=== PATIENT | female | born 1955 | race Caucasian/White ===

== ENCOUNTER 2016-09-16 15:09 | Emergency (ER) | payer OTHER, BC ==
[~2016-09-16] VITALS: Ht 165.1 cm; Wt 49.0 kg
[~2016-09-16 15:09] MED LIST: CMD5 PO; FLUT1INH INH; IPRASOL4 INH; OXGN; PHEN-1043 PO; WARF2.5T8 PO
[2016-09-16 15:11] VITALS: TEMP 36.9; Ht 165.1 cm; Wt 49.0 kg
[2016-09-16 15:59] VITALS: O2SAT 96
[2016-09-16] MEDS ORDERED: HYDROCODONE/ACETAMOPHEN 5/325MG TAB PO ONE (16:00)
[2016-09-16] MEDS ORDERED: DOXY100T PO (16:08)
[2016-09-16] MEDS ORDERED: WARF5TAB90 PO (16:08)
[2016-09-16] MEDS ORDERED: FLUT1INH INH (16:08)
[2016-09-16] MEDS ORDERED: CALC-51 PO (16:08)
[2016-09-16] MEDS ORDERED: PRLSR20 PO (16:08)
[2016-09-16] MEDS ORDERED: AZIT250T PO (16:08)
--- NOTE | 2016-09-16 16:11 | EMERGENCY ROOM VISIT NOTE ---
History Report prepared by Damir: Zeke Youssef Under the Supervision of: Dr. Kal Roberts M.D. First contact with patient: 15:15 Chief Complaint: BACK PAIN Stated Complaint: BACK PAIN History of Present Illness The patient is a 61 year old female who presents to the Emergency Room with complaints of worsening lower/lumbar back pain that began one week prior to arrival. The patient states that her pain is worsened by standing from a seated position, and standing in general. She denies any recent injury that could have caused her pain, but did note that the day before the pain began she was sitting on the floor cleaning her cabinets. She has been taking Tylenol for her pain, and took her last dose this morning at 0700. She has also been using hot baths and Bengay therapeutically, which improves the pain only for a short time. The patient denies any secondary numbness, weakness, dysuria, incontinence , or shortness of breath. She does have a history of kidney stone, and states that these symptoms feel similar to those she felt when she had a stone one year ago. She denies having any urinary symptoms, or blood in the urine. The patient has a history of DVT and is currently on Coumadin. 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 Please see Additional Medical History Sheet. Past Medical & Surgical Medical Problems: (1) Abdominal pain (2) Benign hypertension (3) Carotid artery stenosis (4) CHRONIC HEPATITIS C W/O HEPATIC COMA (5) Chronic respiratory failure (6) COPD (chronic obstructive pulmonary disease) (7) CYTOMEGALOVIRAL DISEASE (8) H/O pneumothorax (9) History of Clostridium difficile colitis (10) History of DVT (deep vein thrombosis) (11) Pneumonia (12) Sarcoidosis (13) Ulcerative colitis (14) UTI (urinary tract infection) Surgical Problems: (1) S/p bullectomy (2) S/P insertion of IVC (inferior vena caval) filter (3) S/p thoracoscopy Family History Diabetes mellitus FH: kidney failure MOTHER Gallbladder disease Heart disease Lung disease Social History Smoking Status: Former Smoker Alcohol Use: none Drug Use: none Marital Status: Housing Status: lives with family Occupation Status: retired Current/Historical Medications Scheduled Azithromycin (Zithromax), 250 MG PO - Calcium Carbonate-Vitamin D (Calcium), 1 TAB PO BID Cholecalciferol (Vitamin D 1000 Unit), 1,000 INTER.UNIT PO DAILY Doxycycline Hyclate (Doxycycline Hyclate), 1 TAB PO BID Fluticasone Furoate-Vilanterol (Breo Ellipta), 1 PUFF INH DAILY Mesalamine (Lialda), 2.4 GM PO DAILY Omeprazole (Prilosec), 20 MG PO BID Potassium Chloride Microencaps (Potassium Chloride Er), 1 TAB PO DAILY Prednisone (Prednisone), 10 MG PO DAILY Warfarin Sod (Jantoven), 2.5 MG PO 3XWK Warfarin Sodium (Coumadin), 5 MG PO 4XWK Scheduled PRN Hydrocodone/Acetaminophen 5MG/325MG (Zachary 5MG/325MG), 1 TABLETS PO Q4 PRN for Pain Ipratropium-Albuterol (Duoneb), 1 TREATMENT INH QID PRN for SOB/Wheezing Allergies Coded Allergies: Levofloxacin (Verified Allergy, Mild, rash, 03/10/16) Penicillins (Verified Allergy, Unknown, Amoxil - rash, 03/11/16) RASH mother told her as a child, has never had it as an adult. tolerates cefalosporins fine Theophylline (Verified Adverse Reaction, Mild, Headache, 03/10/16) HEADACHE Bacitracin (Verified Adverse Reaction, Unknown, infection, 03/10/16) Neomycin (Verified Adverse Reaction, Unknown, infection, 03/10/16) Polymyxin B (Verified Adverse Reaction, Unknown, infection, 03/10/16) Physical Exam Vital Signs Date Time Temp Pulse Resp B/P Pulse Ox O2 Delivery O2 Flow Rate FiO2 09/16/16 18:15 98 20 152/110 98 09/16/16 18:02 98 152/114 98 Nasal Cannula 2.0 09/16/16 16:48 95 18 161/86 97 Room Air 09/16/16 15:59 96 Nasal Cannula 3.0 09/16/16 15:11 36.9 122 20 164/86 93 Nasal Cannula 2.0 Physical Exam GENERAL: Patient awake, alert, oriented x 3. In mild to moderate distress. On oxygen. Patient follows commands. Patient does not appear toxic. Patient is adequately hydrated and well-nourished. SKIN: No erythema, pallor, cyanosis or rash HEENT: Normal head, pupils equal, reactive to light and accommodation. LUNGS: Clear to auscultation. No wheezes, no rales, no rhonchi. HEART: No murmurs. No gallops. No rubs ABDOMEN: No masses, no rebound, no hepatomegaly or splenomegaly. BACK: Tenderness above the right iliac crest. Lumbar pain, right greater than the left. No CVA tenderness. Negative Straight leg raise. Majority of pain under back extension. EXTREMITIES: No signs of trauma. No pedal or pretibial edema. No calf or thigh tenderness. NEUROLOGIC: Cranial nerves II-XII within normal limits. No gross motor sensory function deficits. Medical Decision & Procedures ER Provider Diagnostic Interpretation: CT results as stated below per my review and radiologist interpretation: CT SCAN OF THE ABDOMEN AND PELVIS WITHOUT IV CONTRAST CLINICAL HISTORY: Back pain. COMPARISON STUDY: Abdominal CT dated 03/10/2016. TECHNIQUE: CT scan of the abdomen and pelvis is performed from the lung bases to the proximal femora. Images are reviewed in the axial, sagittal, and coronal planes. IV contrast was not administered for this examination. Automated dose control exposure was utilized. CT DOSE: 393.18 mGycm FINDINGS: Lung bases: The heart is normal in size and without pericardial effusion. The coronary arteries are densely calcified. Advanced emphysema is noted at the lung bases. There is bibasilar scarring versus atelectasis. No airspace consolidation or pleural effusion is seen. Liver: The unenhanced liver is normal in size, contour, and attenuation. There is no intrahepatic biliary ductal dilatation. Gallbladder: Calcified gallstones are identified. There is no CT evidence of acute cholecystitis. Spleen: Normal in size and attenuation. Pancreas: Unremarkable. Adrenal glands: Unremarkable. Kidneys: The unenhanced kidneys are atrophic and without hydronephrosis. There is an 8 mm nonobstructing calculus in the right upper pole and an additional nonobstructing calculus in the interpolar left kidney. Foci of cortical scarring are seen in the left kidney. There is no evidence of contour deforming renal mass lesion. Abdominal vasculature: The abdominal aorta is normal in course and caliber noting advanced atherosclerotic calcification. An IVC filter is in place at the level of the renal veins. Bowel: The small bowel and colon are normal in course and caliber. The appendix is not identified and reported surgically absent. Peritoneum: There is no intraperitoneal free air or abdominal ascites. Lymphadenopathy: None. Pelvic viscera: The bladder, uterus, and adnexa are normal as visualized. Skeletal structures: The skeletal structures are osteopenic. There is a moderate compression deformity of T12. No retropulsion of fragments is seen. The degree of collapse has modestly increased from 03/10/2016. No lytic or blastic lesions are seen. IMPRESSION: 1. There are no acute infectious or inflammatory findings in the abdomen or pelvis. 2. Bilateral nonobstructing renal calculi. 3. Advanced emphysema. 4. Cholelithiasis. 5. There is a moderate chronic compression deformity of T12. The degree of collapse has increased from 03/10/2016. No retropulsion of fragments is identified. 6. Additional changes as above. Calcifications are noted along the splenic capsule, and may be related to remote trauma. Electronically signed by: Mook Rehman M.D. 09/16/2016 4:35 PM Dictated Date/Time: 09/16/2016 4:23 PM Laboratory Results 09/16/16 16:00 Red Blood Count 4.67, Mean Corpuscular Volume 93.6, Mean Corpuscular Hemoglobin 30.8, Mean Corpuscular Hemoglobin Concent 33.0, Mean Platelet Volume 9.0, Neutrophils (%) (Auto) 70.7, Lymphocytes (%) (Auto) 20.2, Monocytes (%) (Auto) 7.2, Eosinophils (%) (Auto) 1.5, Basophils (%) (Auto) 0.1, Neutrophils # (Auto) 5.28, Lymphocytes # (Auto) 1.51, Monocytes # (Auto) 0.54, Eosinophils # (Auto) 0.11, Basophils # (Auto) 0.01 09/16/16 16:00 Test 09/16/16 15:42 09/16/16 16:00 09/16/16 16:10 Urine Color YELLOW Urine Appearance CLEAR (CLEAR) Urine pH 5.5 (4.5-7.5) Urine Specific [place] 1.012 (1.000-1.030) Urine Protein NEG (NEG) Urine Glucose (UA) NEG (NEG) Urine Ketones TRACE (NEG) Urine Occult Blood NEG (NEG) Urine Nitrite NEG (NEG) Urine Bilirubin NEG (NEG) Urine Urobilinogen NEG (NEG) Urine Leukocyte Esterase SMALL (NEG) Urine WBC (Auto) 10-30 /hpf (0-5) Urine RBC (Auto) 0-4 /hpf (0-4) Urine Hyaline Casts (Auto) 1-5 /lpf (0-5) Urine Epithelial Cells (Auto) 10-20 /lpf (0-5) Urine Bacteria (Auto) NEG (NEG) White Blood Count 7.47 K/uL (4.8-10.8) Red Blood Count 4.67 M/uL (4.2-5.4) Hemoglobin 14.4 g/dL (12.0-16.0) Hematocrit 43.7 % (37-47) Mean Corpuscular Volume 93.6 fL (80-100) Mean Corpuscular Hemoglobin 30.8 pg (25-34) Mean Corpuscular Hemoglobin Concent 33.0 g/dl (32-36) Platelet Count 187 K/uL (130-400) Mean Platelet Volume 9.0 fL (7.4-10.4) Neutrophils (%) (Auto) 70.7 % Lymphocytes (%) (Auto) 20.2 % Monocytes (%) (Auto) 7.2 % Eosinophils (%) (Auto) 1.5 % Basophils (%) (Auto) 0.1 % Neutrophils # (Auto) 5.28 K/uL (1.4-6.5) Lymphocytes # (Auto) 1.51 K/uL (1.2-3.4) Monocytes # (Auto) 0.54 K/uL (0.11-0.59) Eosinophils # (Auto) 0.11 K/uL (0-0.5) Basophils # (Auto) 0.01 K/uL (0-0.2) RDW Standard Deviation 47.3 fL (36.4-46.3) RDW Coefficient of Variation 13.8 % (11.5-14.5) Immature Granulocyte % (Auto) 0.3 % Immature Granulocyte # (Auto) 0.02 K/uL (0.00-0.02) Anion Gap 7.0 mmol/L (3-11) Est Creatinine Clear Calc Drug Dose 61.0 ml/min Estimated GFR () 101.6 Estimated GFR (Non- 87.7 BUN/Creatinine Ratio 24.8 (10-20) Calcium Level 8.6 mg/dl (8.5-10.1) Prothrombin Time 37.0 SECONDS (9.0-12.0) Prothromb Time International Ratio 3.3 (0.9-1.1) Laboratory results as stated above per my review. Medications Administered Medications (Trade) Dose Ordered Sig/Devora Route Start Time Stop Time Status Last Admin Dose Admin Acetaminophen/ Hydrocodone Bitart (Zachary 5/325 Tab) 1 tab ONE ONCE PO 09/16/16 16:00 09/16/16 16:01 DC 09/16/16 16:06 1 TAB Acetaminophen/ Hydrocodone Bitart (Zachary 5/325mg Home Pack) 1 homepack UD ONCE PO 09/16/16 18:30 09/16/16 18:31 DC 09/16/16 18:25 1 HOMEPACK ED Course 1516: Patient was evaluated by the Medical Student at this time. 1546: Past medical records reviewed. The patient was evaluated in room A3. A complete history and physical examination was performed. 1600: Ordered Acetaminophen 1 tablet PO. 1733: Upon reevaluation, the patient appeared to have improvement of her back pain symptoms. I discussed today's findings with her. She verbalized agreement of the treatment plan. The patient was discharged home. Medical Decision Differential diagnosis includes: Fracture, muscle strain, kidney stone, bladder stone, herniated disk. The patient claims that her pain is similar to what she had with a kidney stone in the past. CT does not reveal a ureteral calculus. The patient does have an old but more compressed T12 compression fracture. Most likely this is the source of her pain. The patient did get some relief with Zachary which she will take at home. The patient is also hypokalemic. The patient has numerous white cells in the urine but this appears to be contaminated specimen. We await culture results of her urine prior to antibiotic treatment. [place] Drug Monitoring Program Search Results: patient reviewed within database, no issues identified Impression Primary Impression: T12 compression fracture Additional Impression: Hypokalemia Scribe Attestation The scribe's documentation has been prepared under my direction and personally reviewed by me in its entirety. I confirm that the note above accurately reflects all work, treatment, procedures, and medical decision making performed by me. Departure Information Dispostion Home / Self-Care Prescriptions Hydrocodone/Acetaminophen 5MG/325MG (Zachary 5MG/325MG) Tab 1 TABLETS PO Q4 Y for Pain, #20 TAB PRN PAIN Prov: Kal Roberts M.D. 09/16/16 Potassium Chloride Microencaps (POTASSIUM CHLORIDE ER) 10 Meq Tab 1 TAB PO DAILY for 30 Days, #30 TAB 5 Refills Prov: Kal Roberts M.D. 09/16/16 Referrals James Barahona M.D. (PCP) Patient Instructions ED Fx Comp Vertebral, Hypokalemia Dc, My [facility] Additional Instructions Take 1 potassium pill daily. 650 mg of Tylenol every 4-6 hours as needed for pain. 1 Zachary every 4 hours as needed for more severe pain. Do not take Zachary and Tylenol at the same time. Do not drive or operate machinery while taking Zachary. Follow-up with your family physician within the next 10 days. Apply heat intermittently to your back over the next 3 days. Problem Qualifiers
[2016-09-16 16:12] LABS: URINE APPEARANCE CLEAR (CLEAR); URINE BILIRUBIN NEG (NEG); URINE COLOR YELLOW; URINE NITRITE NEG (NEG); URINE PH 5.5 (4.5-7.5); URINE SPECIFIC GRAVITY 1.012 (1.000-1.030); UROBILINOGEN NEG (NEG); ZZUR CULT IF INDIC CLEAN CATCH YES
[2016-09-16 16:22] LABS: BASO % 0.1 %; BASO ABS # 0.01 K/uL (0-0.2); COMPLETE YES; EOS % 1.5 %; HEMATOCRIT 43.7 % (37-47); IG% 0.3 %; LYMPH % 20.2 %; LYMPH ABS # 1.51 K/uL (1.2-3.4); MEAN CELL VOLUME 93.6 fL (80-100); MEAN CORPUSCULAR HEMOGLOBIN 30.8 pg (25-34); MONO % 7.2 %; NEUT % 70.7 %; PLATELET COUNT 187 K/uL (130-400); RED BLOOD COUNT 4.67 M/uL (4.2-5.4); WHITE BLOOD COUNT 7.47 K/uL (4.8-10.8)
[2016-09-16 16:22] LABS: MANUAL MICROSCOPIC REQUIRED? NO; REVIEW REQ? YES
--- NOTE | 2016-09-16 16:36 | DIAGNOSTIC IMAGING REPORT ---
CT SCAN OF THE ABDOMEN AND PELVIS WITHOUT IV CONTRAST CLINICAL HISTORY: Back pain. COMPARISON STUDY: Abdominal CT dated 03/10/2016. TECHNIQUE: CT scan of the abdomen and pelvis is performed from the lung bases to the proximal femora. Images are reviewed in the axial, sagittal, and coronal planes. IV contrast was not administered for this examination. Automated dose control exposure was utilized. CT DOSE: 393.18 mGycm FINDINGS: Lung bases: The heart is normal in size and without pericardial effusion. The coronary arteries are densely calcified. Advanced emphysema is noted at the lung bases. There is bibasilar scarring versus atelectasis. No airspace consolidation or pleural effusion is seen. Liver: The unenhanced liver is normal in size, contour, and attenuation. There is no intrahepatic biliary ductal dilatation. Gallbladder: Calcified gallstones are identified. There is no CT evidence of acute cholecystitis. Spleen: Normal in size and attenuation. Pancreas: Unremarkable. Adrenal glands: Unremarkable. Kidneys: The unenhanced kidneys are atrophic and without hydronephrosis. There is an 8 mm nonobstructing calculus in the right upper pole and an additional nonobstructing calculus in the interpolar left kidney. Foci of cortical scarring are seen in the left kidney. There is no evidence of contour deforming renal mass lesion. Abdominal vasculature: The abdominal aorta is normal in course and caliber noting advanced atherosclerotic calcification. An IVC filter is in place at the level of the renal veins. Bowel: The small bowel and colon are normal in course and caliber. The appendix is not identified and reported surgically absent. Peritoneum: There is no intraperitoneal free air or abdominal ascites. Lymphadenopathy: None. Pelvic viscera: The bladder, uterus, and adnexa are normal as visualized. Skeletal structures: The skeletal structures are osteopenic. There is a moderate compression deformity of T12. No retropulsion of fragments is seen. The degree of collapse has modestly increased from 03/10/2016. No lytic or blastic lesions are seen. IMPRESSION: 1. There are no acute infectious or inflammatory findings in the abdomen or pelvis. 2. Bilateral nonobstructing renal calculi. 3. Advanced emphysema. 4. Cholelithiasis. 5. There is a moderate chronic compression deformity of T12. The degree of collapse has increased from 03/10/2016. No retropulsion of fragments is identified. 6. Additional changes as above. Calcifications are noted along the splenic capsule, and may be related to remote trauma. Electronically signed by: Mook Rehman M.D. 09/16/2016 4:35 PM Dictated Date/Time: 09/16/2016 4:23 PM
[2016-09-16 16:41] LABS: BUN/CREATININE RATIO 24.8 (10-20); CALCIUM 8.6 mg/dl (8.5-10.1); CREATININE 0.73 mg/dl (0.60-1.20); POTASSIUM 3.2 mmol/L (3.5-5.1)
[2016-09-16] MEDS ORDERED: CHOL100027 PO (16:41)
[2016-09-16] MEDS ORDERED: MESA1.2T PO (16:41)
[2016-09-16] MEDS ORDERED: POTA10TA32 PO (17:17)
[2016-09-16] MEDS ORDERED: HYDR-5688 PO (17:20)
[2016-09-16 17:28] LABS: INR 3.3 (0.9-1.1)
[2016-09-16 18:15] VITALS: BP 152/110; PULSE 98; O2SAT 98
[2016-09-16] MEDS ORDERED: NORCO 5/325MG HOME PACK PO ONE (18:30)
[2016-09-16] MEDS ORDERED: PRED-301 PO (22:29)
[2017-04-02] MEDS ORDERED: VNCS125 PO (15:31)
[2017-04-02] MEDS ORDERED: LCTX PO (15:31)
== END 2016-09-16 18:32 | disposition home or self-care (01) ==
LOC: C.EDB 15:10 → C.EDA 18:32
DX: S22.089A Unspecified fracture of T11-T12 vertebra, initial encounter for closed fracture (principal); E87.6 Hypokalemia; X58.XXXA Exposure to other specified factors, initial encounter; I10 Essential (primary) hypertension; J44.9 Chronic obstructive pulmonary disease, unspecified; Z86.718 Personal history of other venous thrombosis and embolism; Z86.711 Personal history of pulmonary embolism; Z79.01 Long term (current) use of anticoagulants; B18.2 Chronic viral hepatitis C; I25.10 Atherosclerotic heart disease of native coronary artery without angina pectoris; Z87.891 Personal history of nicotine dependence; Z79.899 Other long term (current) drug therapy

== ENCOUNTER 2017-03-31 11:21 | Inpatient (IN) | payer OTHER, BC ==
[~2017-03-31] VITALS: Ht 157.5 cm; Wt 48.7 kg
[~2017-03-31 11:21] MED LIST changes: +AZIT250T PO; +CALC-51 PO; +CHOL100027 PO; -CMD5 PO; +DOXY100T PO; +MESA1.2T PO; -OXGN; -PHEN-1043 PO; +POTA10TA32 PO; +PRED-301 PO; +PRLSR20 PO; +WARF5TAB90 PO
[2017-03-31] MEDS ORDERED: SODIUM CHLORIDE 0.9% 1000ML 500 ML IV STA (11:51)
[2017-03-31] MEDS ORDERED: PHYTONADIONE INJ 10 MG in SODIUM CHLORIDE 0.9% 50ML 50 ML IV ONE (12:00)
--- NOTE | 2017-03-31 12:15 | EMERGENCY ROOM VISIT NOTE ---
History Report prepared by Damir: Beverley Singh Under the Supervision of: Dr. Mook Miles M.D. First contact with patient: 11:44 Chief Complaint: RECTAL BLEEDING Stated Complaint: BLEEDING FROM THE RECTUM-COUMADIN PATIENT Nursing Triage Summary: Pt c/o bleeding from Rectum x a couple days. Constant. Coumadin daily. Denies N/V/D Constipation History of Present Illness The patient is a 61 year old female who presents to the Emergency Room with complaints of intermittent rectal bleeding for the past 2 days. The patient noticed some bright red blood in her stool two days ago. She states that it worsened yesterday. Today she was at [facility] for an appointment and felt that she needed to have a bowel movement. She went to the bathroom and states that it was just bright red blood, there was no stool at all. She was wearing two diapers and they were soaked through with blood. The patient is on Coumadin for a history of blood clots. Her INR was checked last week and was therapeutic. She denies fevers, abdominal pain, nausea, vomiting, diarrhea, and any history of GI bleeding. She does report feeling "woozy." She rates her discomfort as a 1.5/10 in severity. She is on 2L of O2 at all times. Source of History: patient, family (daughter) Onset: 2 days ago Position: other (rectum) Symptom Intensity: 1.5/10 Quality: other (bleeding) Timing: intermittent, worsening Associated Symptoms: + hematochezia, No fevers, No nausea, No vomiting, No abdominal pain, No diarrhea Review of Systems See HPI for pertinent positives & negatives. A total of 10 systems reviewed and were otherwise negative. Past Medical & Surgical Medical Problems: (1) Abdominal pain (2) Benign hypertension (3) Carotid artery stenosis (4) CHRONIC HEPATITIS C W/O HEPATIC COMA (5) Chronic respiratory failure (6) COPD (chronic obstructive pulmonary disease) (7) CYTOMEGALOVIRAL DISEASE (8) H/O pneumothorax (9) History of Clostridium difficile colitis (10) History of DVT (deep vein thrombosis) (11) Pneumonia (12) Sarcoidosis (13) Ulcerative colitis (14) UTI (urinary tract infection) Surgical Problems: (1) S/p bullectomy (2) S/P insertion of IVC (inferior vena caval) filter (3) S/p thoracoscopy Family History Diabetes mellitus FH: kidney failure MOTHER Gallbladder disease Heart disease Lung disease Social History Smoking Status: Former Smoker Alcohol Use: none Drug Use: none Marital Status: Housing Status: lives with family Occupation Status: retired Current/Historical Medications Scheduled Azithromycin (Zithromax), 250 MG PO - Cholecalciferol (Vitamin D 1000 Unit), 1,000 INTER.UNIT PO DAILY Denosumab (Prolia), 1 ML SQ Q6MO Fluticasone Furoate-Vilanterol (Breo Ellipta), 1 PUFF INH DAILY Mesalamine (Lialda), 2.4 GM PO DAILY Omeprazole (Prilosec), 20 MG PO BID Warfarin Sod (Jantoven), 2.5 MG PO 3XWK Warfarin Sodium (Coumadin), 5 MG PO 4XWK Scheduled PRN Levalbuterol (Levalbuterol HCl), 1.25 MG NEB Q4 PRN for Wheezing Allergies Coded Allergies: Levofloxacin (Verified Allergy, Mild, rash, 03/31/17) Penicillins (Verified Allergy, Unknown, Amoxil - rash, 03/31/17) RASH mother told her as a child, has never had it as an adult. tolerates cefalosporins fine Phytonadione (Unverified Allergy, Unknown, severe back pain, red face , ) Reaction from IV form, PO form ok Theophylline (Verified Adverse Reaction, Mild, Headache, 03/31/17) HEADACHE Bacitracin (Verified Adverse Reaction, Unknown, infection, 03/31/17) Neomycin (Verified Adverse Reaction, Unknown, infection, 03/31/17) Polymyxin B (Verified Adverse Reaction, Unknown, infection, 03/31/17) Physical Exam Vital Signs Date Time Temp Pulse Resp B/P (MAP) Pulse Ox O2 Delivery O2 Flow Rate FiO2 03/31/17 13:24 96 18 03/31/17 13:16 154/94 03/31/17 13:09 91 19 88 03/31/17 13:04 152/86 03/31/17 12:54 95 20 100 03/31/17 12:46 167/92 03/31/17 12:39 104 19 100 03/31/17 12:34 167/101 03/31/17 12:31 167/110 03/31/17 12:29 198/119 03/31/17 12:27 167/110 03/31/17 12:21 92 21 98 03/31/17 12:19 96 Nasal Cannula 2.0 03/31/17 12:09 99 03/31/17 11:58 150/94 03/31/17 11:32 36.6 123 20 147/94 96 Room Air 2.0 Physical Exam GENERAL: Patient is in no acute distress. HEENT: No acute trauma, normocephalic atraumatic, mucous membranes moist, no nasal congestion, no scleral icterus. NECK: No stridor, no adenopathy, no meningismus, trachea is midline. LUNGS: Diminished breath sounds bilaterally, breath sounds equal, no wheezing or rhonchi. HEART: Tachycardic rate and regular rhythm, no murmurs. ABDOMEN: Soft, nontender, bowel sounds positive, no hernias, no peritonitis. RECTAL: Small hemorrhoids, no active bleeding from the hemorrhoids, bright red blood seen coming from within the rectum EXTREMITIES: No cyanosis or edema, full range of motion of all the joints without pain or difficulty, no signs for acute trauma. NEUROLOGIC: Oriented x 3, no acute motor or sensory deficits, no focal weakness. SKIN: No rash, no jaundice, no diaphoresis. Medical Decision & Procedures ER Provider Diagnostic Interpretation: Radiology results as stated below per my review and radiologist interpretation: CHEST ONE VIEW PORTABLE CLINICAL HISTORY: GI bleed. COMPARISON STUDY: Chest radiograph and chest CT September 21, 2015. FINDINGS: No pneumothorax or pleural effusion is present. Blunting of the right costophrenic angle is chronic. There is no evidence of pulmonary edema. There are old right rib fractures. Right lung postsurgical findings are noted. Severe emphysema is noted. There is left apical scarring. There is no consolidation to suggest pneumonia. Cardiomediastinal silhouette is normal. IMPRESSION: 1. No acute cardiopulmonary findings. 2. Severe emphysema. Electronically signed by: Faustino August M.D. 03/31/2017 12:28 PM Dictated Date/Time: 03/31/2017 12:26 PM Laboratory Results 03/31/17 12:05 Red Blood Count 4.36, Mean Corpuscular Volume 91.3, Mean Corpuscular Hemoglobin 28.9, Mean Corpuscular Hemoglobin Concent 31.7, Mean Platelet Volume 9.5, Neutrophils (%) (Auto) 65.2, Lymphocytes (%) (Auto) 23.3, Monocytes (%) (Auto) 9.5, Eosinophils (%) (Auto) 1.1, Basophils (%) (Auto) 0.7, Neutrophils # (Auto) 3.97, Lymphocytes # (Auto) 1.42, Monocytes # (Auto) 0.58, Eosinophils # (Auto) 0.07, Basophils # (Auto) 0.04 03/31/17 12:05 Test 03/31/17 12:05 White Blood Count 6.09 K/uL (4.8-10.8) Red Blood Count 4.36 M/uL (4.2-5.4) Hemoglobin 12.6 g/dL (12.0-16.0) Hematocrit 39.8 % (37-47) Mean Corpuscular Volume 91.3 fL (80-100) Mean Corpuscular Hemoglobin 28.9 pg (25-34) Mean Corpuscular Hemoglobin Concent 31.7 g/dl (32-36) Platelet Count 216 K/uL (130-400) Mean Platelet Volume 9.5 fL (7.4-10.4) Neutrophils (%) (Auto) 65.2 % Lymphocytes (%) (Auto) 23.3 % Monocytes (%) (Auto) 9.5 % Eosinophils (%) (Auto) 1.1 % Basophils (%) (Auto) 0.7 % Neutrophils # (Auto) 3.97 K/uL (1.4-6.5) Lymphocytes # (Auto) 1.42 K/uL (1.2-3.4) Monocytes # (Auto) 0.58 K/uL (0.11-0.59) Eosinophils # (Auto) 0.07 K/uL (0-0.5) Basophils # (Auto) 0.04 K/uL (0-0.2) RDW Standard Deviation 43.4 fL (36.4-46.3) RDW Coefficient of Variation 13.0 % (11.5-14.5) Immature Granulocyte % (Auto) 0.2 % Immature Granulocyte # (Auto) 0.01 K/uL (0.00-0.02) Prothrombin Time 21.0 SECONDS (9.0-12.0) Prothromb Time International Ratio 1.9 (0.9-1.1) Activated Partial Thromboplast Time 35.1 SECONDS (21.0-31.0) Partial Thromboplastin Ratio 1.4 Anion Gap 4.0 mmol/L (3-11) Est Creatinine Clear Calc Drug Dose 64.0 ml/min Estimated GFR () 106.9 Estimated GFR (Non- 92.2 BUN/Creatinine Ratio 17.2 (10-20) Calcium Level 8.9 mg/dl (8.5-10.1) Troponin I < 0.015 ng/ml (0-0.045) Laboratory results reviewed by me. Medications Administered Medications (Trade) Dose Ordered Sig/Devora Route Start Time Stop Time Status Last Admin Dose Admin Sodium Chloride 500 ml @ 999 mls/hr Q31M STAT IV 03/31/17 11:51 03/31/17 12:21 DC 03/31/17 11:51 999 MLS/HR Sodium Chloride 1,000 ml @ 200 mls/hr Q5H STAT IV 03/31/17 11:51 03/31/17 15:15 DC 03/31/17 13:05 200 MLS/HR Phytonadione 10 mg/Sodium Chloride 51 ml @ 102 mls/hr ONE ONCE IV 03/31/17 12:00 03/31/17 12:29 DC 03/31/17 12:21 102 MLS/HR Diphenhydramine HCl (Benadryl Inj) 50 mg STK-MED ONCE .ROUTE 03/31/17 12:31 03/31/17 12:32 DC 03/31/17 12:25 25 MG Phytonadione (Mephyton Tab) 2.5 mg NOW STAT PO 03/31/17 12:45 03/31/17 12:47 DC 03/31/17 13:01 2.5 MG ECG Indication: tachycardia Rate (beats per minute): 99 Rhythm: normal sinus Findings: no acute ischemic change, no ectopy ED Course 1144: The patient was evaluated in room C8. A complete history and physical exam was performed. 1151: NSS 1000 ml @ 200 mls/hr IV, NSS 500 ml @ 999 mls/hr IV 1200: Phytonadione 10 mg/Sodium Chloride IV - discontinued 1231: Benadryl 25 mg IV 1234: I reevaluated the patient. She had a reaction to the vitamin K IV. The medication was discontinued. 1242: I spoke with Dr. Ojeda of the anticoagulation clinic. We discussed the patient's case and she recommended oral vitamin K. 1245: Mephyton tab 2.5 mg PO 1246: I reassessed the patient at this time. She is feeling better and resting comfortably. I discussed the results and treatment plan with the patient. I answered all pertaining questions that she had. She expressed understanding and verbalized agreement. 1250: I spoke with Gisela Devine PA-C. We discussed the patients case. The patient will be evaluated by the [facility] for further management. Medical Decision Differential diagnoses includes coagulopathy, anemia, lower GI bleeding, hemorrhoidal bleeding, electrolyte imbalance, dehydration. There is no leukocytosis or concerning anemia. INR is 1.9, consistent with her Coumadin use. There was no significant electrolyte abnormality or kidney failure. Chest film did not show free air or pneumonia. EKG showed a sinus rhythm, no acute ischemia. Cardiac enzyme testing times one is not consistent with acute cardiac injury. The patient received IV saline, she was ordered for IV vitamin K but had a reaction, she became flushed and felt a sense of impending doom. She received IV Benadryl and the infusion was halted. She had almost immediate resolution of the redness and impending doom feeling when the vitamin K infusion was halted. I discussed her case with the coagulation warehouse consultant fitness sales consultant. Oral vitamin K was given, 2.5 mg. The patient's heart rate has decreased with IV saline, she seems to be resting comfortably. She is stable. The patient has hemorrhoids but appears to be bleeding internally. Given her coagulopathy, I do think a hospital stay is warranted. I spoke with the patient and case management. The on-call hospitalist was consulted. Medication Reconcilliation Current Medication List: was personally reviewed by me Blood Pressure Screening Patient's blood pressure: Elevated blood pressure Blood pressure disposition: Elevated BP felt to be situational Consults Time Called: 1239 Consulting Physician: Dr. Ojeda Returned Call: [address] Ojeda of the anticoagulation clinic. We discussed the patient 's case and she recommended oral vitamin K. Additional Consults: Time Called: 1248 Consulted Physician: Gisela Devine PA-C Returned Call: 1250 Additional Comments: I spoke with Gisela Devine PA-C. We discussed the patients case. The patient will be evaluated by the [facility] for further management. Impression Primary Impression: Rectal bleeding Additional Impression: Coagulopathy Scribe Attestation The scribe's documentation has been prepared under my direction and personally reviewed by me in its entirety. I confirm that the note above accurately reflects all work, treatment, procedures, and medical decision making performed by me. Departure Information Dispostion Being Evaluated By Hospitalist Referrals No Doctor, Assigned (PCP) Patient Instructions My [facility] Problem Qualifiers
[2017-03-31] MEDS: SODIUM CHLORIDE 0.9% 1000ML 1,000 ML IV STA ×2 (12:21→13:05)
[2017-03-31 12:23] LABS: BASO % 0.7 %; BASO ABS # 0.04 K/uL (0-0.2); COMPLETE YES; EOS % 1.1 %; HEMATOCRIT 39.8 % (37-47); IG% 0.2 %; LYMPH % 23.3 %; LYMPH ABS # 1.42 K/uL (1.2-3.4); MEAN CELL VOLUME 91.3 fL (80-100); MEAN CORPUSCULAR HEMOGLOBIN 28.9 pg (25-34); MEAN CORPUSCULAR HGB CONC 31.7 g/dl (32-36); MEAN PLATELET VOLUME 9.5 fL (7.4-10.4); MONO % 9.5 %; NEUT % 65.2 %; PLATELET COUNT 216 K/uL (130-400); RED BLOOD COUNT 4.36 M/uL (4.2-5.4); WHITE BLOOD COUNT 6.09 K/uL (4.8-10.8)
--- NOTE | 2017-03-31 12:30 | DIAGNOSTIC IMAGING REPORT ---
CHEST ONE VIEW PORTABLE CLINICAL HISTORY: GI bleed. COMPARISON STUDY: Chest radiograph and chest CT September 21, 2015. FINDINGS: No pneumothorax or pleural effusion is present. Blunting of the right costophrenic angle is chronic. There is no evidence of pulmonary edema. There are old right rib fractures. Right lung postsurgical findings are noted. Severe emphysema is noted. There is left apical scarring. There is no consolidation to suggest pneumonia. Cardiomediastinal silhouette is normal. IMPRESSION: 1. No acute cardiopulmonary findings. 2. Severe emphysema. Electronically signed by: Faustino August M.D. 03/31/2017 12:28 PM Dictated Date/Time: 03/31/2017 12:26 PM
[2017-03-31] MEDS ORDERED: DiphenhydrAMINE HCL 50 MG/ML VIAL ONE (12:31)
[2017-03-31 12:37] LABS: INR 1.9 (0.9-1.1); PARTIAL THROMBOPLASTIN RATIO 1.4
[2017-03-31 12:45] LABS: BLOOD UREA NITROGEN 12 mg/dl (7-18); BUN/CREATININE RATIO 17.2 (10-20); CALCIUM 8.9 mg/dl (8.5-10.1); CARBON DIOXIDE 31 mmol/L (21-32); CHLORIDE 104 mmol/L (98-107); GLUCOSE 95 mg/dl (70-99); POTASSIUM 4.3 mmol/L (3.5-5.1); SODIUM 139 mmol/L (136-145)
[2017-03-31] MEDS ORDERED: PHYTONADIONE 5 MG TAB PO STA (12:45)
[2017-03-31] MEDS ORDERED: ONDANSETRON INJ 2 MG/ML 2 ML VIAL IV PRN (13:30)
[2017-03-31 13:56] VITALS: O2SAT 99; Ht 157.5 cm; Wt 48.7 kg
--- NOTE | 2017-03-31 14:03 | Gastrointestinal Consultation ---
Gastrointestinal Consultation Date of Consultation: Mar 31, 2017 Attending Physician: Gisela Arambula Consulting Physician: Gordon Reason for Consultation: rectal bleeding History of Present Illness Patient is a 61 year old female w/ history of ulcerative colitis on lialda, treatment naive HCV, COPD, history of clots on coumadin and others listed below who presented to the ED for evaluation of rectal bleeding. Pt was seen and evaluated, chart reviewed. Family is at bedside. Pt tells me she was in her typical state of health up until three days ago. At this time she noted mild painless rectal bleeding. There was blood on the toilet tissue when she wiped. Her symptoms persisted mild the next day with a normal BM and some blood on the toilet tissue. However, last night and this AM, pt had increased urgency and was incontinent of a large amount of bright red blood. She notes there was no stool. She tells me the blood was bright red, without clots. No abdominal pain or rectal pain. the blood saturated through two depends. She has never had rectal bleeding like this before. She tells me this is different than her flares of ulcerative colitis as the bleeding is painless and more prominent. She tells me her SOB has been worse over the past few weeks. VSS, H&H stable, INR 1.9 Colonoscopy 2011: large amount of formed stool, unable to complete colonoscopy Past Medical/Surgical History Medical Problems: (1) Coagulopathy Status: Acute (2) Hypokalemia Status: Acute (3) Rectal bleeding Status: Acute (4) Renal stone Status: Acute (5) Respiratory acidosis Status: Acute (6) Respiratory distress Status: Acute (7) T12 compression fracture Status: Acute (8) Tachycardia Status: Acute (9) Vomiting Status: Acute Past Medical History: ulcerative colitis, HCV treatment naive, HTN, carotid artery stenosis, COPD, history of c.diff, history of DVT, sarcoidosis, UTI Past Surgical History: colonoscopy, flex sigmoidoscopy, bullectomy, IVC filter, thoracoscopy Family History Diabetes mellitus FH: kidney failure MOTHER Gallbladder disease Heart disease Lung disease Social History Smoking Status: Former Smoker Alcohol Use: none Drug Use: none Marital Status: Housing Status: lives with family Occupation Status: retired Allergies Coded Allergies: Levofloxacin (Verified Allergy, Mild, rash, 03/31/17) Penicillins (Verified Allergy, Unknown, Amoxil - rash, 03/31/17) RASH mother told her as a child, has never had it as an adult. tolerates cefalosporins fine Phytonadione (Unverified Allergy, Unknown, severe back pain, red face , ) Reaction from IV form, PO form ok Theophylline (Verified Adverse Reaction, Mild, Headache, 03/31/17) HEADACHE Bacitracin (Verified Adverse Reaction, Unknown, infection, 03/31/17) Neomycin (Verified Adverse Reaction, Unknown, infection, 03/31/17) Polymyxin B (Verified Adverse Reaction, Unknown, infection, 03/31/17) Current Medications Home Meds and Scripts Medications Dose Route/Sig Max Daily Dose Days Date Category Dose Instructions Potassium Chloride Er (Potassium Chloride Microencaps) 10 Meq Tab 1 Tab PO DAILY 30 09/16/16 Rx Calcium (Calcium Carbonate-Vitamin D) 1 Tab Tab 1 Tab PO BID 09/16/16 Reported Zithromax (Azithromycin) 250 Mg Tab 250 Mg PO --09/16/16 Reported Breo Ellipta (Fluticasone Furoate-Vilanterol) 1 Inh Inh 1 Puff INH DAILY 09/16/16 Reported Coumadin (Warfarin Sodium) 5 Mg Tab 5 Mg PO 4XWK 09/16/16 Reported TAKE THURSDAY, THURSDAY, THURSDAY & THURSDAY Doxycycline Hyclate 100 Mg Tab 1 Tab PO BID 10 09/16/16 Reported Prilosec (Omeprazole) 20 Mg Capcr 20 Mg PO BID 09/16/16 Reported Jantoven (Warfarin Sodium) 2.5 Mg Tab 2.5 Mg PO 3XWK 03/10/16 Reported thursday and Duoneb (Ipratropium-Albuterol) 3 Ml Nebu 1 Treatment INH QID PRN 09/21/15 Reported Lialda (Mesalamine) 1.2 Gm Tab 2.4 Gm PO DAILY 09/01/14 Reported Vitamin D 1000 Unit (Cholecalciferol) 1,000 Unit Cap 1,000 Inter.unit PO DAILY 09/01/14 Reported Review of Systems Constitutional: No fever, No chills Respiratory: + shortness of breath, No cough Cardiac: No chest pain, No edema Abdomen: + diarrhea, + GI bleeding, No pain, No nausea, No vomiting, No constipation Physical Exam Date Time Temp Pulse Resp B/P (MAP) Pulse Ox O2 Delivery O2 Flow Rate FiO2 03/31/17 13:46 125/95 03/31/17 13:39 90 22 99 03/31/17 13:31 138/89 03/31/17 13:24 96 18 03/31/17 13:16 154/94 03/31/17 13:09 91 19 88 03/31/17 13:04 152/86 03/31/17 12:54 95 20 100 03/31/17 12:46 167/92 03/31/17 12:39 104 19 100 03/31/17 12:34 167/101 03/31/17 12:31 167/110 03/31/17 12:29 198/119 03/31/17 12:27 167/110 03/31/17 12:21 92 21 98 03/31/17 12:19 96 Nasal Cannula 2.0 03/31/17 12:09 99 03/31/17 11:58 150/94 03/31/17 11:32 36.6 123 20 147/94 96 Room Air 2.0 General Appearance: no apparent distress Eyes: PERRL ENT: hearing grossly normal Neck: supple Respiratory/Chest: lungs clear, normal breath sounds Cardiovascular: regular rate, rhythm, no edema Abdomen: normal bowel sounds, non tender, soft, no organomegaly, no pulsatile mass Neurologic/Psych: alert, normal mood/affect, oriented x 3 Skin: normal color, warm/dry Laboratory Results Last 24 Hours Test 03/31/17 12:05 White Blood Count 6.09 K/uL Red Blood Count 4.36 M/uL Hemoglobin 12.6 g/dL Hematocrit 39.8 % Mean Corpuscular Volume 91.3 fL Mean Corpuscular Hemoglobin 28.9 pg Mean Corpuscular Hemoglobin Concent 31.7 g/dl Platelet Count 216 K/uL Mean Platelet Volume 9.5 fL Neutrophils (%) (Auto) 65.2 % Lymphocytes (%) (Auto) 23.3 % Monocytes (%) (Auto) 9.5 % Eosinophils (%) (Auto) 1.1 % Basophils (%) (Auto) 0.7 % Neutrophils # (Auto) 3.97 K/uL Lymphocytes # (Auto) 1.42 K/uL Monocytes # (Auto) 0.58 K/uL Eosinophils # (Auto) 0.07 K/uL Basophils # (Auto) 0.04 K/uL RDW Standard Deviation 43.4 fL RDW Coefficient of Variation 13.0 % Immature Granulocyte % (Auto) 0.2 % Immature Granulocyte # (Auto) 0.01 K/uL Prothrombin Time 21.0 SECONDS Prothromb Time International Ratio 1.9 Activated Partial Thromboplast Time 35.1 SECONDS Partial Thromboplastin Ratio 1.4 Sodium Level 139 mmol/L Potassium Level 4.3 mmol/L Chloride Level 104 mmol/L Carbon Dioxide Level 31 mmol/L Anion Gap 4.0 mmol/L Blood Urea Nitrogen 12 mg/dl Creatinine 0.70 mg/dl Est Creatinine Clear Calc Drug Dose 64.0 ml/min Estimated GFR () 106.9 Estimated GFR (Non- 92.2 BUN/Creatinine Ratio 17.2 Random Glucose 95 mg/dl Calcium Level 8.9 mg/dl Troponin I < 0.015 ng/ml Impression Patient is a 61 year old female w/ history of ulcerative colitis on Lialda, treatment naive HCV and COPD who presented through the ED for evaluation of three days of painless rectal bleeding. Pt explains the blood as bright red without clots, without any stools. Denies any abdominal pain, nausea, vomiting or upper abdominal symptoms. No black, tarry stools. She is on Coumadin, INR 1.9 with IV Vit K in the ED discontinued due to side effects. Given lack of abdominal pain, low suspicion of infectious or ischemic bleeding. Diverticular vs hemorrhoidal Plan Ok for clear liquids Hold anticoagulation No NSAIDs Stool c.diff Stool culture Trend H&H Monitor stools Transfuse as needed Bleeding scan if episodes of bleeding continue She is high risk for colonoscopy given her COPD, will re-evaluate need for repeat colonoscopy during admission GI will follow, please call with questions or concerns. ATTESTATION: I have performed a history and physical examination of this patient and reviewed the electronic record. Specifically, on history the bleeding was interspersed with normal formed brown stool, suggesting that active colitis is not the source of bleeding. I have discussed the case with BUDDY Harry. The above note reflects my findings, conclusions, and recommendations. Erwin Leyva MD
[2017-03-31] MEDS ORDERED: XPNINS125 NEB (14:15)
[2017-03-31] MEDS ORDERED: DNSIS60 SQ (14:15)
[2017-03-31] MEDS ORDERED: IV FLUIDS COMPLETED PRN (14:30)
[2017-03-31] MEDS ORDERED: LEVALBUTEROL 1.25MG/3ML NEB INH PRN (14:45)
[2017-03-31] MEDS ORDERED: PNEUMOCOCCAL POLYSACCHARIDES 25 MCG/0.5 ML VIAL/SYR IM. ONE (15:00)
[2017-03-31] MEDS ORDERED: PNEUMOCOCCAL ADMINISTRATION CHARGE ONE (15:00)
[2017-03-31 15:15] VITALS: BP 114/97; PULSE 87; TEMP 37; O2SAT 97
[2017-03-31] MEDS: SODIUM CHLORIDE 0.9% 1000ML 1,000 ML IV SCH ×2 (15:51→20:40)
--- NOTE | 2017-03-31 15:52 | History and Physical ---
History & Physical Date & Time of Service: Mar 31, 2017 at 14:16 Chief Complaint: Bleeding From The Rectum-Coumadin Patient Primary Care Physician: Dr. Barahona History of Present Illness Source: patient, family, clinic records This is a 61 y/o female with PMH of ulcerative colitis, history of C. diff, history of DVT on Coumadin, severe COPD requiring chronic oxygen, chronic hepatitis C, and other problems listed below who presents to the ED for rectal bleeding. Pt follows with Dr. Pires for gastro. Pt reports bright red blood per rectum, starting with an episode of spotting on the toilet tissue 2 days ago. Then yesterday had 3-4 episodes of toilet filling with bright red blood. Then today at [facility] pulmonology clinic, she felt the urge to defecate and was incontinent of blood filling her brief and a pad, then additionally filled the toilet with red blood. She was sent to the ER from clinic. Had 1 additional episode of bright red blood filling toilet in ER. There has been no stool with the blood, however did pass stool at 3:30 am this morning, she reports it was normal formed stool, but did not notice the appearance as the lights were off. She has not noticed any melena. Admits to intermittent low abdominal pain over past few days. Not in pain currently. Was eating normally until today- only had coffee and water, last liquid intake at 8: 30 am. Has felt "woozy" and lightheaded upon standing. Reports feeling more ARIAS over past few days when ambulating across parking lot. Not using her rescue nebulizer. Her inhaler was recently changed by pulmonology due to adverse reaction. Now on Breo Ellipta. Denies fever, chills, cough, chest pain, dyspnea at rest, edema, weight gain, dysuria, frequency. In the ER patient was treated with IV vitamin K and developed a reaction with facial flushing and redness and anxiety. Her O2 was increased to 4L NC. She was given Benadryl at which time her symptoms were already resolving. She feels better now. Tolerated PO vitamin K. Denies current steroid use, NSAIDs, or aspirin. Patient's last colonoscopy by Dr. Pires showed large amount of stool in colon, poor prep, mild patchy erythema throughout entire examined portion of colon and pseudopolyps, no significant evidence of active colitis. Biopsy of colon showed edema and nonspecific changes, active colitis was not evident. Denies hx of cirrhosis or PUD. Past Medical/Surgical History Medical Problems: (1) Benign hypertension Status: Chronic (2) Carotid artery stenosis Status: Chronic (3) CHRONIC HEPATITIS C W/O HEPATIC COMA Status: Chronic (4) Chronic respiratory failure Status: Chronic (5) COPD (chronic obstructive pulmonary disease) Permanent Comment: severe Status: Chronic (6) CYTOMEGALOVIRAL DISEASE Status: Resolved (7) H/O pneumothorax Permanent Comment: spontaneous Status: Chronic (8) History of Clostridium difficile colitis Status: Chronic (9) Pneumonia Status: Resolved (10) Sarcoidosis Status: Resolved (11) Ulcerative colitis Status: Resolved Surgical Problems: (1) S/p bullectomy Status: Chronic (2) S/P insertion of IVC (inferior vena caval) filter Status: Chronic (3) S/p thoracoscopy Permanent Comment: 09/13/2010- talc pleurodesis at bedside Status: Chronic Family History Diabetes mellitus FH: kidney failure MOTHER Gallbladder disease Heart disease Lung disease Social History Smoking Status: Former Smoker (prior 2-3 ppd x 46 years) Alcohol Use: occasionally Drug Use: none Marital Status: Housing status: lives with family Occupational Status: retired Immunizations History of Influenza Vaccine: Yes Influenza Vaccine Date: Dec 20, 2009 History of Tetanus Vaccine?: Yes History of Pneumococcal: Yes Pneumococcal Date: Dec 20, 2009 History of Hepatitis B Vaccine: Unknown Multi-Drug Resistant Organisms History of MDRO: No Allergies Coded Allergies: Levofloxacin (Verified Allergy, Mild, rash, 03/31/17) Penicillins (Verified Allergy, Unknown, Amoxil - rash, 03/31/17) RASH mother told her as a child, has never had it as an adult. tolerates cefalosporins fine Phytonadione (Unverified Allergy, Unknown, severe back pain, red face , ) Reaction from IV form, PO form ok Theophylline (Verified Adverse Reaction, Mild, Headache, 03/31/17) HEADACHE Bacitracin (Verified Adverse Reaction, Unknown, infection, 03/31/17) Neomycin (Verified Adverse Reaction, Unknown, infection, 03/31/17) Polymyxin B (Verified Adverse Reaction, Unknown, infection, 03/31/17) Home Medications Scheduled Azithromycin (Zithromax), 250 MG PO - Cholecalciferol (Vitamin D 1000 Unit), 1,000 INTER.UNIT PO DAILY Denosumab (Prolia), 1 ML SQ Q6MO Fluticasone Furoate-Vilanterol (Breo Ellipta), 1 PUFF INH DAILY Mesalamine (Lialda), 2.4 GM PO DAILY Omeprazole (Prilosec), 20 MG PO BID Warfarin Sod (Jantoven), 2.5 MG PO 3XWK Warfarin Sodium (Coumadin), 5 MG PO 4XWK Scheduled PRN Levalbuterol (Levalbuterol HCl), 1.25 MG NEB Q4 PRN for Wheezing Review of Systems Ten systems reviewed and negative except as noted in HPI. Physical Exam Vital Signs Date Time Temp Pulse Resp B/P (MAP) Pulse Ox O2 Delivery O2 Flow Rate FiO2 03/31/17 13:56 99 Nasal Cannula 2.0 03/31/17 13:46 125/95 03/31/17 13:39 90 22 99 03/31/17 13:31 138/89 03/31/17 13:24 96 18 03/31/17 13:16 154/94 03/31/17 13:09 91 19 88 03/31/17 13:04 152/86 03/31/17 12:54 95 20 100 03/31/17 12:46 167/92 03/31/17 12:39 104 19 100 03/31/17 12:34 167/101 03/31/17 12:31 167/110 03/31/17 12:29 198/119 03/31/17 12:27 167/110 03/31/17 12:21 92 21 98 03/31/17 12:19 96 Nasal Cannula 2.0 03/31/17 12:09 99 03/31/17 11:58 150/94 03/31/17 11:32 36.6 123 20 147/94 96 Room Air 2.0 General Appearance: no apparent distress, + thin, + pertinent finding (alert 61 year old female, lying in bed, family at bedside) Head: normocephalic, atraumatic Eyes: normal inspection, PERRL ENT: hearing grossly normal, pharynx normal Neck: supple, trachea midline Respiratory/Chest: lungs clear, normal breath sounds, no respiratory distress, no accessory muscle use, + pertinent finding (saturating 100% on 4 liters NC) Cardiovascular: regular rate, rhythm, no murmur Abdomen/GI: normal bowel sounds, non tender, soft Extremities/Musculoskelatal: no calf tenderness, no pedal edema Neurologic/Psych: alert, normal mood/affect, oriented x 3 Skin: normal color, warm/dry Diagnostics Laboratory Results Results Past 24 Hours Test 03/31/17 12:05 Range/Units White Blood Count 6.09 4.8-10.8 K/uL Red Blood Count 4.36 4.2-5.4 M/uL Hemoglobin 12.6 12.0-16.0 g/dL Hematocrit 39.8 37-47 % Mean Corpuscular Volume 91.3 80-100 fL Mean Corpuscular Hemoglobin 28.9 25-34 pg Mean Corpuscular Hemoglobin Concent 31.7 32-36 g/dl Platelet Count 216 130-400 K/uL Mean Platelet Volume 9.5 7.4-10.4 fL Neutrophils (%) (Auto) 65.2 % Lymphocytes (%) (Auto) 23.3 % Monocytes (%) (Auto) 9.5 % Eosinophils (%) (Auto) 1.1 % Basophils (%) (Auto) 0.7 % Neutrophils # (Auto) 3.97 1.4-6.5 K/uL Lymphocytes # (Auto) 1.42 1.2-3.4 K/uL Monocytes # (Auto) 0.58 0.11-0.59 K/uL Eosinophils # (Auto) 0.07 0-0.5 K/uL Basophils # (Auto) 0.04 0-0.2 K/uL RDW Standard Deviation 43.4 36.4-46.3 fL RDW Coefficient of Variation 13.0 11.5-14.5 % Immature Granulocyte % (Auto) 0.2 % Immature Granulocyte # (Auto) 0.01 0.00-0.02 K/uL Prothrombin Time 21.0 9.0-12.0 SECONDS Prothromb Time International Ratio 1.9 0.9-1.1 Activated Partial Thromboplast Time 35.1 21.0-31.0 SECONDS Partial Thromboplastin Ratio 1.4 Sodium Level 139 136-145 mmol/L Potassium Level 4.3 3.5-5.1 mmol/L Chloride Level 104 98-107 mmol/L Carbon Dioxide Level 31 21-32 mmol/L Anion Gap 4.0 3-11 mmol/L Blood Urea Nitrogen 12 7-18 mg/dl Creatinine 0.70 0.60-1.20 mg/dl Est Creatinine Clear Calc Drug Dose 64.0 ml/min Estimated GFR () 106.9 Estimated GFR (Non- 92.2 BUN/Creatinine Ratio 17.2 10-20 Random Glucose 95 70-99 mg/dl Calcium Level 8.9 8.5-10.1 mg/dl Troponin I < 0.015 0-0.045 ng/ml Diagnostic Radiology [~ rep ct add3]] CHEST ONE VIEW PORTABLE CLINICAL HISTORY: GI bleed. COMPARISON STUDY: Chest radiograph and chest CT September 21, 2015. FINDINGS: No pneumothorax or pleural effusion is present. Blunting of the right costophrenic angle is chronic. There is no evidence of pulmonary edema. There are old right rib fractures. Right lung postsurgical findings are noted. Severe emphysema is noted. There is left apical scarring. There is no consolidation to suggest pneumonia. Cardiomediastinal silhouette is normal. IMPRESSION: 1. No acute cardiopulmonary findings. 2. Severe emphysema. Impression Assessment and Plan RECTAL BLEEDING Presents with bright red rectal bleeding in setting of Coumadin use (INR 1.9), did not tolerate IV vitamin K, PO vitamin K given, recheck INR in AM ER provider's rectal exam showed small hemorrhoids, no active bleeding from the hemorrhoids, bright red blood seen coming from within the rectum Likely lower GI source, ? diverticular vs. other History of ulcerative colitis, clinically not in flare Hg stable at 12.6 Was tachycardic on arrival -> resolved with IVF's, BP stable Check abdominal x-ray, stool studies Monitor H/H q6, transfuse PRN, type/screen pending Clear liquid diet IVF's Consult GI, discussed with Liz Rubio, appreciate input, no plan for inpatient colonoscopy at this time COPD/ CHRONIC RESPIRATORY FAILURE Not in acute exacerbation Continue Breo Ellipta from home, PRN Xopenex nebs On chronic supplemental O2 2 liters NC On chronic bronchitis prophylaxis with azithromycin MWF To be starting pulmonary rehab as outpatient in the near future HISTORY OF DVT DVT PROPHYLAXIS Hold Coumadin SCD's due to GI bleeding CODE STATUS Full code per my discussion with patient DISPOSITION Observation telemetry Lives with Follows with Dr. Barahona for primary care Patient seen in collaboration with Dr. Richardson. Please see her addendum. ADDENDUM: I have seen and evaluated the patient and have discussed the case with the provider above. I agree with the assessment and plan as stated. Dylan, Level of Care Telemetry Advanced Directives Existing Living Will: Yes Existing Power of Recording Studio Set Up Worker: Yes (SWAYNE ) Resuscitation Status FULL RESUSCITATION VTE Prophylaxis VTE Risk Assessment Done? Y/N: Yes Risk Level: Moderate Given or contraindicated: SCD's, Contraindicated
[2017-03-31 16:13] VITALS: BP 117/79; PULSE 91; TEMP 37.4; O2SAT 100
--- NOTE | 2017-03-31 16:29 | DIAGNOSTIC IMAGING REPORT ---
ABDOMEN 2 VIEWS CLINICAL HISTORY: RECTAL BLEEDING pain COMPARISON STUDY: 10/22/2010 FINDINGS: Nonobstructive bowel pattern. Inferior vena cava filter is present. No evidence for pneumatosis. IMPRESSION: Nonobstructive bowel pattern. The above report was generated using voice recognition software. It may contain grammatical, syntax or spelling errors. Electronically signed by: James Ni M.D. 03/31/2017 4:28 PM Dictated Date/Time: 03/31/2017 4:27 PM
[2017-03-31] MEDS ORDERED: BISACODYL 5 MG TABEC PO ONE (17:30)
[2017-03-31] MEDS: POLYETHYLENE GLYCER PWD 238 GM BTL PO SCH ×2 (18:14→20:39)
[2017-03-31 18:32] LABS: HEMATOCRIT 35.5 % (37-47)
[2017-03-31 19:33] LABS: URINE APPEARANCE CLEAR (CLEAR); URINE BILIRUBIN NEG (NEG); URINE COLOR YELLOW; URINE NITRITE NEG (NEG); URINE PH 5.5 (4.5-7.5); URINE SPECIFIC GRAVITY 1.013 (1.000-1.030); UROBILINOGEN NEG (NEG); ZZUR CULT IF INDIC CLEAN CATCH NO
[2017-03-31 19:50] LABS: MANUAL MICROSCOPIC REQUIRED? NO; REVIEW REQ? NO
[2017-03-31 20:20] VITALS: BP 117/72; PULSE 87; TEMP 37.1; O2SAT 96
[2017-03-31] MEDS: PANTOprazole SOD 40 MG TAB PO SCH (20:38)
[2017-03-31] MEDS ORDERED: POLYETHYLENE (MIRALAX) 17 GM PACK PO SCH (21:30)
[2017-04-01] VITALS (9 sets, daily range): BP systolic 114–142; BP diastolic 61–86; PULSE 82–93; TEMP 36.7–37; O2SAT 94–98
[2017-04-01] MEDS ORDERED: RASPBERRY SYRUP 5 ML UDP PO SCH (01:45)
[2017-04-01] MEDS ORDERED: VANCOMYCIN HCL 125 MG/2.5ML SOLN PO ONE (01:48)
[2017-04-01 07:15] LABS: HEMATOCRIT 32.3 % (37-47); MEAN CELL VOLUME 91.2 fL (80-100); MEAN CORPUSCULAR HEMOGLOBIN 29.4 pg (25-34); MEAN CORPUSCULAR HGB CONC 32.2 g/dl (32-36); MEAN PLATELET VOLUME 9.5 fL (7.4-10.4); PLATELET COUNT 158 K/uL (130-400); RED BLOOD COUNT 3.54 M/uL (4.2-5.4); WHITE BLOOD COUNT 3.39 K/uL (4.8-10.8)
[2017-04-01 07:21] LABS: INR 1.5 (0.9-1.1); PROTHROMBIN TIME (PATIENT) 16.7 SECONDS (9.0-12.0)
--- NOTE | 2017-04-01 08:31 | Progress Note ---
Progress Note Date of Service Apr 01, 2017. Progress Note Pt was seen and evaluated, no acute events over night. Tolerated bowel prep. Of note, pt was having formed stools with intermittent rectal bleeding. Stool for c.diff was ran after loose stools developed with bowel prep, perhaps she is carried. Will initiated ABX therapy now and re-evaluate during colonoscopy. NPO for colonoscopy today. Vancomycin 125 QID.
[2017-04-01] MEDS ORDERED: VANCOMYCIN HCL 125 MG/2.5ML SOLN PO SCH (09:00)
[2017-04-01] MEDS: RASPBERRY SYRUP 5 ML UDP PO SCH ×4 (09:47→19:57)
[2017-04-01] MEDS: VANCOMYCIN HCL 125 MG/2.5ML SOLN PO SCH ×4 (09:47→19:58)
[2017-04-01] MEDS: PANTOprazole SOD 40 MG TAB PO SCH ×2 (09:47→19:58)
[2017-04-01] MEDS: MESALAMINE 400 MG CAPDR PO SCH (09:48)
[2017-04-01] MEDS: AZITHROMYCIN 250 MG TAB PO SCH (09:48)
[2017-04-01] MEDS ORDERED: ACETAMINOPHEN 325 MG TAB ONE (10:08)
[2017-04-01] MEDS ORDERED: NURSING VERBAL MED ORDER ONE (10:15)
[2017-04-01] MEDS ORDERED: LIDOCAINE HCL 2% 2 ML VIAL (20MG/ML) ONE (12:08)
[2017-04-01] MEDS ORDERED: PROPOFOL IV EMULSION 10 MG/ML 20 ML VIAL IV ONE (12:08)
--- NOTE | 2017-04-01 13:17 | GI REPORT ---
Procedure Date: 04/01/2017 12:27 PM Procedure: Colonoscopy Indications: Rectal bleeding, Personal history of inflammatory bowel disease Medicines: Monitored Anesthesia Care Complications: No immediate complications. Estimated blood loss: None. Estimated Blood Loss: Estimated blood loss: none. Procedure: Pre-Anesthesia Assessment: - Prior to the procedure, a History and Physical was performed, and patient medications, allergies and sensitivities were reviewed. The patient's tolerance of previous anesthesia was reviewed. - ASA Grade Assessment: III - A patient with severe systemic disease. After I obtained informed consent, the scope was passed under direct vision. Throughout the procedure, the patient's blood pressure, pulse, and oxygen saturations were monitored continuously. The scope was introduced through the anus and advanced to the terminal ileum, with identification of the appendiceal orifice and IC valve. The colonoscopy was performed with difficulty. The patient tolerated the procedure well. The quality of the bowel preparation was good. Findings: Inflammation characterized pseudopolyps with normal appearing mucosa interspersed from the rectum to the cecum except for areas of congestion (edema), erythema, friability in the rectum and at the splenic flexure. There was narrowing of the lumen at the splenic flexure. There was ulceration in the rectum. The ileocecal valve was patulous. The terminal ileum was spared. This was moderate in severity. Two biopsies were taken every 10 cm with a cold forceps from the entire colon for Crohn's disease surveillance. These biopsy specimens from the cecum, ascending colon, transverse colon, descending colon, sigmoid colon and rectum were sent to Pathology. Impression: - Inflammatory bowel disease consistent with Crohn's disease was found in the entire colon, with active inflammation in the rectum and splenic flexure. Biopsies obtained. CMV stain requested. Recommendation: - Return patient to [facility] for ongoing care. Erwin Leyva M.D. Erwin Leyva MD 04/01/2017 1:16:28 PM This report has been signed electronically. Note Initiated On: 04/01/2017 12:27 PM I attest to the content of the Intraoperative Record and orders documented therein, exceptions below
--- NOTE | 2017-04-01 13:22 | Anesthesiology Progress Note ---
Anesthesia Post Op Note Date & Time Apr 01, 2017 at 13:21 Vital Signs Pain Intensity: 0 Vital Signs Past 12 Hours Date Time Temp Pulse Resp B/P (MAP) Pulse Ox O2 Delivery O2 Flow Rate FiO2 04/01/17 13:19 85 20 125/82 (96) 100 Nasal Cannula 04/01/17 13:08 96 22 107/63 (78) 98 Nasal Cannula 04/01/17 13:01 96 22 113/66 (82) 94 Nasal Cannula 04/01/17 12:20 92 16 144/90 (108) 99 Nasal Cannula 04/01/17 12:00 Nasal Cannula 4.0 04/01/17 11:07 36.9 87 20 134/73 (93) 96 04/01/17 08:53 Nasal Cannula 4.0 04/01/17 08:00 Nasal Cannula 4.0 04/01/17 07:11 37.0 93 20 126/80 (95) 96 Nasal Cannula 2.0 04/01/17 06:17 36.9 85 20 142/86 95 Nasal Cannula 4.0 04/01/17 04:48 36.9 85 20 142/86 (104) 95 04/01/17 04:00 Nasal Cannula 4.0 Notes Mental Status: alert / awake / arousable, participated in evaluation Pt Amnestic to Procedure: Yes Nausea / Vomiting: adequately controlled Pain: adequately controlled Airway Patency, RR, SpO2: stable & adequate BP & HR: stable & adequate Hydration State: stable & adequate Anesthetic Complications: no major complications apparent
[2017-04-01] MEDS ORDERED: TUBERCULIN SKIN TEST 5 TU in SYRINGE 0 ML ID ONE (13:30)
[2017-04-01 14:15] LABS: ISTAT CREATININE 0.7 mg/dl (0.6-1.3); ISTAT HEMOGLOBIN 13.3 g/dl (12.0-16.0); ISTAT IONIZED CALCIUM 1.14 mmol/l (1.12-1.32)
[2017-04-01 14:47] LABS: HEMATOCRIT 35.2 % (37-47)
--- NOTE | 2017-04-01 15:09 | Progress Note ---
Medicine Progress Note Date & Time of Visit: Apr 01, 2017 at 10:11. Subjective Pt was seen and examined Lying in bed with no distress Pt said that she had multiples episodes of diarrhea early this morning She said that the diarrhea is getting less bloody denies any abdominal pain Pt said that she is hungry denies any chest pain, palpitation, dizziness and sob Objective Last 8 Hrs Date Time Temp Pulse Resp B/P (MAP) Pulse Ox O2 Delivery O2 Flow Rate FiO2 04/01/17 13:08 96 22 107/63 (78) 98 Nasal Cannula 04/01/17 13:01 96 22 113/66 (82) 94 Nasal Cannula 04/01/17 12:20 92 16 144/90 (108) 99 Nasal Cannula 04/01/17 12:00 Nasal Cannula 4.0 04/01/17 11:07 36.9 87 20 134/73 (93) 96 04/01/17 08:53 Nasal Cannula 4.0 04/01/17 08:00 Nasal Cannula 4.0 04/01/17 07:11 37.0 93 20 126/80 (95) 96 Nasal Cannula 2.0 04/01/17 06:17 36.9 85 20 142/86 95 Nasal Cannula 4.0 Physical Exam: General- No acute distress Head- atraumatic Eyes- PERRL, EOMI ENT- oropharynx clear Neck- supple, no JVD Lungs- clear to auscultation Heart- regular rhythm; no murmur Abdomen- normal bowel sounds, soft Extremities-no calf tenderness Neuro- alert, oriented x 3; PERRL, EOMI; no facial palsy Skin- warm & dry Laboratory Results: Last 24 Hours Test 03/31/17 18:20 04/01/17 00:14 04/01/17 06:37 04/01/17 12:00 Hemoglobin 11.0 g/dL 11.0 g/dL 10.4 g/dL Hematocrit 35.5 % 36.0 % 32.3 % White Blood Count 3.39 K/uL Red Blood Count 3.54 M/uL Mean Corpuscular Volume 91.2 fL Mean Corpuscular Hemoglobin 29.4 pg Mean Corpuscular Hemoglobin Concent 32.2 g/dl RDW Standard Deviation 44.1 fL RDW Coefficient of Variation 13.2 % Platelet Count 158 K/uL Mean Platelet Volume 9.5 fL Prothrombin Time 16.7 SECONDS Prothromb Time International Ratio 1.5 Assessment & Plan RECTAL BLEEDING Present with bright red rectal bleeding Hbg on admission 12.6 INR on admission 1.9 Received VIt K in the ER Hbg 10.7 today Continue monitor h/h Will transfuse if hgb drops below 8 Advanced diet as tolerated Gastro on board Colonoscopy done: Inflammatory bowel disease consistent with Crohn's disease was found in the entire colon, with active inflammation in the rectum and splenic flexure. C-Diff diarrhea seems to improve Continue Vanco po Will monitor electrolytes COPD/ CHRONIC RESPIRATORY FAILURE Continue Breo Ellipta from home, PRN Xopenex nebs On chronic supplemental O2 2 liters NC On chronic bronchitis prophylaxis with azithromycin MWF Stable HISTORY OF DVT DVT PROPHYLAXIS Coumadin on hold due to GI bleeding INR 1.5 today CODE STATUS FULL CODE DISPOSITION Continue monitor in tele Consultants: Gastro Current Inpatient Medications: Current Inpatient Medications Medications (Trade) Dose Ordered Sig/Devora Route Start Time Stop Time Status Last Admin Dose Admin Ondansetron HCl (Zofran Inj) 4 mg Q6H PRN IV 03/31/17 13:30 04/30/17 13:29 Miscellaneous (Iv Fluids Completed) 1 ea PRN PRN N/A 03/31/17 14:30 03/31/18 14:29 Azithromycin (Zithromax Tab) 250 mg MoWeFr@0900 PO 04/01/17 09:00 04/08/17 08:59 04/01/17 09:48 250 MG Levalbuterol (Xopenex 1.25MG/ 3ML Neb) 1.25 mg Q4 PRN INH 03/31/17 14:45 04/30/17 14:44 Mesalamine (Delzicol Delayed Rel Cap) 2,400 mg DAILY PO 04/01/17 09:00 05/01/17 08:59 04/01/17 09:48 2,400 MG Pantoprazole Sodium (Protonix Tab) 40 mg BID PO 03/31/17 21:00 04/30/17 20:59 04/01/17 09:47 40 MG Vancomycin HCl (Vancomycin Oral Soln) 125 mg QID PO 04/01/17 09:00 04/11/17 08:59 04/01/17 09:47 125 MG Raspberry (Raspberry Syrup 5ml Cup) 5 ml QID PO 04/01/17 09:00 04/15/17 08:59 04/01/17 09:47 5 ML
[2017-04-02] VITALS (8 sets, daily range): BP systolic 114–134; BP diastolic 68–78; PULSE 82–135; TEMP 36.6–36.8; O2SAT 92–99
[2017-04-02 07:22] LABS: BASO % 0.5 %; BASO ABS # 0.02 K/uL (0-0.2); COMPLETE YES; EOS % 5.7 %; HEMATOCRIT 34.5 % (37-47); LYMPH % 25.9 %; LYMPH ABS # 1.14 K/uL (1.2-3.4); MEAN CELL VOLUME 91.8 fL (80-100); MEAN CORPUSCULAR HEMOGLOBIN 27.9 pg (25-34); MEAN CORPUSCULAR HGB CONC 30.4 g/dl (32-36); MEAN PLATELET VOLUME 9.4 fL (7.4-10.4); MONO % 9.8 %; NEUT % 58.1 %; PLATELET COUNT 168 K/uL (130-400); RED BLOOD COUNT 3.76 M/uL (4.2-5.4)
[2017-04-02 07:23] LABS: PROTHROMBIN TIME (PATIENT) 13.3 SECONDS (9.0-12.0)
[2017-04-02 07:24] LABS: INR 1.2 (0.9-1.1)
[2017-04-02 07:48] LABS: ALKALINE PHOSPHATASE 61 U/L (45-117); ALT/SGPT 39 U/L (12-78); AST/SGOT 42 U/L (15-37); C-REACTIVE PROTEIN < 0.29 mg/dl (0-0.29)
--- NOTE | 2017-04-02 09:22 | Gastroenterology Progress Note ---
Progress Note Date of Service: Apr 02, 2017 Subjective Pt evaluation today including: conversation w/ patient, physical exam, chart review, lab review Pt was seen and evaluated,chart reviewed. No acute events overnight. Colonoscopy yesterday with question of crohn's. Biopsies pending. Pt feels well and wants to go home. She is having formed BMs without any rectal bleeding. No abdominal pain. No fever, chills, CP, SOB. Colonoscopy 04/01/17: Inflammatory bowel disease consistent with Crohn's disease was found in the entire colon, with active inflammation in the rectum and splenic flexure. Review of Systems Constitutional: No fever, No chills Respiratory: No cough Cardiac: No chest pain Abdomen: No pain, No nausea, No vomiting, No diarrhea Medications Current Inpatient Medications Medications (Trade) Dose Ordered Sig/Devora Route Start Time Stop Time Status Last Admin Dose Admin Ondansetron HCl (Zofran Inj) 4 mg Q6H PRN IV 03/31/17 13:30 04/30/17 13:29 Miscellaneous (Iv Fluids Completed) 1 ea PRN PRN N/A 03/31/17 14:30 03/31/18 14:29 Azithromycin (Zithromax Tab) 250 mg MoWeFr@0900 PO 04/01/17 09:00 04/08/17 08:59 04/01/17 09:48 250 MG Levalbuterol (Xopenex 1.25MG/ 3ML Neb) 1.25 mg Q4 PRN INH 03/31/17 14:45 04/30/17 14:44 Mesalamine (Delzicol Delayed Rel Cap) 2,400 mg DAILY PO 04/01/17 09:00 05/01/17 08:59 04/01/17 09:48 2,400 MG Pantoprazole Sodium (Protonix Tab) 40 mg BID PO 03/31/17 21:00 04/30/17 20:59 04/01/17 19:58 40 MG Vancomycin HCl (Vancomycin Oral Soln) 125 mg QID PO 04/01/17 09:00 04/11/17 08:59 04/01/17 19:58 125 MG Raspberry (Raspberry Syrup 5ml Cup) 5 ml QID PO 04/01/17 09:00 04/15/17 08:59 04/01/17 19:57 5 ML Miscellaneous (Ppd Check) 1 ea Q48H N/A 04/03/17 13:30 04/03/17 13:31 Objective Vital Signs Date Time Temp Pulse Resp B/P (MAP) Pulse Ox O2 Delivery O2 Flow Rate FiO2 04/02/17 08:32 36.8 109 20 134/77 (96) 95 04/02/17 08:00 Nasal Cannula 2.0 04/02/17 04:28 36.8 93 18 114/68 (83) 95 Nasal Cannula 2.0 04/02/17 04:00 Nasal Cannula 2.0 04/02/17 00:00 Nasal Cannula 2.0 04/01/17 22:53 36.8 83 19 114/61 (78) 94 Nasal Cannula 2.5 04/01/17 20:05 36.8 88 22 121/73 (89) 96 Nasal Cannula 2.0 04/01/17 20:00 98 Nasal Cannula 2.0 04/01/17 17:01 37.0 90 22 136/83 (100) 98 Nasal Cannula 2.0 04/01/17 16:00 Nasal Cannula 4.0 04/01/17 13:26 88 20 141/81 (101) 100 Nasal Cannula 04/01/17 13:19 85 20 125/82 (96) 100 Nasal Cannula 04/01/17 13:08 96 22 107/63 (78) 98 Nasal Cannula 04/01/17 13:01 96 22 113/66 (82) 94 Nasal Cannula 04/01/17 12:20 92 16 144/90 (108) 99 Nasal Cannula 04/01/17 12:00 Nasal Cannula 4.0 04/01/17 11:07 36.9 87 20 134/73 (93) 96 Physical Exam General Appearance: no apparent distress Eyes: PERRL ENT: hearing grossly normal Neck: supple Respiratory/Chest: lungs clear, no accessory muscle use Cardiovascular: regular rate, rhythm, no murmur Abdomen: normal bowel sounds, non tender, soft, no organomegaly Neurologic/Psych: alert, normal mood/affect, oriented x 3 Skin: normal color Laboratory Results Last 24 Hours Test 04/01/17 14:02 04/02/17 06:53 Hemoglobin 10.7 g/dL 10.5 g/dL Hematocrit 35.2 % 34.5 % White Blood Count 4.40 K/uL Red Blood Count 3.76 M/uL Mean Corpuscular Volume 91.8 fL Mean Corpuscular Hemoglobin 27.9 pg Mean Corpuscular Hemoglobin Concent 30.4 g/dl Platelet Count 168 K/uL Mean Platelet Volume 9.4 fL Neutrophils (%) (Auto) 58.1 % Lymphocytes (%) (Auto) 25.9 % Monocytes (%) (Auto) 9.8 % Eosinophils (%) (Auto) 5.7 % Basophils (%) (Auto) 0.5 % Neutrophils # (Auto) 2.56 K/uL Lymphocytes # (Auto) 1.14 K/uL Monocytes # (Auto) 0.43 K/uL Eosinophils # (Auto) 0.25 K/uL Basophils # (Auto) 0.02 K/uL RDW Standard Deviation 43.7 fL RDW Coefficient of Variation 13.1 % Immature Granulocyte % (Auto) 0.0 % Immature Granulocyte # (Auto) 0.00 K/uL Prothrombin Time 13.3 SECONDS Prothromb Time International Ratio 1.2 Total Bilirubin 0.5 mg/dl Direct Bilirubin 0.1 mg/dl Aspartate Amino Transf (AST/SGOT) 42 U/L Alanine Aminotransferase (ALT/SGPT) 39 U/L Alkaline Phosphatase 61 U/L C-Reactive Protein < 0.29 mg/dl Total Protein 6.7 gm/dl Albumin 2.7 gm/dl Hepatitis B Surface Antigen NEG Assessment and Plan Patient is a 61 year old female w/ history of ulcerative colitis on Lialda, treatment naive HCV and COPD who presented through the ED for evaluation of three days of painless rectal bleeding. Pt explains the blood as bright red without clots, without any stools. Denies any abdominal pain, nausea, vomiting or upper abdominal symptoms. No black, tarry stools. She is on Coumadin, INR 1.9 with IV Vit K in the ED discontinued due to side effects. Given lack of abdominal pain, low suspicion of infectious or ischemic bleeding. Diverticular vs hemorrhoidal. Stool for c.diff was positive, started on vancomycin 125 QID on 04/01/17. Colonoscopy yesterday consistent with crohn's disease, biopsies pending Diet as tolerated Vancomycin 125 QID x 14 days w/ taper 125 mg BID x 7 125 mg daily x 7 125 mg every other day x 7 days 125 mg every third day x 7 days Read PPD as outpatient Follow up Hep B labs Follow up outpatient to discuss escalating IBD therapy, perhaps biologic GI to sign off. Please call with questions or concerns Attg addnedum: I interviewed and examined pt, reviewed chart and labs. Pt is without further pain, diarrhea or bleeding. OK for d/c. Plan for outpt Vanco taper, outpt clinic visit to discuss need for biologics.
[2017-04-02] MEDS: RASPBERRY SYRUP 5 ML UDP PO SCH ×2 (09:39→12:50)
[2017-04-02] MEDS: VANCOMYCIN HCL 125 MG/2.5ML SOLN PO SCH ×2 (09:39→12:50)
[2017-04-02] MEDS: PANTOprazole SOD 40 MG TAB PO SCH (09:40)
[2017-04-02] MEDS: MESALAMINE 400 MG CAPDR PO SCH (09:40)
[2017-04-02] MEDS: AZITHROMYCIN 250 MG TAB PO SCH (11:19)
--- NOTE | 2017-04-02 11:34 | Progress Note ---
Internal Med Progress Note Date of Service: Apr 02, 2017. Provider Documentation: SUBJECTIVE: The patient was seen and examined Feels a lot better No more blood in stool and stool is formed Wants to go home OBJECTIVE: Vital Signs-as noted below Exam: General-No distress at rest Eyes-normal ENT-mi3ctom Neck-supple Lungs-clear to ausucltate bilaterally Decreased breath sound bilaterally Heart-Regular,no murmur Abdomen-Benign,no masses,bowel sound present Extremities-no Edema Neuro-AAOx3 Has chronic tremors involving the extremities Lab data as noted below. ASSESSMENT & PLAN: RECTAL BLEEDING Present with bright red rectal bleeding on Admission INR on admission 1.9 likely contributing Received VIt K in the ER Hb remained stable and did not require any PRBC Appreciate Gastro input Colonoscopy done: Inflammatory bowel disease consistent with Crohn's disease was found in the entire colon, with active inflammation in the rectum and splenic flexure. Crohn's disease Colonoscopy as above Likely to need OP treatment for Crohn's disease Discussed with the GI Hepatitis Core Ab pending C-Diff Diarrhea improved Continue Vanco po PO for 10 days COPD/ CHRONIC RESPIRATORY FAILURE Continue Breo Ellipta from home, PRN Xopenex nebs On chronic supplemental O2 2 liters NC On chronic bronchitis prophylaxis with azithromycin MWF Denies any exacerbation HISTORY OF DVT DVT PROPHYLAXIS Coumadin on hold due to GI bleeding CODE STATUS FULL CODE DISPOSITION Continue monitor in tele Consultants: Gastro Likely to go home today Vital Signs: Date Time Temp Pulse Resp B/P (MAP) Pulse Ox O2 Delivery O2 Flow Rate FiO2 04/02/17 11:06 36.6 82 13 128/74 (92) 99 04/02/17 08:32 36.8 109 20 134/77 (96) 95 04/02/17 08:00 Nasal Cannula 2.0 04/02/17 04:28 36.8 93 18 114/68 (83) 95 Nasal Cannula 2.0 04/02/17 04:00 Nasal Cannula 2.0 04/02/17 00:00 Nasal Cannula 2.0 04/01/17 22:53 36.8 83 19 114/61 (78) 94 Nasal Cannula 2.5 04/01/17 20:05 36.8 88 22 121/73 (89) 96 Nasal Cannula 2.0 04/01/17 20:00 98 Nasal Cannula 2.0 04/01/17 17:01 37.0 90 22 136/83 (100) 98 Nasal Cannula 2.0 04/01/17 16:00 Nasal Cannula 4.0 04/01/17 13:26 88 20 141/81 (101) 100 Nasal Cannula 04/01/17 13:19 85 20 125/82 (96) 100 Nasal Cannula 04/01/17 13:08 96 22 107/63 (78) 98 Nasal Cannula 04/01/17 13:01 96 22 113/66 (82) 94 Nasal Cannula 04/01/17 12:20 92 16 144/90 (108) 99 Nasal Cannula 04/01/17 12:00 Nasal Cannula 4.0 Lab Results: Results Past 24 Hours Test 04/01/17 14:02 04/02/17 06:53 Range/Units Hemoglobin 10.7 10.5 12.0-16.0 g/dL Hematocrit 35.2 34.5 37-47 % White Blood Count 4.40 4.8-10.8 K/uL Red Blood Count 3.76 4.2-5.4 M/uL Mean Corpuscular Volume 91.8 80-100 fL Mean Corpuscular Hemoglobin 27.9 25-34 pg Mean Corpuscular Hemoglobin Concent 30.4 32-36 g/dl Platelet Count 168 130-400 K/uL Mean Platelet Volume 9.4 7.4-10.4 fL Neutrophils (%) (Auto) 58.1 % Lymphocytes (%) (Auto) 25.9 % Monocytes (%) (Auto) 9.8 % Eosinophils (%) (Auto) 5.7 % Basophils (%) (Auto) 0.5 % Neutrophils # (Auto) 2.56 1.4-6.5 K/uL Lymphocytes # (Auto) 1.14 1.2-3.4 K/uL Monocytes # (Auto) 0.43 0.11-0.59 K/uL Eosinophils # (Auto) 0.25 0-0.5 K/uL Basophils # (Auto) 0.02 0-0.2 K/uL RDW Standard Deviation 43.7 36.4-46.3 fL RDW Coefficient of Variation 13.1 11.5-14.5 % Immature Granulocyte % (Auto) 0.0 % Immature Granulocyte # (Auto) 0.00 0.00-0.02 K/uL Prothrombin Time 13.3 9.0-12.0 SECONDS Prothromb Time International Ratio 1.2 0.9-1.1 Total Bilirubin 0.5 0.2-1 mg/dl Direct Bilirubin 0.1 0-0.2 mg/dl Aspartate Amino Transf (AST/SGOT) 42 15-37 U/L Alanine Aminotransferase (ALT/SGPT) 39 12-78 U/L Alkaline Phosphatase 61 45-117 U/L C-Reactive Protein < 0.29 0-0.29 mg/dl Total Protein 6.7 6.4-8.2 gm/dl Albumin 2.7 3.4-5.0 gm/dl Hepatitis B Surface Antigen NEG NEG
[2017-04-02] MEDS ORDERED: LCTX PO (15:31)
[2017-04-02] MEDS ORDERED: VNCS125 PO (15:31)
--- NOTE | 2017-04-02 15:35 | Discharge Instructions ---
Discharge Instructions Date of Service Apr 02, 2017. Admission Reason for Admission: Rectal Bleeding Discharge Discharge Diagnosis / Problem: Rectal Bleed,Crohn's doisease,C Diff Colitis Discharge Goals Goal(s): Prevent Disease Progression Activity Recommendations Activity Limitations: resume your previous activity . Instructions / Follow-Up Instructions / Follow-Up DR Barahona on 04/07/17 at 3:00PM.GI will call for appointment Current Hospital Diet Patient's current hospital diet: Regular Diet Discharge Diet Recommended Diet: Regular Diet Pending Studies Studies pending at discharge: no Medical Emergencies . Who to Call and When: Medical Emergencies: If at any time you feel your situation is an emergency, please call 911 immediately. . Non-Emergent Contact Non-Emergency issues call your: Primary Care Provider . . "Provider Documentation" section prepared by Mohamud Thomas. . VTE Core Measure Inpt VTE Proph given/why not?: SCD's, Contraindicated
--- NOTE | 2017-04-03 11:18 | Discharge Summary ---
Discharge Summary Date of Service Apr 03, 2017. Discharge Summary Admission Date: Apr 02, 2017 at 09:40 Discharge Date: Apr 02, 2017 Discharge Disposition: Home Principal Diagnosis: Rectal Bleed,Crohn's disease,C Diff Colitis Secondary Diagnoses/Problems: Please see H&P and Hospital Progress note Consultations: Gastro Medication Reconciliation New Medications: Lactobacillus Acidophilus (Lactinex) Tab 2 TAB PO BID for 30 Days, #120 TAB Vancomycin HCl (Vancomycin HCl) 125 Mg/2.5 Ml Susp 125 MG PO UD for 28 Days, #84 125mg PO QID for 14 days,125mg BID for 7 days,125mg PO daily for 7 days,125mg Every other day for 7 days and then 125mg PO every 3rd day for 7 days Continued Medications: Azithromycin (Zithromax) 250 Mg Tab 250 MG PO for CHRONIC BRONCHITIS, #4 TAB Cholecalciferol (Vitamin D 1000 Unit) 1,000 Unit Cap 1000 INTER.UNIT PO DAILY, CAP Denosumab (Prolia) 60 Mg/1 Ml Inj 1 ML SQ Q6MO Fluticasone Furoate-Vilanterol (Breo Ellipta) 1 Inh Inh 1 PUFF INH DAILY Levalbuterol (Levalbuterol HCl) 1.25 Mg/3 Ml Nebu 1.25 MG NEB Q4 PRN for Wheezing Mesalamine (Lialda) 1.2 Gm Tab 2.4 GM PO DAILY, #120 Omeprazole (Prilosec) 20 Mg Capcr 20 MG PO BID, CAP Warfarin Sod (Jantoven) 2.5 Mg Tab 2.5 MG PO 3XWK, TAB THURSDAY, THURSDAY, THURSDAY Warfarin Sodium (Coumadin) 5 Mg Tab 5 MG PO 4XWK, TAB TAKE THURSDAY, THURSDAY, THURSDAY, THURSDAY Admission Information HPI (per Admitting provider): This is a 61 y/o female with PMH of ulcerative colitis, history of C. diff, history of DVT on Coumadin, severe COPD requiring chronic oxygen, chronic hepatitis C, and other problems listed below who presents to the ED for rectal bleeding. Pt follows with Dr. Pires for gastro. Pt reports bright red blood per rectum, starting with an episode of spotting on the toilet tissue 2 days ago. Then yesterday had 3-4 episodes of toilet filling with bright red blood. Then today at [facility] pulmonology clinic, she felt the urge to defecate and was incontinent of blood filling her brief and a pad, then additionally filled the toilet with red blood. She was sent to the ER from clinic. Had 1 additional episode of bright red blood filling toilet in ER. There has been no stool with the blood, however did pass stool at 3:30 am this morning, she reports it was normal formed stool, but did not notice the appearance as the lights were off. She has not noticed any melena. Admits to intermittent low abdominal pain over past few days. Not in pain currently. Was eating normally until today- only had coffee and water, last liquid intake at 8: 30 am. Has felt "woozy" and lightheaded upon standing. Reports feeling more ARIAS over past few days when ambulating across parking lot. Not using her rescue nebulizer. Her inhaler was recently changed by pulmonology due to adverse reaction. Now on Breo Ellipta. Denies fever, chills, cough, chest pain, dyspnea at rest, edema, weight gain, dysuria, frequency. In the ER patient was treated with IV vitamin K and developed a reaction with facial flushing and redness and anxiety. Her O2 was increased to 4L NC. She was given Benadryl at which time her symptoms were already resolving. She feels better now. Tolerated PO vitamin K. Denies current steroid use, NSAIDs, or aspirin. Patient's last colonoscopy by Dr. Pires showed large amount of stool in colon, poor prep, mild patchy erythema throughout entire examined portion of colon and pseudopolyps, no significant evidence of active colitis. Biopsy of colon showed edema and nonspecific changes, active colitis was not evident. Denies hx of cirrhosis or PUD. Past Medical/Surgical History Medical Problems: (1) Benign hypertension Status: Chronic (2) Carotid artery stenosis Status: Chronic (3) CHRONIC HEPATITIS C W/O HEPATIC COMA Status: Chronic (4) Chronic respiratory failure Status: Chronic (5) COPD (chronic obstructive pulmonary disease) Permanent Comment: severe Status: Chronic (6) CYTOMEGALOVIRAL DISEASE Status: Resolved (7) H/O pneumothorax Permanent Comment: spontaneous Status: Chronic (8) History of Clostridium difficile colitis Status: Chronic (9) Pneumonia Status: Resolved (10) Sarcoidosis Status: Resolved (11) Ulcerative colitis Status: Resolved Surgical Problems: (1) S/p bullectomy Status: Chronic (2) S/P insertion of IVC (inferior vena caval) filter Status: Chronic (3) S/p thoracoscopy Permanent Comment: 09/13/2010- talc pleurodesis at bedside Status: Chronic Family History Diabetes mellitus FH: kidney failure MOTHER Gallbladder disease Heart disease Lung disease Social History Smoking Status: Former Smoker (prior 2-3 ppd x 46 years) Alcohol Use: occasionally Drug Use: none Marital Status: Housing status: lives with family Occupational Status: retired Immunizations History of Influenza Vaccine: Yes Influenza Vaccine Date: Dec 20, 2009 History of Tetanus Vaccine?: Yes History of Pneumococcal: Yes Pneumococcal Date: Dec 20, 2009 History of Hepatitis B Vaccine: Unknown Multi-Drug Resistant Organisms History of MDRO: No Allergies Coded Allergies: Levofloxacin (Verified Allergy, Mild, rash, 03/31/17) Penicillins (Verified Allergy, Unknown, Amoxil - rash, 03/31/17) RASH mother told her as a child, has never had it as an adult. tolerates cefalosporins fine Phytonadione (Unverified Allergy, Unknown, severe back pain, red face , ) Reaction from IV form, PO form ok Theophylline (Verified Adverse Reaction, Mild, Headache, 03/31/17) HEADACHE Bacitracin (Verified Adverse Reaction, Unknown, infection, 03/31/17) Neomycin (Verified Adverse Reaction, Unknown, infection, 03/31/17) Polymyxin B (Verified Adverse Reaction, Unknown, infection, 03/31/17) Home Medications Scheduled Azithromycin (Zithromax), 250 MG PO Cholecalciferol (Vitamin D 1000 Unit), 1,000 INTER.UNIT PO DAILY Denosumab (Prolia), 1 ML SQ Q6MO Fluticasone Furoate-Vilanterol (Breo Ellipta), 1 PUFF INH DAILY Mesalamine (Lialda), 2.4 GM PO DAILY Omeprazole (Prilosec), 20 MG PO BID Warfarin Sod (Jantoven), 2.5 MG PO 3XWK Warfarin Sodium (Coumadin), 5 MG PO 4XWK Scheduled PRN Levalbuterol (Levalbuterol HCl), 1.25 MG NEB Q4 PRN for Wheezing Review of Systems Ten systems reviewed and negative except as noted in HPI. Physical Ex - H&P Physical Exam Vital Signs Date Time Temp Pulse Resp B/P (MAP) Pulse Ox O2 Delivery O2 Flow Rate FiO2 03/31/17 13:56 99 Nasal Cannula 2.0 03/31/17 13:46 125/95 03/31/17 13:39 90 22 99 03/31/17 13:31 138/89 03/31/17 13:24 96 18 03/31/17 13:16 154/94 03/31/17 13:09 91 19 88 03/31/17 13:04 152/86 03/31/17 12:54 95 20 100 03/31/17 12:46 167/92 03/31/17 12:39 104 19 100 03/31/17 12:34 167/101 03/31/17 12:31 167/110 03/31/17 12:29 198/119 03/31/17 12:27 167/110 03/31/17 12:21 92 21 98 03/31/17 12:19 96 Nasal Cannula 2.0 03/31/17 12:09 99 03/31/17 11:58 150/94 03/31/17 11:32 36.6 123 20 147/94 96 Room Air 2.0 General Appearance: no apparent distress, + thin, + pertinent finding (alert 61 year old female, lying in bed, family at bedside) Head: normocephalic, atraumatic Eyes: normal inspection, PERRL ENT: hearing grossly normal, pharynx normal Neck: supple, trachea midline Respiratory/Chest: lungs clear, normal breath sounds, no respiratory distress, no accessory muscle use, + pertinent finding (saturating 100% on 4 liters NC) Cardiovascular: regular rate, rhythm, no murmur Abdomen/GI: normal bowel sounds, non tender, soft Extremities/Musculoskelatal: no calf tenderness, no pedal edema Neurologic/Psych: alert, normal mood/affect, oriented x 3 Skin: normal color, warm/dry Diagnostics - H&P Diagnostics Laboratory Results Results Past 24 Hours Test 03/31/17 12:05 Range/Units White Blood Count 6.09 4.8-10.8 K/uL Red Blood Count 4.36 4.2-5.4 M/uL Hemoglobin 12.6 12.0-16.0 g/dL Hematocrit 39.8 37-47 % Mean Corpuscular Volume 91.3 80-100 fL Mean Corpuscular Hemoglobin 28.9 25-34 pg Mean Corpuscular Hemoglobin Concent 31.7 32-36 g/dl Platelet Count 216 130-400 K/uL Mean Platelet Volume 9.5 7.4-10.4 fL Neutrophils (%) (Auto) 65.2 % Lymphocytes (%) (Auto) 23.3 % Monocytes (%) (Auto) 9.5 % Eosinophils (%) (Auto) 1.1 % Basophils (%) (Auto) 0.7 % Neutrophils # (Auto) 3.97 1.4-6.5 K/uL Lymphocytes # (Auto) 1.42 1.2-3.4 K/uL Monocytes # (Auto) 0.58 0.11-0.59 K/uL Eosinophils # (Auto) 0.07 0-0.5 K/uL Basophils # (Auto) 0.04 0-0.2 K/uL RDW Standard Deviation 43.4 36.4-46.3 fL RDW Coefficient of Variation 13.0 11.5-14.5 % Immature Granulocyte % (Auto) 0.2 % Immature Granulocyte # (Auto) 0.01 0.00-0.02 K/uL Prothrombin Time 21.0 9.0-12.0 SECONDS Prothromb Time International Ratio 1.9 0.9-1.1 Activated Partial Thromboplast Time 35.1 21.0-31.0 SECONDS Partial Thromboplastin Ratio 1.4 Sodium Level 139 136-145 mmol/L Potassium Level 4.3 3.5-5.1 mmol/L Chloride Level 104 98-107 mmol/L Carbon Dioxide Level 31 21-32 mmol/L Anion Gap 4.0 3-11 mmol/L Blood Urea Nitrogen 12 7-18 mg/dl Creatinine 0.70 0.60-1.20 mg/dl Est Creatinine Clear Calc Drug Dose 64.0 ml/min Estimated GFR () 106.9 Estimated GFR (Non- 92.2 BUN/Creatinine Ratio 17.2 10-20 Random Glucose 95 70-99 mg/dl Calcium Level 8.9 8.5-10.1 mg/dl Troponin I < 0.015 0-0.045 ng/ml Diagnostic Radiology [~ rep ct add3]] CHEST ONE VIEW PORTABLE CLINICAL HISTORY: GI bleed. COMPARISON STUDY: Chest radiograph and chest CT September 21, 2015. FINDINGS: No pneumothorax or pleural effusion is present. Blunting of the right costophrenic angle is chronic. There is no evidence of pulmonary edema. There are old right rib fractures. Right lung postsurgical findings are noted. Severe emphysema is noted. There is left apical scarring. There is no consolidation to suggest pneumonia. Cardiomediastinal silhouette is normal. IMPRESSION: 1. No acute cardiopulmonary findings. 2. Severe emphysema. Impression - H&P Impression Assessment and Plan RECTAL BLEEDING Presents with bright red rectal bleeding in setting of Coumadin use (INR 1.9), did not tolerate IV vitamin K, PO vitamin K given, recheck INR in AM ER provider's rectal exam showed small hemorrhoids, no active bleeding from the hemorrhoids, bright red blood seen coming from within the rectum Likely lower GI source, ? diverticular vs. other History of ulcerative colitis, clinically not in flare Hg stable at 12.6 Was tachycardic on arrival -> resolved with IVF's, BP stable Check abdominal x-ray, stool studies Monitor H/H q6, transfuse PRN, type/screen pending Clear liquid diet IVF's Consult GI, discussed with Liz Rubio, appreciate input, no plan for inpatient colonoscopy at this time COPD/ CHRONIC RESPIRATORY FAILURE Not in acute exacerbation Continue Breo Ellipta from home, PRN Xopenex nebs On chronic supplemental O2 2 liters NC On chronic bronchitis prophylaxis with azithromycin MWF To be starting pulmonary rehab as outpatient in the near future HISTORY OF DVT DVT PROPHYLAXIS Hold Coumadin SCD's due to GI bleeding CODE STATUS Full code per my discussion with patient DISPOSITION Observation telemetry Lives with Follows with Dr. Barahona for primary care Patient seen in collaboration with Dr. Richardson. Please see her addendum. ADDENDUM: I have seen and evaluated the patient and have discussed the case with the provider above. I agree with the assessment and plan as stated. DO Dylan Level of Care Telemetry Advanced Directives Existing Living Will: Yes Existing Power of Artificial Limb Fitter: Yes (SWAYNE ) Resuscitation Status FULL RESUSCITATION VTE Prophylaxis VTE Risk Assessment Done? Y/N: Yes Risk Level: Moderate Given or contraindicated: SCD's, Contraindicated Physical Exam (per Admitting): General Appearance: no apparent distress, + thin, + pertinent finding ( alert 61 year old female, lying in bed, family at bedside) Head: normocephalic, atraumatic Eyes: normal inspection, PERRL ENT: hearing grossly normal, pharynx normal Neck: supple, trachea midline Respiratory/Chest: lungs clear, normal breath sounds, no respiratory distress, no accessory muscle use, + pertinent finding (saturating 100% on 4 liters NC) Cardiovascular: regular rate, rhythm, no murmur Abdomen/GI: normal bowel sounds, non tender, soft Extremities/Musculoskelatal: no calf tenderness, no pedal edema Neurologic/Psych: alert, normal mood/affect, oriented x 3 Skin: normal color, warm/dry Hospital Course RECTAL BLEEDING Present with bright red rectal bleeding on Admission INR on admission 1.9 likely contributing Received VIt K in the ER Hb remained stable and did not require any PRBC Appreciate Gastro input Colonoscopy done: Inflammatory bowel disease consistent with Crohn's disease was found in the entire colon, with active inflammation in the rectum and splenic flexure. Crohn's disease Colonoscopy as above Likely to need OP treatment for Crohn's disease Discussed with the GI Hepatitis Core Ab pending C-Diff Diarrhea improved Continue Vanco po PO for 10 days COPD/ CHRONIC RESPIRATORY FAILURE Continue Breo Ellipta from home, PRN Xopenex nebs On chronic supplemental O2 2 liters NC On chronic bronchitis prophylaxis with azithromycin MWF Denies any exacerbation HISTORY OF DVT DVT PROPHYLAXIS Coumadin on hold due to GI bleeding CODE STATUS FULL CODE DISPOSITION Continue monitor in tele Consultants: Gastro Likely to go home today Total time spent on discharge = 35 Minutes This includes examination of the patient, discharge planning, medication reconciliation, and communication with other providers. Discharge Instructions Date of Service Apr 02, 2017. Admission Reason for Admission: Rectal Bleeding Discharge Discharge Diagnosis / Problem: Discharge Goals Goal(s): Prevent Disease Progression Activity Recommendations Activity Limitations: resume your previous activity . Instructions / Follow-Up Instructions / Follow-Up DR Barahona on 04/07/17 at 3:00PM.GI will call for appointment Current Hospital Diet Patient's current hospital diet: Regular Diet Discharge Diet Recommended Diet: Regular Diet Pending Studies Studies pending at discharge: no Medical Emergencies . Who to Call and When: Medical Emergencies: If at any time you feel your situation is an emergency, please call 911 immediately. . Non-Emergent Contact Non-Emergency issues call your: Primary Care Provider . . "Provider Documentation" section prepared by Mohamud Thomas. . VTE Core Measure Inpt VTE Proph given/why not?: SCD's, Contraindicated <Electronically signed by Mohamud Thomas M.D.> Signed: 04/02/17 [id number] Additional Copies To James Barahona M.D.
[2017-04-03] MEDS ORDERED: PPD CHECK SCH (13:30)
== END 2017-04-02 16:20 | disposition home or self-care (01) | DRG 386 ==
LOC: C.EDB 11:24 → C.2E 13:28 → EDBEDREQ 14:12 → ENRESERV 14:25 → OBSVTOIN 04-02 09:40
PROVIDERS: ADMIT Hospitalist; ATTEND Internal Medicine
PROC: 0DBK8ZX Excision of Ascending Colon, Via Natural or Artificial Opening Endoscopic, Diagnostic (ICD-10-PCS; principal; 2017-04-01 12:30)
PROC: 0DBP8ZX Excision of Rectum, Via Natural or Artificial Opening Endoscopic, Diagnostic (ICD-10-PCS; principal; 2017-04-01 12:30)
PROC: 0DBH8ZX Excision of Cecum, Via Natural or Artificial Opening Endoscopic, Diagnostic (ICD-10-PCS; principal; 2017-04-01 12:30)
PROC: 0DBM8ZX Excision of Descending Colon, Via Natural or Artificial Opening Endoscopic, Diagnostic (ICD-10-PCS; principal; 2017-04-01 12:30)
PROC: 0DBN8ZX Excision of Sigmoid Colon, Via Natural or Artificial Opening Endoscopic, Diagnostic (ICD-10-PCS; principal; 2017-04-01 12:30)
PROC: 0DBL8ZX Excision of Transverse Colon, Via Natural or Artificial Opening Endoscopic, Diagnostic (ICD-10-PCS; principal; 2017-04-01 12:30)
DX: K50.111 Crohn's disease of large intestine with rectal bleeding (principal); J96.10 Chronic respiratory failure, unspecified whether with hypoxia or hypercapnia; J44.9 Chronic obstructive pulmonary disease, unspecified; Z99.81 Dependence on supplemental oxygen; B18.2 Chronic viral hepatitis C; Z83.3 Family history of diabetes mellitus; Z87.891 Personal history of nicotine dependence; Z86.718 Personal history of other venous thrombosis and embolism; Z79.01 Long term (current) use of anticoagulants; A04.7 Enterocolitis due to Clostridium difficile

== ENCOUNTER → 2017-06-11 | Day surgery (SDC) | payer OTHER, BC ==
[2017-06-03 07:36] VITALS: BMI 17.0
[~2017-06-11] VITALS: Ht 165.1 cm; Wt 46.8 kg
[~2017-06-11] MED LIST changes: -CALC-51 PO; +DNSIS60 SQ; -DOXY100T PO; -IPRASOL4 INH; +LIDOCAINE HCL 2% 2 ML VIAL (20MG/ML) ONE; -POTA10TA32 PO; -PRED-301 PO; -PRLSR20 PO; +PROPOFOL IV EMULSION 10 MG/ML 20 ML VIAL IV ONE; +SODIUM CHLORIDE 0.9% 500ML 500 ML IV ONE; +XPNINS125 NEB
[2017-06-11 09:39] VITALS: Ht 165.1 cm; Wt 46.8 kg
--- NOTE | 2017-06-11 10:35 | Endo History and Physical ---
History & Physical Date of Service: Jun 11, 2017. Chief Complaint: hx colitis Referring Physician: Dr. Barahona History of Present Illness H/o colitis Past Medical History Pulmonary Emboli, COPD, CVA/TIA, NE Past Surgical History Hx Cardiac Surgery: No Hx Internal Defibrillator: No Hx Pacemaker: No Hx Abdominal Surgery: Yes () Hx of Implantable Prosthesis: No Hx Post-Op Nausea and Vomiting: No Hx Cancer Surgery: No Hx Thoracic Surgery: Yes (LUNG SURGERY ?EXACT PROCEDURE/THOROCOSCOPY) Hx Orthopedic: No Hx Urinary Tract Surgery: No Family History None Social History Smoking Status: Former Smoker Hx Substance Use: No Hx Alcohol Use: Yes (OCCASIONALLY) Allergies Coded Allergies: Levofloxacin (Verified Allergy, Mild, rash, 06/11/17) Penicillins (Verified Allergy, Unknown, Amoxil - rash, 06/11/17) RASH mother told her as a child, has never had it as an adult. tolerates cefalosporins fine Phytonadione (Unverified Allergy, Unknown, severe back pain, red face , ) Reaction from IV form, PO form ok Theophylline (Verified Adverse Reaction, Mild, Headache, 06/11/17) HEADACHE Bacitracin (Verified Adverse Reaction, Unknown, infection, 06/11/17) Neomycin (Verified Adverse Reaction, Unknown, infection, 06/11/17) Polymyxin B (Verified Adverse Reaction, Unknown, infection, 06/11/17) Current Medications Reported Home Medications Medications Dose Route/Sig Max Daily Dose Days Date Category Dose Instructions Levalbuterol HCl (Levalbuterol) 1.25 Mg/3 Ml Nebu 1.25 Mg NEB Q4 PRN 03/31/17 Reported Prolia (Denosumab) 60 Mg/1 Ml Inj 1 Ml SQ Q6MO 03/31/17 Reported Zithromax (Azithromycin) 250 Mg Tab 250 Mg PO --09/16/16 Reported Breo Ellipta (Fluticasone Furoate-Vilanterol) 1 Inh Inh 1 Puff INH QAM 09/16/16 Reported Coumadin (Warfarin Sodium) 5 Mg Tab 5 Mg PO 4XWK 09/16/16 Reported TAKE THURSDAY, THURSDAY, THURSDAY, THURSDAY Jantoven (Warfarin Sodium) 2.5 Mg Tab 2.5 Mg PO 3XWK 03/10/16 Reported THURSDAY, THURSDAY, THURSDAY Lialda (Mesalamine) 1.2 Gm Tab 2 Tab PO QAM 09/01/14 Reported Vitamin D 1000 Unit (Cholecalciferol) 1,000 Unit Cap 1,000 Inter.unit PO 2XWK 09/01/14 Reported Vital Signs Weight (Kilograms): 46.82 Height (Feet): 5 Height (Inches): 5 Date Time Temp Pulse Resp B/P (MAP) Pulse Ox O2 Delivery O2 Flow Rate FiO2 06/11/17 09:48 36.3 112 24 148/87 (107) 95 Nasal Cannula 3 Physical Exam General Appearance: WD/WN, no apparent distress Respiratory/Chest: Auscultation: breath sounds normal Cardiovascular: Heart Auscultation: RRR Abdomen: Inspection & Palpation: soft Assessment and Plan H/o colitis - cscopy
--- NOTE | 2017-06-11 12:31 | GI REPORT ---
Procedure Date: 06/11/2017 11:40 AM Procedure: Colonoscopy Indications: Follow-up of ulcerative colitis Medicines: See the Anesthesia note for documentation of the administered medications Complications: No immediate complications. Estimated Blood Loss: Estimated blood loss: none. Procedure: Pre-Anesthesia Assessment: - ASA Grade Assessment: IV - A patient with severe systemic disease that is a constant threat to life. After I obtained informed consent, the scope was passed under direct vision. Throughout the procedure, the patient's blood pressure, pulse, and oxygen saturations were monitored continuously. The scope was introduced through the anus and advanced to the cecum, identified by appendiceal orifice and ileocecal valve. The colonoscopy was performed without difficulty. Findings: Small hemorrhoids on perianal exam. There as a large scar in the rectum, without evidence of active ulceration. There was no evidence of active colitis in the remainder of the colon. There was evidence of chronic colitis, with marked deformity of the colonic mucosa, with multiple pseudopolyps, complete loss of normal haustral and vascular markings, multiple areas of mucosal bridging with narrowing or angulation of the colon. Multiple biopsies done from throughout the colon. Impression: Evidence of chronic colitis, but no evidence of active colitis. Recommendation: - Discharge patient to home. - Follow up biopsy results, but would defer escalation of immunosuppressive therapy. Fabián Pires M.D. Fabián Pires MD 06/11/2017 12:30:48 PM This report has been signed electronically. Note Initiated On: 06/11/2017 11:40 AM I attest to the content of the Intraoperative Record and orders documented therein, exceptions below
--- NOTE | 2017-06-11 12:31 | Discharge Instructions ---
Endoscopy Patient Instructions Date / Procedure(s) Performed Jun 11, 2017. Colonoscopy Allergy Information Coded Allergies: Levofloxacin (Verified Allergy, Mild, rash, 06/11/17) Penicillins (Verified Allergy, Unknown, Amoxil - rash, 06/11/17) RASH mother told her as a child, has never had it as an adult. tolerates cefalosporins fine Phytonadione (Unverified Allergy, Unknown, severe back pain, red face , ) Reaction from IV form, PO form ok Theophylline (Verified Adverse Reaction, Mild, Headache, 06/11/17) HEADACHE Bacitracin (Verified Adverse Reaction, Unknown, infection, 06/11/17) Neomycin (Verified Adverse Reaction, Unknown, infection, 06/11/17) Polymyxin B (Verified Adverse Reaction, Unknown, infection, 06/11/17) Discharge Date / Findings Jun 11, 2017. Evidence of chronic colitis, but no evidence of acute colitis. Medication Instructions Stopped Medication(s): Coumadin stopped for week along with other medication. Resume coumadin tomorrow. Provider Instructions Activity Restrictions - No exercising or heavy lifting for 24 hours. - Do not drink alcohol the day of the procedure. - Do not drive a car or operate machinery until the day after the procedure. - Do not make any important decisions or sign important papers in 24 hours after the procedure. Following Day: - Return to full activity which may include returning to work/school. Diet Clear liquids only today, then eat your usual diet if not nauseated. Treatment For Common After Affects For mild abdominal pain, bloating, or excessive gas: - Rest - Eat lightly - Lie on right side Follow-Up Information Follow-up with Dr. Barahona as scheduled Anesthesia Information What You Should Know You have had a procedure that required some medicine to reduce anxiety and discomfort. This treatment is called moderate sedation. After receiving the treatment, you may be sleepy, but you will be able to breathe on your own. The effects of the treatment may last for several hours. Follow these instructions along with Activity/Diet recommendations noted above: * Do NOT do anything where dizziness or clumsiness would be dangerous. * Rest quietly at home today, then you can be up and about tomorrow. * Have a responsible person stay with you the rest of today. * You may have had an I.V. today. If so, you may take the dressing off later today. Recommendations Call your doctor if: * Trouble breathing * Continuous vomiting for more than 24 hours * Temperature above 101 degrees * Severe abdominal pain or bloating * Pain not relieved by pain medicine ordered * There is increased drainage or redness from any incision * A large amount of rectal bleeding greater than 2-3 tablespoons. (If you had a polyp/s removed or have hemorrhoids, a small amount of blood - from the rectum is to be expected.) * You have any unanswered questions or concerns. IN THE EVENT OF A SERIOUS EMERGENCY, GO TO THE NEAREST EMERGENCY ROOM Your discharge instructions were prepared by provider Fabián Simon. Patient Instructions Signature Page Emilie Copeland Patient (or Guardian) Signature/Date: I have read and understand the instructions given to me by my caregivers. Caregiver/RN/Doctor Signature/Date: The above-named patient and/or guardian has received patient instructions on this date. + Original Patient Signature Page (only) stays with chart. Please make copy for patient.
--- NOTE | 2017-06-11 12:44 | Anesthesiology Progress Note ---
Anesthesia Post Op Note Date & Time Jun 11, 2017 at 12:44 Vital Signs Pain Intensity: 0 Vital Signs Past 12 Hours Date Time Temp Pulse Resp B/P (MAP) Pulse Ox O2 Delivery O2 Flow Rate FiO2 06/11/17 12:34 151/80 (103) 06/11/17 12:32 83 12 136/111 (119) 98 Nasal Cannula 3 06/11/17 12:16 101 12 128/88 (101) 95 Nasal Cannula 3 06/11/17 09:48 36.3 112 24 148/87 (107) 95 Nasal Cannula 3 Notes Mental Status: alert / awake / arousable, participated in evaluation Pt Amnestic to Procedure: Yes Nausea / Vomiting: adequately controlled Pain: adequately controlled Airway Patency, RR, SpO2: stable & adequate BP & HR: stable & adequate Hydration State: stable & adequate Anesthetic Complications: no major complications apparent
[2017-06-11 12:48] VITALS: BP 144/80; PULSE 88; O2SAT 97
== END | disposition home or self-care (01) ==
LOC: C.GI 09:15
PROVIDERS: ATTEND Internal Medicine Gastroenterology
DX: K52.9 Noninfective gastroenteritis and colitis, unspecified (principal); K64.8 Other hemorrhoids; Z87.891 Personal history of nicotine dependence

== ENCOUNTER 2018-09-29 13:56 | Inpatient (IN) ==
[2018-09-29] MEDS ORDERED: ALBUT/IPRATROP 3MG/0.5MG NEB 3 ML VIAL NEB STA (15:51)
[2018-09-29 15:59] LABS: Hematocrit (blood only) 44.1 % (37-47); Hemoglobin 14.2 g/dL (12.0-16.0); Immature Granulocytes # (auto) 0.02 K/uL (0.00-0.02); Immature Granulocytes % (auto) 0.3 %; Lymphocytes # (auto) 0.59 K/uL (1.2-3.4); Mean Corpuscular Hgb Conc 32.2 g/dL (32-36); Mean Corpuscular Volume 96.7 fL (80-100); Mean Platelet Volume 9.2 fL (7.4-10.4); Monocytes # (auto) 0.34 K/uL (0.11-0.59); Monocytes % (auto) 4.6 %; Neutrophils % (auto) 87.1 %; Platelet Count 183 K/uL (130-400); RDW Coefficient of Variation 13.8 % (11.5-14.5); Red Blood Count 4.56 M/uL (4.2-5.4); White Blood Count 7.35 K/uL (4.8-10.8)
[2018-09-29 16:07] LABS: INR 1.4 (0.9-1.1); Prothrombin Time 13.7 Seconds (9.0-12.0)
[2018-09-29 16:08] LABS: Alanine Aminotransferase 21 U/L (12-78); Albumin Level 3.2 gm/dl (3.4-5.0); Aspartate Aminotransferase 13 U/L (15-37); BUN Creatinine Ratio 27.3 (10-20); Blood Urea Nitrogen 20 mg/dl (7-18); Calcium 8.2 mg/dl (8.5-10.1); Carbon Dioxide 34 mmol/L (21-32); Chloride 102 mmol/L (98-107); Creatinine Clr Calc Pharmacy 53.5 ml/min; Est GFR (African American) 96.9; Est GFR (Non-African American) 83.6; Magnesium 2.3 mg/dl (1.8-2.4); Potassium 3.9 mmol/L (3.5-5.1); Sodium 141 mmol/L (136-145)
[2018-09-29 16:13] LABS: Albumin Globulin Ratio 0.7 (0.9-2); Alkaline Phosphatase 57 U/L (45-117); Bilirubin,Total 0.5 mg/dl (0.2-1); Globulin 4.6 gm/dl (2.5-4.0); Glucose 117 mg/dl (70-99); NT Pro B Type Natriuretic Pept 253 pg/ml (0-900); Total Protein 7.8 gm/dl (6.4-8.2); Troponin I < 0.015 ng/ml (0-0.045)
--- NOTE | 2018-09-29 16:25 | Emergency Department Note ---
Entered by Zeke Youssef acting as a scribe for Radha Galvez DO History of Present Illness General Chief complaint: Respiratory Problems Stated complaint: SEVERE COPD,SOB Time Seen by Provider: 09/29/18 15:24 Source: patient and family Limitations: no limitations History of Present Illness Provider complaint: SOB Onset (ago): week(s) (2) Location: chest (SOB) Pain Consistency: + other (worsening) Maximum Pain Intensity: 4 Quality: + other (SOB) Associated symptoms: + cough Treatments prior to arrival: other (Nebulizer, 2L Home O2, Prednisone/Doxy, other antibiotic) The patient is a 63 year old female who presents to the Emergency Room with complaints of worsening shortness of breath for the past two weeks. The patient was referred to the ED today by her primary care provider, Dr. Barahona. Dr. Barahona's note states that the patient has been experiencing worsening shortness of breath for the past two weeks. He has treated her with a Prednisone/Doxycycline rescue pack as well as another antibiotic, but she has not had any improvement. The patient is also using 3 Nebulizer treatments per day as well as 2L of nasal canula oxygen. Patient states she has intermittently turned up her oxygen to approximately 3 L. Patient states that using the nebulizer 3 times a day is an increase for her also. She notes that he current cough is producing a "light yellow" mucous. She denies any recent nausea, vomiting, or diarrhea. The patient believes that her current episode was exacerbated by being around her [id number] who smokes cigarettes. She has been having difficulty with COPD for the past 2 years. Home Medications Home Medications Medication Instructions Recorded Confirmed Type cefuroxime axetil 500 mg PO Q12H 09/29/18 09/29/18 History cholecalciferol (vitamin D3) 2,000 unit PO DAILY 09/29/18 09/29/18 History [Vitamin D3] doxycycline hyclate 100 mg PO BID PRN 09/29/18 09/29/18 History fluticasone furoate-vilanterol 1 inh INHALATION DAILY 09/29/18 09/29/18 History [Breo Ellipta] levalbuterol HCl [Xopenex] 1.25 mg INHALATION Q4 PRN 09/29/18 09/29/18 History lidocaine [Lidoderm] 1 patch TOPICAL DAILY 09/29/18 09/29/18 History mesalamine 2.4 g PO DAILY 09/29/18 09/29/18 History prednisone 0 mg PO DIRECTED PRN 09/29/18 09/29/18 History warfarin [Coumadin] 2.5 mg PO 2XWK 09/29/18 09/29/18 History warfarin [Coumadin] 5 mg PO 5XWK 09/29/18 09/29/18 History Allergies Allergy/AdvReac Type Severity Reaction Status Date / Time phytonadione (vitamin K1) Allergy Intermediate severe Verified 09/29/18 15:54 back pain, red face levofloxacin Allergy Mild rash Verified 09/29/18 15:54 Penicillins Allergy Mild Amoxil - Verified 09/29/18 15:54 rash allantoin Allergy Unknown [facility] LIST Verified 09/29/18 15:54 bacitracin AdvReac Intermediate infection Verified 09/29/18 15:54 neomycin AdvReac Intermediate infection Verified 09/29/18 15:54 polymyxin B AdvReac Intermediate infection Verified 09/29/18 15:54 theophylline AdvReac Mild Headache Verified 09/29/18 15:54 Past Med/Surg History Medical History Chronic respiratory failure (Chronic) COPD (chronic obstructive pulmonary disease) (Chronic) "severe" History of DVT (deep vein thrombosis) History of Clostridium difficile colitis (Chronic) Pneumonia (Resolved) H/O pneumothorax (Chronic) "spontaneous" Abdominal pain Surgical History S/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 and A total of 10 systems reviewed and were otherwise negative Physical Exam Vital Signs Vital Signs - 24 hr 09/29/18 14:03 09/29/18 15:00 09/29/18 16:24 Temperature 36.8 C Temperature Source Oral Sepsis Recent Fever Within 48 Hours No Sepsis Action Taken by Nursing No Action Required Pulse Rate 122 H Pulse Rate [Apical] 91 H Pulse Rate [Finger] Pulse Rhythm [Apical] Regular Respiratory Rate 20 18 Respiratory Effort / Characteristics Pursed Lip Short of Breath Non-Labored Spontaneous Non-Labored Spontaneous Respiratory Depth Normal Normal Normal Respiratory Pattern Regular Regular Blood Pressure 152/84 H Blood Pressure [Right Arm] 144/99 H Blood Pressure Mean 106 Blood Pressure Mean [Right Arm] 114 Blood Pressure Position [Right Arm] Pulse Oximetry 96 100 Oxygen Delivery Method Nasal Cannula Nasal Cannula Oxygen Flow Rate 2 2 09/29/18 19:14 09/29/18 20:00 09/29/18 20:08 Temperature Temperature Source Sepsis Recent Fever Within 48 Hours Sepsis Action Taken by Nursing Pulse Rate 83 117 H Pulse Rate [Apical] 97 H Pulse Rate [Finger] Pulse Rhythm [Apical] Respiratory Rate 20 20 Respiratory Effort / Characteristics Spontaneous Respiratory Depth Respiratory Pattern Blood Pressure 152/78 H Blood Pressure [Right Arm] Blood Pressure Mean Blood Pressure Mean [Right Arm] Blood Pressure Position [Right Arm] Pulse Oximetry 96 98 Oxygen Delivery Method Nasal Cannula Nasal Cannula Oxygen Flow Rate 2 2 09/29/18 22:26 09/29/18 23:05 09/29/18 23:09 Temperature 36.8 C Temperature Source Oral Sepsis Recent Fever Within 48 Hours Sepsis Action Taken by Nursing Pulse Rate Pulse Rate [Apical] Pulse Rate [Finger] 95 H 86 Pulse Rhythm [Apical] Respiratory Rate 20 14 Respiratory Effort / Characteristics Non-Labored Spontaneous Respiratory Depth Respiratory Pattern Blood Pressure Blood Pressure [Right Arm] 146/75 H Blood Pressure Mean Blood Pressure Mean [Right Arm] 98 Blood Pressure Position [Right Arm] Lying Pulse Oximetry 99 98 Oxygen Delivery Method Nasal Cannula Nasal Cannula Nasal Cannula Oxygen Flow Rate 2 2 2 GENERAL: alert, chronically ill appearing, well nourished, no distress, non- toxic EYE EXAM: normal conjunctiva, PERRL and EOM's grossly intact OROPHARYNX: no exudate, no erythema, lips, buccal mucosa, and tongue normal and mucous membranes are moist NECK: supple, no nuchal rigidity, no adenopathy, non-tender LUNGS: Diminished breath sounds. No wheezes, rhonchi, or rales. HEART: no murmurs, S1 normal and S2 normal ABDOMEN: abdomen soft, non-tender, normo-active bowel sounds, no masses, no rebound or guarding. BACK: Back is symmetrical on inspection and there is no deformity, no midline tenderness, no CVA tenderness. SKIN: no rashes and no bruising UPPER EXTREMITIES: upper extremities are grossly normal. FROM, nml pulses b/l. LOWER EXTREMITIES: No pitting edema. FROM, nml pulses b/l. NEURO EXAM: Normal sensorium, cranial nerves II-XII grossly intact, normal speech, no gross weakness of arms, no gross weakness of legs. Course 1537: Past medical records reviewed. The patient was evaluated in room C4, and a complete history and physical examination were performed. 1620: Office note from Dr. Barahona reviewed. Patient initially started on doxycycline with prednisone. After that was seen by Dr. Myles started on another course of prednisone as well as a course of Ceftin. 1722: I reviewed the patient's case with Dr. Valerio [facility] Hospitalist KRISTIN Kirby. She will evaluate the patient for further management. Administered Medications Albuterol (Duoneb) 3 ml NEB Q4R GEE Stop: 10/29/18 19:59 Last Admin: 09/29/18 23:07 Dose: 3 ml Documented by: [id number] Admin: 09/29/18 20:08 Dose: 3 ml Documented by: [id number] Sodium Chloride (Nss 1000ml) 1,000 mls @ 125 mls/hr IV .Q8H GEE Stop: 10/29/18 16:29 Last Infusion: 09/29/18 21:45 Dose: 125 mls/hr Documented by: [id number] Infusion: 09/29/18 20:00 Dose: 0 mls/hr Documented by: [id number] Admin: 09/29/18 16:33 Dose: 125 mls/hr Documented by: [id number] Methylprednisolone 40 mg/ (Syringe) 0.64 mls @ 1.5 mls/min IV Q6H GEE Stop: 10/29/18 19:59 Last Admin: 09/29/18 21:07 Dose: 1.5 mls/min Documented by: [id number] Ioversol (Optiray 320 125ml) 103 ml IV ONCE PRN PRN Reason: Interaction Checking Stop: 10/03/18 16:36 Last Admin: 09/29/18 16:39 Dose: 103 ml Documented by: [id number] Lidocaine (Lidoderm 5%) 1 patch TD DAILY@1999 GEE Stop: 10/29/18 19:59 Last Admin: 09/29/18 21:07 Dose: 1 patch Documented by: [id number] Discontinued Medications Albuterol (Duoneb) 3 ml NEB NOW STA Stop: 09/29/18 15:52 Last Admin: 09/29/18 16:18 Dose: 3 ml Documented by: [id number] Azithromycin (Zithromax) 500 mg PO NOW ONE Stop: 09/29/18 17:10 Last Admin: 09/29/18 18:01 Dose: 500 mg Documented by: [id number] Ceftriaxone Sodium (Rocephin) 1,000 mg in 50 mls @ 100 mls/hr IV NOW STA Stop: 09/29/18 17:38 Last Infusion: 09/29/18 18:49 Dose: 0 mls/hr Documented by: [id number] Admin: 09/29/18 18:00 Dose: 100 mls/hr Documented by: [id number] Warfarin Sodium (Coumadin) 2.5 mg PO NOW STA Stop: 09/29/18 17:11 Last Admin: 09/29/18 18:06 Dose: Not Given Documented by: [id number] Warfarin Sodium (Coumadin) 7.5 mg PO ONE ONE Stop: 09/29/18 20:16 Last Admin: 09/29/18 21:07 Dose: 7.5 mg Documented by: [id number] Medical Decision Making Differential Diagnosis Differential diagnosis: Etiologies such as infections, reactive airway disease, COPD, pneumonia, pleural effusion, pulmonary edema, ARDS, pneumothorax, CHF, cardiac ischemia, cardiac tamponade, dysrhythmia, anemia, pulmonary embolism, musculoskeletal, gastrointestinal process, as well as others were entertained. Medical Records Attestation: I reviewed the patient's medical records. Home Medications Current Medication List: was personally reviewed by me Laboratory Data Attestation: I reviewed the patient's lab results. Result diagrams: 09/29/18 15:15 09/29/18 15:15 Lab Results 09/29/18 09/29/18 09/29/18 Range/Units 15:15 15:15 15:15 WBC 7.35 (4.8-10.8) K/uL RBC 4.56 (4.2-5.4) M/uL Hgb 14.2 (12.0-16.0) g/dL Hct 44.1 (37-47) % MCV 96.7 (80-100) fL MCH 31.1 (25-34) pg MCHC 32.2 (32-36) g/dL RDW Std Deviation 49.0 H (36.4-46.3) fL RDW Coeff of Isaura 13.8 (11.5-14.5) % Plt Count 183 (130-400) K/uL MPV 9.2 (7.4-10.4) fL Immature Gran % (Auto) 0.3 % Neut % (Auto) 87.1 % Lymph % (Auto) 8.0 % Bingham % (Auto) 4.6 % Eos % (Auto) 0.0 % Baso % (Auto) 0.0 % Immature Gran # (Auto) 0.02 (0.00-0.02) K/uL Neut # (Auto) 6.40 (1.4-6.5) K/uL Lymph # (Auto) 0.59 L (1.2-3.4) K/uL Bingham # (Auto) 0.34 (0.11-0.59) K/uL Eos # (Auto) 0.00 (0-0.5) K/uL Baso # (Auto) 0.00 (0-0.2) K/uL PT 13.7 H (9.0-12.0) Seconds INR 1.4 H (0.9-1.1) Sodium 141 (136-145) mmol/L Potassium 3.9 (3.5-5.1) mmol/L Chloride 102 (98-107) mmol/L Carbon Dioxide 34 H (21-32) mmol/L Anion Gap 5.0 (3-11) BUN 20 H (7-18) mg/dl Creatinine 0.75 (0.6-1.2) mg/dl Est Cr Clr Drug Dosing 53.5 ml/min Est GFR ( Amer) 96.9 Est GFR (Non-Af Amer) 83.6 BUN/Creatinine Ratio 27.3 H (10-20) Glucose 117 H (70-99) mg/dl Calcium 8.2 L (8.5-10.1) mg/dl Magnesium 2.3 (1.8-2.4) mg/dl Total Bilirubin 0.5 (0.2-1) mg/dl AST 13 L (15-37) U/L ALT 21 (12-78) U/L Alkaline Phosphatase 57 (45-117) U/L Troponin I < 0.015 (0-0.045) ng/ml NT-Pro-B Natriuret Pep 253 (0-900) pg/ml Total Protein 7.8 (6.4-8.2) gm/dl Albumin 3.2 L (3.4-5.0) gm/dl Globulin 4.6 H (2.5-4.0) gm/dl Albumin/Globulin Ratio 0.7 L (0.9-2) Lipase 135 (73-393) U/L Procalcitonin (0-0.5) ng/ml Influenza Type A (PCR) (Neg) Influenza Type B (PCR) (Neg) 09/29/18 09/29/18 Range/Units 15:15 Unknown WBC (4.8-10.8) K/uL RBC (4.2-5.4) M/uL Hgb (12.0-16.0) g/dL Hct (37-47) % MCV (80-100) fL MCH (25-34) pg MCHC (32-36) g/dL RDW Std Deviation (36.4-46.3) fL RDW Coeff of Isaura (11.5-14.5) % Plt Count (130-400) K/uL MPV (7.4-10.4) fL Immature Gran % (Auto) % Neut % (Auto) % Lymph % (Auto) % [place] % (Auto) % Eos % (Auto) % Baso % (Auto) % Immature Gran # (Auto) (0.00-0.02) K/uL Neut # (Auto) (1.4-6.5) K/uL Lymph # (Auto) (1.2-3.4) K/uL [place] # (Auto) (0.11-0.59) K/uL Eos # (Auto) (0-0.5) K/uL Baso # (Auto) (0-0.2) K/uL PT (9.0-12.0) Seconds INR (0.9-1.1) Sodium (136-145) mmol/L Potassium (3.5-5.1) mmol/L Chloride (98-107) mmol/L Carbon Dioxide (21-32) mmol/L Anion Gap (3-11) BUN (7-18) mg/dl Creatinine (0.6-1.2) mg/dl Est Cr Clr Drug Dosing ml/min Est GFR ( Amer) Est GFR (Non-Af Amer) BUN/Creatinine Ratio (10-20) Glucose (70-99) mg/dl Calcium (8.5-10.1) mg/dl Magnesium (1.8-2.4) mg/dl Total Bilirubin (0.2-1) mg/dl AST (15-37) U/L ALT (12-78) U/L Alkaline Phosphatase (45-117) U/L Troponin I (0-0.045) ng/ml NT-Pro-B Natriuret Pep (0-900) pg/ml Total Protein (6.4-8.2) gm/dl Albumin (3.4-5.0) gm/dl Globulin (2.5-4.0) gm/dl Albumin/Globulin Ratio (0.9-2) Lipase (73-393) U/L Procalcitonin < 0.05 (0-0.5) ng/ml Influenza Type A (PCR) Neg for Influ A (Neg) Influenza Type B (PCR) Neg for Influ B (Neg) Imaging Data Attestation: I personally reviewed and interpreted this imaging study as follows: Radiologist's Impression: CT ANGIOGRAM OF THE CHEST CLINICAL HISTORY: Cough and dyspnea. COMPARISON STUDY: Chest CT scans dated 05/31/2012 and 09/21/2015. Chest x-ray dated 03/31/2017. TECHNIQUE: Following the IV administration of 103 cc of Optiray 320, CT angiogram of the chest was performed from the upper abdomen to the thoracic inlet utilizing the pulmonary embolus protocol. Images are reviewed in the axial, sagittal, and coronal planes. 3-D MIPS images are created and assessed. IV contrast was administered without complication. A dose lowering technique was utilized adhering to the principles of ALARA. CT DOSE: 190.10 mGy.cm FINDINGS: Thyroid: Imaged portions of the thyroid gland are normal in size and attenuation. Thoracic aorta: There is atherosclerotic calcification of the thoracic aorta. There is mild ectasia of the ascending thoracic aorta which measures up to 3.6 cm. The remainder of the thoracic aorta is normal in caliber and the arch demonstrates standard 3-vessel anatomy. No dissection is seen. Pulmonary vasculature: The pulmonary trunk is normal in caliber. There are no filling defects identified in main, lobar, or segmental pulmonary branches to suggest pulmonary embolus. Heart: The heart is normal in size and without pericardial effusion. Coronary arteries are densely calcified. Lungs and pleural spaces: Advanced emphysematous change is noted. Bullae are noted at the lung apices. Postoperative change and volume loss are noted in the right lung. Numerous foci of parenchymal scarring are identified. No airspace consolidation is seen typical for pneumonia and there is no pleural effusion. The trachea is clear. Trace fluid is noted within the right mainstem bronchus. Mediastinum: There is no mediastinal lymphadenopathy. Lilian: Clear. Axillae: There is no axillary lymphadenopathy. Upper abdomen: Calcifications are noted along the splenic capsule. Advanced atherosclerotic plaque is noted in the superior mesenteric artery. Partially visualized upper abdominal viscera is otherwise within normal limits. Skeletal structures: The skeletal structures are osteopenic. There are numerous healed right-sided rib fractures. Degenerative change and hyperkyphosis are not ed throughout the thoracic spine. There is a chronic compression deformity of T12. No lytic or blastic bony lesions are seen. IMPRESSION: 1. There is no evidence of pulmonary embolus in the main, lobar, or segmental pulmonary arteries. 2. There is advanced emphysema, numerous foci of parenchyma scarring, and postoperative change in the right lung. 3. No airspace consolidation or pleural effusion is identified. 4. Additional findings as above. Electronically signed by: Mook Rehman M.D. 09/29/2018 5:05 PM ECG Data Attestation: I personally reviewed and interpreted this ECG as follows: Indication: SOB/dyspnea Rate (beats per minute): 88 Rhythm: sinus rhythm Findings: + T-wave inversion (aVL); no acute ischemic change Blood Pressure Blood Pressure Findings: Elevated blood pressure Blood Pressure Disposition: further management by hospitalist TRICIA Narrative Patient sent in by family doctor due to concern for continued failed outpatient management of a likely COPD exacerbation. Patient with a long-standing history of COPD and wears home oxygen. No chronic steroid use, however patient has been on a steroid taper as well as 2 different rounds of antibiotics over the last 2 weeks without improvement. Patient has increased her oxygen at home, use her nebulizer treatments more frequently, and still has a worsening cough. Patient does have a history of prior thrombi embolic disease, because her INR was subtherapeutic, patient sent for CT angiography of the chest to rule out PE as a precaution. This was reassuring. I do not suspect acute cardiac etiology i ncluding ACS or congestive heart failure. No evidence of pleural effusions. Patient given nebulizer treatment here, and after discussion with pharmacy, started on additional antibiotics. Case discussed with hospitalist for additional evaluation and management. Impression & Plan COPD exacerbation, Failure of outpatient treatment, Subtherapeutic international normalized ratio (INR) Discharge Plan Visit Data *Final* Discharge Date/Time: 09/29/18 19:14 Chief Complaint: Respiratory Problems Stated Complaint: SEVERE COPD,SOB ED Provider: Radha Galvez Discharge Problem: COPD exacerbation, Failure of outpatient treatment, Subtherapeutic international normalized ratio (INR) Patient Disposition: Admitted As Inpatient Discharge Instructions Interventions: ED Discharge Assessment Last Done: 09/29/18 19:14 The scribe's documentation has been prepared under my direction and personally reviewed by me in its entirety. I confirm that the note above accurately reflects all work, treatment, procedures, and medical decision making performed by me.
[2018-09-29] MEDS: SODIUM CHLORIDE 0.9% 1000ML 1,000 ML IV SCH (16:33)
[2018-09-29] MEDS ORDERED: OPTIRAY 320 125ml IV PRN (16:37)
--- NOTE | 2018-09-29 17:06 | CT Scan Report ---
CT ANGIOGRAM OF THE CHEST CLINICAL HISTORY: Cough and dyspnea. COMPARISON STUDY: Chest CT scans dated 05/31/2012 and 09/21/2015. Chest x-ray dated 03/31/2017. TECHNIQUE: Following the IV administration of 103 cc of Optiray 320, CT angiogram of the chest was pe rformed from the upper abdomen to the thoracic inlet utilizing the pulmonary embolus protocol. Images are reviewed in the axial, sagittal, and coronal planes. 3-D MIPS images are created and assessed. I V contrast was administered without complication. A dose lowering technique was utilized adhering to the principles of ALARA. CT DOSE: 190.10 mGy.cm FINDINGS: Thyroid: Imaged portions of the thyroid gland are normal in size and attenuation. Thoracic aorta: There is atherosclerotic calcification of the thoracic aorta. There is mild ectasia o f the ascending thoracic aorta which measures up to 3.6 cm. The remainder of the thoracic aorta is no rmal in caliber and the arch demonstrates standard 3-vessel anatomy. No dissection is seen. Pulmonary vasculature: The pulmonary trunk is normal in caliber. There are no filling defects identif ied in main, lobar, or segmental pulmonary branches to suggest pulmonary embolus. Heart: The heart is normal in size and without pericardial effusion. Coronary arteries are densely ca lcified. Lungs and pleural spaces: Advanced emphysematous change is noted. Bullae are noted at the lung apices . Postoperative change and volume loss are noted in the right lung. Numerous foci of parenchymal scar ring are identified. No airspace consolidation is seen typical for pneumonia and there is no pleural effusion. The trachea is clear. Trace fluid is noted within the right mainstem bronchus. Mediastinum: There is no mediastinal lymphadenopathy. Lilian: Clear. Axillae: There is no axillary lymphadenopathy. Upper abdomen: Calcifications are noted along the splenic capsule. Advanced atherosclerotic plaque is noted in the superior mesenteric artery. Partially visualized upper abdominal viscera is otherwise w ithin normal limits. Skeletal structures: The skeletal structures are osteopenic. There are numerous healed right-sided ri b fractures. Degenerative change and hyperkyphosis are noted throughout the thoracic spine. There is a chronic compression deformity of T12. No lytic or blastic bony lesions are seen. IMPRESSION: 1. There is no evidence of pulmonary embolus in the main, lobar, or segmental pulmonary arteries. 2. There is advanced emphysema, numerous foci of parenchyma scarring, and postoperative change in the right lung. 3. No airspace consolidation or pleural effusion is identified. 4. Additional findings as above. Electronically signed by: Mook Rehman M.D. 09/29/2018 5:05 PM
[2018-09-29] MEDS ORDERED: cefTRIAXone SODIUM 1,000 MG/50 ML BAG IV STA (17:09)
[2018-09-29] MEDS ORDERED: AZITHROMYCIN 250 MG TAB PO ONE (17:09)
--- NOTE | 2018-09-29 17:21 | History & Physical Report ---
Date of Service September 29, 2018 Assessment & Plan (1) COPD exacerbation: Acute on chronic COPD Exacerbation Chronic respiratory failure with Hypoxia H/O Sarcoidosis Failed Outpatient therapy Admit as inpatient CT chest:No PE, advanced emphysema, numerous foci of parenchyma scarring, and po stoperative change in the right lung. No airspace consolidation or pleural effusion is identified. Start IV antibiotics, IV solumedrol, bronchodilators Get sputum culture and gram strain Oxygen support per protocol Repeat labs in AM Check for Influenza PCR Ulcerative colitis Well controlled Continue Mesalamine H/OP carotid artery stenosis H/O CVA Not on aspirin or statins Chronic hepatitis C Treated as per patient Hypertension Currently not on any meds Blood pressure slightly elevated Consider starting on hypertension meds Vitamin D deficiency Continue vitamin D supplement H/O PE and DVT S/P IVC filter Subtherapeutic INR We will give 7.5 mg Coumadin today Monitor INR:1.4 today DVT Px: On Coumadin Code Status Full Code Disposition: Expect to discharge home when stable History of Present Illness Chief Complaint: Shortness of breath Primary Care Provider: James Barahona Patient is a 63-year-old female with history of COPD, chronic oxygen dependency, ulcerative colitis, carotid artery stenosis, CVA, chronic hepatitis C, sarcoidosis, hypertension, vitamin D deficiency, history of PE and DVT status post IVC filter and other problems presents with history of worsening shortness of breath and dry cough since 2 weeks duration. Patient has completed doxycycline and prednisone rescue pack as per her PCPs recommendation 1 week ago and is currently on Ceftin and prednisone taper. She states that she was requiring 3-4 L of oxygen to help with her symptoms. On recommendation by her PCP patient presented to ED for further evaluation and management. She denies smoking currently but was a former smoker. She follows with a [facility] acid treater as outpatient. Denies any history of chest pain, dizziness, pedal edema, hemoptysis, fever, chills, headache, change in vision, nausea, vomiting, abdominal pain, blood in stools, diarrhea, dysuria, hematuria, sick contact. She admits to being exposed to second hand smoke which she believes has exacerbated symptoms. Allergies Allergy/AdvReac Type Severity Reaction Status Date / Time phytonadione (vitamin K1) Allergy Intermediate severe Verified 09/29/18 15:54 back pain, red face levofloxacin Allergy Mild rash Verified 09/29/18 15:54 Penicillins Allergy Mild Amoxil - Verified 09/29/18 15:54 rash allantoin Allergy Unknown [facility] [place] [facility] Verified 09/29/18 15:54 bacitracin AdvReac Intermediate infection Verified 09/29/18 15:54 neomycin AdvReac Intermediate infection Verified 09/29/18 15:54 polymyxin B AdvReac Intermediate infection Verified 09/29/18 15:54 theophylline AdvReac Mild Headache Verified 09/29/18 15:54 Home Medications Home Medications Medication Instructions Recorded Confirmed Type cefuroxime axetil 500 mg PO Q12H 09/29/18 09/29/18 History cholecalciferol (vitamin D3) 2,000 unit PO DAILY 09/29/18 09/29/18 History [Vitamin D3] doxycycline hyclate 100 mg PO BID PRN 09/29/18 09/29/18 History fluticasone furoate-vilanterol 1 inh INHALATION DAILY 09/29/18 09/29/18 History [Breo Ellipta] levalbuterol HCl [Xopenex] 1.25 mg INHALATION Q4 PRN 09/29/18 09/29/18 History lidocaine [Lidoderm] 1 patch TOPICAL DAILY 09/29/18 09/29/18 History mesalamine 2.4 g PO DAILY 09/29/18 09/29/18 History prednisone 0 mg PO DIRECTED PRN 09/29/18 09/29/18 History warfarin [Coumadin] 2.5 mg PO 2XWK 09/29/18 09/29/18 History warfarin [Coumadin] 5 mg PO 5XWK 09/29/18 09/29/18 History Past Med/Surg History Medical History Chronic respiratory failure (Chronic) COPD (chronic obstructive pulmonary disease) (Chronic) "severe" History of DVT (deep vein thrombosis) History of Clostridium difficile colitis (Chronic) Pneumonia (Resolved) H/O pneumothorax (Chronic) "spontaneous" Abdominal pain Surgical History S/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 Social History Feels Safe at Home: Yes Smoking Status: Former smoker Hx Alcohol Use: No Review of Systems All systems reviewed & are unremarkable except as noted in HPI & below Physical Exam Vital Signs (Past 24 Hours): Last Vital Signs Temp 36.8 C 09/29/18 14:03 Pulse 91 H 09/29/18 16:24 Resp 18 09/29/18 16:24 BP 144/99 H 09/29/18 16:24 Pulse Ox 100 09/29/18 16:24 Physical Exam: Physical Exam: Vitals signs as noted above General Appearance:Thin, Frail, no apparent distress Head: normocephalic, Atraumatic Eyes: normal inspection, EOMI Neck: supple, Trachea midline Respiratory/Chest: Decreased breath sounds, B/L wheezes Cardiovascular: S1, S2, No murmur, +Tachycardia Abdomen/GI:Soft, Non tender, Bowel sounds present Extremities/Musculoskelatal:normal inspection, no edema Neurologic/Psych:AAOX3, grossly no focal neurological deficits Skin: normal color, warm Results & Data Laboratory Results Short CBC 09/29/18 Range/Units 15:15 WBC 7.35 (4.8-10.8) K/uL Hgb 14.2 (12.0-16.0) g/dL Hct 44.1 (37-47) % Plt Count 183 (130-400) K/uL BMP 09/29/18 15:15 Sodium 141 Potassium 3.9 Chloride 102 Carbon Dioxide 34 H BUN 20 H Creatinine 0.75 Glucose 117 H Calcium 8.2 L Cardiac Enzymes 09/29/18 Range/Units 15:15 Troponin I < 0.015 (0-0.045) ng/ml Liver Function 09/29/18 Range/Units 15:15 Total Bilirubin 0.5 (0.2-1) mg/dl AST 13 L (15-37) U/L ALT 21 (12-78) U/L Alkaline Phosphatase 57 (45-117) U/L Albumin 3.2 L (3.4-5.0) gm/dl Diagnostic Findings CT Chest: 1. There is no evidence of pulmonary embolus in the main, lobar, or segmental pulmonary arteries. 2. There is advanced emphysema, numerous foci of parenchyma scarring, and postoperative change in the right lung. 3. No airspace consolidation or pleural effusion is identified. 4. Additional findings as above. ECG Additional Comments: Normal sinus rhythm with sinus arrhythmia, QTC:428
[2018-09-29] MEDS: WARFARIN SOD 2.5 MG TAB PO STA ×2 (18:01→18:06)
[2018-09-29] MEDS ORDERED: POLYETHYLENE (MIRALAX) 17 GM PACK PO PRN (19:49)
[2018-09-29] MEDS ORDERED: LEVALBUTEROL 1.25MG/0.5ML NEB NEB PRN (19:49)
[2018-09-29] MEDS: ALBUT/IPRATROP 3MG/0.5MG NEB 3 ML VIAL NEB SCH ×2 (20:08→23:07)
[2018-09-29] MEDS ORDERED: WARFARIN SOD 7.5 MG TAB PO ONE (20:15)
[2018-09-29] MEDS: LIDOCAINE 5% 1 PATCH TD SCH (21:07)
[2018-09-29] MEDS: methylPREDNISolone 40 MG in SYRINGE 0 ML IV SCH (21:07)
[2018-09-29 21:33] LABS: Influenza A virus by PCR Neg for Influ A (Neg); Influenza B virus by PCR Neg for Influ B (Neg)
[2018-09-30] MEDS: SODIUM CHLORIDE 0.9% 1000ML 1,000 ML IV SCH ×3 (01:53→17:55)
[2018-09-30] MEDS: methylPREDNISolone 40 MG in SYRINGE 0 ML IV SCH ×4 (01:53→19:10)
[2018-09-30] MEDS: ALBUT/IPRATROP 3MG/0.5MG NEB 3 ML VIAL NEB SCH ×6 (04:48→23:12)
[2018-09-30 06:16] LABS: INR 1.4 (0.9-1.1)
[2018-09-30 06:29] LABS: Hematocrit (blood only) 38.5 % (37-47); Immature Granulocytes # (auto) 0.01 K/uL (0.00-0.02); Immature Granulocytes % (auto) 0.2 %; Lymphocytes # (auto) 0.35 K/uL (1.2-3.4); Lymphocytes % (auto) 6.7 %; Mean Corpuscular Hgb Conc 31.2 g/dL (32-36); Mean Corpuscular Volume 97.7 fL (80-100); Mean Platelet Volume 9.4 fL (7.4-10.4); Monocytes # (auto) 0.05 K/uL (0.11-0.59); Neutrophils # (auto) 4.79 K/uL (1.4-6.5); Neutrophils % (auto) 92.1 %; Platelet Count 146 K/uL (130-400); RDW Coefficient of Variation 13.8 % (11.5-14.5); RDW Standard Deviation 49.8 fL (36.4-46.3); Red Blood Count 3.94 M/uL (4.2-5.4)
[2018-09-30 06:40] LABS: BUN Creatinine Ratio 23.4 (10-20); Calcium 7.6 mg/dl (8.5-10.1); Creatinine Clr Calc Pharmacy 52.2 ml/min; Est GFR (African American) 93.9; Magnesium 2.1 mg/dl (1.8-2.4); Potassium 3.9 mmol/L (3.5-5.1)
[2018-09-30] MEDS: ACETAMINOPHEN 325 MG TAB PO PRN (07:34)
[2018-09-30] MEDS: MESALAMINE 400 MG CAPDR PO SCH (08:34)
[2018-09-30] MEDS: CHOLECALCIFEROL 1,000 UNITS TAB PO SCH (08:34)
--- NOTE | 2018-09-30 14:16 | Hospitalist Progress Note ---
Date of Service September 30, 2018 Assessment & Plan (1) COPD exacerbation: Acute on chronic COPD Exacerbation Chronic respiratory failure with Hypoxia H/O Sarcoidosis Failed Outpatient therapy CT chest:No PE, advanced emphysema, numerous foci of parenchyma scarring, and postoperative change in the right lung. No airspace consolidation or pleural effusion is identified. Started on IV antibiotics, IV solumedrol, bronchodilators Get sputum culture and gram strain Oxygen support per protocol Check for Influenza PCR-negative influenza Clinically better and will continue current treatment Ulcerative colitis Well controlled Continue Mesalamine No diarrhea and/or rectal bleed H/OP carotid artery stenosis H/O CVA Not on aspirin or statins Asymptomatic and will not initiate any aspirin and/or starting Chronic hepatitis C Treated as per patient Liver function remains stable Hypertension Currently not on any meds Blood pressure slightly elevated Consider starting on hypertension meds Vitamin D deficiency Continue vitamin D supplement H/O PE and DVT S/P IVC filter Subtherapeutic INR We will give 7.5 mg Coumadin today Monitor INR:1.4 today We will continue Coumadin DVT Px: On Coumadin Code Status Full Code Disposition: Expect to discharge home when stable Subjective The patient was seen and examined medical telemetry unit Patient is a 63-year-old female with history of COPD, chronic oxygen dependency, ulcerative colitis, carotid artery stenosis, CVA, chronic hepatitis C, sarcoidosis, hypertension, vitamin D deficiency, history of PE and DVT status post IVC filter and other problems presents with history of worsening shortness of breath and dry cough since 2 weeks duration. She has been feeling a little better since admission Still complains to have some cough with wheezing but no fever and/or chills Physical Exam Vital Signs (Past 24 Hours): Last Vital Signs Temp 36.8 C 09/30/18 11:26 Pulse 106 H 09/30/18 11:26 Resp 18 09/30/18 11:26 BP 150/83 H 09/30/18 11:26 Pulse Ox 97 09/30/18 11:26 Physical Exam: No apparent distress at rest Constitutional: WD/WN, vitals as above Eyes: PERRL, conjunctivae normal, anicteric sclerae ENMT: external ear and nose normal, oropharynx normal Respiratory: + respiratory distress, + labored breathing and + uses accessory muscles Auscultation: + diminished lung sounds and + wheezes Cardiovascular: Rate/Rhythm: regular rate and regular rhythm Heart Sounds: normal S1 and normal S2 Gastrointestinal (Abdomen): Inspection/Auscultation: abdomen normal to inspection and normal bowel sounds Percussion/Palpation: abdomen soft; abdomen nontender Neurologic: Alert, awake and oriented x3 Results & Data Laboratory Results Short CBC 09/29/18 09/30/18 Range/Units 15:15 05:28 WBC 7.35 5.20 (4.8-10.8) K/uL Hgb 14.2 12.0 (12.0-16.0) g/dL Hct 44.1 38.5 (37-47) % Plt Count 183 146 (130-400) K/uL BMP 09/29/18 09/30/18 15:15 05:28 Sodium 141 141 Potassium 3.9 3.9 Chloride 102 107 Carbon Dioxide 34 H 30 BUN 20 H 18 Creatinine 0.75 0.77 Glucose 117 H 141 H Calcium 8.2 L 7.6 L Cardiac Enzymes 09/29/18 Range/Units 15:15 Troponin I < 0.015 (0-0.045) ng/ml Liver Function 09/29/18 Range/Units 15:15 Total Bilirubin 0.5 (0.2-1) mg/dl AST 13 L (15-37) U/L ALT 21 (12-78) U/L Alkaline Phosphatase 57 (45-117) U/L Albumin 3.2 L (3.4-5.0) gm/dl Medications Administered Current Inpatient Medications Acetaminophen (Tylenol) 650 mg PO Q4H PRN PRN Reason: pain/fever Stop: 10/29/18 19:48 Last Admin: 09/30/18 07:34 Dose: 650 mg Documented by: Albuterol (Duoneb) 3 ml NEB Q4R GEE Stop: 10/29/18 19:59 Last Admin: 09/30/18 11:11 Dose: 3 ml Documented by: Azithromycin (Zithromax) 250 mg PO Q24H GEE; Protocol Stop: 10/03/18 18:01 Sodium Chloride (Nss 1000ml) 1,000 mls @ 125 mls/hr IV .Q8H GEE Stop: 10/29/18 16:29 Last Admin: 09/30/18 09:56 Dose: 125 mls/hr Documented by: Ceftriaxone Sodium 1,000 mg/ (Dextrose) 60 mls @ 100 mls/hr IV Q24H GEE; Protocol Stop: 10/07/18 17:59 Methylprednisolone 40 mg/ (Syringe) 0.64 mls @ 1.5 mls/min IV Q6H [facility] Stop: 10/29/18 19:59 Last Admin: 09/30/18 13:20 Dose: 1.5 mls/min Documented by: Ioversol (Optiray 320 125ml) 103 ml IV ONCE PRN PRN Reason: Interaction Checking Stop: 10/03/18 16:36 Last Admin: 09/29/18 16:39 Dose: 103 ml Documented by: Levalbuterol HCl (Xopenex 1.25mg/0.5ml Neb) 1.25 mg NEB Q6R PRN PRN Reason: Shortness Of Breath Or Wheezin Stop: 10/29/18 19:48 Lidocaine (Lidoderm 5%) 1 patch TD DAILY@2000 [facility] Stop: 10/29/18 19:59 Last Admin: 09/29/18 21:07 Dose: 1 patch Documented by: Mesalamine (Delzicol) 2,400 mg PO DAILY [facility] Stop: 10/30/18 08:59 Last Admin: 09/30/18 08:34 Dose: 2,400 mg Documented by: Miscellaneous (Remove Lidoderm Patch) 1 ea N/A DAILY@0800 [facility] Stop: 10/30/18 07:59 Last Admin: 09/30/18 08:33 Dose: 1 ea Documented by: Miscellaneous (Order Awaiting Action) 1 ea N/A QS [facility] Stop: 10/30/18 00:00 Last Admin: 09/30/18 07:35 Dose: Not Given Documented by: Polyethylene Glycol (Miralax Powder Packet) 17 gm PO DAILY PRN PRN Reason: Constipation Stop: 10/29/18 19:48 Vitamin D (Vitamin D3) 2,000 units PO DAILY [facility] Stop: 10/30/18 08:59 Last Admin: 09/30/18 08:34 Dose: 2,000 units Documented by: Warfarin Sodium (Coumadin) 5 mg PO DAILY@1600 [facility] Stop: 10/30/18 15:59
[2018-09-30] MEDS: WARFARIN SOD 5 MG TAB PO SCH (16:02)
[2018-09-30] MEDS: cefTRIAXone SODIUM 1,000 MG in DEXTROSE 5% 50 ML IV SCH (17:57)
[2018-09-30] MEDS: AZITHROMYCIN 250 MG TAB PO SCH (17:59)
[2018-09-30] MEDS: LIDOCAINE 5% 1 PATCH TD SCH (19:08)
[2018-10-01] MEDS: methylPREDNISolone 40 MG in SYRINGE 0 ML IV SCH ×4 (02:12→20:09)
[2018-10-01] MEDS: SODIUM CHLORIDE 0.9% 1000ML 1,000 ML IV SCH ×4 (02:12→23:42)
[2018-10-01] MEDS: ALBUT/IPRATROP 3MG/0.5MG NEB 3 ML VIAL NEB SCH ×6 (04:07→22:55)
[2018-10-01 05:21] LABS: INR 2.3 (0.9-1.1); Prothrombin Time 22.5 Seconds (9.0-12.0)
[2018-10-01] MEDS: CHOLECALCIFEROL 1,000 UNITS TAB PO SCH (08:07)
[2018-10-01] MEDS: VILANTEROL INH SCH (08:07)
[2018-10-01] MEDS: MESALAMINE 400 MG CAPDR PO SCH (08:07)
[2018-10-01] MEDS: FLUTICASONE FUROATE INH SCH (08:07)
--- NOTE | 2018-10-01 12:18 | Hospitalist Progress Note ---
Date of Service October 01, 2018 Assessment & Plan (1) COPD exacerbation: Acute on chronic COPD Exacerbation Chronic respiratory failure with Hypoxia H/O Sarcoidosis Failed Outpatient therapy CT chest:No PE, advanced emphysema, numerous foci of parenchyma scarring, and postoperative change in the right lung. No airspace consolidation or pleural effusion is identified. Started on IV antibiotics, IV solumedrol, bronchodilators Get sputum culture and gram strain Oxygen support per protocol Check for Influenza PCR-negative influenza Clinically better and will continue current treatment We need a few more days for recovery Ulcerative colitis Well controlled Continue Mesalamine No diarrhea and/or rectal bleed H/OP carotid artery stenosis H/O CVA Not on aspirin or statins Asymptomatic and will not initiate any aspirin and/or starting Chronic hepatitis C Treated as per patient Liver function remains stable Hypertension Currently not on any meds Blood pressure slightly elevated Consider starting on hypertension meds Vitamin D deficiency Continue vitamin D supplement H/O PE and DVT S/P IVC filter Subtherapeutic INR We will give 7.5 mg Coumadin today Monitor INR:1.4 today We will continue Coumadin INR is therapeutic at 2.4 DVT Px: On Coumadin Code Status Full Code Disposition: Expect to discharge home when stable Subjective The patient was seen and examined medical telemetry unit Patient is a 63-year-old female with history of COPD, chronic oxygen dependency, ulcerative colitis, carotid artery stenosis, CVA, chronic hepatitis C, sarcoidosis, hypertension, vitamin D deficiency, history of PE and DVT status post IVC filter and other problems presents with history of worsening shortness of breath and dry cough since 2 weeks duration. She has been feeling a little better since admission Still complains to have some cough with wheezing but no fever and/or chills 10/01 The patient was seen and examined in medical telemetry unit She has been feeling a little better today She has had a few ectopics last night No fever and/or chills and not yet ready to be discharged Physical Exam Vital Signs (Past 24 Hours): Last Vital Signs Temp 37.0 C 10/01/18 12:07 Pulse 98 H 10/01/18 12:07 Resp 20 10/01/18 12:07 BP 163/96 H 10/01/18 12:07 Pulse Ox 96 10/01/18 12:07 Physical Exam: Moderate distress at rest Constitutional: WD/WN, vitals as above Eyes: PERRL, conjunctivae normal, anicteric sclerae ENMT: external ear and nose normal, oropharynx normal Respiratory: + respiratory distress, + labored breathing and + uses accessory muscles Auscultation: + diminished lung sounds and + wheezes Cardiovascular: Rate/Rhythm: regular rate and regular rhythm Heart Sounds: normal S1 and normal S2 Gastrointestinal (Abdomen): Inspection/Auscultation: abdomen normal to inspection and normal bowel sounds Percussion/Palpation: abdomen soft; abdomen nontender Results & Data Laboratory Results Cardiac Enzymes 10/01/18 10/01/18 Range/Units 04:36 10:13 Troponin I 0.028 0.018 (0-0.045) ng/ml Medications Administered Current Inpatient Medications Acetaminophen (Tylenol) 650 mg PO Q4H PRN PRN Reason: pain/fever Stop: 10/29/18 19:48 Last Admin: 09/30/18 07:34 Dose: 650 mg Documented by: Albuterol (Duoneb) 3 ml NEB Q4R GEE Stop: 10/29/18 19:59 Last Admin: 10/01/18 10:58 Dose: 3 ml Documented by: Azithromycin (Zithromax) 250 mg PO Q24H GEE; Protocol Stop: 10/03/18 18:01 Last Admin: 09/30/18 17:59 Dose: 250 mg Documented by: Sodium Chloride (Nss 1000ml) 1,000 mls @ 125 mls/hr IV .Q8H [facility]EE Stop: 10/29/18 16:29 Last Admin: 10/01/18 08:08 Dose: 125 mls/hr Documented by: Ceftriaxone Sodium 1,000 mg/ (Dextrose) 60 mls @ 100 mls/hr IV Q24H [facility]EE; Protocol Stop: 10/07/18 17:59 Last Infusion: 09/30/18 18:50 Dose: Infused Documented by: Methylprednisolone 40 mg/ (Syringe) 0.64 mls @ 1.5 mls/min IV Q6H [facility]EE Stop: 10/29/18 19:59 Last Admin: 10/01/18 08:07 Dose: 1.5 mls/min Documented by: Ioversol (Optiray 320 125ml) 103 ml IV ONCE PRN PRN Reason: Interaction Checking Stop: 10/03/18 16:36 Last Admin: 09/29/18 16:39 Dose: 103 ml Documented by: Levalbuterol HCl (Xopenex 1.25mg/0.5ml Neb) 1.25 mg NEB Q6R PRN PRN Reason: Shortness Of Breath Or Wheezin Stop: 10/29/18 19:48 Lidocaine (Lidoderm 5%) 1 patch TD DAILY@2000 [facility] Stop: 10/29/18 19:59 Last Admin: 09/30/18 19:08 Dose: 1 patch Documented by: Mesalamine (Delzicol) 2,400 mg PO DAILY [facility] Stop: 10/30/18 08:59 Last Admin: 10/01/18 08:07 Dose: 2,400 mg Documented by: Miscellaneous (Remove Lidoderm Patch) 1 ea N/A DAILY@0800 [facility] Stop: 10/30/18 07:59 Last Admin: 10/01/18 08:09 Dose: 1 ea Documented by: Pt's Own Med: Fluticasone Furoate 100mcg And Vilanterol 25mcg Inhaler 1 ea INH DAILY [facility]; Protocol Stop: 10/31/18 08:59 Last Admin: 10/01/18 08:07 Dose: 1 inhaler Documented by: Polyethylene Glycol (Miralax Powder Packet) 17 gm PO DAILY PRN PRN Reason: Constipation Stop: 10/29/18 19:48 Vitamin D (Vitamin D3) 2,000 units PO DAILY [facility] Stop: 10/30/18 08:59 Last Admin: 10/01/18 08:07 Dose: 2,000 units Documented by: Warfarin Sodium (Coumadin) 5 mg PO DAILY@1600 [facility] Stop: 10/30/18 15:59 Last Admin: 09/30/18 16:02 Dose: 5 mg Documented by:
[2018-10-01] MEDS: ACETAMINOPHEN 325 MG TAB PO PRN (15:37)
[2018-10-01] MEDS: WARFARIN SOD 5 MG TAB PO SCH (15:38)
[2018-10-01] MEDS: cefTRIAXone SODIUM 1,000 MG in DEXTROSE 5% 50 ML IV SCH (17:28)
[2018-10-01] MEDS: AZITHROMYCIN 250 MG TAB PO SCH (17:28)
[2018-10-01] MEDS: LIDOCAINE 5% 1 PATCH TD SCH (20:10)
[2018-10-02] MEDS: methylPREDNISolone 40 MG in SYRINGE 0 ML IV SCH ×2 (02:45→07:46)
[2018-10-02] MEDS: ALBUT/IPRATROP 3MG/0.5MG NEB 3 ML VIAL NEB SCH ×6 (03:04→23:01)
[2018-10-02 06:37] LABS: INR 3.3 (0.9-1.1); Prothrombin Time 31.5 Seconds (9.0-12.0)
[2018-10-02] MEDS: CHOLECALCIFEROL 1,000 UNITS TAB PO SCH (07:46)
[2018-10-02] MEDS: MESALAMINE 400 MG CAPDR PO SCH (07:46)
[2018-10-02] MEDS: FLUTICASONE FUROATE INH SCH (07:46)
[2018-10-02] MEDS: VILANTEROL INH SCH (07:46)
[2018-10-02] MEDS: SODIUM CHLORIDE 0.9% 1000ML 1,000 ML IV SCH ×3 (07:47→23:17)
[2018-10-02] MEDS: ACETAMINOPHEN 325 MG TAB PO PRN ×2 (09:34→16:57)
--- NOTE | 2018-10-02 11:20 | Hospitalist Progress Note ---
Date of Service October 02, 2018 Assessment & Plan (1) COPD exacerbation: Acute on chronic COPD Exacerbation Chronic respiratory failure with Hypoxia H/O Sarcoidosis Failed Outpatient therapy CT chest:No PE, advanced emphysema, numerous foci of parenchyma scarring, and postoperative change in the right lung. No airspace consolidation or pleural effusion is identified. Started on IV antibiotics, IV solumedrol, bronchodilators Get sputum culture and gram strain Oxygen support per protocol Check for Influenza PCR-negative influenza Clinically better and will continue current treatment Please change Solu-Medrol to oral prednisone Will start oral antibiotic from today Advised to ambulate in the hallway Likely discharge tomorrow Ulcerative colitis Well controlled Continue Mesalamine No diarrhea and/or rectal bleed H/OP carotid artery stenosis H/O CVA Not on aspirin or statins Asymptomatic and will not initiate any aspirin and/or starting Chronic hepatitis C Treated as per patient Liver function remains stable Hypertension Currently not on any meds Blood pressure slightly elevated Consider starting on hypertension meds Vitamin D deficiency Continue vitamin D supplement H/O PE and DVT S/P IVC filter Subtherapeutic INR We will give 7.5 mg Coumadin today Monitor INR:1.4 today We will continue Coumadin INR is 3.3 today We will hold Coumadin for today DVT Px: On Coumadin Code Status Full Code Disposition: Expect to discharge home when stable Subjective The patient was seen and examined medical telemetry unit Patient is a 63-year-old female with history of COPD, chronic oxygen dependency, ulcerative colitis, carotid artery stenosis, CVA, chronic hepatitis C, sarcoidosis, hypertension, vitamin D deficiency, history of PE and DVT status post IVC filter and other problems presents with history of worsening shortness of breath and dry cough since 2 weeks duration. She has been feeling a little better since admission Still complains to have some cough with wheezing but no fever and/or chills 10/01 The patient was seen and examined in medical telemetry unit She has been feeling a little better today She has had a few ectopics last night No fever and/or chills and not yet ready to be discharged 10/02 She has been feeling a lot better and ambulating well Still getting shortness of breath with wheezing on ambulation Likely be discharged tomorrow Physical Exam Vital Signs (Past 24 Hours): Last Vital Signs Temp 36.5 C 10/02/18 03:48 Pulse 114 H 10/02/18 11:08 Resp 18 10/02/18 11:08 BP 160/85 H 10/02/18 03:48 Pulse Ox 98 10/02/18 11:08 Physical Exam: No shortness of breath at rest Constitutional: WD/WN, vitals as above Eyes: PERRL, conjunctivae normal, anicteric sclerae ENMT: external ear and nose normal, oropharynx normal Respiratory: + respiratory distress, + labored breathing and + uses accessory muscles Auscultation: + diminished lung sounds and + wheezes (Bilaterally); no crackles Cardiovascular: Rate/Rhythm: regular rate and regular rhythm Heart Sounds: normal S1 and normal S2 Gastrointestinal (Abdomen): Inspection/Auscultation: abdomen normal to inspection and normal bowel sounds Percussion/Palpation: abdomen soft; abdomen nontender Neurologic: PERRL, EOMI, accommodation nl, no face palsy, no dysarthria Results & Data Medications Administered Current Inpatient Medications Acetaminophen (Tylenol) 650 mg PO Q4H PRN PRN Reason: pain/fever Stop: 10/29/18 19:48 Last Admin: 10/02/18 09:34 Dose: 650 mg Documented by: Albuterol (Duoneb) 3 ml NEB Q4R GEE Stop: 10/29/18 19:59 Last Admin: 10/02/18 11:06 Dose: 3 ml Documented by: Azithromycin (Zithromax) 250 mg PO Q24H GEE; Protocol Stop: 10/03/18 18:01 Last Admin: 10/01/18 17:28 Dose: 250 mg Documented by: Sodium Chloride (Nss 1000ml) 1,000 mls @ 125 mls/hr IV .Q8H GEE Stop: 10/29/18 16:29 Last Admin: 10/02/18 07:47 Dose: 125 mls/hr Documented by: Ceftriaxone Sodium 1,000 mg/ (Dextrose) 60 mls @ 100 mls/hr IV Q24H GEE; Protocol Stop: 10/07/18 17:59 Last Infusion: 10/01/18 18:40 Dose: Infused Documented by: Methylprednisolone 40 mg/ (Syringe) 0.64 mls @ 1.5 mls/min IV Q6H GEE Stop: 10/29/18 19:59 Last Admin: 10/02/18 07:46 Dose: 1.5 mls/min Documented by: Ioversol (Optiray 320 125ml) 103 ml IV ONCE PRN PRN Reason: Interaction Checking Stop: 10/03/18 16:36 Last Admin: 09/29/18 16:39 Dose: 103 ml Documented by: Levalbuterol HCl (Xopenex 1.25mg/0.5ml Neb) 1.25 mg NEB Q6R PRN PRN Reason: Shortness Of Breath Or Wheezin Stop: 10/29/18 19:48 Lidocaine (Lidoderm 5%) 1 patch TD DAILY@2000 [facility] Stop: 10/29/18 19:59 Last Admin: 10/01/18 20:10 Dose: 1 patch Documented by: Mesalamine (Delzicol) 2,400 mg PO DAILY [facility] Stop: 10/30/18 08:59 Last Admin: 10/02/18 07:46 Dose: 2,400 mg Documented by: Miscellaneous (Remove Lidoderm Patch) 1 ea N/A DAILY@0800 [facility] Stop: 10/30/18 07:59 Last Admin: 10/02/18 07:46 Dose: 1 ea Documented by: Pt's Own Med: Fluticasone Furoate 100mcg And Vilanterol 25mcg Inhaler 1 ea INH DAILY [facility]; Protocol Stop: 10/31/18 08:59 Last Admin: 10/02/18 07:46 Dose: 1 inhaler Documented by: Polyethylene Glycol (Miralax Powder Packet) 17 gm PO DAILY PRN PRN Reason: Constipation Stop: 10/29/18 19:48 Vitamin D (Vitamin D3) 2,000 units PO DAILY GEE Stop: 10/30/18 08:59 Last Admin: 10/02/18 07:46 Dose: 2,000 units Documented by: Warfarin Sodium (Coumadin) 5 mg PO DAILY@1600 [facility] Stop: 10/30/18 15:59 Last Admin: 10/01/18 15:38 Dose: 5 mg Documented by:
[2018-10-02] MEDS: AZITHROMYCIN 250 MG TAB PO SCH (17:03)
[2018-10-02] MEDS: LIDOCAINE 5% 1 PATCH TD SCH (19:47)
[2018-10-03] MEDS: ACETAMINOPHEN 325 MG TAB PO PRN ×2 (00:16→09:43)
[2018-10-03] MEDS: ALBUT/IPRATROP 3MG/0.5MG NEB 3 ML VIAL NEB SCH ×4 (03:16→15:18)
[2018-10-03] MEDS: SODIUM CHLORIDE 0.9% 1000ML 1,000 ML IV SCH (06:16)
[2018-10-03] MEDS: MESALAMINE 400 MG CAPDR PO SCH (07:50)
[2018-10-03] MEDS: CHOLECALCIFEROL 1,000 UNITS TAB PO SCH (07:50)
[2018-10-03] MEDS: VILANTEROL INH SCH (07:50)
[2018-10-03] MEDS: FLUTICASONE FUROATE INH SCH (07:50)
[2018-10-03 08:29] LABS: Hematocrit (blood only) 43.9 % (37-47); Hemoglobin 13.9 g/dL (12.0-16.0); Immature Granulocytes # (auto) 0.04 K/uL (0.00-0.02); Immature Granulocytes % (auto) 0.6 %; Lymphocytes # (auto) 0.89 K/uL (1.2-3.4); Lymphocytes % (auto) 14.4 %; Mean Corpuscular Hgb Conc 31.7 g/dL (32-36); Mean Corpuscular Volume 97.6 fL (80-100); Monocytes # (auto) 0.46 K/uL (0.11-0.59); Monocytes % (auto) 7.5 %; Neutrophils # (auto) 4.77 K/uL (1.4-6.5); Neutrophils % (auto) 77.5 %; Platelet Count 116 K/uL (130-400); RDW Coefficient of Variation 14.2 % (11.5-14.5); RDW Standard Deviation 50.8 fL (36.4-46.3); White Blood Count 6.16 K/uL (4.8-10.8)
[2018-10-03 08:45] LABS: INR 2.4 (0.9-1.1); Prothrombin Time 22.7 Seconds (9.0-12.0)
[2018-10-03] MEDS ORDERED: predniSONE 20 MG TAB PO SCH (09:00)
[2018-10-03 09:05] LABS: BUN Creatinine Ratio 25.4 (10-20); Calcium 7.8 mg/dl (8.5-10.1); Creatinine Clr Calc Pharmacy 72.7 ml/min; Est GFR (African American) 113.4; Est GFR (Non-African American) 97.8; Potassium 3.3 mmol/L (3.5-5.1)
[2018-10-03] MEDS ORDERED: POTASSIUM CHLORIDE 20 MEQ TABCR PO STA (09:09)
--- NOTE | 2018-10-03 10:13 | XRay Report ---
XR chest 2V routine CLINICAL HISTORY: COPD. COMPARISON STUDY: Chest radiograph March 31, 2017. Chest CT September 29, 2018. FINDINGS: Postoperative findings within the right lung are noted. There is severe emphysema with lung hyperexpansion. There is no evidence for pulmonary edema. Cardiac size is normal. Mediastinal contou rs are normal. There is biapical scarring. There is no pneumothorax or pleural effusion. No superimpo sed consolidation is identified. IMPRESSION: 1. No acute cardiopulmonary findings. 2. Severe emphysema. Electronically signed by: Faustino August M.D. 10/03/2018 10:12 AM
--- NOTE | 2018-10-03 11:44 | Hospitalist Progress Note ---
Date of Service October 03, 2018 Assessment & Plan (1) COPD exacerbation: Acute on chronic COPD Exacerbation Chronic respiratory failure with Hypoxia H/O Sarcoidosis Failed Outpatient therapy CT chest:No PE, advanced emphysema, numerous foci of parenchyma scarring, and postoperative change in the right lung. No airspace consolidation or pleural effusion is identified. Started on IV antibiotics, IV solumedrol, bronchodilators Get sputum culture and gram strain Oxygen support per protocol Check for Influenza PCR-negative influenza Clinically better and will continue current treatment Please change Solu-Medrol to oral prednisone Will start oral antibiotic from today Stable in bed but gets very short of breath on minimal exertion Not yet ready to be discharged Discontinue any IV fluid To have 2 steps saturation test tomorrow for discharge Ulcerative colitis Well controlled Continue Mesalamine No diarrhea and/or rectal bleed H/OP carotid artery stenosis H/O CVA Not on aspirin or statins Asymptomatic and will not initiate any aspirin and/or starting Chronic hepatitis C Treated as per patient Liver function remains stable Hypertension Currently not on any meds Blood pressure slightly elevated Consider starting on hypertension meds Vitamin D deficiency Continue vitamin D supplement H/O PE and DVT S/P IVC filter Subtherapeutic INR We will give 7.5 mg Coumadin today Monitor INR:1.4 today We will continue Coumadin INR is 3.3 today We will hold Coumadin for today DVT Px: On Coumadin Code Status Full Code Disposition: Expect to discharge home when stable Subjective The patient was seen and examined medical telemetry unit Patient is a 63-year-old female with history of COPD, chronic oxygen dependency, ulcerative colitis, carotid artery stenosis, CVA, chronic hepatitis C, sarcoidosis, hypertension, vitamin D deficiency, history of PE and DVT status post IVC filter and other problems presents with history of worsening shortness of breath and dry cough since 2 weeks duration. She has been feeling a little better since admission Still complains to have some cough with wheezing but no fever and/or chills 10/01 The patient was seen and examined in medical telemetry unit She has been feeling a little better today She has had a few ectopics last night No fever and/or chills and not yet ready to be discharged 10/02 She has been feeling a lot better and ambulating well Still getting shortness of breath with wheezing on ambulation Likely be discharged tomorrow 10/03 Very shortness of breath on minimal exertion Remains stable when not doing any We will discontinue intravenous fluid Physical Exam Vital Signs (Past 24 Hours): Last Vital Signs Temp 36.8 C 10/03/18 07:47 Pulse 106 H 10/03/18 11:08 Resp 14 10/03/18 11:08 BP 154/87 H 10/03/18 07:47 Pulse Ox 95 10/03/18 11:08 Physical Exam: No apparent distress at rest Constitutional: WD/WN, vitals as above Eyes: PERRL, conjunctivae normal, anicteric sclerae ENMT: external ear and nose normal, oropharynx normal Respiratory: normal respiratory effort and able to speak in complete sentences Auscultation: + diminished lung sounds and + wheezes (Bilaterally); no crackles Cardiovascular: Rate/Rhythm: regular rate and regular rhythm Heart Sounds: normal S1 and normal S2 Gastrointestinal (Abdomen): Inspection/Auscultation: abdomen normal to inspection and normal bowel sounds Percussion/Palpation: abdomen soft; abdomen nontender Neurologic: PERRL, EOMI, accommodation nl, no face palsy, no dysarthria Results & Data Laboratory Results Short CBC 10/03/18 Range/Units 08:10 WBC 6.16 (4.8-10.8) K/uL Hgb 13.9 (12.0-16.0) g/dL Hct 43.9 (37-47) % Plt Count 116 L (130-400) K/uL BMP 10/03/18 08:10 Sodium 144 Potassium 3.3 L Chloride 105 Carbon Dioxide 39 H BUN 14 Creatinine 0.56 L Glucose 71 Calcium 7.8 L Medications Administered Current Inpatient Medications Acetaminophen (Tylenol) 650 mg PO Q4H PRN PRN Reason: pain/fever Stop: 10/29/18 19:48 Last Admin: 10/03/18 09:43 Dose: 650 mg Documented by: Albuterol (Duoneb) 3 ml NEB Q4R GEE Stop: 10/29/18 19:59 Last Admin: 10/03/18 11:07 Dose: 3 ml Documented by: Azithromycin (Zithromax) 250 mg PO Q24H GEE; Protocol Stop: 10/03/18 18:01 Last Admin: 10/02/18 17:03 Dose: 250 mg Documented by: Ioversol (Optiray 320 125ml) 103 ml IV ONCE PRN PRN Reason: Interaction Checking Stop: 10/03/18 16:36 Last Admin: 09/29/18 16:39 Dose: 103 ml Documented by: Levalbuterol HCl (Xopenex 1.25mg/0.5ml Neb) 1.25 mg NEB Q6R PRN PRN Reason: Shortness Of Breath Or Wheezin Stop: 10/29/18 19:48 Lidocaine (Lidoderm 5%) 1 patch TD DAILY@2000 [facility] Stop: 10/29/18 19:59 Last Admin: 10/02/18 19:47 Dose: 1 patch Documented by: Mesalamine (Delzicol) 2,400 mg PO DAILY [facility] Stop: 10/30/18 08:59 Last Admin: 10/03/18 07:50 Dose: 2,400 mg Documented by: Miscellaneous (Remove Lidoderm Patch) 1 ea N/A DAILY@0800 [facility] Stop: 10/30/18 07:59 Last Admin: 10/03/18 07:50 Dose: 1 ea Documented by: Pt's Own Med: Fluticasone Furoate 100mcg And Vilanterol 25mcg Inhaler 1 ea INH DAILY [facility]; Protocol Stop: 10/31/18 08:59 Last Admin: 10/03/18 07:50 Dose: 1 inhaler Documented by: Polyethylene Glycol (Miralax Powder Packet) 17 gm PO DAILY PRN PRN Reason: Constipation Stop: 10/29/18 19:48 Prednisone (Prednisone) 40 mg PO DAILY [facility] Stop: 11/02/18 08:59 Last Admin: 10/03/18 07:50 Dose: 40 mg Documented by: Vitamin D (Vitamin D3) 2,000 units PO DAILY [facility] Stop: 10/30/18 08:59 Last Admin: 10/03/18 07:50 Dose: 2,000 units Documented by: Warfarin Sodium (Coumadin) 5 mg PO DAILY@1600 [facility] Stop: 10/30/18 15:59 Last Admin: 10/01/18 15:38 Dose: 5 mg Documented by:
[2018-10-03] MEDS: AZITHROMYCIN 250 MG TAB PO SCH (15:50)
--- NOTE | 2018-10-04 06:38 | Discharge Summary ---
Date of Service October 05, 2018 Admission HPI Per Admitting Provider Patient is a 63-year-old female with history of COPD, chronic oxygen dependency, ulcerative colitis, carotid artery stenosis, CVA, chronic hepatitis C, sarcoidosis, hypertension, vitamin D deficiency, history of PE and DVT status post IVC filter and other problems presents with history of worsening shortness of breath and dry cough since 2 weeks duration. Patient has completed doxycycline and prednisone rescue pack as per her PCPs recommendation 1 week ago and is currently on Ceftin and prednisone taper. She states that she was requiring 3-4 L of oxygen to help with her symptoms. On recommendation by her PCP patient presented to ED for further evaluation and management. She denies smoking currently but was a former smoker. 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 Denies any history of chest pain, dizziness, pedal edema, hemoptysis, fever, chills, headache, change in vision, nausea, vomiting, abdominal pain, blood in stools, diarrhea, dysuria, hematuria, sick contact. She admits to being exposed to second hand smoke which she believes has exacerbated symptoms. Discharge Data Consultations 09/29/18 17:17 ED Decision to Admit Stat 09/29/18 19:49 Consult Case Management - Discharge Planning Routine
--- NOTE | 2018-10-04 08:18 | Discharge Summary ---
Date of Service October 04, 2018 Admission HPI Per Admitting Provider Patient is a 63-year-old female with history of COPD, chronic oxygen dependency, ulcerative colitis, carotid artery stenosis, CVA, chronic hepatitis C, sarcoidosis, hypertension, vitamin D deficiency, history of PE and DVT status post IVC filter and other problems presents with history of worsening shortness of breath and dry cough since 2 weeks duration. Patient has completed doxycycline and prednisone rescue pack as per her PCPs recommendation 1 week ago and is currently on Ceftin and prednisone taper. She states that she was requiring 3-4 L of oxygen to help with her symptoms. On recommendation by her PCP patient presented to ED for further evaluation and management. She denies smoking currently but was a former smoker. 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 Denies any history of chest pain, dizziness, pedal edema, hemoptysis, fever, chills, headache, change in vision, nausea, vomiting, abdominal pain, blood in stools, diarrhea, dysuria, hematuria, sick contact. She admits to being exposed to second hand smoke which she believes has exacerbated symptoms. Admission Exam Per Admitting Provider Vital Signs (Past 24 Hours): Last Vital Signs Temp 36.8 C 09/29/18 14:03 Pulse 91 H 09/29/18 16:24 Resp 18 09/29/18 16:24 BP 144/99 H 09/29/18 16:24 Pulse Ox 100 09/29/18 16:24 Physical Exam: Physical Exam: Vitals signs as noted above General Appearance:Thin, Frail, no apparent distress Head: normocephalic, Atraumatic Eyes: normal inspection, EOMI Neck: supple, Trachea midline Respiratory/Chest: Decreased breath sounds, B/L wheezes Cardiovascular: S1, S2, No murmur, +Tachycardia Abdomen/GI:Soft, Non tender, Bowel sounds present Extremities/Musculoskelatal:normal inspection, no edema Neurologic/Psych:AAOX3, grossly no focal neurological deficits Skin: normal color, warm Principal Diagnosis COPD Exacerbation Discharge Exam Constitutional WD/WN, vitals as above Eyes PERRL, conjunctivae normal, anicteric sclerae ENMT external ear and nose normal, oropharynx normal Respiratory normal respiratory effort and able to speak in complete sentences Auscultation: + diminished lung sounds and + wheezes (Bilaterally); no crackles Cardiovascular Rate/Rhythm: regular rate and regular rhythm Heart Sounds: normal S1 and normal S2 Gastrointestinal (Abdomen) Inspection/Auscultation: abdomen normal to inspection and normal bowel sounds Percussion/Palpation: abdomen soft; abdomen nontender Neurologic PERRL, EOMI, accommodation nl, no face palsy, no dysarthria Discharge Data Allergies Allergy/AdvReac Type Severity Reaction Status Date / Time phytonadione (vitamin K1) Allergy Intermediate severe Verified 09/29/18 15:54 back pain, red face levofloxacin Allergy Mild rash Verified 09/29/18 15:54 Penicillins Allergy Mild Amoxil - Verified 09/29/18 15:54 rash allantoin Allergy Unknown [facility] LIST Verified 09/29/18 15:54 bacitracin AdvReac Intermediate infection Verified 09/29/18 15:54 neomycin AdvReac Intermediate infection Verified 09/29/18 15:54 polymyxin B AdvReac Intermediate infection Verified 09/29/18 15:54 theophylline AdvReac Mild Headache Verified 09/29/18 15:54 Consultations 09/29/18 17:17 ED Decision to Admit Stat 09/29/18 19:49 Consult Case Management - Discharge Planning Routine Ordered Studies 09/29/18 16:23 CT angio chest PE protocol Stat Hospital Course (1) COPD exacerbation: Acute on chronic COPD Exacerbation Chronic respiratory failure with Hypoxia H/O Sarcoidosis Failed Outpatient therapy CT chest:No PE, advanced emphysema, numerous foci of parenchyma scarring, and postoperative change in the right lung. No airspace consolidation or pleural effusion is identified. Started on IV antibiotics, IV solumedrol, bronchodilators Get sputum culture and gram strain Oxygen support per protocol Check for Influenza PCR-negative influenza Clinically better and will continue current treatment Please change Solu-Medrol to oral prednisone Will start oral antibiotic from today Stable in bed but gets very short of breath on minimal exertion Not yet ready to be discharged Discontinue any IV fluid To have 2 steps saturation test tomorrow for discharge Ulcerative colitis Well controlled Continue Mesalamine No diarrhea and/or rectal bleed H/OP carotid artery stenosis H/O CVA Not on aspirin or statins Asymptomatic and will not initiate any aspirin and/or starting Chronic hepatitis C Treated as per patient Liver function remains stable Hypertension Currently not on any meds Blood pressure slightly elevated Consider starting on hypertension meds Vitamin D deficiency Continue vitamin D supplement H/O PE and DVT S/P IVC filter Subtherapeutic INR We will give 7.5 mg Coumadin today Monitor INR:1.4 today We will continue Coumadin INR is 3.3 today We will hold Coumadin for today DVT Px: On Coumadin Code Status Full Code Disposition: Expect to discharge home when stable Total Time Total Time Spent Total Time Spent (In Minutes): 35 minutes Total Time Includes: Examination of the Patient, Discharge Planning, Medication Reconciliation and Communication With Other Providers Discharge Plan Discharge Items Patient Disposition: Home - Self-Care Reason For Visit: COPD Discharge Diagnosis: COPD Exacerbation Condition: Good Discharge Goals: Decrease discomfort, Improve function and Increase independence Activity: Resume your previous activity Follow-up/Referrals: James Barahona [Primary Care Provider] - (Your doctor's office will call with an appointment within 7 days) Diet: Regular Addtl Provider Instructions: Please take precaution to avoid falls. Continue oxygen 2 L at rest and 3 L on ambulation Prescriptions: New azithromycin [Zithromax] 250 mg Tablet 250 mg PO Q24H 2 Days Qty: 2 RF: 0 prednisone 20 mg Tablet 20 mg PO UD Qty: 10 RF: 0 Continued lidocaine [Lidoderm] 5 % Adhesive Patch,Medicated 1 patch TOPICAL DAILY RF: 0 warfarin [Coumadin] 5 mg Tablet 2.5 mg PO 2XWK RF: 0 warfarin [Coumadin] 5 mg Tablet 5 mg PO 5XWK RF: 0 levalbuterol HCl [Xopenex] 1.25 mg/3 mL Solution For Nebulization 1.25 mg INHALATION Q4 PRN (Reason: Wheezing) RF: 0 cholecalciferol (vitamin D3) [Vitamin D3] 1,000 unit Capsule 2,000 unit PO DAILY RF: 0 mesalamine 1.2 gram Tablet,Delayed Release (Dr/Ec) 2.4 g PO DAILY RF: 0 Breo Ellipta 100-25 mcg/dose Blister With Device 1 inh INHALATION DAILY RF: 0 Discontinued doxycycline hyclate 100 mg Capsule 100 mg PO BID PRN (Reason: RESCUE KIT) RF: 0 prednisone 20 mg Tablet PO DIRECTED PRN (Reason: RESCUE KIT) RF: 0 cefuroxime axetil 500 mg Tablet 500 mg PO Q12H RF: 0 Stand-Alone Forms: [facility] Discharge Orders: Discharge Order (Routine); Ordered 10/03/18 Ordered By: Mohamud Thomas Admission Data Admit Date/Time: 09/29/18 18:41 Attending Provider: Mohamud Thomas Admit Provider: Stefano Valerio Primary Care Provider: James Barahona Other Providers: Stefano Valerio Service: Telemetry Other Interventions: Discharge Summary Assessment (RN) Last Done: 10/03/18 15:17 DC Date/Time DO NOT enter until pt leaves facility: 10/03/18 16:20
== END 2018-10-03 16:20 | disposition home or self-care (01) | DRG 191 ==
LOC: ED 13:56 → 2N 18:41

== ENCOUNTER 2019-07-15 18:38 | Inpatient (IN) ==
[2019-07-15] MEDS ORDERED: ALBUTEROL 0.083% NEBU SOLN 3 ML VIAL NEB STA ×2 (20:08→21:17)
[2019-07-15 20:39] LABS: Basophils # (auto) 0.01 K/uL (0-0.2); Basophils % (auto) 0.1 %; Eosinophils # (auto) 0.01 K/uL (0-0.5); Eosinophils % (auto) 0.1 %; Hematocrit (blood only) 47.2 % (37-47); Hemoglobin 15.3 g/dL (12.0-16.0); Immature Granulocytes # (auto) 0.01 K/uL (0.00-0.02); Immature Granulocytes % (auto) 0.1 %; Lymphocytes # (auto) 1.11 K/uL (1.2-3.4); Lymphocytes % (auto) 11.6 %; Mean Corpuscular Hemoglobin 30.7 pg (25-34); Mean Corpuscular Hgb Conc 32.4 g/dL (32-36); Mean Corpuscular Volume 94.8 fL (80-100); Mean Platelet Volume 9.5 fL (7.4-10.4); Monocytes % (auto) 7.3 %; Neutrophils # (auto) 7.72 K/uL (1.4-6.5); Neutrophils % (auto) 80.8 %; Platelet Count 171 K/uL (130-400); RDW Coefficient of Variation 13.9 % (11.5-14.5); Red Blood Count 4.98 M/uL (4.2-5.4); White Blood Count 9.56 K/uL (4.8-10.8)
[2019-07-15 20:49] LABS: INR 3.5 (0.9-1.1); Partial Thromboplastin Ratio 1.5; Partial Thromboplastin Time 41.3 Seconds (21.0-31.0); Prothrombin Time 32.4 Seconds (9.0-12.0)
[2019-07-15 20:56] LABS: Alanine Aminotransferase 22 U/L (12-78); Albumin Level 3.6 gm/dl (3.4-5.0); Aspartate Aminotransferase 13 U/L (15-37); BUN Creatinine Ratio 26.3 (10-20); Blood Urea Nitrogen 23 mg/dl (7-18); Calcium 10.1 mg/dl (8.5-10.1); Carbon Dioxide 34 mmol/L (21-32); Chloride 103 mmol/L (98-107); Creatinine Clr Calc Pharmacy 48.7 ml/min; Est GFR (African American) 81.6; Est GFR (Non-African American) 70.4; Glucose 98 mg/dl (70-99); Magnesium 2.3 mg/dl (1.8-2.4); Potassium 4.4 mmol/L (3.5-5.1); Sodium 140 mmol/L (136-145)
[2019-07-15 21:01] LABS: Albumin Globulin Ratio 0.7 (0.9-2); Alkaline Phosphatase 66 U/L (45-117); Bilirubin,Total 0.8 mg/dl (0.2-1); Globulin 4.8 gm/dl (2.5-4.0); Total Protein 8.4 gm/dl (6.4-8.2); Troponin I < 0.015 ng/ml (0-0.045)
[2019-07-15 21:12] LABS: Influenza A virus by PCR Neg for Influ A (Neg); Influenza B virus by PCR Neg for Influ B (Neg)
--- NOTE | 2019-07-15 21:13 | XRay Report ---
XR chest 1V portable HISTORY: SEPSIS COMPARISON: Chest 10/15/2018. FINDINGS: Severe bullous emphysema is again noted. No pneumothorax. Stable blunting of the right late ral costophrenic sulcus. Postoperative changes within the right lung apex are again noted. The heart is normal in size. No evidence for pulmonary edema. Linear scarlike densities within the left lung ap ex persists. No new focal lung consolidations to suggest pneumonia. Basilar calcified pleural plaques unchanged. IMPRESSION: No significant change compared to the prior study. No acute process. Emphysema and postoperative ward ges are again noted. ACT 112: Negative or not required by law. Electronically signed by: James Lamb M.D. 07/15/2019 9:12 PM
[2019-07-15] MEDS ORDERED: methylPREDNISolone 125 MG/2 ML VIAL IV STA (21:17)
[2019-07-15] MEDS ORDERED: LACTATED RINGER'S 1,000 ML IV ONE (22:03)
[2019-07-15] MEDS ORDERED: DOXYCYCLINE HYCLATE 100 MG in DEXTROSE 5% 100 ML IV STA (22:38)
[2019-07-15 22:59] LABS: Hematocrit (blood only) 41.8 % (37-47); Hemoglobin 13.9 g/dL (12.0-16.0)
--- NOTE | 2019-07-15 23:22 | History & Physical Report ---
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 Trend H&H, oral vitamin K if with hemoglobin drop given epistaxis episode in a.m. Appropriate to hold Coumadin for now given supratherapeutic INR until hemoglobin stable Initiate Norvasc if BP persistently elevated. Nutrition consult RE low BMI DVT prophylaxis. Coumadin INR goal between 2 and 3 if hemoglobin stable and without epistaxis recurrence Full code History of Present Illness Chief Complaint: Cough, S OB Primary Care Provider: James Barahona MD History obtained from patient, family, and records. 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 Recent confinement September 2018 for COPD exacerbation. 1 day history of chest congestion symptoms, yellow sputum production. Transient chest pain from coughing. Transient epistaxis from coughing as per patient with generalized headache symptoms. Denies aspiration. No fever, no chills. No unusual fluid retention. At the ER, patient received IV Solu-Medrol, neb treatment for COPD exacerbation. Medical History as above Surgical History : Tonsillectomy/adenoidectomy, pleurodesis, thoracoscopy, IVC filter placement, lung surgery Family History : Breast cancer, kidney disease, heart disease Personal/Social history : Past tobacco abuse, no EtOH intake, disabled Allergies Allergy/AdvReac Type Severity Reaction Status Date / Time phytonadione (vitamin K1) Allergy Intermediate severe Verified 07/16/19 00:11 back pain, red face levofloxacin Allergy Mild rash Verified 07/15/19 22:09 Penicillins Allergy Mild Amoxil - Verified 07/15/19 22:09 rash allantoin Allergy Unknown [facility] [place] LIST Verified 07/15/19 22:09 bacitracin AdvReac Intermediate infection Verified 07/15/19 22:09 neomycin AdvReac Intermediate infection Verified 07/15/19 22:09 polymyxin B AdvReac Intermediate infection Verified 07/15/19 22:09 theophylline AdvReac Mild Headache Verified 07/15/19 22:09 Home Medications Home Medications Medication Instructions Recorded Confirmed Type Breo Ellipta 1 inh INHALATION DAILY 09/29/18 07/15/19 History warfarin [Coumadin] 2.5 mg PO WK 09/29/18 07/15/19 History warfarin [Coumadin] 5 mg PO [id number] 09/29/18 07/15/19 History albuterol sulfate 2.5 mg CONTINUOUS NEBULIZATION QID 07/15/19 07/15/19 History PRN mesalamine 2.4 g PO DAILY 07/15/19 07/15/19 History prednisone 5 mg PO DAILY 07/15/19 07/15/19 History Past Med/Surg History Medical History Abdominal pain Chronic respiratory failure (Chronic) COPD (chronic obstructive pulmonary disease) (Chronic) "severe" H/O pneumothorax (Chronic) "spontaneous" History of Clostridium difficile colitis (Chronic) History of DVT (deep vein thrombosis) Pneumonia (Resolved) Surgical History H/O pneumonectomy History of appendectomy S/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 Beliefs That Will Affect Care: None marital status: Current Living Situation: Spouse Feels Safe at Home: Yes Smoking Status: Former smoker Hx Alcohol Use: No Hx Substance Use: No Review of Systems Review of Systems: As per HPI, all 10 systems reviewed, all other ROS negative Physical Exam Physical Exam: GENERAL: Slightly uncomfortable, minimal respiratory distress, underweight, tremulous SKIN: Normal color, warm HEENT: [place] palpebral conjunctivae, no ptosis, dry buccal mucosa NECK : Supple, no tenderness CHEST : Decreased breath sounds occasional expiratory wheeze, no tenderness HEART : Tachycardic, systolic murmur ABDOMEN: Soft, nontender EXTREMITIES : No LE swelling/tenderness, no other conspicuous deformities noted NEUROLOGIC : Coherent, slightly hard of hearing, no facial asymmetry, tremulous Results & Data Vital Signs (Past 12 Hours) Vital Signs Temp Pulse Pulse Resp BP BP Pulse Ox 07/15/19 22:00 113 H 38 H 154/84 H 94 07/15/19 21:33 115 H 18 96 07/15/19 21:19 110 H 29 H 138/92 96 07/15/19 20:31 104 H 18 97 07/15/19 18:52 37 C 118 H 26 H 137/80 92 Laboratory Results Laboratory Results WBC 9.56 K/uL (4.8-10.8) 07/15/19 20:24 RBC 4.98 M/uL (4.2-5.4) 07/15/19 20:24 Hgb 13.9 g/dL (12.0-16.0) 07/15/19 22:48 Hct 41.8 % (37-47) 07/15/19 22:48 MCV 94.8 fL (80-100) 07/15/19 20:24 MCH 30.7 pg (25-34) 07/15/19 20:24 MCHC 32.4 g/dL (32-36) 07/15/19 20:24 RDW Std Deviation 48.0 fL (36.4-46.3) H 07/15/19 20:24 RDW Coeff of Isaura 13.9 % (11.5-14.5) 07/15/19 20:24 Plt Count 171 K/uL (130-400) 07/15/19 20:24 MPV 9.5 fL (7.4-10.4) 07/15/19 20:24 Immature Gran % (Auto) 0.1 % 07/15/19 20:24 Neut % (Auto) 80.8 % 07/15/19 20:24 Lymph % (Auto) 11.6 % 07/15/19 20:24 [place] % (Auto) 7.3 % 07/15/19 20:24 Eos % (Auto) 0.1 % 07/15/19 20:24 Baso % (Auto) 0.1 % 07/15/19 20:24 Immature Gran # (Auto) 0.01 K/uL (0.00-0.02) 07/15/19 20:24 Neut # (Auto) 7.72 K/uL (1.4-6.5) H 07/15/19 20:24 Lymph # (Auto) 1.11 K/uL (1.2-3.4) L 07/15/19 20:24 [place] # (Auto) 0.70 K/uL (0.11-0.59) H 07/15/19 20:24 Eos # (Auto) 0.01 K/uL (0-0.5) 07/15/19 20:24 Baso # (Auto) 0.01 K/uL (0-0.2) 07/15/19 20:24 PT 32.4 Seconds (9.0-12.0) H 07/15/19 20:24 INR 3.5 (0.9-1.1) H 07/15/19 20:24 APTT 41.3 Seconds (21.0-31.0) H 07/15/19 20:24 PTT Ratio 1.5 07/15/19 20:24 Sodium 140 mmol/L (136-145) 07/15/19 20:24 Potassium 4.4 mmol/L (3.5-5.1) 07/15/19 20:24 Chloride 103 mmol/L (98-107) 07/15/19 20:24 Carbon Dioxide 34 mmol/L (21-32) H 07/15/19 20:24 Anion Gap 3.0 (3-11) 07/15/19 20:24 BUN 23 mg/dl (7-18) H 07/15/19 20:24 Creatinine 0.86 mg/dl (0.6-1.2) 07/15/19 20:24 Est Cr Clr Drug Dosing 48.7 ml/min 07/15/19 20:24 Est GFR ( Amer) 81.6 07/15/19 20:24 Est GFR (Non-Af Amer) 70.4 07/15/19 20:24 BUN/Creatinine Ratio 26.3 (10-20) H 07/15/19 20:24 Glucose 98 mg/dl (70-99) 07/15/19 20:24 Lactate 1.5 mmol/L (0.4-2.0) 07/15/19 20:24 Calcium 10.1 mg/dl (8.5-10.1) 07/15/19 20:24 Magnesium 2.3 mg/dl (1.8-2.4) 07/15/19 20:24 Total Bilirubin 0.8 mg/dl (0.2-1) 07/15/19 20:24 AST 13 U/L (15-37) L 07/15/19 20:24 ALT 22 U/L (12-78) 07/15/19 20:24 Alkaline Phosphatase 66 U/L (45-117) 07/15/19 20:24 Troponin I < 0.015 ng/ml (0-0.045) 07/15/19 20:24 Total Protein 8.4 gm/dl (6.4-8.2) H 07/15/19 20:24 Albumin 3.6 gm/dl (3.4-5.0) 07/15/19 20:24 Globulin 4.8 gm/dl (2.5-4.0) H 07/15/19 20:24 Albumin/Globulin Ratio 0.7 (0.9-2) L 07/15/19 20:24 Influenza Type A (PCR) Neg for Influ A (Neg) 07/15/19 20:24 Influenza Type B (PCR) Neg for Influ B (Neg) 07/15/19 20:24 Diagnostic Findings Chest x-ray : No significant change compared to the prior study. No acute process. Emphysema and postoperative changes are again noted. EKG as per my interpretation : Rate 115, sinus tachycardia, normal axis, no ischemia, biatrial enlargement C head nitial read: No intracranial hemorrhage. Remote left thalamic lacunar infarct. Confluent small vessel ischemic changes.
[2019-07-15] MEDS ORDERED: LORazepam 0.5 MG TAB PO STA (23:37)
[2019-07-15] MEDS ORDERED: dilTIAZem HCl 5 MG/ML 5 ML VIAL IV STA (23:40)
[2019-07-16] MEDS ORDERED: PHYTONADIONE 5 MG TAB PO STA (00:10)
--- NOTE | 2019-07-16 00:54 | Emergency Department Note ---
Entered by Michael Montejo acting as a scribe for History of Present Illness General Chief complaint: Shortness of Breath/Dyspnea Stated complaint: TROUBLE BREATHING, BLOODY NOSE Time Seen by Provider: 07/15/19 20:01 Source: patient Limitations: no limitations History of Present Illness Onset (ago): day(s) (yesterday) Location: chest Pain Consistency: + intermittent Maximum Pain Intensity: 4 Quality: + other (green and yellow sputum) Associated symptoms: + chest pain and + other (feeling warm) Treatments prior to arrival: other (nebulizer) The patient is a 64 year old female who presents to the Emergency Room with complaints of an intermittent cough starting yesterday. The patient states she has been coughing up green and yellow sputum. She states she felt warm today. She notes she always wears oxygen because she has chronic COPD. The patient states she has a little chest pain. She states she used a nebulizer treatment today. She states she had the upper part of her lung removed in 1998. 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 She states she takes prednisone and Coumadin. She states she was taking antibiotics around . She notes she had a heart attack 9 years ago. The patient states her legs swell when she moves around all day. She notes she has a history of C- Diff. She notes her PCP is Dr. Barahona. Home Medications Home Medications Medication Instructions Recorded Confirmed Type Breo Ellipta 1 inh INHALATION DAILY 09/29/18 07/15/19 History warfarin [Coumadin] 2.5 mg PO WK 09/29/18 07/15/19 History warfarin [Coumadin] 5 mg PO 6XWK 09/29/18 07/15/19 History albuterol sulfate 2.5 mg CONTINUOUS NEBULIZATION QID 07/15/19 07/15/19 History PRN mesalamine 2.4 g PO DAILY 07/15/19 07/15/19 History prednisone 5 mg PO DAILY 07/15/19 07/15/19 History Allergies Allergy/AdvReac Type Severity Reaction Status Date / Time phytonadione (vitamin K1) Allergy Intermediate severe Verified 07/16/19 00:11 back pain, red face levofloxacin Allergy Mild rash Verified 07/15/19 22:09 Penicillins Allergy Mild Amoxil - Verified 07/15/19 22:09 rash allantoin Allergy Unknown [facility] LIST Verified 07/15/19 22:09 bacitracin AdvReac Intermediate infection Verified 07/15/19 22:09 neomycin AdvReac Intermediate infection Verified 07/15/19 22:09 polymyxin B AdvReac Intermediate infection Verified 07/15/19 22:09 theophylline AdvReac Mild Headache Verified 07/15/19 22:09 Past Med/Surg History Medical History Abdominal pain Chronic respiratory failure (Chronic) COPD (chronic obstructive pulmonary disease) (Chronic) "severe" H/O pneumothorax (Chronic) "spontaneous" History of Clostridium difficile colitis (Chronic) History of DVT (deep vein thrombosis) Pneumonia (Resolved) Surgical History H/O pneumonectomy History of appendectomy S/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 and A total of 10 systems reviewed and were otherwise negative Physical Exam Vital Signs Vital Signs - 24 hr 07/15/19 18:52 07/15/19 20:31 07/15/19 21:19 Temperature 37 C Temperature Source Oral Pulse Rate 118 H Pulse Rate [Right Finger] 104 H 110 H Pulse Rhythm Regular Pulse Rhythm [Right Finger] Pulse Strength Normal Pulse Strength [Right Finger] Respiratory Rate 26 H 18 29 H Respiratory Effort / Characteristics Non-Labored Spontaneous Non-Labored Spontaneous Respiratory Depth Normal Respiratory Pattern Regular Blood Pressure 137/80 Blood Pressure [Right Arm] 138/92 Blood Pressure Mean 99 Blood Pressure Mean [Right Arm] 107 Blood Pressure Position Sitting Blood Pressure Position [Right Arm] Sitting Pulse Oximetry 92 97 96 Oxygen Delivery Method Nasal Cannula Nasal Cannula Oxygen Flow Rate 2 2 Sepsis Recent Fever Within 48 Hours No Sepsis New/Unexplained Change in Mental Status No Sepsis Action Taken by Nursing No Action Required 07/15/19 21:33 07/15/19 22:00 07/15/19 23:35 Temperature Temperature Source Pulse Rate Pulse Rate [Right Finger] 115 H 113 H 108 H Pulse Rhythm Pulse Rhythm [Right Finger] Regular Pulse Strength Pulse Strength [Right Finger] Normal Respiratory Rate 18 38 H 20 Respiratory Effort / Characteristics Non-Labored Spontaneous Non-Labored Spontaneous Respiratory Depth Normal Respiratory Pattern Regular Blood Pressure Blood Pressure [Right Arm] 154/84 H 144/85 H Blood Pressure Mean Blood Pressure Mean [Right Arm] 107 104 Blood Pressure Position Blood Pressure Position [Right Arm] Sitting Sitting Pulse Oximetry 96 94 96 Oxygen Delivery Method Nasal Cannula Nasal Cannula Nasal Cannula Oxygen Flow Rate 2 2 2 Sepsis Recent Fever Within 48 Hours Sepsis New/Unexplained Change in Mental Status Sepsis Action Taken by Nursing 07/16/19 00:07 Temperature Temperature Source Pulse Rate 82 Pulse Rate [Right Finger] Pulse Rhythm Pulse Rhythm [Right Finger] Pulse Strength Pulse Strength [Right Finger] Respiratory Rate 20 Respiratory Effort / Characteristics Respiratory Depth Respiratory Pattern Blood Pressure 132/71 Blood Pressure [Right Arm] Blood Pressure Mean Blood Pressure Mean [Right Arm] Blood Pressure Position Blood Pressure Position [Right Arm] Pulse Oximetry Oxygen Delivery Method Nasal Cannula Oxygen Flow Rate 2 Sepsis Recent Fever Within 48 Hours Sepsis New/Unexplained Change in Mental Status Sepsis Action Taken by Nursing General: Chronically-ill appearing older female who is coughing frequently with a dry cough. She is wearing 2L nasal cannula oxygen. HEENT: Normal cephalic atraumatic. Pupils are equal round and reactive to light. Extraocular movements are intact. Oropharynx is pink with moist mucous membranes. No swelling of the mouth lips or tongue. Neck: Supple with a midline trachea. No meningeal signs or stiffness, no JVD or bruits. No Stridor. Chest: Clear to auscultation bilaterally. No wheezes. No increased work of breathing. Rhonchorous sound bilaterally a lot of which clears with breathing. Heart: regular rate and rhythm. Abdomen: Soft nontender, nondistended without rebound guarding or rigidity. Extremities: No cyanosis clubbing or edema. No calf tenderness or asymmetry Spine/Back. Non tender to palpation. No CVA tenderness Skin: Good turgor without rashes. Neurologic exam: Cranial nerves two through 12 are intact. Motor and sensation are intact and symmetrical throughout. Course Course 2002: The patient was evaluated in room C7, and a complete history and physical examination were performed. 2119: I reevaluated the patient. She states she feels about 50%. 2128: I discussed the patient's case with Dr. Darlene Tam Hospitalist. He will evaluate the patient for further management Administered Medications Lactated Ringer's (Lr) 1,000 mls @ 100 mls/hr IV .Q10H ONE Stop: 07/16/19 08:02 Last Admin: 07/15/19 22:29 Dose: 100 mls/hr Documented by: [id number] Discontinued Medications Albuterol (Ventolin 0.083% 2.5mg/3ml) 2.5 mg NEB NOW STA Stop: 07/15/19 20:09 Last Admin: 07/15/19 20:30 Dose: 2.5 mg Documented by: [id number] Albuterol (Ventolin 0.083% 2.5mg/3ml) 2.5 mg NEB NOW STA Stop: 07/15/19 21:18 Last Admin: 07/15/19 21:33 Dose: 2.5 mg Documented by: [id number] Diltiazem HCl (Cardizem) 15 mg IV NOW STA Stop: 07/15/19 23:41 Last Admin: 07/15/19 23:53 Dose: 15 mg Documented by: [id number] Cosigned by: [id number] Doxycycline Hyclate 100 mg/ (Dextrose) 110 mls @ 50 mls/hr IV NOW STA Stop: 07/16/19 00:49 Last Admin: 07/15/19 23:33 Dose: 50 mls/hr Documented by: [id number] Methylprednisolone (Solumedrol) 125 mg IV NOW STA Stop: 07/15/19 21:18 Last Admin: 07/15/19 21:28 Dose: 125 mg Documented by: [id number] Medical Decision Making Differential Diagnosis Differential Diagnosis includes but is not limited to COPD exacerbation, bronchitis, pneumonia, sepsis, cardiac disease, arrhythmia, and electrolyte or metabolic abnormality. Medical Records Attestation: I reviewed the patient's medical records. Home Medications Current Medication List: was personally reviewed by me Laboratory Data Attestation: I reviewed the patient's lab results. Result diagrams: 07/15/19 22:48 07/15/19 20:24 Lab Results 07/15/19 07/15/19 07/15/19 Range/Units 20:24 20:24 20:24 WBC 9.56 (4.8-10.8) K/uL RBC 4.98 (4.2-5.4) M/uL Hgb 15.3 (12.0-16.0) g/dL Hct 47.2 H (37-47) % MCV 94.8 (80-100) fL MCH 30.7 (25-34) pg MCHC 32.4 (32-36) g/dL RDW Std Deviation 48.0 H (36.4-46.3) fL RDW Coeff of Isaura 13.9 (11.5-14.5) % Plt Count 171 (130-400) K/uL MPV 9.5 (7.4-10.4) fL Immature Gran % (Auto) 0.1 % Neut % (Auto) 80.8 % Lymph % (Auto) 11.6 % Hunt % (Auto) 7.3 % Eos % (Auto) 0.1 % Baso % (Auto) 0.1 % Immature Gran # (Auto) 0.01 (0.00-0.02) K/uL Neut # (Auto) 7.72 H (1.4-6.5) K/uL Lymph # (Auto) 1.11 L (1.2-3.4) K/uL Hunt # (Auto) 0.70 H (0.11-0.59) K/uL Eos # (Auto) 0.01 (0-0.5) K/uL Baso # (Auto) 0.01 (0-0.2) K/uL PT 32.4 H (9.0-12.0) Seconds INR 3.5 H (0.9-1.1) APTT 41.3 H (21.0-31.0) Seconds PTT Ratio 1.5 Sodium 140 (136-145) mmol/L Potassium 4.4 (3.5-5.1) mmol/L Chloride 103 (98-107) mmol/L Carbon Dioxide 34 H (21-32) mmol/L Anion Gap 3.0 (3-11) BUN 23 H (7-18) mg/dl Creatinine 0.86 (0.6-1.2) mg/dl Est Cr Clr Drug Dosing 48.7 ml/min Est GFR ( Amer) 81.6 Est GFR (Non-Af Amer) 70.4 BUN/Creatinine Ratio 26.3 H (10-20) Glucose 98 (70-99) mg/dl Lactate (0.4-2.0) mmol/L Calcium 10.1 (8.5-10.1) mg/dl Magnesium 2.3 (1.8-2.4) mg/dl Total Bilirubin 0.8 (0.2-1) mg/dl AST 13 L (15-37) U/L ALT 22 (12-78) U/L Alkaline Phosphatase 66 (45-117) U/L Troponin I < 0.015 (0-0.045) ng/ml Total Protein 8.4 H (6.4-8.2) gm/dl Albumin 3.6 (3.4-5.0) gm/dl Globulin 4.8 H (2.5-4.0) gm/dl Albumin/Globulin Ratio 0.7 L (0.9-2) Influenza Type A (PCR) (Neg) Influenza Type B (PCR) (Neg) Blood Type Antibody Screen 07/15/19 07/15/19 07/15/19 Range/Units 20:24 20:24 22:48 WBC (4.8-10.8) K/uL RBC (4.2-5.4) M/uL Hgb 13.9 (12.0-16.0) g/dL Hct 41.8 (37-47) % MCV (80-100) fL MCH (25-34) pg MCHC (32-36) g/dL RDW Std Deviation (36.4-46.3) fL RDW Coeff of Isaura (11.5-14.5) % Plt Count (130-400) K/uL MPV (7.4-10.4) fL Immature Gran % (Auto) % Neut % (Auto) % Lymph % (Auto) % Hunt % (Auto) % Eos % (Auto) % Baso % (Auto) % Immature Gran # (Auto) (0.00-0.02) K/uL Neut # (Auto) (1.4-6.5) K/uL Lymph # (Auto) (1.2-3.4) K/uL Hunt # (Auto) (0.11-0.59) K/uL Eos # (Auto) (0-0.5) K/uL Baso # (Auto) (0-0.2) K/uL PT (9.0-12.0) Seconds INR (0.9-1.1) APTT (21.0-31.0) Seconds PTT Ratio Sodium (136-145) mmol/L Potassium (3.5-5.1) mmol/L Chloride (98-107) mmol/L Carbon Dioxide (21-32) mmol/L Anion Gap (3-11) BUN (7-18) mg/dl Creatinine (0.6-1.2) mg/dl Est Cr Clr Drug Dosing ml/min Est GFR ( Amer) Est GFR (Non-Af Amer) BUN/Creatinine Ratio (10-20) Glucose (70-99) mg/dl Lactate 1.5 (0.4-2.0) mmol/L Calcium (8.5-10.1) mg/dl Magnesium (1.8-2.4) mg/dl Total Bilirubin (0.2-1) mg/dl AST (15-37) U/L ALT (12-78) U/L Alkaline Phosphatase (45-117) U/L Troponin I (0-0.045) ng/ml Total Protein (6.4-8.2) gm/dl Albumin (3.4-5.0) gm/dl Globulin (2.5-4.0) gm/dl Albumin/Globulin Ratio (0.9-2) Influenza Type A (PCR) Neg for Influ A (Neg) Influenza Type B (PCR) Neg for Influ B (Neg) Blood Type Antibody Screen 07/15/19 Range/Units 22:48 WBC (4.8-10.8) K/uL RBC (4.2-5.4) M/uL Hgb (12.0-16.0) g/dL Hct (37-47) % MCV (80-100) fL MCH (25-34) pg MCHC (32-36) g/dL RDW Std Deviation (36.4-46.3) fL RDW Coeff of Isaura (11.5-14.5) % Plt Count (130-400) K/uL MPV (7.4-10.4) fL Immature Gran % (Auto) % Neut % (Auto) % Lymph % (Auto) % Hunt % (Auto) % Eos % (Auto) % Baso % (Auto) % Immature Gran # (Auto) (0.00-0.02) K/uL Neut # (Auto) (1.4-6.5) K/uL Lymph # (Auto) (1.2-3.4) K/uL Hunt # (Auto) (0.11-0.59) K/uL Eos # (Auto) (0-0.5) K/uL Baso # (Auto) (0-0.2) K/uL PT (9.0-12.0) Seconds INR (0.9-1.1) APTT (21.0-31.0) Seconds PTT Ratio Sodium (136-145) mmol/L Potassium (3.5-5.1) mmol/L Chloride (98-107) mmol/L Carbon Dioxide (21-32) mmol/L Anion Gap (3-11) BUN (7-18) mg/dl Creatinine (0.6-1.2) mg/dl Est Cr Clr Drug Dosing ml/min Est GFR ( Amer) Est GFR (Non-Af Amer) BUN/Creatinine Ratio (10-20) Glucose (70-99) mg/dl Lactate (0.4-2.0) mmol/L Calcium (8.5-10.1) mg/dl Magnesium (1.8-2.4) mg/dl Total Bilirubin (0.2-1) mg/dl AST (15-37) U/L ALT (12-78) U/L Alkaline Phosphatase (45-117) U/L Troponin I (0-0.045) ng/ml Total Protein (6.4-8.2) gm/dl Albumin (3.4-5.0) gm/dl Globulin (2.5-4.0) gm/dl Albumin/Globulin Ratio (0.9-2) Influenza Type A (PCR) (Neg) Influenza Type B (PCR) (Neg) Blood Type A Positive Antibody Screen NEGATIVE Imaging Data My Impression: Chest X-Ray: No acute infiltrate, failure, or pneumothorax seen. Chronic COPD type changes noted. Radiologist's Impression: Radiology results as stated below per my review and the radiologist's interpretation: XR chest 1V portable HISTORY: SEPSIS COMPARISON: Chest 10/15/2018. FINDINGS: Severe bullous emphysema is again noted. No pneumothorax. Stable blunting of the right lateral costophrenic sulcus. Postoperative changes within the right lung apex are again noted. The heart is normal in size. No evidence for pulmonary edema. Linear scarlike densities within the left lung apex persists. No new focal lung consolidations to suggest pneumonia. Basilar calci fied pleural plaques unchanged. IMPRESSION: No significant change compared to the prior study. No acute process. Emphysema and postoperative changes are again noted. ACT 112: Negative or not required by law. Electronically signed by: James Lamb M.D. 07/15/2019 9:12 PM ECG Data Attestation: I personally reviewed and interpreted this ECG as follows: Rate (beats per minute): 115 Rhythm: + sinus tachycardia ECG ST segments: no ST depression and no ST elevation ECG Findings: no PACs and no PVCs Comparison ECG Date: from (10/15/14) Change: no significant change Blood Pressure Blood Pressure Findings: Elevated blood pressure Blood Pressure Disposition: further management by hospitalist [facility] Narrative This patient comes in as described above. She was placed in room C7. She has a history of COPD and is on chronic oxygen 2 L and has had severe lung disease in the past with part of her lung lung removed. She has not felt well for couple days.she has had shortness of breath and a dry cough. Her lungs sound rhonchorous but mostly clear with coughing. IV access established and a sepsis work-up was obtained. Chest x-ray does not show any focal infiltrates or any CHF. EKG shows a sinus tachycardia without any ischemic changes. She has no acute electrolyte or metabolic abnormalities. She was given albuterol Atrovent neb which helped her. she was given a second albuterol Atrovent neb. She was given IV Solu-Medrol 125 mg. I do believe that she is having a COPD exacerbation and a bronchitis that are causing her symptoms given her signific ant pulmonary disease. I feel that it is best to admit her even after the neb she says she feels about 50%. Have consulted Dr. Adrian to see in the ER for these measures. Impression & Plan COPD exacerbation, Bronchitis, Oxygen dependent, Chronic anticoagulation Discharge Plan Visit Data Chief Complaint: Shortness of Breath/Dyspnea Stated Complaint: TROUBLE BREATHING, BLOODY NOSE ED Provider: Rolo Pierre Discharge Problem: COPD exacerbation, Bronchitis, Oxygen dependent, Chronic anticoagulation Patient Disposition: Being Evaluated by Hospitalist Discharge Instructions Interventions: ED Discharge Assessment Last Done: 07/16/19 00:07 Forms Stand Alone Forms: My [facility] [employer] Prescriptions Prescriptions: No Action warfarin [Coumadin] 5 mg Tablet 2.5 mg PO WK RF: 0 warfarin [Coumadin] 5 mg Tablet 5 mg PO [id number] RF: 0 Breo Ellipta 100-25 mcg/dose Blister With Device 1 inh INHALATION DAILY RF: 0 prednisone 5 mg Tablet 5 mg PO DAILY RF: 0 mesalamine 1.2 gram Tablet,Delayed Release (Dr/Ec) 2.4 g PO DAILY RF: 0 albuterol sulfate 2.5 mg /3 mL (0.083 %) Solution For Nebulization 2.5 mg continuous nebulization QID PRN (Reason: Shortness Of Breath Or Wheezing) RF: 0 Referrals Referrals: James Barahona MD [Primary Care Provider] - The scribe's documentation has been prepared under my direction and personally reviewed by me in its entirety. I confirm that the note above accurately reflects all work, treatment, procedures, and medical decision making performed by me.
[2019-07-16] MEDS ORDERED: IPRATROPIUM BROMIDE NEB SOLN 0.02% 2.5 ML VIAL INH SCH (01:08)
[2019-07-16] MEDS ORDERED: TRAMADOL HCL 50 MG TABLET PO PRN (01:08)
[2019-07-16] MEDS ORDERED: XOPENEX/ATROVENT 1.25mg/0.5MG NEB COMBO NEB PRN (01:08)
[2019-07-16] MEDS ORDERED: ACETAMINOPHEN 325 MG TAB PO PRN (01:08)
[2019-07-16] MEDS ORDERED: LEVALBUTEROL 1.25MG/0.5ML NEB INH SCH (01:08)
[2019-07-16] MEDS ORDERED: LEVALBUTEROL 1.25MG/0.5ML NEB INH PRN (03:30)
[2019-07-16] MEDS ORDERED: IPRATROPIUM BROMIDE NEB SOLN 0.02% 2.5 ML VIAL INH PRN (03:30)
[2019-07-16] MEDS ORDERED: AMLODIPINE BESYLATE 5 MG TAB PO ONE (03:58)
--- NOTE | 2019-07-16 05:38 | CT Scan Report ---
CT head/brain wo con CT DOSE: 1074.96 mGy.cm HISTORY: Mental status change paredes TECHNIQUE: Multiaxial CT images of the head were performed without the use of intravenous contrast. A dose lowering technique was utilized adhering to the principles of ALARA. Comparison: 10/15/2018 Findings: The paranasal sinuses and mastoid air cells are clear. The calvarium and skull base are int act. The ventricles and sulci are within normal limits. There is no mass, hematoma, midline shift, or acute infarct. Small old infarct left thalamus. Atrophy and chronic small vessel change. Impression: No acute intracranial abnormality. ACT 112: Negative or not required by law. The above report was generated using voice recognition software. It may contain grammatical, syntax or spelling errors. Electronically signed by: James Ni M.D. 07/16/2019 5:36 AM
[2019-07-16 07:26] LABS: Hematocrit (blood only) 41.1 % (37-47); Hemoglobin 13.3 g/dL (12.0-16.0); Immature Granulocytes # (auto) 0.02 K/uL (0.00-0.02); Immature Granulocytes % (auto) 0.3 %; Lymphocytes # (auto) 0.47 K/uL (1.2-3.4); Lymphocytes % (auto) 6.8 %; Mean Corpuscular Hemoglobin 30.9 pg (25-34); Mean Corpuscular Hgb Conc 32.4 g/dL (32-36); Mean Corpuscular Volume 95.4 fL (80-100); Mean Platelet Volume 9.1 fL (7.4-10.4); Monocytes # (auto) 0.07 K/uL (0.11-0.59); Neutrophils # (auto) 6.32 K/uL (1.4-6.5); Neutrophils % (auto) 91.9 %; Platelet Count 155 K/uL (130-400); RDW Coefficient of Variation 13.5 % (11.5-14.5); RDW Standard Deviation 47.3 fL (36.4-46.3); Red Blood Count 4.31 M/uL (4.2-5.4); White Blood Count 6.88 K/uL (4.8-10.8)
[2019-07-16 07:34] LABS: INR 2.8 (0.9-1.1); Prothrombin Time 26.6 Seconds (9.0-12.0)
[2019-07-16 08:01] LABS: BUN Creatinine Ratio 33.1 (10-20); Calcium 8.4 mg/dl (8.5-10.1); Creatinine Clr Calc Pharmacy 73.4 ml/min; Est GFR (Non-African American) 98.3; Potassium 4.5 mmol/L (3.5-5.1)
[2019-07-16] MEDS: DOXYCYCLINE HYCLATE 100 MG CAP PO SCH ×2 (08:43→20:34)
[2019-07-16] MEDS: predniSONE 20 MG TAB PO SCH (08:43)
[2019-07-16] MEDS: FLUTICASONE/SALMETEROL 100/50 (ADVAIR) 14 PUFF/1 INHALER INH SCH ×2 (11:29→20:34)
--- NOTE | 2019-07-16 12:44 | Electrocardiogram Report ---
Test Reason : Blood Pressure : / mmHG Vent. Rate : 115 BPM Atrial Rate : 115 BPM P-R Int : 132 ms QRS Dur : 068 ms QT Int : 310 ms P-R-T Axes : 080 070 073 degrees QTc Int : 428 ms Poor data quality, interpretation may be adversely affected Sinus tachycardia Biatrial enlargement Otherwise Normal ECG When compared with ECG of 15-OCT-2018 17:01, Premature atrial complexes are no longer Present Confirmed by Erwin Garrett ([id number]) on 07/16/2019 12:44:35 PM Referred By: REFERRED SELF Confirmed By:Erwin Garrett
[2019-07-16] MEDS ORDERED: WARFARIN SOD 2 MG TAB PO SCH (16:35)
[2019-07-16] MEDS ORDERED: WARFARIN SOD 1 MG TAB PO SCH (17:15)
--- NOTE | 2019-07-16 17:19 | Hospitalist Progress Note ---
Date of Service July 16, 2019 Assessment & Plan (1) COPD exacerbation: Acute COPD exacerbation Chronic respiratory failure with hypoxia--oxygen dependent Former Tobacco use CXR:No significant change compared to the prior study. No acute process. Emphysema and postoperative changes are again noted. Continue doxycycline, nebs, prednisone Continue supplemental oxygen Pulmonary Hygiene Transient epistaxis Coumadin coagulopathy No acute bleeding issues Resume low-dose Coumadin Monitor INR CBC stable H/O PE/DVT S/P IVC filter placement On coumadin INR:2.8 Hypertension Stable Started on amlodipine H/O Spontaneous pneumothorax S/P Pleurodesis H/O Bronchopleural fistula S/P Partial right lobectomy sarcoidosis as per records Monitor H/O CVA/PVD On Coumadin Malnutrition BMI:16.7 Nutrition consult DVT Px: Coumadin Disposition PT/OT prior to discharge Subjective Patient is seen and examined at bedside States feeling better today Shortness of breath, cough slightly better since admission No recurrence of epistaxis Denies any chest pain, dizziness, nausea, abdominal pain Offers no other complaints Family at bedside Review of Systems Review of Systems: All systems reviewed & are unremarkable except as noted in HPI & below Physical Exam Physical Exam: Physical Exam: Vitals signs as noted above General Appearance:Thin, frail, chronic ill appearing Head: normocephalic, Atraumatic Eyes: normal inspection, EOMI Neck: supple, Trachea midline Respiratory/Chest: Decreased breath sounds, Scattered Rhonchi Cardiovascular: S1, S2, + murmur, +Tachycardia Abdomen/GI:Soft, Non tender, Bowel sounds present Extremities/Musculoskelatal:normal inspection, no edema Neurologic/Psych:AAOX3, grossly no focal neurological deficits Skin: normal color, warm Results & Data Vital Signs (Past 12 Hours) Vital Signs Temp Pulse Pulse Resp BP Pulse Ox 07/16/19 15:23 37.2 C 109 H 20 123/72 96 07/16/19 11:11 109 H 20 98 07/16/19 08:19 36.9 C 93 H 20 115/68 98 07/16/19 07:42 85 Laboratory Results Short CBC 07/15/19 07/15/19 07/16/19 Range/Units 20:24 22:48 07:11 WBC 9.56 6.88 (4.8-10.8) K/uL Hgb 15.3 13.9 13.3 (12.0-16.0) g/dL Hct 47.2 H 41.8 41.1 (37-47) % Plt Count 171 155 (130-400) K/uL BMP 07/15/19 07/16/19 20:24 07:11 Sodium 140 139 Potassium 4.4 4.5 Chloride 103 105 Carbon Dioxide 34 H 29 BUN 23 H 18 Creatinine 0.86 0.54 L D Glucose 98 127 H Calcium 10.1 8.4 L D Cardiac Enzymes 07/15/19 Range/Units 20:24 Troponin I < 0.015 (0-0.045) ng/ml Liver Function 07/15/19 Range/Units 20:24 Total Bilirubin 0.8 (0.2-1) mg/dl AST 13 L (15-37) U/L ALT 22 (12-78) U/L Alkaline Phosphatase 66 (45-117) U/L Albumin 3.6 (3.4-5.0) gm/dl
[2019-07-16] MEDS: IPRATROPIUM BROMIDE NEB SOLN 0.02% 2.5 ML VIAL INH SCH (19:01)
[2019-07-16] MEDS: LEVALBUTEROL 1.25MG/0.5ML NEB INH SCH (19:02)
[2019-07-17] MEDS: LEVALBUTEROL 1.25MG/0.5ML NEB INH SCH ×4 (00:33→18:46)
[2019-07-17] MEDS: IPRATROPIUM BROMIDE NEB SOLN 0.02% 2.5 ML VIAL INH SCH ×4 (00:33→18:46)
[2019-07-17 06:49] LABS: INR 1.6 (0.9-1.1); Prothrombin Time 15.7 Seconds (9.0-12.0)
[2019-07-17 07:19] LABS: BUN Creatinine Ratio 30.4 (10-20); Calcium 8.2 mg/dl (8.5-10.1); Creatinine Clr Calc Pharmacy 56.2 ml/min; Est GFR (African American) 102.9; Est GFR (Non-African American) 88.8; Magnesium 2.1 mg/dl (1.8-2.4); Potassium 4.5 mmol/L (3.5-5.1)
[2019-07-17] MEDS: FLUTICASONE/SALMETEROL 100/50 (ADVAIR) 14 PUFF/1 INHALER INH SCH ×2 (08:11→20:08)
[2019-07-17] MEDS: AMLODIPINE BESYLATE 5 MG TAB PO SCH (08:11)
[2019-07-17] MEDS: predniSONE 20 MG TAB PO SCH (08:12)
[2019-07-17] MEDS: DOXYCYCLINE HYCLATE 100 MG CAP PO SCH ×2 (08:12→20:08)
--- NOTE | 2019-07-17 12:54 | Electrocardiogram Report ---
Test Reason : Blood Pressure : / mmHG Vent. Rate : 097 BPM Atrial Rate : 097 BPM P-R Int : 130 ms QRS Dur : 074 ms QT Int : 354 ms P-R-T Axes : 080 071 089 degrees QTc Int : 449 ms Poor data quality, interpretation may be adversely affected Normal sinus rhythm Biatrial enlargement Abnormal ECG When compared with ECG of 15-JUL-2019 19:00, No significant change was found Confirmed by Erwin Garrett ([id number]) on 07/17/2019 12:53:48 PM Referred By: REFERRED SELF Confirmed By:Erwin Garrett
--- NOTE | 2019-07-17 15:21 | Hospitalist Progress Note ---
Date of Service July 17, 2019 Assessment & Plan (1) COPD exacerbation: Acute COPD exacerbation Chronic respiratory failure with hypoxia--oxygen dependent Former Tobacco use CXR:No significant change compared to the prior study. No acute process. Emphysema and postoperative changes are again noted. Continue doxycycline, nebs, prednisone Continue supplemental oxygen Continue Pulmonary Hygiene Slowly Improving Transient epistaxis--Resolved Likely due to Coumadin coagulopathy Received Vitamin K Resumed Coumadin Monitor INR:1.6 No recurrence of bleeding H/O PE/DVT S/P IVC filter placement INR:1.6 Resumed Coumadin Hypertension BP Stable Continue amlodipine Monitor H/O Spontaneous pneumothorax S/P Pleurodesis H/O Bronchopleural fistula S/P Partial right lobectomy sarcoidosis as per records Monitor H/O CVA/PVD On Coumadin Malnutrition BMI:16.7 Nutrition consult DVT Px: Coumadin Disposition PT/OT prior to discharge Subjective Patient is seen and examined at bedside Less Cough and SOB No new complaints Denies recurrence of epistaxis Also denies any chest pain, dizziness, nausea, abdominal pain No family at bedside Review of Systems Review of Systems: All systems reviewed & are unremarkable except as noted in HPI & below Physical Exam Physical Exam: Physical Exam: Vitals signs as noted above General Appearance:Thin, frail, chronic ill appearing Head: normocephalic, Atraumatic Eyes: normal inspection, EOMI Neck: supple, Trachea midline Respiratory/Chest: Decreased breath sounds, CTA Cardiovascular: S1, S2, + murmur, +Tachycardia Abdomen/GI:Soft, Non tender, Bowel sounds present Extremities/Musculoskelatal:normal inspection, no edema Neurologic/Psych:AAOX3, grossly no focal neurological deficits Skin: normal color, warm Results & Data Vital Signs (Past 12 Hours) Vital Signs Temp Pulse Pulse Resp BP BP Pulse Ox 07/17/19 13:42 111 H 22 98 07/17/19 13:01 97 07/17/19 11:53 36.8 C 106 H 22 147/81 H 98 07/17/19 07:45 36.9 C 52 L 20 133/71 92 07/17/19 07:27 94 H 07/17/19 07:23 84 18 98 07/17/19 03:29 36.6 C 102 H 22 110/68 94 Laboratory Results BMP 07/17/19 06:05 Sodium 141 Potassium 4.5 Chloride 107 Carbon Dioxide 30 BUN 22 H Creatinine 0.71 Glucose 103 H Calcium 8.2 L
[2019-07-17] MEDS: WARFARIN SOD 2.5 MG TAB PO SCH (15:44)
[2019-07-18] MEDS ORDERED: COUGH DROP (SUGAR FREE) LOZ 24 LOZ/1 BOX BUCCAL STA (00:04)
[2019-07-18] MEDS: IPRATROPIUM BROMIDE NEB SOLN 0.02% 2.5 ML VIAL INH SCH ×4 (00:35→19:44)
[2019-07-18] MEDS: LEVALBUTEROL 1.25MG/0.5ML NEB INH SCH ×3 (00:35→13:59)
[2019-07-18 07:51] LABS: INR 1.5 (0.9-1.1); Prothrombin Time 15.1 Seconds (9.0-12.0)
[2019-07-18] MEDS: FLUTICASONE/SALMETEROL 100/50 (ADVAIR) 14 PUFF/1 INHALER INH SCH ×2 (08:00→20:46)
[2019-07-18] MEDS: AMLODIPINE BESYLATE 5 MG TAB PO SCH (08:00)
[2019-07-18] MEDS: predniSONE 20 MG TAB PO SCH (08:00)
[2019-07-18] MEDS: DOXYCYCLINE HYCLATE 100 MG CAP PO SCH ×2 (08:01→20:46)
[2019-07-18 08:43] LABS: Calcium 8.7 mg/dl (8.5-10.1); Creatinine Clr Calc Pharmacy 65.1 ml/min; Est GFR (African American) 108.9; Potassium 4.2 mmol/L (3.5-5.1)
[2019-07-18] MEDS: WARFARIN SOD 2.5 MG TAB PO SCH (15:35)
--- NOTE | 2019-07-18 17:25 | Hospitalist Progress Note ---
Date of Service July 18, 2019 Assessment & Plan (1) COPD exacerbation: Acute COPD exacerbation Chronic respiratory failure with hypoxia--oxygen dependent Former Tobacco use CXR:No significant change compared to the prior study. No acute process. Emphysema and postoperative changes are again noted. Continue doxycycline, nebs, prednisone Continue supplemental oxygen Continue Pulmonary Hygiene Continue current management Clinically improving Transient epistaxis--Resolved Likely due to Coumadin coagulopathy Received Vitamin K Continue Coumadin Monitor INR:1.5 No recurrence of bleeding H/O PE/DVT S/P IVC filter placement INR:1.5 Continue Coumadin Hypertension BP Stable Continue amlodipine Monitor H/O Spontaneous pneumothorax S/P Pleurodesis H/O Bronchopleural fistula S/P Partial right lobectomy sarcoidosis as per records Monitor H/O CVA/PVD On Coumadin Malnutrition BMI:16.7 Nutrition consult DVT Px: Coumadin Disposition Expected discharge home when medically stable Subjective Patient is seen and examined at bedside Doing better today Minimal cough Shortness of breath much improved Denies any chest pain, dizziness, nausea, abdominal pain Offers no other complaints Saturating well with baseline supplemental oxygen Review of Systems Review of Systems: All systems reviewed & are unremarkable except as noted in HPI & below Physical Exam Physical Exam: Physical Exam: Vitals signs as noted above General Appearance:Thin, frail, chronic ill appearing Head: normocephalic, Atraumatic Eyes: normal inspection, EOMI Neck: supple, Trachea midline Respiratory/Chest: Decreased breath sounds, CTA Cardiovascular: S1, S2, + murmur, +Tachycardia Abdomen/GI:Soft, Non tender, Bowel sounds present Extremities/Musculoskelatal:normal inspection, no edema Neurologic/Psych:AAOX3, grossly no focal neurological deficits Skin: normal color, warm Results & Data Vital Signs (Past 12 Hours) Vital Signs Temp Pulse Pulse Resp BP Pulse Ox 07/18/19 15:46 119 H 07/18/19 15:00 36.9 C 64 20 129/77 95 07/18/19 14:02 102 H 18 97 07/18/19 12:43 36.9 C 102 H 16 112/78 95 07/18/19 07:32 90 07/18/19 07:08 36.7 C 61 16 151/71 H 92 07/18/19 07:01 85 18 98 Laboratory Results [facility] 07/18/19 07:18 Sodium 141 Potassium 4.2 Chloride 107 Carbon Dioxide 31 BUN 21 H Creatinine 0.62 Glucose 78 Calcium 8.7
[2019-07-18] MEDS: LEVALBUTEROL HCL 0.63 MG/3 ML NEB NEB SCH (19:44)
[2019-07-19] MEDS: IPRATROPIUM BROMIDE NEB SOLN 0.02% 2.5 ML VIAL INH SCH ×3 (00:26→13:06)
[2019-07-19] MEDS: LEVALBUTEROL HCL 0.63 MG/3 ML NEB NEB SCH ×3 (00:26→13:06)
[2019-07-19 07:52] LABS: INR 1.5 (0.9-1.1); Prothrombin Time 15.2 Seconds (9.0-12.0)
[2019-07-19 08:14] LABS: BUN Creatinine Ratio 23.8 (10-20); Calcium 8.5 mg/dl (8.5-10.1); Creatinine Clr Calc Pharmacy 57.2 ml/min; Est GFR (African American) 102.9; Est GFR (Non-African American) 88.8; Potassium 3.9 mmol/L (3.5-5.1)
[2019-07-19] MEDS: FLUTICASONE/SALMETEROL 100/50 (ADVAIR) 14 PUFF/1 INHALER INH SCH (08:26)
[2019-07-19] MEDS: predniSONE 20 MG TAB PO SCH (08:26)
[2019-07-19] MEDS: DOXYCYCLINE HYCLATE 100 MG CAP PO SCH (08:26)
[2019-07-19] MEDS: AMLODIPINE BESYLATE 5 MG TAB PO SCH (08:26)
--- NOTE | 2019-07-19 14:25 | Hospitalist Progress Note ---
Date of Service July 19, 2019 Assessment & Plan (1) COPD exacerbation: Acute COPD exacerbation Chronic respiratory failure with hypoxia--oxygen dependent Former Tobacco use CXR:No significant change compared to the prior study. No acute process. Emphysema and postoperative changes are again noted. Continue doxycycline, nebs, prednisone Continue supplemental oxygen Continue Pulmonary Hygiene Plan to discharge on prednisone taper course Transient epistaxis--Resolved Likely due to Coumadin coagulopathy Received Vitamin K Continue Coumadin Monitor INR:1.5 No recurrence of bleeding Sinus tachycardia Likely secondary to nebs Also on prednisone Asymptomatic Monitor H/O PE/DVT S/P IVC filter placement INR:1.5 Continue Coumadin Hypertension BP Stable Continue amlodipine Monitor H/O Spontaneous pneumothorax S/P Pleurodesis H/O Bronchopleural fistula S/P Partial right lobectomy sarcoidosis as per records Monitor H/O CVA/PVD On Coumadin Malnutrition BMI:16.7 Nutrition consult DVT Px: Coumadin Disposition Plan to discharge home today Subjective Patient is seen and examined at bedside States feeling well today No new complaints Sinus tachycardia noted but asymptomatic Denies any chest pain, dizziness, nausea, abdominal pain Cough and shortness of breath much improved Eager to get discharged Review of Systems Review of Systems: All systems reviewed & are unremarkable except as noted in HPI & below Physical Exam Physical Exam: Physical Exam: Vitals signs as noted above General Appearance:Thin, frail, chronic ill appearing Head: normocephalic, Atraumatic Eyes: normal inspection, EOMI Neck: supple, Trachea midline Respiratory/Chest: Decreased breath sounds, scattered wheezes Cardiovascular: S1, S2, + murmur, +Tachycardia Abdomen/GI:Soft, Non tender, Bowel sounds present Extremities/Musculoskelatal:normal inspection, no edema Neurologic/Psych:AAOX3, grossly no focal neurological deficits Skin: normal color, warm Results & Data Vital Signs (Past 12 Hours) Vital Signs Temp Pulse Resp BP Pulse Ox 07/19/19 13:17 119 H 20 96 07/19/19 12:12 36.7 C 64 18 150/79 H 93 07/19/19 08:19 36.7 C 99 H 18 159/76 H 96 07/19/19 07:02 106 H 18 98 07/19/19 03:58 36.7 C 95 H 19 133/79 99 Laboratory Results [facility] 07/19/19 07:22 Sodium 141 Potassium 3.9 Chloride 105 Carbon Dioxide 32 BUN 17 Creatinine 0.71 Glucose 84 Calcium 8.5
--- NOTE | 2019-07-19 14:43 | Discharge Summary ---
Date of Service July 19, 2019 Admission HPI Per Admitting Provider History obtained from patient, family, and records. Medical history significant for chronic respiratory failure secondary to steroid dependent COPD on home O2, history spontaneous pneumothorax status post pleurodesis, hx bronchopleural fistula status post partial right lobectomy, history PE/DVT status post IVC filter on Coumadin, sarcoidosis as per records, history of CVA/PVD as per records, HCV status post Rx, past tobacco abuse. Recent confinement September 2018 for COPD exacerbation. 1 day history of chest congestion symptoms, yellow sputum production. Transient chest pain from coughing. Transient epistaxis from coughing as per patient with generalized headache symptoms. Denies aspiration. No fever, no chills. No unusual fluid retention. At the ER, patient received IV Solu-Medrol, neb treatment for COPD exacerbation. Medical History as above Surgical History : Tonsillectomy/adenoidectomy, pleurodesis, thoracoscopy, IVC filter placement, lung surgery Family History : Breast cancer, kidney disease, heart disease Personal/Social history : Past tobacco abuse, no EtOH intake, disabled Admission Exam Per Admitting Provider GENERAL: Slightly uncomfortable, minimal respiratory distress, underweight, tremulous SKIN: Normal color, warm HEENT: [place] palpebral conjunctivae, no ptosis, dry buccal mucosa NECK : Supple, no tenderness CHEST : Decreased breath sounds occasional expiratory wheeze, no tenderness HEART : Tachycardic, systolic murmur ABDOMEN: Soft, nontender EXTREMITIES : No LE swelling/tenderness, no other conspicuous deformities noted NEUROLOGIC : Coherent, slightly hard of hearing, no facial asymmetry, tremulous Principal Diagnosis Acute COPD exacerbation Transient epistaxis Discharge Data Allergies Allergy/AdvReac Type Severity Reaction Status Date / Time phytonadione (vitamin K1) Allergy Intermediate severe Verified 07/16/19 00:11 back pain, red face levofloxacin Allergy Mild rash Verified 07/15/19 22:09 Penicillins Allergy Mild Amoxil - Verified 07/15/19 22:09 rash allantoin Allergy Unknown [facility] LIST Verified 07/15/19 22:09 bacitracin AdvReac Intermediate infection Verified 07/15/19 22:09 neomycin AdvReac Intermediate infection Verified 07/15/19 22:09 polymyxin B AdvReac Intermediate infection Verified 07/15/19 22:09 theophylline AdvReac Mild Headache Verified 07/15/19 22:09 Consultations 07/15/19 21:25 ED Decision to Admit Stat Procedures Performed CXR: No significant change compared to the prior study. No acute process. Emphysema and postoperative changes Head CT: No acute intracranial abnormality. Ordered Studies 07/15/19 22:24 CT head/brain wo con Urgent Hospital Course (1) COPD exacerbation: Acute COPD exacerbation Chronic respiratory failure with hypoxia--oxygen dependent Former Tobacco use CXR:No significant change compared to the prior study. No acute process. Emphysema and postoperative changes are again noted. Continue doxycycline, nebs, prednisone Continue supplemental oxygen Continue Pulmonary Hygiene Plan to discharge on prednisone taper course Transient epistaxis--Resolved Likely due to Coumadin coagulopathy Received Vitamin K Continue Coumadin Monitor INR:1.5 No recurrence of bleeding Sinus tachycardia Likely secondary to nebs Also on prednisone Asymptomatic Monitor H/O PE/DVT S/P IVC filter placement INR:1.5 Continue Coumadin Hypertension BP Stable Continue amlodipine Monitor H/O Spontaneous pneumothorax S/P Pleurodesis H/O Bronchopleural fistula S/P Partial right lobectomy sarcoidosis as per records Monitor H/O CVA/PVD On Coumadin Malnutrition BMI:16.7 Nutrition consult DVT Px: Coumadin Disposition Plan to discharge home today Total Time Total Time Spent Total Time Spent (In Minutes): 38 minutes Total Time Includes: Examination of the Patient, Discharge Planning, Medication Reconciliation, Communication With Other Providers and Other Discharge Plan Discharge Items Patient Disposition: Home - Self-Care Reason For Visit: COPD EXACERBATION Discharge Diagnosis: Acute COPD exacerbation Transient epistaxis Activity: Resume your previous activity Exercise/Sports: Gradually increase as tolerated Non-emergency contact: Primary Care Provider Call non-emergency contact if: you have any medication questions, your symptoms worsen, your pain is not controlled, your pain is worsening, your pain is unusual for you, your pain is concerning for you, you have a fever and your wound has increased redness Follow-up/Referrals: James Barahona MD [Primary Care Provider] - Diet: Regular Addtl Attending Provider Instructions: Follow-up with your primary care physician Dr. Barahona on July 22, 2019 2:10 PM Follow-up with Coumadin clinic for management of your Coumadin dosing and monitoring your PT/INR Complete the prednisone, antibiotic course as prescribed Your blood cultures are pending at the time of discharge. Follow-up with your physician for results. Prednisone taper course Start taking prednisone 30 mg daily for 3 days then 20 mg daily for 3 days then 10 mg daily for 3 days and then continue your home dose of 5mg daily Seek immediate medical attention if your symptoms reoccur or worsen Pending Studies at Discharge: Yes Studies:: Final blood cultures Stand-Alone Forms: My [facility], Smoking Cessation Medications and DC Order Prescriptions: New doxycycline hyclate 100 mg Capsule 100 mg PO BID Qty: 4 RF: 0 amlodipine [Norvasc] 5 mg Tablet 2.5 mg PO QAM Qty: 15 RF: 0 prednisone 10 mg tablet 10 mg PO UD Qty: 18 RF: 0 albuterol sulfate 2.5 mg /3 mL (0.083 %) solution for nebulization 1.25 mg INH QID PRN (Reason: shortness of breath or wheezing) Qty: 360 RF: 0 Continued warfarin [Coumadin] 5 mg Tablet 2.5 mg PO WK RF: 0 warfarin [Coumadin] 5 mg Tablet 5 mg PO 6XWK RF: 0 Breo Ellipta 100-25 mcg/dose Blister With Device 1 inh INHALATION DAILY RF: 0 prednisone 5 mg Tablet 5 mg PO DAILY RF: 0 mesalamine 1.2 gram Tablet,Delayed Release (Dr/Ec) 2.4 g PO DAILY RF: 0 Discontinued albuterol sulfate 2.5 mg /3 mL (0.083 %) Solution For Nebulization 2.5 mg continuous nebulization QID PRN (Reason: Shortness Of Breath Or Wheezing) RF: 0 Discharge Orders: Discharge Order (Routine); Ordered 07/19/19 Ordered By: Stefano Valerio Admission Data Admit Date/Time: 07/15/19 23:36 Attending Provider: Stefano Valerio Admit Provider: Hitesh Colon Primary Care Provider: James Barahona Other Providers: Hitehs Colon Other Interventions: Discharge Summary Assessment (RN) Last Done: 07/19/19 15:00 DC Date/Time DO NOT enter until pt leaves facility: 07/19/19 15:25
[2019-07-19] MEDS ORDERED: WARFARIN SOD 5 MG TAB PO SCH (16:00)
== END 2019-07-19 15:25 | disposition home or self-care (01) | DRG 191 ==
LOC: ED 18:38 → 2N 23:36

== ENCOUNTER 2019-12-05 23:50 | Inpatient (IN) ==
[2019-12-06] MEDS ORDERED: NITROGLYCERIN 2% OINTMENT 30GM TUBE EXT ONE (00:08)
[2019-12-06] MEDS ORDERED: FAMOTIDINE 20MG/5ML IV PUSH IV STA (00:08)
--- NOTE | 2019-12-06 00:19 | Emergency Department Note ---
History of Present Illness General Chief complaint: Chest Pain Stated complaint: Right sided chest pain Time Seen by Provider: 12/05/19 23:53 Source: patient Mode of arrival: EMS Limitations: no limitations History of Present Illness Provider complaint: Chest pain Location: chest Radiation: non-radiation Severity: moderate Pain Consistency: + constant Maximum Pain Intensity: 10 Current Pain Intensity: 10 Quality: + constant Relieved By: + none Exacerbated By: + movement Associated symptoms: + denies other symptoms Treatments prior to arrival: none This is a 64-year-old female from home complaining of chest pain began this opal shana. Patient states she began having chest pain approximately 7 PM while family was over visiting. Patient thought perhaps she was overly tired as it is been a busy weekend of seeing different family members. Patient states when she tried to lay down to see if the pain would go away she felt as though it was hard to breathe. Patient does wear oxygen chronically at home 2 to 3 L due to a history of severe COPD. Patient denies any recent change in medications. Patient does use Coumadin due to history of blood clots. Patient states she sat for a while at home however her became more concerned as the pain did not go away and so he eventually called 911. Patient denies any recent illness or known sick contacts. No known exposure to a coronavirus positive individual. Patient states she does not follow with cardiology. 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 Patient cannot recall if she ever had an echo or stress test. Patient denies any history of GERD or reflux. Pt seen during a time of high acuity and national emergency pandemic while wearing PPE. Home Medications Home Medications Medication Instructions Recorded Confirmed Type warfarin [Coumadin] 5 mg PO UD 09/29/18 12/06/19 History prednisone 5 mg PO DAILY 07/15/19 12/06/19 History albuterol sulfate 1.25 mg INH QID PRN #360 ml 07/20/19 12/06/19 Rx fluticasone propion-salmeterol 1 ea INHALATION UD 12/06/19 12/06/19 History [Wixela Inhub] primidone 50 mg PO BID 12/06/19 12/06/19 History Allergies Allergy/AdvReac Type Severity Reaction Status Date / Time phytonadione (vitamin K1) Allergy Intermediate severe Verified 12/06/19 01:27 back pain, red face levofloxacin Allergy Mild rash Verified 12/06/19 01:27 Penicillins Allergy Mild Amoxil - Verified 12/06/19 01:27 rash allantoin Allergy Unknown [facility] [place] Verified 12/06/19 01:27 bacitracin AdvReac Intermediate infection Verified 12/06/19 01:27 neomycin AdvReac Intermediate infection Verified 12/06/19 01:27 polymyxin B AdvReac Intermediate infection Verified 12/06/19 01:27 theophylline AdvReac Mild Headache Verified 12/06/19 01:27 Past Med/Surg History Medical History Abdominal pain Chronic respiratory failure (Chronic) COPD (chronic obstructive pulmonary disease) (Chronic) "severe" H/O pneumothorax (Chronic) "spontaneous" History of Clostridium difficile colitis (Chronic) History of DVT (deep vein thrombosis) Pneumonia (Resolved) Surgical History H/O pneumonectomy History of appendectomy S/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 Social History Preferred Language: French Communication Ability: Effective Data Migration Consultant Required: No Beliefs That Will Affect Care: None marital status: Current Living Situation: Spouse Other Information That Helps Us Care for You: No Feels Safe at Home: Yes Safety Concerns: Feels Safe At This Time Smoking Status: Former smoker Hx Alcohol Use: No Hx Substance Use: No Review of Systems See HPI for pertinent positives & negatives. and A total of 10 systems reviewed and were otherwise negative Physical Exam Vital Signs Vital Signs - 24 hr 12/06/19 00:02 12/06/19 00:29 12/06/19 01:01 Temperature 36.9 C Temperature Source Oral Pulse Rate 98 H 94 H Pulse Rate [Right Radial] 95 H Pulse Rate from SpO2 Sensor 94 H Respiratory Rate 28 H 20 20 Respiratory Effort / Characteristics Spontaneous Labored Non-Labored Spontaneous Blood Pressure 150/97 H 143/99 H Blood Pressure Mean 114 115 Pulse Oximetry 96 99 97 Oxygen Delivery Method Nasal Cannula Nasal Cannula Nasal Cannula Oxygen Flow Rate 3 3 3 Sepsis Action Taken by Nursing No Action Required 12/06/19 01:30 12/06/19 02:00 12/06/19 02:30 Temperature Temperature Source Pulse Rate 91 H 93 H 89 Pulse Rate [Right Radial] Pulse Rate from SpO2 Sensor 91 H 93 H 90 Respiratory Rate 22 24 24 Respiratory Effort / Characteristics Blood Pressure 147/89 H 171/94 H 151/99 H Blood Pressure Mean 108 103 113 Pulse Oximetry 99 97 98 Oxygen Delivery Method Nasal Cannula Nasal Cannula Nasal Cannula Oxygen Flow Rate 3 3 3 Sepsis Action Taken by Nursing 12/06/19 02:55 12/06/19 03:00 12/06/19 04:00 Temperature Temperature Source Pulse Rate 89 87 Pulse Rate [Right Radial] Pulse Rate from SpO2 Sensor 89 86 Respiratory Rate 16 14 Respiratory Effort / Characteristics Blood Pressure 147/84 H 138/76 135/80 Blood Pressure Mean 103 95 91 Pulse Oximetry 98 97 Oxygen Delivery Method Room Air Room Air Oxygen Flow Rate Sepsis Action Taken by Nursing GENERAL: alert, uncomfortable appearing, well nourished, no distress, non-toxic, appears older than stated age EYE EXAM: normal conjunctiva, PERRL and EOM's grossly intact OROPHARYNX: no exudate, no erythema, lips, buccal mucosa, and tongue normal and mucous membranes are moist, oxygen via nasal cannula in place NECK: supple, no nuchal rigidity, no adenopathy, non-tender LUNGS: Clear to auscultation. Normal chest wall mechanics, no w/r/r HEART: no murmurs, S1 normal and S2 normal, no reproducible chest wall tenderness ABDOMEN: abdomen soft, non-tender, normo-active bowel sounds, no masses, no rebound or guarding. BACK: Back is symmetrical on inspection and there is no deformity, no midline tenderness, no CVA tenderness. SKIN: no rashes and no bruising UPPER EXTREMITIES: upper extremities are grossly normal. FROM, nml pulses b/l. LOWER EXTREMITIES: No pitting edema. FROM, nml pulses b/l. NEURO EXAM: Normal sensorium, cranial nerves II-XII grossly intact, normal speech, no gross weakness of arms, no gross weakness of legs. Gross sensation intact. Course Course 0155: Pt updated on results. Pt states breathing is improved however she still feels chest pain. Discussed INR. Pt in agreement with plan for CT. 0328: Case discussed with Dr. Anderson for additional evaluation and management. Administered Medications Acetaminophen (Tylenol) 650 mg PO Q4H PRN PRN Reason: Pain or Fever Stop: 01/05/20 05:41 Last Admin: 12/07/19 08:10 Dose: 650 mg Documented by: [id number] Aspirin (Ecotrin Ectab) 81 mg PO QAM [facility] Stop: 01/06/20 08:59 Last Admin: 12/08/19 08:10 Dose: 81 mg Documented by: [id number] Admin: 12/07/19 10:53 Dose: 81 mg Documented by: [id number] Fluticasone/Vilanterol (Breo Ellipta 100/25 Mcg Inh) 1 puffs INH DAILY [facility] Stop: 01/05/20 08:59 Last Admin: 12/08/19 08:11 Dose: 1 puffs Documented by: [id number] Admin: 12/07/19 10:53 Dose: 1 puffs Documented by: [id number] Admin: 12/06/19 08:10 Dose: 1 puffs Documented by: [id number] Heparin Sodium/Dextrose (Heparin Sodium/Dextrose) 25,000 units in 500 mls @ 13 mls/hr IV .Q24H [facility]; Protocol Stop: 01/05/20 03:44 Last Admin: 12/08/19 08:39 Dose: 650 units/hr, 13 mls/hr Documented by: [id number] Cosigned by: [id number] Titration: 12/08/19 08:39 Dose: 650 units/hr, 13 mls/hr Documented by: [id number] Cosigned by: [id number] Titration: 12/08/19 08:35 Dose: 650 units/hr, 13 mls/hr Documented by: [id number] Cosigned by: [id number] Titration: 12/08/19 07:01 Dose: 650 units/hr, 13 mls/hr Documented by: [id number] Cosigned by: [id number] Titration: 12/07/19 19:03 Dose: 650 units/hr, 13 mls/hr Documented by: [id number] Cosigned by: [id number] Titration: 12/07/19 15:09 Dose: 650 units/hr, 13 mls/hr Documented by: [id number] Cosigned by: [id number] Titration: 12/07/19 08:50 Dose: 650 units/hr, 13 mls/hr Documented by: [id number] Cosigned by: [id number] Admin: 12/07/19 08:14 Dose: 650 units/hr, 13 mls/hr Documented by: [id number] Cosigned by: [id number] Titration: 12/07/19 08:14 Dose: 650 units/hr, 13 mls/hr Documented by: [id number] Cosigned by: [id number] Titration: 12/07/19 07:16 Dose: 650 units/hr, 13 mls/hr Documented by: [id number] Cosigned by: [id number] Titration: 12/07/19 01:37 Dose: 650 units/hr, 13 mls/hr Documented by: [id number] Cosigned by: [id number] Titration: 12/06/19 19:09 Dose: 700 units/hr, 14 mls/hr Documented by: [id number] Cosigned by: [id number] Titration: 12/06/19 19:02 Dose: 0 units/hr, 0 mls/hr Documented by: [id number] Cosigned by: [id number] Titration: 12/06/19 18:39 Dose: 0 units/hr, 0 mls/hr Documented by: [id number] Cosigned by: [id number] Titration: 12/06/19 11:24 Dose: 800 units/hr, 16 mls/hr Documented by: [id number] Cosigned by: [id number] Admin: 12/06/19 04:39 Dose: 900 units/hr, 18 mls/hr Documented by: [id number] Cosigned by: [id number] Promethazine HCl 12.5 mg/ (Sodium Chloride) 50.5 mls @ 202 mls/hr IV Q6H PRN PRN Reason: Nausea And Vomiting Stop: 01/05/20 05:44 Last Infusion: 12/06/19 06:23 Dose: 0 mls/hr Documented by: [id number] Admin: 12/06/19 05:57 Dose: 202 mls/hr Documented by: [id number] Lactated Ringer's (Lr) 1,000 mls @ 50 mls/hr IV .Q20H [facility] Stop: 01/05/20 05:41 Last Admin: 12/07/19 20:28 Dose: 50 mls/hr Documented by: [id number] Infusion: 12/07/19 20:28 Dose: 50 mls/hr Documented by: [id number] Admin: 12/07/19 02:10 Dose: 50 mls/hr Documented by: [id number] Infusion: 12/07/19 02:10 Dose: 50 mls/hr Documented by: [id number] Admin: 12/06/19 06:24 Dose: 50 mls/hr Documented by: [id number] Lisinopril (Zestril) 2.5 mg PO QAM [facility] Stop: 01/06/20 08:59 Last Admin: 12/08/19 08:10 Dose: 2.5 mg Documented by: [id number] Admin: 12/07/19 10:52 Dose: 2.5 mg Documented by: [id number] Prednisone (Prednisone) 5 mg PO DAILY [facility] Stop: 01/05/20 08:59 Last Admin: 12/08/19 08:10 Dose: 5 mg Documented by: [id number] Admin: 12/07/19 10:52 Dose: 5 mg Documented by: [id number] Admin: 12/06/19 08:10 Dose: 5 mg Documented by: [id number] Primidone (Primidone) 50 mg PO BID [facility] Stop: 01/05/20 08:59 Last Admin: 12/08/19 08:10 Dose: 50 mg Documented by: [id number] Admin: 12/07/19 20:26 Dose: 50 mg Documented by: [id number] Admin: 12/07/19 10:53 Dose: 50 mg Documented by: [id number] Admin: 12/06/19 19:39 Dose: 50 mg Documented by: [id number] Admin: 12/06/19 08:10 Dose: 50 mg Documented by: [id number] Tramadol HCl (Ultram) 25 - 50 mg PO Q4H PRN PRN Reason: Pain Stop: 01/05/20 05:41 Last Admin: 12/06/19 19:14 Dose: 25 mg Documented by: [id number] Discontinued Medications Albuterol (Duoneb) 3 ml NEB NOW STA Stop: 12/06/19 00:21 Last Admin: 12/06/19 00:27 Dose: 3 ml Documented by: [id number] Aspirin (Ecotrin Ectab) 81 mg PO NOW STA Stop: 12/06/19 04:00 Last Admin: 12/06/19 04:28 Dose: 81 mg Documented by: [id number] Atropine Sulfate (Atropine Sulfate) Confirm Administered Dose 2 mg IV .STK-MED ONE Stop: 12/07/19 09:09 Last Admin: 12/07/19 10:25 Dose: Not Given Documented by: [id number] Dobutamine HCl (Dobutrex) Confirm Administered Dose 250 mg IV .STK-MED ONE Stop: 12/07/19 09:09 Last Admin: 12/07/19 10:25 Dose: 1 dose Documented by: [id number] Famotidine (Pepcid 20mg Iv Push) 20 mg IV ONE STA Stop: 12/06/19 00:09 Last Admin: 12/06/19 00:15 Dose: 20 mg Documented by: [id number] Heparin Sodium/Dextrose () 1 ea IV Q15M [facility]; Protocol Stop: 01/05/20 03:41 Last Admin: 12/06/19 10:48 Dose: Not Given Documented by: [id number] Admin: 12/06/19 05:11 Dose: Not Given Documented by: [id number] Admin: 12/06/19 05:11 Dose: Not Given Documented by: [id number] Heparin Sodium/Dextrose (Heparin Sodium/Dextrose) Confirm Administered Dose 25,000 units IV .STK-MED ONE Stop: 12/06/19 03:48 Last Admin: 12/06/19 04:22 Dose: Not Given Documented by: [id number] Acetaminophen (Ofirmev) 1,000 mg in 100 mls @ 400 mls/hr IV NOW STA Stop: 12/06/19 02:12 Last Infusion: 12/06/19 02:36 Dose: 0 mls/hr Documented by: [id number] Admin: 12/06/19 02:06 Dose: 400 mls/hr Documented by: [id number] Calcium Gluconate 1,000 mg/ (Sodium Chloride) 60 mls @ 240 mls/hr IV NOW STA Stop: 12/06/19 03:42 Last Infusion: 12/06/19 04:53 Dose: 0 mls/hr Documented by: [id number] Admin: 12/06/19 04:36 Dose: 240 mls/hr Documented by: [id number] Ioversol (Optiray 320 125ml) 125 ml IV ONCE PRN PRN Reason: Interaction Checking Stop: 12/10/19 02:51 Last Admin: 12/06/19 02:52 Dose: 110 ml Documented by: [id number] Lisinopril (Zestril) 2.5 mg PO ONE ONE Stop: 12/06/19 03:44 Last Admin: 12/06/19 04:28 Dose: 2.5 mg Documented by: [id number] Metoprolol Tartrate (Lopressor) Confirm Administered Dose 10 mg IV .STK-MED ONE Stop: 12/07/19 09:09 Last Admin: 12/07/19 10:26 Dose: 5 mg Documented by: [id number] Nitroglycerin (Nitro-Bid 2%) 1 inch EXT NOW ONE Stop: 12/06/19 00:09 Last Admin: 12/06/19 00:14 Dose: 1 inch Documented by: [id number] Warfarin Sodium (Coumadin) 5 mg PO NOW ONE Stop: 12/07/19 10:29 Last Admin: 12/07/19 11:07 Dose: 5 mg Documented by: [id number] Medical Decision Making Differential Diagnosis Differential diagnoses includes but is not limited to acute coronary syndrome, myocardial infarction, pericarditis, pulmonary embolus, aortic dissection, pneumonia, pneumothorax, musculoskeletal, shingles, esophageal. Medical Records Attestation: I reviewed the patient's medical records. Home Medications Current Medication List: was personally reviewed by me Laboratory Data Attestation: I reviewed the patient's lab results. Result diagrams: 12/07/19 00:53 12/08/19 06:40 Lab Results 12/06/19 12/06/19 12/06/19 Range/Units 00:03 00:03 00:03 WBC 7.16 (4.8-10.8) K/uL RBC 4.24 (4.2-5.4) M/uL Hgb 12.8 (12.0-16.0) g/dL Hct 38.9 (37-47) % MCV 91.7 (80-100) fL MCH 30.2 (25-34) pg MCHC 32.9 (32-36) g/dL RDW Std Deviation 44.6 (36.4-46.3) fL RDW Coeff of Isaura 13.4 (11.5-14.5) % Plt Count 174 (130-400) K/uL MPV 9.6 (7.4-10.4) fL Immature Gran % (Auto) 0.1 % Neut % (Auto) 62.2 % Lymph % (Auto) 26.7 % [place] % (Auto) 8.4 % Eos % (Auto) 2.2 % Baso % (Auto) 0.4 % Immature Gran # (Auto) 0.01 (0.00-0.02) K/uL Neut # (Auto) 4.45 (1.4-6.5) K/uL Lymph # (Auto) 1.91 (1.2-3.4) K/uL [place] # (Auto) 0.60 H (0.11-0.59) K/uL Eos # (Auto) 0.16 (0-0.5) K/uL Baso # (Auto) 0.03 (0-0.2) K/uL PT 14.6 H (9.0-12.0) Seconds INR 1.4 H (0.9-1.1) Sodium 140 (136-145) mmol/L Potassium 3.5 (3.5-5.1) mmol/L Chloride 103 (98-107) mmol/L Carbon Dioxide 32 (21-32) mmol/L Anion Gap 5.0 (3-11) BUN 9 (7-18) mg/dl Creatinine 0.65 (0.6-1.2) mg/dl Est Cr Clr Drug Dosing 68.1 ml/min Est GFR ( Amer) 107.2 Est GFR (Non-Af Amer) 92.5 BUN/Creatinine Ratio 14.4 (10-20) Glucose 105 H (70-99) mg/dl Calcium 8.4 L (8.5-10.1) mg/dl Magnesium 2.0 (1.8-2.4) mg/dl Total Bilirubin 0.4 (0.2-1) mg/dl AST 13 L (15-37) U/L ALT 15 (12-78) U/L Alkaline Phosphatase 58 (45-117) U/L Troponin I < 0.015 (0-0.045) ng/ml NT-Pro-B Natriuret Pep 140 (0-900) pg/ml Total Protein 7.6 (6.4-8.2) gm/dl Albumin 3.4 (3.4-5.0) gm/dl Globulin 4.2 H (2.5-4.0) gm/dl Albumin/Globulin Ratio 0.8 L (0.9-2) Lipase 171 (73-393) U/L Imaging Data My Impression: X-ray: I interpreted the following studies. Chest: A single view study of the chest was reviewed and was negative for cardiomegaly, focal infiltrate, pulmonary edema, or wide mediastinum. Patient does appear hyperinflated, and does have a new appearing right pleural effusion. Radiologist's Impression: CTA chest: Prior from 09/29/2018 No PE No aortic dissection or aneurysm. Marked emphysematous changes as on prior. No pneumothorax, effusion. No focal consolidation. Old right-sided rib fractures. Stable T12 compression deformity. Radiologist: Duane Lizama MD ECG Data Attestation: I personally reviewed and interpreted this ECG as follows: Indication: + chest pain Rate (beats per minute): 94 Rhythm: + normal sinus ECG Intervals/blocks: + Normal QRS and + Normal QT ECG [place]: + Normal ECG ST segments: + Normal ST segments Blood Pressure Blood Pressure Findings: Elevated blood pressure Blood Pressure Disposition: further management by hospitalist MDM Narrative Pt here with concern for chest pain. Pt with risk factors for ACS as well as severe oxygen dependent COPD. Pt felt breathing improved with nebs. Given symptoms and low INR, CTA chest performed in addition and did not reveal any additional pathology. VS otherwise stable. First troponin negative. Pt anticoagulated, however subtherapeutic - deferred additional anticoagulation to hospitalist. No evidence of dissection. No evidence of infection. Pt made aware of all results and was in agreement with the plan. An order was placed for continuous cardiac monitoring. The monitor shows a rate of 66_ with _noraml sinus_ rhythm. Impression & Plan Atypical chest pain, Subtherapeutic international normalized ratio (INR), Oxyge n dependent Discharge Plan Visit Data *Final* Discharge Date/Time: 12/06/19 05:18 Chief Complaint: Chest Pain Stated Complaint: Right sided chest pain ED Provider: Radha Galvez Discharge Problem: Atypical chest pain, Subtherapeutic international normalized ratio (INR), Oxygen dependent Patient Disposition: Admitted As Inpatient Discharge Instructions Interventions: ED Discharge Assessment Last Done: 12/06/19 05:18
[2019-12-06] MEDS ORDERED: ALBUT/IPRATROP 3MG/0.5MG NEB 3 ML VIAL NEB STA (00:20)
[2019-12-06 00:22] LABS: Basophils # (auto) 0.03 K/uL (0-0.2); Basophils % (auto) 0.4 %; Eosinophils # (auto) 0.16 K/uL (0-0.5); Eosinophils % (auto) 2.2 %; Hematocrit (blood only) 38.9 % (37-47); Hemoglobin 12.8 g/dL (12.0-16.0); Immature Granulocytes # (auto) 0.01 K/uL (0.00-0.02); Immature Granulocytes % (auto) 0.1 %; Lymphocytes # (auto) 1.91 K/uL (1.2-3.4); Lymphocytes % (auto) 26.7 %; Mean Corpuscular Hemoglobin 30.2 pg (25-34); Mean Corpuscular Hgb Conc 32.9 g/dL (32-36); Mean Corpuscular Volume 91.7 fL (80-100); Mean Platelet Volume 9.6 fL (7.4-10.4); Monocytes % (auto) 8.4 %; Neutrophils # (auto) 4.45 K/uL (1.4-6.5); Neutrophils % (auto) 62.2 %; Platelet Count 174 K/uL (130-400); RDW Coefficient of Variation 13.4 % (11.5-14.5); RDW Standard Deviation 44.6 fL (36.4-46.3); Red Blood Count 4.24 M/uL (4.2-5.4); White Blood Count 7.16 K/uL (4.8-10.8)
[2019-12-06 00:31] LABS: INR 1.4 (0.9-1.1); Prothrombin Time 14.6 Seconds (9.0-12.0)
[2019-12-06 00:40] LABS: Alanine Aminotransferase 15 U/L (12-78); Albumin Level 3.4 gm/dl (3.4-5.0); Aspartate Aminotransferase 13 U/L (15-37); BUN Creatinine Ratio 14.4 (10-20); Blood Urea Nitrogen 9 mg/dl (7-18); Calcium 8.4 mg/dl (8.5-10.1); Carbon Dioxide 32 mmol/L (21-32); Chloride 103 mmol/L (98-107); Creatinine Clr Calc Pharmacy 68.1 ml/min; Est GFR (African American) 107.2; Est GFR (Non-African American) 92.5; Glucose 105 mg/dl (70-99); Lipase 171 U/L (73-393); Potassium 3.5 mmol/L (3.5-5.1); Sodium 140 mmol/L (136-145)
[2019-12-06 00:45] LABS: Albumin Globulin Ratio 0.8 (0.9-2); Alkaline Phosphatase 58 U/L (45-117); Bilirubin,Total 0.4 mg/dl (0.2-1); Globulin 4.2 gm/dl (2.5-4.0); NT Pro B Type Natriuretic Pept 140 pg/ml (0-900); Total Protein 7.6 gm/dl (6.4-8.2); Troponin I < 0.015 ng/ml (0-0.045)
[2019-12-06] MEDS ORDERED: ACETAMINOPHEN 1,000 MG/100 ML VIAL IV STA (01:58)
[2019-12-06] MEDS ORDERED: OPTIRAY 320 125ml IV PRN (02:52)
[2019-12-06] MEDS ORDERED: CALCIUM GLUCONATE 10% 1,000 MG in SODIUM CHLORIDE 0.9% 50 ML IV STA (03:28)
[2019-12-06] MEDS ORDERED: HEPARIN 25000 UNIT/500 ML D5W IV ONE (03:47)
[2019-12-06] MEDS ORDERED: ASPIRIN 81 MG ECTAB PO STA (03:59)
--- NOTE | 2019-12-06 04:00 | History & Physical Report ---
Date of Service December 06, 2019 Assessment & Plan (1) Atypical chest pain: Possibly musculoskeletal given reproducible component (old rib fracture on initial CT read) Rule out ACS given relief with nitroglycerin (in addition to other medications) HTN, not on home maintenance medications, currently elevated chronic respiratory failure secondary to steroid dependent COPD on home O2, pulmonary status at baseline history PE/DVT status post IVC filter on Coumadin, INR subtherapeutic history of CVA/PVD as per records HCV status post Rx essential tremors on Primidone Rx past tobacco abuse OBS PCU Aspirin for CAD prevention until ACS ruled out Follow troponin Cardiology consult RE chest pain relieved by nitroglycerin Monitor blood pressure, initiate lisinopril if persistent elevated DVT prophylaxis. IV heparin for now while Coumadin on hold in anticipation of cardiac testing Full code Text document was generated using zeeWAVES voice recognition software. It may contain grammatical or spelling errors. Kindly contact undersigned for clarification of any documentation item in question. History of Present Illness Chief Complaint: Chest pain Primary Care Provider: James Barahona MD History obtained from patient and records. 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 Recent confinement July 2019 for COPD exacerbation. Last night, patient experience pleuritic right-sided chest pain rating to her back with some shortness of breath. No fever, no chills, no unusual cough symptoms. Patient tired with some home visitors over the weekend. Denies unusual exertion. At the ER, some relief of discomfort with nitroglycerin, Pepcid, and neb treatment. Medical History as above Surgical History : Tonsillectomy/adenoidectomy, pleurodesis, thoracoscopy, IVC filter placement, lung surgery Family History : Breast cancer, kidney disease, heart disease Personal/Social history : Past tobacco abuse, no EtOH intake, disabled Allergies Allergy/AdvReac Type Severity Reaction Status Date / Time phytonadione (vitamin K1) Allergy Intermediate severe Verified 12/06/19 01:27 back pain, red face levofloxacin Allergy Mild rash Verified 12/06/19 01:27 Penicillins Allergy Mild Amoxil - Verified 12/06/19 01:27 rash allantoin Allergy Unknown [facility] [place] Verified 12/06/19 01:27 bacitracin AdvReac Intermediate infection Verified 12/06/19 01:27 neomycin AdvReac Intermediate infection Verified 12/06/19 01:27 polymyxin B AdvReac Intermediate infection Verified 12/06/19 01:27 theophylline AdvReac Mild Headache Verified 12/06/19 01:27 Home Medications Home Medications Medication Instructions Recorded Confirmed Type warfarin [Coumadin] 5 mg PO UD 09/29/18 12/06/19 History prednisone 5 mg PO DAILY 07/15/19 12/06/19 History albuterol sulfate 1.25 mg INH QID PRN #360 ml 07/20/19 12/06/19 Rx fluticasone propion-salmeterol 1 ea INHALATION UD 12/06/19 12/06/19 History [Wixela Inhub] primidone 50 mg PO BID 12/06/19 12/06/19 History Past Med/Surg History Medical History Abdominal pain Chronic respiratory failure (Chronic) COPD (chronic obstructive pulmonary disease) (Chronic) "severe" H/O pneumothorax (Chronic) "spontaneous" History of Clostridium difficile colitis (Chronic) History of DVT (deep vein thrombosis) Pneumonia (Resolved) Surgical History H/O pneumonectomy History of appendectomy S/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 Beliefs That Will Affect Care: None marital status: Current Living Situation: Spouse Other Information That Helps Us Care for You: No Feels Safe at Home: Yes Safety Concerns: Feels Safe At This Time Smoking Status: Former smoker Hx Alcohol Use: No Hx Substance Use: No Review of Systems Review of Systems: As per HPI, all 10 systems reviewed, all other ROS negative Physical Exam Physical Exam: GENERAL: Slightly anxious , no respiratory distress, underweight SKIN: Normal color, warm HEENT: Gerrard palpebral conjunctivae, no ptosis, dry buccal mucosa, nasal cannula in place NECK : Supple, no tenderness CHEST : Decreased breath sounds, anterior chest wall tenderness HEART : RRR, systolic murmur ABDOMEN: Soft, nontender EXTREMITIES : No LE swelling/tenderness, no other conspicuous deformities noted NEUROLOGIC : Coherent, slightly hard of hearing, no facial asymmetry, chronic LE tremors Results & Data Results & Data ([facility]) Vital Signs (Past 12 Hours) Vital Signs Temp Pulse Pulse Resp BP Pulse Ox 12/06/19 02:30 89 24 151/99 H 98 12/06/19 02:00 93 H 24 171/94 H 97 12/06/19 01:30 91 H 22 147/89 H 99 12/06/19 01:01 94 H 20 143/99 H 97 12/06/19 00:29 95 H 20 99 12/06/19 00:02 36.9 C 98 H 28 H 150/97 H 96 Laboratory Results Laboratory Results WBC 7.16 K/uL (4.8-10.8) 12/06/19 00:03 RBC 4.24 M/uL (4.2-5.4) 12/06/19 00:03 Hgb 12.8 g/dL (12.0-16.0) 12/06/19 00:03 Hct 38.9 % (37-47) 12/06/19 00:03 MCV 91.7 fL (80-100) 12/06/19 00:03 MCH 30.2 pg (25-34) 12/06/19 00:03 MCHC 32.9 g/dL (32-36) 12/06/19 00:03 RDW Std Deviation 44.6 fL (36.4-46.3) 12/06/19 00:03 RDW Coeff of [place]aura 13.4 % (11.5-14.5) 12/06/19 00:03 Plt Count 174 K/uL (130-400) 12/06/19 00:03 MPV 9.6 fL (7.4-10.4) 12/06/19 00:03 Immature Gran % (Auto) 0.1 % 12/06/19 00:03 Neut % (Auto) 62.2 % 12/06/19 00:03 Lymph % (Auto) 26.7 % 12/06/19 00:03 [place] % (Auto) 8.4 % 12/06/19 00:03 Eos % (Auto) 2.2 % 12/06/19 00:03 Baso % (Auto) 0.4 % 12/06/19 00:03 Immature Gran # (Auto) 0.01 K/uL (0.00-0.02) 12/06/19 00:03 Neut # (Auto) 4.45 K/uL (1.4-6.5) 12/06/19 00:03 Lymph # (Auto) 1.91 K/uL (1.2-3.4) 12/06/19 00:03 [place] # (Auto) 0.60 K/uL (0.11-0.59) H 12/06/19 00:03 Eos # (Auto) 0.16 K/uL (0-0.5) 12/06/19 00:03 Baso # (Auto) 0.03 K/uL (0-0.2) 12/06/19 00:03 PT 14.6 Seconds (9.0-12.0) H 12/06/19 00:03 INR 1.4 (0.9-1.1) H 12/06/19 00:03 Sodium 140 mmol/L (136-145) 12/06/19 00:03 Potassium 3.5 mmol/L (3.5-5.1) 12/06/19 00:03 Chloride 103 mmol/L (98-107) 12/06/19 00:03 Carbon Dioxide 32 mmol/L (21-32) 12/06/19 00:03 Anion Gap 5.0 (3-11) 12/06/19 00:03 BUN 9 mg/dl (7-18) 12/06/19 00:03 Creatinine 0.65 mg/dl (0.6-1.2) 12/06/19 00:03 Est Cr Clr Drug Dosing 68.1 ml/min 12/06/19 00:03 Est GFR ( Amer) 107.2 12/06/19 00:03 Est GFR (Non-Af Amer) 92.5 12/06/19 00:03 BUN/Creatinine Ratio 14.4 (10-20) 12/06/19 00:03 Glucose 105 mg/dl (70-99) H 12/06/19 00:03 Calcium 8.4 mg/dl (8.5-10.1) L 12/06/19 00:03 Magnesium 2.0 mg/dl (1.8-2.4) 12/06/19 00:03 Total Bilirubin 0.4 mg/dl (0.2-1) 12/06/19 00:03 AST 13 U/L (15-37) L 12/06/19 00:03 ALT 15 U/L (12-78) 12/06/19 00:03 Alkaline Phosphatase 58 U/L (45-117) 12/06/19 00:03 Troponin I < 0.015 ng/ml (0-0.045) 12/06/19 00:03 NT-Pro-B Natriuret Pep 140 pg/ml (0-900) 12/06/19 00:03 Total Protein 7.6 gm/dl (6.4-8.2) 12/06/19 00:03 Albumin 3.4 gm/dl (3.4-5.0) 12/06/19 00:03 Globulin 4.2 gm/dl (2.5-4.0) H 12/06/19 00:03 Albumin/Globulin Ratio 0.8 (0.9-2) L 12/06/19 00:03 Lipase 171 U/L (73-393) 12/06/19 00:[address] chest initial read: No PE or aortic dissection or aneurysm. Market emphysema. No pneumothorax. No focal consolidation. Old right-sided rib fractures. Stable T12 compression deformity. EKG as per my interpretation : Rate 95, NSR, normal axis, no ischemia
[2019-12-06] MEDS: HEPARIN SODIUM/DEXTROSE 25,000 UNITS/500 ML BAG IV SCH (04:39)
[2019-12-06] MEDS: Heparin IV Standard *NO* Bolus IV SCH ×2 (05:11→10:48)
[2019-12-06] MEDS ORDERED: NITROGLYCERIN SL 0.4 MG/TAB TAB SL PRN (05:42)
[2019-12-06] MEDS ORDERED: TRAMADOL HCL 50 MG TABLET PO PRN (05:42)
[2019-12-06] MEDS ORDERED: PROMETHAZINE HCL 12.5 MG in SODIUM CHLORIDE 0.9% 50 ML IV PRN ×2 (05:42→05:45)
[2019-12-06] MEDS ORDERED: LORazepam 0.25 MG/0.5 ML VIAL IV PRN (05:42)
[2019-12-06] MEDS ORDERED: ACETAMINOPHEN 325 MG TAB PO PRN (05:42)
[2019-12-06] MEDS ORDERED: MoRPHine SULFATE 2 MG/ML CARP IV PRN (05:51)
[2019-12-06] MEDS: LACTATED RINGER'S 1,000 ML IV SCH (06:24)
--- NOTE | 2019-12-06 07:43 | CT Scan Report ---
CT angio chest PE protocol CT DOSE: 259.38 mGy.cm HISTORY: 64 years-old Female with PE. Acute shortness of breath with chest pain TECHNIQUE: Multiple CTA images of the chest were obtained after the intravenous administration of 110 ml Optiray 320. Coronal and sagittal MIPS were obtained from the axial data set and were submitted for review. All measurements were obtained according to NASCET criteria. A dose lowering technique w as utilized adhering to the principles of ALARA. COMPARISON: Chest radiograph of same day, CTA chest 09/29/2018, CT abdomen pelvis 09/16/2016. FINDINGS: CTA: Heart is normal in size. Advanced coronary artery calcifications. No pericardial effusion. No thoraci c aortic aneurysm or dissection. Advanced calcified plaque the thoracic aorta and proximal great vess els which appear patent. There is an indeterminate 6 mm hyperdense focus within the region of the clark creatic head on image 7 of series 4. Pulmonary artery is opacified to the level of the segmental bran ches and demonstrates no filling defects to suggest pulmonary thromboembolic disease. CT CHEST: Unremarkable thyroid. No adenopathy. Trace right pleural effusion. No pneumothorax. Severe bullous em physema. Pleural parenchymal scarring of the lung apices. Bronchial wall thickening suggestive of bro nchitis. No overt pulmonary edema or airspace consolidation typical for pneumonia. There is an irregu lar and spiculated subpleural nodular opacity of the superior segment left lower lobe measuring 9 x 8 mm, image 213 series 4 which is unchanged. No new pulmonary nodules identified. Central airways are patent. Calcifications of the left kidney are noted measuring up to 7 mm suggestive of renal calculi. Multifo nohemi cortical scarring and parenchymal thinning of the superior pole left kidney. IVC filter. Unremark able appearance of the soft tissues. Degenerative changes of the spine and shoulders. Multiple healed remote right-sided rib fractures. Unchanged T12 compression fracture. IMPRESSION: 1. No acute aortic pathology or evidence of pulmonary thromboembolic disease. 2. Severe bullous emphysema with bronchial wall thickening suggestive of bronchitis. 3. No overt pulmonary edema or airspace consolidation typical for pneumonia. 4. 6 mm hyperdense focus of the upper abdomen within the region of the pancreatic head is nonspecific and may reflect a small pseudoaneurysm. This could be correlated with endoscopy. 5. Left nephrolithiasis. 6. Additional findings as above. ACT 112: Negative or not required by law. The above report was generated using voice recognition software. It may contain grammatical, syntax o r spelling errors. Electronically signed by: Ronn Schneider M.D. 12/06/2019 7:42 AM
--- NOTE | 2019-12-06 07:54 | XRay Report ---
XR chest 1V portable CLINICAL HISTORY: Atypical chest pain COMPARISON STUDY: 07/15/2019 FINDINGS: Postsurgical changes are present within the upper lobes. There is biapical scarring and hil ar retraction. There is pulmonary emphysema. There is persistent blunting of the right lateral costop hrenic angle. There are minor right basilar opacities, likely atelectatic or scar.[ IMPRESSION: Emphysema and postsurgical changes with apical scarring. Chronic blunting of the right la teral costophrenic angle. Minor right basilar opacities likely atelectatic ACT 112: Negative or not required by law. Electronically signed by: Zeferino Sagastume M.D. 12/06/2019 7:52 AM
[2019-12-06] MEDS: FLUTICASONE/VILANTEROL 100/25MCG 14 PUFFS/INHALER INH SCH (08:10)
[2019-12-06] MEDS: PRIMIDONE 50 MG TAB PO SCH ×2 (08:10→19:39)
[2019-12-06] MEDS: predniSONE 5 MG TAB PO SCH (08:10)
[2019-12-06 08:42] LABS: Chol HDL Ratio 2; Cholesterol 175 mg/dl (0-200); HDL Cholesterol 74 mg/dl; LDL Cholesterol Calculated 90 mg/dl; Triglycerides 56 mg/dl (0-150); Troponin I < 0.015 ng/ml (0-0.045); VLDL Cholesterol 11 mg/dl
[2019-12-06 11:07] LABS: Partial Thromboplastin Ratio 2.9
[2019-12-06 11:09] LABS: Partial Thromboplastin Time 82.1 Seconds (21.0-31.0)
--- NOTE | 2019-12-06 12:30 | Cardiology Consultation ---
Date of Consultation December 06, 2019 Assessment & Plan (1) Atypical chest pain: Still has mild residual CP, atypical for angina. EKGs and troponins levels within normal limits. Pt eager for lunch. Will advance diet now, plan for DSE 12/06. Continue heparin bridge as INR is below goal. History of Present Illness Attending Physician: Stefano Valerio MD Allergies Allergy/AdvReac Type Severity Reaction Status Date / Time phytonadione (vitamin K1) Allergy Intermediate severe Verified 12/06/19 01:27 back pain, red face levofloxacin Allergy Mild rash Verified 12/06/19 01:27 Penicillins Allergy Mild Amoxil - Verified 12/06/19 01:27 rash allantoin Allergy Unknown [facility] LIST Verified 12/06/19 01:27 bacitracin AdvReac Intermediate infection Verified 12/06/19 01:27 neomycin AdvReac Intermediate infection Verified 12/06/19 01:27 polymyxin B AdvReac Intermediate infection Verified 12/06/19 01:27 theophylline AdvReac Mild Headache Verified 12/06/19 01:27 Home Medications Home Medications Medication Instructions Recorded Confirmed Type warfarin [Coumadin] 5 mg PO UD 09/29/18 12/06/19 History prednisone 5 mg PO DAILY 07/15/19 12/06/19 History albuterol sulfate 1.25 mg INH QID PRN #360 ml 07/20/19 12/06/19 Rx fluticasone propion-salmeterol 1 ea INHALATION UD 12/06/19 12/06/19 History [Wixela Inhub] primidone 50 mg PO BID 12/06/19 12/06/19 History Patient History Medical History Abdominal pain Chronic respiratory failure (Chronic) COPD (chronic obstructive pulmonary disease) (Chronic) "severe" H/O pneumothorax (Chronic) "spontaneous" History of Clostridium difficile colitis (Chronic) History of DVT (deep vein thrombosis) Pneumonia (Resolved) Surgical History H/O pneumonectomy History of appendectomy S/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 Beliefs That Will Affect Care: None marital status: Current Living Situation: Spouse Other Information That Helps Us Care for You: No Feels Safe at Home: Yes Safety Concerns: Feels Safe At This Time Smoking Status: Former smoker Hx Alcohol Use: No Hx Substance Use: No Results & Data ([facility]) Vital Signs (Past 12 Hours) Vital Signs Temp Pulse Pulse Pulse Pulse Resp BP 12/06/19 11:49 36.9 C 75 12/06/19 07:26 36.8 C 70 18 12/06/19 05:45 36.9 C 85 18 12/06/19 05:00 77 18 142/89 H 12/06/19 04:00 87 14 135/80 12/06/19 03:00 89 16 138/76 12/06/19 02:55 147/84 H 12/06/19 02:30 89 24 151/99 H 12/06/19 02:00 93 H 24 171/94 H 12/06/19 01:30 91 H 22 147/89 H 12/06/19 01:01 94 H 20 143/99 H 12/06/19 00:29 95 H 20 BP Pulse Ox 12/06/19 11:49 105/58 L 98 12/06/19 07:26 126/66 94 12/06/19 05:45 181/88 H 96 12/06/19 05:00 98 12/06/19 04:00 97 12/06/19 03:00 98 12/06/19 02:55 12/06/19 02:30 98 12/06/19 02:00 97 12/06/19 01:30 99 12/06/19 01:01 97 12/06/19 00:29 99
--- NOTE | 2019-12-06 15:28 | Hospitalist Progress Note ---
Date of Service December 06, 2019 Assessment & Plan (1) Atypical chest pain: Atypical chest pain R/O ACS Chest pain improved with nitroglycerin. Cardiac enzymes, within normal limits EKG no signs of acute ischemia Continue IV heparin for now N.p.o. after midnight for dobutamine stress echo tomorrow Appreciate cardiology input Continue aspirin, lisinopril Subtherapeutic INR: H/O PE/DVT S/P IVC Filter Coumadin on hold Currently on IV heparin Monitor INR Resume Coumadin as able Elevated Blood Pressure ? Likely situational BP variable Started on lisinopril 2.5mg daily Monitor and adjust Meds as needed Chronic respiratory failure with Hypoxia COPD Oxygen Dependent Past Tobacco use No signs of Exacerbation Continue home inhalers, prednisone Essential tremors on Primidone H/O spontaneous pneumothorax S/P pleurodesis H/O bronchopleural fistula S/P partial right lobectomy DVT Px: IV heparin Resume Coumadin as able Code Status Full code Disposition Expect to discharge home Admission and Anticipated Discharge Date Admission Date: December 06, 2019 Subjective Patient is seen and examined at bedside Complains of mild chest pain this morning Denies any SOB, cough, dizziness, nausea, abdominal pain Plan for dobutamine stress test tomorrow Offers no other complaints On IV heparin Review of Systems Review of Systems: All systems reviewed & are unremarkable except as noted in HPI & below Physical Exam Physical Exam: Physical Exam: Vitals signs as noted above General Appearance:Thin, Frail, no apparent distress Head: normocephalic, Atraumatic Eyes: normal inspection, EOMI Neck: supple, Trachea midline Respiratory/Chest: Decreased breath sounds, CTA, No accessory muscle use Cardiovascular: S1, S2, No murmur, +Reproducible chest tenderness Abdomen/GI:Soft, Non tender, Bowel sounds present Extremities/Musculoskelatal:normal inspection, no edema Neurologic/Psych:AAOX3, grossly no focal neurological deficits Skin: normal color, warm Results & Data Results & Data ([facility]) Vital Signs (Past 12 Hours) Vital Signs Temp Pulse Pulse Pulse Pulse Resp BP 12/06/19 11:49 36.9 C 75 12/06/19 07:26 36.8 C 70 18 12/06/19 05:45 36.9 C 85 18 12/06/19 05:00 77 18 142/89 H 12/06/19 04:00 87 14 135/80 BP Pulse Ox 05/26/20 11:49 105/58 L 98 12/06/19 07:26 126/66 94 12/06/19 05:45 181/88 H 96 12/06/19 05:00 98 12/06/19 04:00 97 Laboratory Results Short CBC 12/06/19 Range/Units 00:03 WBC 7.16 (4.8-10.8) K/uL Hgb 12.8 (12.0-16.0) g/dL Hct 38.9 (37-47) % Plt Count 174 (130-400) K/uL BMP 12/06/19 00:03 Sodium 140 Potassium 3.5 Chloride 103 Carbon Dioxide 32 BUN 9 Creatinine 0.65 Glucose 105 H Calcium 8.4 L Cardiac Enzymes 12/06/19 12/06/19 Range/Units 00:03 07:44 Troponin I < 0.015 < 0.015 (0-0.045) ng/ml Liver Function 12/06/19 Range/Units 00:03 Total Bilirubin 0.4 (0.2-1) mg/dl AST 13 L (15-37) U/L ALT 15 (12-78) U/L Alkaline Phosphatase 58 (45-117) U/L Albumin 3.4 (3.4-5.0) gm/dl
--- NOTE | 2019-12-06 15:58 | Electrocardiogram Report ---
Test Reason : Blood Pressure : / mmHG Vent. Rate : 094 BPM Atrial Rate : 094 BPM P-R Int : 160 ms QRS Dur : 072 ms QT Int : 350 ms P-R-T Axes : 084 073 075 degrees QTc Int : 437 ms Poor data quality, interpretation may be adversely affected Normal sinus rhythm Normal ECG When compared with ECG of 16-JUL-2019 11:02, No significant change was found Confirmed by Erwin Garrett ([id number]) on 12/06/2019 3:58:07 PM Referred By: REFERRED SELF Confirmed By:Erwin Garrett
--- NOTE | 2019-12-06 16:02 | Electrocardiogram Report ---
Test Reason : Blood Pressure : / mmHG Vent. Rate : 070 BPM Atrial Rate : 070 BPM P-R Int : 156 ms QRS Dur : 080 ms QT Int : 412 ms P-R-T Axes : 084 070 078 degrees QTc Int : 444 ms Normal sinus rhythm with sinus arrhythmia Normal ECG When compared with ECG of 05-DEC-2019 23:56, (unconfirmed) No significant change was found Confirmed by Erwin Garrett ([id number]) on 12/06/2019 4:02:31 PM Referred By: REFERRED SELF Confirmed By:Erwin Garrett
[2019-12-06 18:29] LABS: Partial Thromboplastin Ratio 3.1
[2019-12-06 18:34] LABS: Partial Thromboplastin Time 87.2 Seconds (21.0-31.0)
[2019-12-07 01:02] LABS: Basophils # (auto) 0.03 K/uL (0-0.2); Basophils % (auto) 0.5 %; Eosinophils # (auto) 0.17 K/uL (0-0.5); Eosinophils % (auto) 3.1 %; Hematocrit (blood only) 35.8 % (37-47); Hemoglobin 11.4 g/dL (12.0-16.0); Immature Granulocytes # (auto) 0.01 K/uL (0.00-0.02); Immature Granulocytes % (auto) 0.2 %; Lymphocytes # (auto) 1.52 K/uL (1.2-3.4); Lymphocytes % (auto) 27.8 %; Mean Corpuscular Hemoglobin 29.6 pg (25-34); Mean Corpuscular Hgb Conc 31.8 g/dL (32-36); Mean Platelet Volume 9.7 fL (7.4-10.4); Monocytes # (auto) 0.57 K/uL (0.11-0.59); Monocytes % (auto) 10.4 %; Neutrophils # (auto) 3.16 K/uL (1.4-6.5); Platelet Count 144 K/uL (130-400); RDW Coefficient of Variation 13.3 % (11.5-14.5); RDW Standard Deviation 45.7 fL (36.4-46.3); Red Blood Count 3.85 M/uL (4.2-5.4); White Blood Count 5.46 K/uL (4.8-10.8)
[2019-12-07 01:24] LABS: INR 1.5 (0.9-1.1); Partial Thromboplastin Ratio 2.5; Prothrombin Time 15.7 Seconds (9.0-12.0)
[2019-12-07 01:27] LABS: BUN Creatinine Ratio 23.7 (10-20); Calcium 8.8 mg/dl (8.5-10.1); Creatinine Clr Calc Pharmacy 44.4 ml/min; Est GFR (African American) 74.2; Potassium 3.6 mmol/L (3.5-5.1)
[2019-12-07 01:35] LABS: Partial Thromboplastin Time 69.3 Seconds (21.0-31.0)
[2019-12-07] MEDS: LACTATED RINGER'S 1,000 ML IV SCH ×2 (02:10→20:28)
[2019-12-07] MEDS: HEPARIN SODIUM/DEXTROSE 25,000 UNITS/500 ML BAG IV SCH (08:14)
[2019-12-07 08:38] LABS: Partial Thromboplastin Ratio 2.2
[2019-12-07 08:47] LABS: Partial Thromboplastin Time 62.6 Seconds (21.0-31.0)
[2019-12-07] MEDS ORDERED: METOPROLOL TARTRATE 1 MG/ML VIAL IV ONE (09:08)
[2019-12-07] MEDS ORDERED: DOBUTamine HCL 12.5 MG/ML 20 ML VIAL IV ONE (09:08)
[2019-12-07] MEDS ORDERED: ATROPINE SULFATE 0.1 MG/ML 10ML SYR IV ONE (09:08)
--- NOTE | 2019-12-07 10:27 | Cardiology Progress Note ---
Date of Service December 07, 2019 Assessment & Plan (1) Atypical chest pain: Resting echo =normal wall motion, no significant valvular heart disease. No pericardial effusion. DSE, negative for inducible ischemia. CTA of chest on 12/05 negative for PE. -Advance diet. -no further cardiac testing as present. -increase activity as tolerated. (2) Chronic anticoagulation: On coumadin for h/o DVT/ PE. INR below goal. Continue heparin bridge. OK from cardiology standpoint to resume coumadin. (3) Subtherapeutic international normalized ratio (INR): Subjective CC: follow up chest pain Subjective: Pt seen prior to / during/ post dobutamine stress test. Had mild recurrent right sided CP this am while out of bed. None at start of DSE and CP NOT reproduced with dobutamine infusion. Review of Systems Review of Systems: All systems reviewed & are unremarkable except as noted in HPI & below Physical Exam Physical Exam: Temp Pulse Resp BP Pulse Ox 36.8 C 98 H 18 160/77 H 99 12/07/19 07:24 12/07/19 07:28 12/07/19 07:24 12/07/19 08:11 12/07/19 07:24 Constitutional: WD/WN, vitals as above Respiratory: lungs clear Cardiovascular: RRR, no murmur, no edema Results & Data Vital Signs (Past 12 Hours) Vital Signs Temp Pulse Pulse Resp BP Pulse Ox 12/07/19 08:11 160/77 H 12/07/19 07:28 98 H 12/07/19 07:24 36.8 C 87 18 176/67 H 99 12/07/19 04:00 36.7 C 81 18 120/70 99 12/07/19 02:35 70 12/06/19 23:02 36.8 C 91 H 20 129/69 97 Laboratory Results Coagulation 12/06/19 12/06/19 12/07/19 Range/Units 10:33 17:58 00:53 PT 15.7 H (9.0-12.0) Seconds APTT 82.1 H* 87.2 H* 69.3 H* (21.0-31.0) Seconds 12/07/19 Range/Units 07:54 PT (9.0-12.0) Seconds APTT 62.6 H* (21.0-31.0) Seconds CBC 12/07/19 Range/Units 00:53 WBC 5.46 (4.8-10.8) K/uL RBC 3.85 L (4.2-5.4) M/uL Hgb 11.4 L (12.0-16.0) g/dL Hct 35.8 L (37-47) % Plt Count 144 (130-400) K/uL Neut # (Auto) 3.16 (1.4-6.5) K/uL Lymph # (Auto) 1.52 (1.2-3.4) K/uL [place] # (Auto) 0.57 (0.11-0.59) K/uL Eos # (Auto) 0.17 (0-0.5) K/uL Baso # (Auto) 0.03 (0-0.2) K/uL Comprehensive Metabolic Panel 12/07/19 Range/Units 00:53 Sodium 139 (136-145) mmol/L Potassium 3.6 (3.5-5.1) mmol/L Chloride 103 (98-107) mmol/L Carbon Dioxide 31 (21-32) mmol/L BUN 22 H D (7-18) mg/dl Creatinine 0.93 (0.6-1.2) mg/dl Glucose 90 (70-99) mg/dl Calcium 8.8 (8.5-10.1) mg/dl Intake and Output 12/06/19 12/07/19 12/07/19 22:59 06:59 14:59 Intake Total 476 / 2066.366 1078.866 / 2066.366 93.817 / 93.817 Balance 476 / 2066.366 1078.866 / 2066.366 93.817 / 93.817 Intake: IV 116 / 3936.112 4481.866 / 1316.366 93.817 / 93.817 HEPARIN SODIUM/DEXTROSE 25,000 116 / 328.033 90.533 / 328.033 93.817 / 93.817 units In 500 ml @ 650 UNITS/HR 13 mls/hr IV .Q24H GEE Rx#: [id number] Lr 1,000 ml @ 50 mls/hr IV . 988.333 / 988.333 Q20H GEE Rx#:[id number] Oral 360 / 750 Other: Other Intake Source NPO # Unmeasured Voids 1 1 Weight 47.3 kg 47.4 kg
[2019-12-07] MEDS ORDERED: WARFARIN SOD 5 MG TAB PO ONE (10:28)
[2019-12-07] MEDS: predniSONE 5 MG TAB PO SCH (10:52)
[2019-12-07] MEDS: FLUTICASONE/VILANTEROL 100/25MCG 14 PUFFS/INHALER INH SCH (10:53)
[2019-12-07] MEDS: PRIMIDONE 50 MG TAB PO SCH ×2 (10:53→20:26)
[2019-12-07] MEDS: ASPIRIN 81 MG ECTAB PO SCH (10:53)
--- NOTE | 2019-12-07 14:18 | Hospitalist Progress Note ---
Date of Service December 07, 2019 Assessment & Plan (1) Atypical chest pain: Atypical chest pain Serial troponin and EKGs are unremarkable for any ACS Chest pain improved with nitroglycerin. Has been on IV heparin for now Appreciate cardiology input and recommendation Status post negative DSE Continue aspirin, lisinopril Likely discharge tomorrow Subtherapeutic INR: H/O PE/DVT S/P IVC Filter Currently on IV heparin INR remains subtherapeutic-continue intravenous heparin Coumadin restarted Elevated Blood Pressure BP variable Started on lisinopril 2.5mg daily Blood pressure remains upper level of normal Chronic respiratory failure with Hypoxia COPD Oxygen Dependent Past Tobacco use No signs of Exacerbation Continue home inhalers, prednisone No acute issues Essential tremors on Primidone H/O spontaneous pneumothorax S/P pleurodesis H/O bronchopleural fistula S/P partial right lobectomy DVT Px: IV heparin Resume Coumadin as able Code Status Full code Disposition Expect to discharge home tomorrow Admission and Anticipated Discharge Date Admission Date: December 06, 2019 Subjective Seen and examined in telemetry unit She has generalized weakness but denies any more chest pain and/or palpitation Her breathing remains stable to She has had negative dobutamine stress echo this morning Review of Systems Review of Systems: All systems reviewed and are unremarkable except as noted below Respiratory: no dyspnea (At rest) and no wheezing Cardiovascular: no chest pain and no dyspnea Physical Exam Physical Exam: Lying in bed comfortably Constitutional: + thin; no acute distress and not ill appearing Eyes: PERRL, conjunctivae normal, anicteric sclerae ENMT: external ear and nose normal, oropharynx normal Neck: trachea midline, no thyromegaly Respiratory: no respiratory distress Auscultation: lungs clear to auscultation bilaterally (With diminished lung sounds at the bases); no wheezes Cardiovascular: Rate/Rhythm: regular rhythm Heart Sounds: no murmur Gastrointestinal (Abdomen): Inspection/Auscultation: abdomen normal to inspec tion; + abnormal bowel sounds Percussion/Palpation: abdomen soft; abdomen nontender Musculoskeletal: No acute arthritis in any joints Neurologic: moves all extremities; no focal motor deficits Lymphatic: no cervical or axillary lymphadenopathy Results & Data Results & Data ([facility]) Vital Signs (Past 12 Hours) Vital Signs Temp Pulse Pulse Resp BP Pulse Ox 12/07/19 11:25 36.7 C 80 22 149/77 H 100 05/27/20 08:11 160/77 H 12/07/19 07:28 98 H 12/07/19 07:24 36.8 C 87 18 176/67 H 99 12/07/19 04:00 36.7 C 81 18 120/70 99 12/07/19 02:35 70 Laboratory Results Short CBC 12/07/19 Range/Units 00:53 WBC 5.46 (4.8-10.8) K/uL Hgb 11.4 L (12.0-16.0) g/dL Hct 35.8 L (37-47) % Plt Count 144 (130-400) K/uL BMP 12/07/19 00:53 Sodium 139 Potassium 3.6 Chloride 103 Carbon Dioxide 31 BUN 22 H D Creatinine 0.93 Glucose 90 Calcium 8.8 Medications Administered Current Inpatient Medications Acetaminophen (Tylenol) 650 mg PO Q4H PRN PRN Reason: Pain or Fever Stop: 01/05/20 05:41 Last Admin: 12/07/19 08:10 Dose: 650 mg Documented by: Aspirin (Ecotrin Ectab) 81 mg PO QAM [facility] Stop: 01/06/20 08:59 Last Admin: 12/07/19 10:53 Dose: 81 mg Documented by: Fluticasone/Vilanterol (Breo Ellipta 100/25 Mcg Inh) 1 puffs INH DAILY [facility] Stop: 01/05/20 08:59 Last Admin: 12/07/19 10:53 Dose: 1 puffs Documented by: Heparin Sodium/Dextrose (Heparin Sodium/Dextrose) 25,000 units in 500 mls @ 13 mls/hr IV .Q24H [facility]; Protocol Stop: 01/05/20 03:44 Last Titration: 12/07/19 08:50 Dose: 650 units/hr, 13 mls/hr Documented by: Promethazine HCl 12.5 mg/ (Sodium Chloride) 50.5 mls @ 202 mls/hr IV Q6H PRN PRN Reason: Nausea And Vomiting Stop: 01/05/20 05:44 Last Infusion: 12/06/19 06:23 Dose: Infused Documented by: Lorazepam (Ativan) 0.25 mg in 0.5 mls @ 0.5 mls/min IV Q4H PRN PRN Reason: Anxiety Stop: 01/05/20 05:41 Lactated Ringer's (Lr) 1,000 mls @ 50 mls/hr IV .Q20H [facility] Stop: 01/05/20 05:41 Last Admin: 12/07/19 02:10 Dose: 50 mls/hr Documented by: Lisinopril (Zestril) 2.5 mg PO QAM [facility] Stop: 01/06/20 08:59 Last Admin: 12/07/19 10:52 Dose: 2.5 mg Documented by: Morphine Sulfate (Morphine Sulfate) 2 mg IV Q4H PRN PRN Reason: Pain Stop: 12/20/19 05:50 Nitroglycerin (Nitrostat) 0.4 mg SL UD PRN PRN Reason: Chest Pain Stop: 01/05/20 05:41 Prednisone (Prednisone) 5 mg PO DAILY [facility] Stop: 01/05/20 08:59 Last Admin: 12/07/19 10:52 Dose: 5 mg Documented by: Primidone (Primidone) 50 mg PO BID [facility] Stop: 01/05/20 08:59 Last Admin: 12/07/19 10:53 Dose: 50 mg Documented by: Tramadol HCl (Ultram) 25 - 50 mg PO Q4H PRN PRN Reason: Pain Stop: 01/05/20 05:41 Last Admin: 12/06/19 19:14 Dose: 25 mg Documented by: Warfarin Sodium (Coumadin) 5 mg PO DAILY@1600 [facility] Stop: 01/07/20 15:59
[2019-12-08 07:20] LABS: INR 1.2 (0.9-1.1)
[2019-12-08 07:30] LABS: Partial Thromboplastin Time 55.5 Seconds (21.0-31.0)
[2019-12-08 07:34] LABS: BUN Creatinine Ratio 22.9 (10-20); Calcium 9.1 mg/dl (8.5-10.1); Creatinine Clr Calc Pharmacy 80.6 ml/min; Est GFR (African American) 114.7; Est GFR (Non-African American) 98.9; Potassium 3.7 mmol/L (3.5-5.1)
[2019-12-08] MEDS: predniSONE 5 MG TAB PO SCH (08:10)
[2019-12-08] MEDS: PRIMIDONE 50 MG TAB PO SCH ×2 (08:10→20:47)
[2019-12-08] MEDS: ASPIRIN 81 MG ECTAB PO SCH (08:10)
[2019-12-08] MEDS: FLUTICASONE/VILANTEROL 100/25MCG 14 PUFFS/INHALER INH SCH (08:11)
[2019-12-08] MEDS: HEPARIN SODIUM/DEXTROSE 25,000 UNITS/500 ML BAG IV SCH (08:39)
[2019-12-08] MEDS: WARFARIN SOD 7.5 MG TAB PO SCH (15:34)
--- NOTE | 2019-12-08 15:54 | Hospitalist Progress Note ---
Date of Service December 08, 2019 Assessment & Plan (1) Atypical chest pain: Atypical chest pain Serial troponin and EKGs are unremarkable for any ACS Chest pain improved with nitroglycerin. Has been on IV heparin for now Appreciate cardiology input and recommendation Status post negative DSE Continue aspirin, lisinopril Likely discharge tomorrow If remains asymptomatic Subtherapeutic INR: H/O PE/DVT S/P IVC Filter Currently on IV heparin INR remains subtherapeutic-continue intravenous heparin Coumadin restarted-INR is 1.2 as of 12/08/2019 Will increase Coumadin to 7.5 mg today Check INR in the morning Elevated Blood Pressure BP variable Started on lisinopril 2.5mg daily Blood pressure remains upper level of normal Chronic respiratory failure with Hypoxia COPD Oxygen Dependent Past Tobacco use No signs of Exacerbation Continue home inhalers, prednisone No acute issues Essential tremors on Primidone H/O spontaneous pneumothorax S/P pleurodesis H/O bronchopleural fistula S/P partial right lobectomy DVT Px: IV heparin Resume Coumadin as able Code Status Full code Disposition Expect to discharge home when INR is therapeutic Admission and Anticipated Discharge Date Admission Date: December 06, 2019 Subjective Seen and examined in telemetry unit She has generalized weakness but denies any more chest pain and/or palpitation Her breathing remains stable to She has had negative dobutamine stress echo this morning 12/08/2019 Patient was seen and examined in medical floor Remains stable and wants to go home She cannot use any subcu Lovenox We need to stay in the hospital till INR is therapeutic Review of Systems Review of Systems: All systems reviewed and are unremarkable except as noted below Physical Exam Physical Exam: Lying in bed comfortably Constitutional: + thin; no acute distress and not ill appearing Eyes: PERRL, conjunctivae normal, anicteric sclerae ENMT: external ear and nose normal, oropharynx normal Neck: trachea midline, no thyromegaly Respiratory: no respiratory distress Auscultation: lungs clear to auscultation bilaterally (With diminished lung sounds at the bases), + diminished lung sounds and + wheezes (Minimal wheezing bilaterally) Cardiovascular: Rate/Rhythm: regular rhythm Heart Sounds: no murmur Gastrointestinal (Abdomen): Inspection/Auscultation: abdomen normal to inspection; + abnormal bowel sounds Percussion/Palpation: abdomen soft; abdomen nontender Musculoskeletal: No acute arthritis involving any joints Neurologic: moves all extremities; no focal motor deficits Lymphatic: no cervical or axillary lymphadenopathy Results & Data Results & Data ([facility]) Vital Signs (Past 12 Hours) Vital Signs Temp Pulse Pulse Resp BP Pulse Ox 12/08/19 08:23 82 12/08/19 07:09 36.9 C 79 16 114/67 97 12/08/19 04:44 36.9 C 74 18 127/66 100 Laboratory Results [facility] 12/08/19 06:40 Sodium 139 Potassium 3.7 Chloride 104 Carbon Dioxide 33 H BUN 12 Creatinine 0.53 L D Glucose 84 Calcium 9.1 Medications Administered Current Inpatient Medications Acetaminophen (Tylenol) 650 mg PO Q4H PRN PRN Reason: Pain or Fever Stop: 01/05/20 05:41 Last Admin: 12/07/19 08:10 Dose: 650 mg Documented by: Aspirin (Ecotrin Ectab) 81 mg PO QAM [facility] Stop: 01/06/20 08:59 Last Admin: 12/08/19 08:10 Dose: 81 mg Documented by: Fluticasone/Vilanterol (Breo Ellipta 100/25 Mcg Inh) 1 puffs INH DAILY [facility] Stop: 01/05/20 08:59 Last Admin: 12/08/19 08:11 Dose: 1 puffs Documented by: Heparin Sodium/Dextrose (Heparin Sodium/Dextrose) 25,000 units in 500 mls @ 13 mls/hr IV .Q24H [facility]; Protocol Stop: 01/05/20 03:44 Last Titration: 12/08/19 15:19 Dose: 650 units/hr, 13 mls/hr Documented by: Promethazine HCl 12.5 mg/ (Sodium Chloride) 50.5 mls @ 202 mls/hr IV Q6H PRN PRN Reason: Nausea And Vomiting Stop: 01/05/20 05:44 Last Infusion: 12/06/19 06:23 Dose: Infused Documented by: Lorazepam (Ativan) 0.25 mg in 0.5 mls @ 0.5 mls/min IV Q4H PRN PRN Reason: Anxiety Stop: 01/05/20 05:41 Lactated Ringer's (Lr) 1,000 mls @ 50 mls/hr IV .Q20H [facility] Stop: 01/05/20 05:41 Last Admin: 05/27/20 20:28 Dose: 50 mls/hr Documented by: Lisinopril (Zestril) 2.5 mg PO QAM [facility] Stop: 01/06/20 08:59 Last Admin: 12/08/19 08:10 Dose: 2.5 mg Documented by: Morphine Sulfate (Morphine Sulfate) 2 mg IV Q4H PRN PRN Reason: Pain Stop: 12/20/19 05:50 Nitroglycerin (Nitrostat) 0.4 mg SL UD PRN PRN Reason: Chest Pain Stop: 01/05/20 05:41 Prednisone (Prednisone) 5 mg PO DAILY [facility] Stop: 01/05/20 08:59 Last Admin: 12/08/19 08:10 Dose: 5 mg Documented by: Primidone (Primidone) 50 mg PO BID [facility] Stop: 01/05/20 08:59 Last Admin: 12/08/19 08:10 Dose: 50 mg Documented by: Tramadol HCl (Ultram) 25 - 50 mg PO Q4H PRN PRN Reason: Pain Stop: 01/05/20 05:41 Last Admin: 12/06/19 19:14 Dose: 25 mg Documented by: Warfarin Sodium (Coumadin) 7.5 mg PO DAILY@1600 [facility] Stop: 01/07/20 15:59 Last Admin: 12/08/19 15:34 Dose: 7.5 mg Documented by:
[2019-12-08] MEDS ORDERED: WARFARIN SOD 5 MG TAB PO SCH (16:00)
[2019-12-08] MEDS: LACTATED RINGER'S 1,000 ML IV SCH (16:11)
[2019-12-09 06:44] LABS: INR 1.2 (0.9-1.1); Partial Thromboplastin Ratio 1.9; Prothrombin Time 12.5 Seconds (9.0-12.0)
[2019-12-09 07:53] LABS: Partial Thromboplastin Time 53.7 Seconds (21.0-31.0)
[2019-12-09] MEDS: FLUTICASONE/VILANTEROL 100/25MCG 14 PUFFS/INHALER INH SCH (09:09)
[2019-12-09] MEDS: ASPIRIN 81 MG ECTAB PO SCH (09:11)
[2019-12-09] MEDS: predniSONE 5 MG TAB PO SCH (09:11)
[2019-12-09] MEDS: PRIMIDONE 50 MG TAB PO SCH ×2 (09:11→20:33)
[2019-12-09] MEDS: LACTATED RINGER'S 1,000 ML IV SCH (11:21)
[2019-12-09] MEDS: WARFARIN SOD 7.5 MG TAB PO SCH (15:25)
--- NOTE | 2019-12-09 15:53 | Hospitalist Progress Note ---
Date of Service December 09, 2019 Assessment & Plan (1) Atypical chest pain: Atypical chest pain Serial troponin and EKGs are unremarkable for any ACS Chest pain improved with nitroglycerin. Has been on IV heparin for now Appreciate cardiology input and recommendation Status post negative DSE Continue aspirin, lisinopril Likely discharge tomorrow Subtherapeutic INR: H/O PE/DVT S/P IVC Filter Currently on IV heparin INR remains subtherapeutic-continue intravenous heparin Coumadin restarted-INR is 1.2 as of 12/08/2019 Will increase Coumadin to 7.5 mg today INR remains 1.2 today We will check it tomorrow Elevated Blood Pressure BP variable Started on lisinopril 2.5mg daily Blood pressure remains upper level of normal Chronic respiratory failure with Hypoxia COPD Oxygen Dependent Past Tobacco use No signs of Exacerbation Continue home inhalers, prednisone No acute issues Essential tremors on Primidone H/O spontaneous pneumothorax S/P pleurodesis H/O bronchopleural fistula S/P partial right lobectomy DVT Px: IV heparin Resume Coumadin as able Code Status Full code Disposition Expect to discharge home when INR is therapeutic Admission and Anticipated Discharge Date Admission Date: December 09, 2019 Subjective Seen and examined in telemetry unit She has generalized weakness but denies any more chest pain and/or palpitation Her breathing remains stable to She has had negative dobutamine stress echo this morning 12/08/2019 Patient was seen and examined in medical floor Remains stable and wants to go home She cannot use any subcu Lovenox We need to stay in the hospital till INR is therapeutic 12/09/2019 The patient was seen and examined in medical floor Her INR is not therapeutic yet and she will need to stay in the hospital Physical Exam Physical Exam: Lying in bed comfortably Constitutional: + thin; no acute distress and not ill appearing Eyes: PERRL, conjunctivae normal, anicteric sclerae ENMT: external ear and nose normal, oropharynx normal Neck: trachea midline, no thyromegaly Respiratory: no respiratory distress Auscultation: lungs clear to auscultation bilaterally (With diminished lung sounds at the bases), + diminished lung sounds and + wheezes (Minimal wheezing bilaterally) Cardiovascular: Rate/Rhythm: regular rhythm Heart Sounds: no murmur Gastrointestinal (Abdomen): Inspection/Auscultation: abdomen normal to inspection; + abnormal bowel sounds Percussion/Palpation: abdomen soft; abdomen nontender Neurologic: moves all extremities; no focal motor deficits Lymphatic: no cervical or axillary lymphadenopathy Results & Data Results & Data ([facility]) Vital Signs (Past 12 Hours) Vital Signs Temp Pulse Resp BP Pulse Ox 12/09/19 15:17 36.9 C 96 H 22 157/90 H 95 12/09/19 06:54 37.0 C 71 18 127/75 98 Medications Administered Current Inpatient Medications Acetaminophen (Tylenol) 650 mg PO Q4H PRN PRN Reason: Pain or Fever Stop: 01/05/20 05:41 Last Admin: 12/07/19 08:10 Dose: 650 mg Documented by: Aspirin (Ecotrin Ectab) 81 mg PO QAM [facility] Stop: 01/06/20 08:59 Last Admin: 12/09/19 09:11 Dose: 81 mg Documented by: Fluticasone/Vilanterol (Breo Ellipta 100/25 Mcg Inh) 1 puffs INH DAILY [facility] Stop: 01/05/20 08:59 Last Admin: 12/09/19 09:09 Dose: 1 puffs Documented by: Heparin Sodium/Dextrose (Heparin Sodium/Dextrose) 25,000 units in 500 mls @ 13 mls/hr IV .Q24H [facility]; Protocol Stop: 01/05/20 03:44 Last Titration: 12/09/19 08:14 Dose: 650 units/hr, 13 mls/hr Documented by: Promethazine HCl 12.5 mg/ (Sodium Chloride) 50.5 mls @ 202 mls/hr IV Q6H PRN PRN Reason: Nausea And Vomiting Stop: 01/05/20 05:44 Last Infusion: 12/06/19 06:23 Dose: Infused Documented by: Lorazepam (Ativan) 0.25 mg in 0.5 mls @ 0.5 mls/min IV Q4H PRN PRN Reason: Anxiety Stop: 01/05/20 05:41 Lactated Ringer's (Lr) 1,000 mls @ 50 mls/hr IV .Q20H [facility] Stop: 01/05/20 05:41 Last Admin: 12/09/19 11:21 Dose: 50 mls/hr Documented by: Lisinopril (Zestril) 2.5 mg PO QAM [facility] Stop: 01/06/20 08:59 Last Admin: 12/09/19 09:12 Dose: 2.5 mg Documented by: Morphine Sulfate (Morphine Sulfate) 2 mg IV Q4H PRN PRN Reason: Pain Stop: 12/20/19 05:50 Nitroglycerin (Nitrostat) 0.4 mg SL UD PRN PRN Reason: Chest Pain Stop: 01/05/20 05:41 Prednisone (Prednisone) 5 mg PO DAILY [facility] Stop: 01/05/20 08:59 Last Admin: 12/09/19 09:11 Dose: 5 mg Documented by: Primidone (Primidone) 50 mg PO BID [facility] Stop: 01/05/20 08:59 Last Admin: 12/09/19 09:11 Dose: 50 mg Documented by: Tramadol HCl (Ultram) 25 - 50 mg PO Q4H PRN PRN Reason: Pain Stop: 01/05/20 05:41 Last Admin: 12/06/19 19:14 Dose: 25 mg Documented by: Warfarin Sodium (Coumadin) 7.5 mg PO DAILY@1600 [facility] Stop: 01/07/20 15:59 Last Admin: 12/09/19 15:25 Dose: 7.5 mg Documented by:
[2019-12-09] MEDS: HEPARIN SODIUM/DEXTROSE 25,000 UNITS/500 ML BAG IV SCH ×2 (22:19)
[2019-12-10] MEDS: LACTATED RINGER'S 1,000 ML IV SCH ×2 (05:48→23:25)
[2019-12-10 06:15] LABS: INR 1.3 (0.9-1.1); Partial Thromboplastin Ratio 1.4; Partial Thromboplastin Time 39.3 Seconds (21.0-31.0); Prothrombin Time 13.1 Seconds (9.0-12.0)
[2019-12-10] MEDS ORDERED: HEPARIN IV BOLUS 4,000 UNITS in SYRINGE 0 ML IV ONE (06:45)
[2019-12-10] MEDS: predniSONE 5 MG TAB PO SCH (08:55)
[2019-12-10] MEDS: FLUTICASONE/VILANTEROL 100/25MCG 14 PUFFS/INHALER INH SCH (08:55)
[2019-12-10] MEDS: ASPIRIN 81 MG ECTAB PO SCH (08:55)
[2019-12-10] MEDS: PRIMIDONE 50 MG TAB PO SCH ×2 (08:55→20:45)
[2019-12-10 12:53] LABS: Partial Thromboplastin Time 112.2 Seconds (21.0-31.0)
--- NOTE | 2019-12-10 14:04 | Hospitalist Progress Note ---
Date of Service December 10, 2019 Assessment & Plan (1) Atypical chest pain: Atypical chest pain Serial troponin and EKGs are unremarkable for any ACS Chest pain improved with nitroglycerin. Has been on IV heparin for now Appreciate cardiology input and recommendation Status post negative DSE Continue aspirin, lisinopril Likely discharge when the INR is near therapeutic or therapeutic Subtherapeutic INR: H/O PE/DVT S/P IVC Filter Currently on IV heparin INR remains subtherapeutic-continue intravenous heparin Coumadin restarted-INR is 1.2 as of 12/08/2019 Will increase Coumadin to 7.5 mg today INR remains 1.3 today We will increase the dose of Coumadin to 10 mg Repeat INR in a.m. Elevated Blood Pressure BP variable Started on lisinopril 2.5mg daily Blood pressure remains upper level of normal Chronic respiratory failure with Hypoxia COPD Oxygen Dependent Past Tobacco use No signs of Exacerbation Continue home inhalers, prednisone No acute symptoms Essential tremors on Primidone H/O spontaneous pneumothorax S/P pleurodesis H/O bronchopleural fistula S/P partial right lobectomy DVT Px: IV heparin Coumadin restarted Code Status Full code Disposition Expect to discharge home when INR is therapeutic Admission and Anticipated Discharge Date Admission Date: December 09, 2019 Subjective Seen and examined in telemetry unit She has generalized weakness but denies any more chest pain and/or palpitation Her breathing remains stable to She has had negative dobutamine stress echo this morning 12/08/2019 Patient was seen and examined in medical floor Remains stable and wants to go home She cannot use any subcu Lovenox We need to stay in the hospital till INR is therapeutic 12/09/2019 The patient was seen and examined in medical floor Her INR is not therapeutic yet and she will need to stay in the hospital 12/10/2019 The patient was seen and examined in medical floor Denies any complaints as of today INR is not therapeutic to be discharged Physical Exam Physical Exam: Lying in bed comfortably Constitutional: + thin; no acute distress and not ill appearing Eyes: PERRL, conjunctivae normal, anicteric sclerae ENMT: external ear and nose normal, oropharynx normal Neck: trachea midline, no thyromegaly Respiratory: no respiratory distress Auscultation: lungs clear to auscultation bilaterally (With diminished lung sounds at the bases), + diminished lung sounds and + wheezes (Minimal wheezing bilaterally) Cardiovascular: Rate/Rhythm: regular rhythm Heart Sounds: no murmur Gastrointestinal (Abdomen): Inspection/Auscultation: abdomen normal to inspection; + abnormal bowel sounds Percussion/Palpation: abdomen soft; abdomen nontender Neurologic: moves all extremities; no focal motor deficits Lymphatic: no cervical or axillary lymphadenopathy Results & Data Results & Data ([facility]) Vital Signs (Past 12 Hours) Vital Signs Temp Pulse Resp BP Pulse Ox 12/10/19 07:04 36.5 C 80 16 136/78 99
[2019-12-10] MEDS: WARFARIN SOD 10 MG TAB PO SCH (15:50)
[2019-12-10 19:13] LABS: Partial Thromboplastin Ratio 1.8
[2019-12-10 19:26] LABS: Partial Thromboplastin Time 50.9 Seconds (21.0-31.0)
[2019-12-11 05:32] LABS: INR 1.3 (0.9-1.1); Partial Thromboplastin Ratio 2.1; Prothrombin Time 13.3 Seconds (9.0-12.0)
[2019-12-11 05:45] LABS: Partial Thromboplastin Time 57.8 Seconds (21.0-31.0)
[2019-12-11] MEDS: HEPARIN SODIUM/DEXTROSE 25,000 UNITS/500 ML BAG IV SCH ×2 (07:06→10:54)
[2019-12-11] MEDS: predniSONE 5 MG TAB PO SCH (08:28)
[2019-12-11] MEDS: ASPIRIN 81 MG ECTAB PO SCH (08:28)
[2019-12-11] MEDS: PRIMIDONE 50 MG TAB PO SCH ×2 (08:28→20:10)
[2019-12-11] MEDS: FLUTICASONE/VILANTEROL 100/25MCG 14 PUFFS/INHALER INH SCH (08:28)
--- NOTE | 2019-12-11 14:55 | Hospitalist Progress Note ---
Date of Service December 11, 2019 Assessment & Plan (1) Atypical chest pain: Atypical chest pain Serial troponin and EKGs are unremarkable for any ACS Chest pain improved with nitroglycerin. Has been on IV heparin for now Appreciate cardiology input and recommendation Status post negative DSE Continue aspirin, lisinopril Likely discharge when the INR is near therapeutic or therapeutic Subtherapeutic INR: H/O PE/DVT S/P IVC Filter Currently on IV heparin INR remains subtherapeutic-continue intravenous heparin Coumadin restarted-INR is 1.2 as of 12/08/2019 Her INR remains at 1.3 level for the last 3 days in spite of doubling the dose of Coumadin Most likely her Coumadin has been metabolized rapidly by the liver which is being induced by use of primidone She has been on primidone for the last 5 to 6 months for tremors Will not discontinue tramadol or decrease the dose for now but continue with higher dose of Coumadin Plan to discharge home tomorrow with subcu Lovenox and Coumadin until therapeutic Elevated Blood Pressure BP variable Started on lisinopril 2.5mg daily Blood pressure remains upper level of normal Chronic respiratory failure with Hypoxia COPD Oxygen Dependent Past Tobacco use No signs of Exacerbation Continue home inhalers, prednisone No acute symptoms Essential tremors on Primidone H/O spontaneous pneumothorax S/P pleurodesis H/O bronchopleural fistula S/P partial right lobectomy DVT Px: IV heparin Coumadin restarted Code Status Full code Disposition Expect to discharge home when INR is therapeutic Plan to discharge home tomorrow Admission and Anticipated Discharge Date Admission Date: December 09, 2019 Subjective Seen and examined in telemetry unit She has generalized weakness but denies any more chest pain and/or palpitation Her breathing remains stable to She has had negative dobutamine stress echo this morning 12/08/2019 Patient was seen and examined in medical floor Remains stable and wants to go home She cannot use any subcu Lovenox We need to stay in the hospital till INR is therapeutic 12/09/2019 The patient was seen and examined in medical floor Her INR is not therapeutic yet and she will need to stay in the hospital 12/10/2019 The patient was seen and examined in medical floor Denies any complaints as of today INR is not therapeutic to be discharged 12/11/2019 Patient was seen and examined in medical floor She remains stable without any symptoms Physical Exam Physical Exam: Lying in bed comfortably Constitutional: + thin; no acute distress and not ill appearing Eyes: PERRL, conjunctivae normal, anicteric sclerae ENMT: external ear and nose normal, oropharynx normal Neck: trachea midline, no thyromegaly Respiratory: no respiratory distress Auscultation: lungs clear to auscultation bilaterally (With diminished lung sounds at the bases), + diminished lung sounds and + wheezes (Minimal wheezing bilaterally) Cardiovascular: Rate/Rhythm: regular rhythm Heart Sounds: no murmur Gastrointestinal (Abdomen): Inspection/Auscultation: abdomen normal to inspection; + abnormal bowel sounds Percussion/Palpation: abdomen soft; abdomen nontender Neurologic: moves all extremities; no focal motor deficits Lymphatic: no cervical or axillary lymphadenopathy Results & Data Results & Data ([facility]) Vital Signs (Past 12 Hours) Vital Signs Temp Pulse Pulse Resp BP Pulse Ox 12/11/19 07:23 37.0 C 80 16 144/79 H 100 12/11/19 03:24 78 16 94 Medications Administered Current Inpatient Medications Acetaminophen (Tylenol) 650 mg PO Q4H PRN PRN Reason: Pain or Fever Stop: 01/05/20 05:41 Last Admin: 12/07/19 08:10 Dose: 650 mg Documented by: Aspirin (Ecotrin Ectab) 81 mg PO QAM [facility] Stop: 01/06/20 08:59 Last Admin: 12/11/19 08:28 Dose: 81 mg Documented by: Fluticasone/Vilanterol (Breo Ellipta 100/25 Mcg Inh) 1 puffs INH DAILY [facility] Stop: 01/05/20 08:59 Last Admin: 12/11/19 08:28 Dose: 1 puffs Documented by: Heparin Sodium/Dextrose (Heparin Sodium/Dextrose) 25,000 units in 500 mls @ 14 mls/hr IV .Q24H [facility]; Protocol Stop: 01/05/20 03:44 Last Admin: 12/11/19 10:54 Dose: 700 units/hr, 14 mls/hr Documented by: Promethazine HCl 12.5 mg/ (Sodium Chloride) 50.5 mls @ 202 mls/hr IV Q6H PRN PRN Reason: Nausea And Vomiting Stop: 01/05/20 05:44 Last Infusion: 12/06/19 06:23 Dose: Infused Documented by: Lorazepam (Ativan) 0.25 mg in 0.5 mls @ 0.5 mls/min IV Q4H PRN PRN Reason: Anxiety Stop: 01/05/20 05:41 Lactated Ringer's (Lr) 1,000 mls @ 50 mls/hr IV .Q20H [facility] Stop: 01/05/20 05:41 Last Admin: 12/10/19 23:25 Dose: 50 mls/hr Documented by: Lisinopril (Zestril) 2.5 mg PO QAM [facility] Stop: 01/06/20 08:59 Last Admin: 12/11/19 08:28 Dose: 2.5 mg Documented by: Morphine Sulfate (Morphine Sulfate) 2 mg IV Q4H PRN PRN Reason: Pain Stop: 12/20/19 05:50 Nitroglycerin (Nitrostat) 0.4 mg SL UD PRN PRN Reason: Chest Pain Stop: 01/05/20 05:41 Prednisone (Prednisone) 5 mg PO DAILY [facility] Stop: 01/05/20 08:59 Last Admin: 12/11/19 08:28 Dose: 5 mg Documented by: Primidone (Primidone) 50 mg PO BID [facility] Stop: 01/05/20 08:59 Last Admin: 12/11/19 08:28 Dose: 50 mg Documented by: Tramadol HCl (Ultram) 25 - 50 mg PO Q4H PRN PRN Reason: Pain Stop: 01/05/20 05:41 Last Admin: 12/06/19 19:14 Dose: 25 mg Documented by: Warfarin Sodium (Coumadin) 10 mg PO DAILY@1600 [facility] Stop: 01/09/20 15:59 Last Admin: 12/10/19 15:50 Dose: 10 mg Documented by:
[2019-12-11] MEDS: WARFARIN SOD 10 MG TAB PO SCH (15:28)
[2019-12-12 05:48] LABS: INR 1.6 (0.9-1.1); Partial Thromboplastin Ratio 2.1; Prothrombin Time 16.1 Seconds (9.0-12.0)
[2019-12-12 05:53] LABS: Partial Thromboplastin Time 58.7 Seconds (21.0-31.0)
[2019-12-12] MEDS: FLUTICASONE/VILANTEROL 100/25MCG 14 PUFFS/INHALER INH SCH (09:10)
[2019-12-12] MEDS: PRIMIDONE 50 MG TAB PO SCH ×2 (09:11→20:47)
[2019-12-12] MEDS: ASPIRIN 81 MG ECTAB PO SCH (09:11)
[2019-12-12] MEDS: predniSONE 5 MG TAB PO SCH (09:12)
--- NOTE | 2019-12-12 15:05 | Hospitalist Progress Note ---
Date of Service December 12, 2019 Assessment & Plan (1) Atypical chest pain: Atypical chest pain Serial troponin and EKGs are unremarkable for any ACS Chest pain improved with nitroglycerin. Has been on IV heparin for now Appreciate cardiology input and recommendation Status post negative DSE Continue aspirin, lisinopril Likely discharge when the INR is near therapeutic or therapeutic Subtherapeutic INR: H/O PE/DVT S/P IVC Filter Currently on IV heparin INR remains subtherapeutic-continue intravenous heparin Coumadin restarted-INR is 1.2 as of 12/08/2019 Her INR remains at 1.3 level for the last 3 days in spite of doubling the dose of Coumadin Most likely her Coumadin has been metabolized rapidly by the liver which is being induced by use of primidone She has been on primidone for the last 5 to 6 months for tremors Will not discontinue tramadol or decrease the dose for now but continue with higher dose of Coumadin INR is 1.6 today We will give her 7.5 mg Coumadin today and repeat INR in the morning Malnutrition Body mass index (BMI) 17.9 kg/m*m Likely secondary to chronic disease We will ask dietary advice from dietitian Elevated Blood Pressure BP variable Started on lisinopril 2.5mg daily Blood pressure remains upper level of normal Chronic respiratory failure with Hypoxia COPD Oxygen Dependent Past Tobacco use No signs of Exacerbation Continue home inhalers, prednisone No acute symptoms Essential tremors on Primidone H/O spontaneous pneumothorax S/P pleurodesis H/O bronchopleural fistula S/P partial right lobectomy DVT Px: IV heparin Coumadin restarted Code Status Full code Disposition Expect to discharge home when INR is therapeutic Plan to discharge home in AM Admission and Anticipated Discharge Date Admission Date: December 09, 2019 Subjective Seen and examined in telemetry unit She has generalized weakness but denies any more chest pain and/or palpitation Her breathing remains stable to She has had negative dobutamine stress echo this morning 12/08/2019 Patient was seen and examined in medical floor Remains stable and wants to go home She cannot use any subcu Lovenox We need to stay in the hospital till INR is therapeutic 12/09/2019 The patient was seen and examined in medical floor Her INR is not therapeutic yet and she will need to stay in the hospital 12/10/2019 The patient was seen and examined in medical floor Denies any complaints as of today INR is not therapeutic to be discharged 12/11/2019 Patient was seen and examined in medical floor She remains stable without any symptoms 12/12/2019 The patient was seen and examined in medical floor She denies any symptoms more than her usual symptoms Denies any chest pain and a palpitation Review of Systems Review of Systems: All systems reviewed and are unremarkable except as noted below Respiratory: + dyspnea (At rest and with exertion-there is her baseline) Physical Exam Physical Exam: Lying in bed comfortably with her baseline shortness of breath Constitutional: + thin; no acute distress and not ill appearing Eyes: PERRL, conjunctivae normal, anicteric sclerae ENMT: external ear and nose normal, oropharynx normal Neck: trachea midline, no thyromegaly Respiratory: + respiratory distress (Moderate shortness of breath at rest) Auscultation: lungs clear to auscultation bilaterally (With diminished lung sounds at the bases), + diminished lung sounds and + wheezes (Minimal wheezing bilaterally) Cardiovascular: Rate/Rhythm: regular rhythm Heart Sounds: no murmur Gastrointestinal (Abdomen): Inspection/Auscultation: abdomen normal to insp ection; + abnormal bowel sounds Percussion/Palpation: abdomen soft; abdomen nontender Neurologic: moves all extremities; no focal motor deficits Lymphatic: no cervical or axillary lymphadenopathy Results & Data Results & Data ([facility]) Vital Signs (Past 12 Hours) Vital Signs Temp Pulse Pulse Resp BP Pulse Ox 12/12/19 07:32 36.9 C 89 16 133/81 97 12/12/19 03:23 90 16 98 Medications Administered Current Inpatient Medications Acetaminophen (Tylenol) 650 mg PO Q4H PRN PRN Reason: Pain or Fever Stop: 01/05/20 05:41 Last Admin: 12/07/19 08:10 Dose: 650 mg Documented by: Aspirin (Ecotrin Ectab) 81 mg PO QAM [facility] Stop: 01/06/20 08:59 Last Admin: 12/12/19 09:11 Dose: 81 mg Documented by: Fluticasone/Vilanterol (Breo Ellipta 100/25 Mcg Inh) 1 puffs INH DAILY [facility] Stop: 01/05/20 08:59 Last Admin: 12/12/19 09:10 Dose: 1 puffs Documented by: Heparin Sodium/Dextrose (Heparin Sodium/Dextrose) 25,000 units in 500 mls @ 14 mls/hr IV .Q24H [facility]; Protocol Stop: 01/05/20 03:44 Last Titration: 12/12/19 07:09 Dose: 700 units/hr, 14 mls/hr Documented by: Promethazine HCl 12.5 mg/ (Sodium Chloride) 50.5 mls @ 202 mls/hr IV Q6H PRN PRN Reason: Nausea And Vomiting Stop: 01/05/20 05:44 Last Infusion: 12/06/19 06:23 Dose: Infused Documented by: Lorazepam (Ativan) 0.25 mg in 0.5 mls @ 0.5 mls/min IV Q4H PRN PRN Reason: Anxiety Stop: 01/05/20 05:41 Lisinopril (Zestril) 2.5 mg PO QAM [facility] Stop: 01/06/20 08:59 Last Admin: 12/12/19 09:11 Dose: 2.5 mg Documented by: Morphine Sulfate (Morphine Sulfate) 2 mg IV Q4H PRN PRN Reason: Pain Stop: 12/20/19 05:50 Nitroglycerin (Nitrostat) 0.4 mg SL UD PRN PRN Reason: Chest Pain Stop: 01/05/20 05:41 Prednisone (Prednisone) 5 mg PO DAILY [facility] Stop: 01/05/20 08:59 Last Admin: 12/12/19 09:12 Dose: 5 mg Documented by: Primidone (Primidone) 50 mg PO BID [facility] Stop: 01/05/20 08:59 Last Admin: 12/12/19 09:11 Dose: 50 mg Documented by: Tramadol HCl (Ultram) 25 - 50 mg PO Q4H PRN PRN Reason: Pain Stop: 01/05/20 05:41 Last Admin: 12/06/19 19:14 Dose: 25 mg Documented by: Warfarin Sodium (Coumadin) 7.5 mg PO DAILY@1600 [facility] Stop: 01/11/20 15:59
[2019-12-12] MEDS ORDERED: WARFARIN SOD 7.5 MG TAB PO SCH (16:00)
[2019-12-13] MEDS: HEPARIN SODIUM/DEXTROSE 25,000 UNITS/500 ML BAG IV SCH (00:50)
[2019-12-13] MEDS ORDERED: Nursing to Pharmacy Communication ONE (04:44)
[2019-12-13 05:24] LABS: INR 1.8 (0.9-1.1); Partial Thromboplastin Ratio 2.2; Prothrombin Time 18.7 Seconds (9.0-12.0)
[2019-12-13 05:42] LABS: Partial Thromboplastin Time 61.6 Seconds (21.0-31.0)
[2019-12-13] MEDS: FLUTICASONE/VILANTEROL 100/25MCG 14 PUFFS/INHALER INH SCH (09:09)
[2019-12-13] MEDS: predniSONE 5 MG TAB PO SCH (09:10)
[2019-12-13] MEDS: ASPIRIN 81 MG ECTAB PO SCH (09:10)
[2019-12-13] MEDS: PRIMIDONE 50 MG TAB PO SCH (09:10)
--- NOTE | 2019-12-13 12:25 | Hospitalist Progress Note ---
Date of Service December 13, 2019 Assessment & Plan (1) Atypical chest pain: Atypical chest pain Serial troponin and EKGs are unremarkable for any ACS Chest pain improved with nitroglycerin. Has been on IV heparin for now Appreciate cardiology input and recommendation Status post negative DSE Continue aspirin, lisinopril Likely discharge when the INR is near therapeutic or therapeutic INR is 1.8 and the patient wants to go home We will let her go home and with an INR checkup day after tomorrow Subtherapeutic INR: H/O PE/DVT S/P IVC Filter Currently on IV heparin INR remains subtherapeutic-continue intravenous heparin Coumadin restarted-INR is 1.2 as of 12/08/2019 Her INR remains at 1.3 level for the last 3 days in spite of doubling the dose of Coumadin Most likely her Coumadin has been metabolized rapidly by the liver which is being induced by use of primidone She has been on primidone for the last 5 to 6 months for tremors Will not discontinue tramadol or decrease the dose for now but continue with higher dose of Coumadin We will give her 7.5 mg Coumadin today and repeat INR in the morning INR is 1.8 today and will give her 7.5 mg daily on discharge on 12/13/2019 Malnutrition Body mass index (BMI) 17.9 kg/m*m Likely secondary to chronic disease We will ask dietary advice from dietitian Elevated Blood Pressure BP variable Started on lisinopril 2.5mg daily Blood pressure remains upper level of normal Blood pressure is controlled Chronic respiratory failure with Hypoxia COPD Oxygen Dependent Past Tobacco use No signs of Exacerbation Continue home inhalers, prednisone No acute symptoms Essential tremors on Primidone H/O spontaneous pneumothorax S/P pleurodesis H/O bronchopleural fistula S/P partial right lobectomy DVT Px: IV heparin Coumadin restarted Code Status Full code Disposition Expect to discharge home when INR is therapeutic Plan to discharge home this afternoon Admission and Anticipated Discharge Date Admission Date: December 09, 2019 Subjective Seen and examined in telemetry unit She has generalized weakness but denies any more chest pain and/or palpitation Her breathing remains stable to She has had negative dobutamine stress echo this morning 12/08/2019 Patient was seen and examined in medical floor Remains stable and wants to go home She cannot use any subcu Lovenox We need to stay in the hospital till INR is therapeutic 12/09/2019 The patient was seen and examined in medical floor Her INR is not therapeutic yet and she will need to stay in the hospital 12/10/2019 The patient was seen and examined in medical floor Denies any complaints as of today INR is not therapeutic to be discharged 12/11/2019 Patient was seen and examined in medical floor She remains stable without any symptoms 12/12/2019 The patient was seen and examined in medical floor She denies any symptoms more than her usual symptoms Denies any chest pain and a palpitation 12/13/2019 The patient was seen and examined in medical floor She is ready to be discharged She denies any symptoms and has been ambulating without any difficulties She understands there is very very small risk of clot if she goes home today Review of Systems Review of Systems: All systems reviewed and are unremarkable except as noted below Respiratory: no dyspnea (At rest and with exertion-there is her baseline) Physical Exam Physical Exam: Lying in bed comfortably with her baseline shortness of breath Constitutional: + thin; no acute distress and not ill appearing Eyes: PERRL, conjunctivae normal, anicteric sclerae ENMT: external ear and nose normal, oropharynx normal Neck: trachea midline, no thyromegaly Respiratory: + respiratory distress (Moderate shortness of breath at rest) Auscultation: lungs clear to auscultation bilaterally (With diminished lung sounds at the bases), + diminished lung sounds and + wheezes (Minimal wheezing bilaterally) Cardiovascular: Rate/Rhythm: regular rhythm Heart Sounds: no murmur Gastrointestinal (Abdomen): Inspection/Auscultation: abdomen normal to inspection; + abnormal bowel sounds Percussion/Palpation: abdomen soft; abdomen nontender Musculoskeletal: No acute arthritis involving any joints Neurologic: moves all extremities; no focal motor deficits Alert, awake and oriented x3 Lymphatic: no cervical or axillary lymphadenopathy Results & Data Results & Data ([facility]) Vital Signs (Past 12 Hours) Vital Signs Temp Pulse Pulse Resp BP Pulse Ox 12/13/19 09:09 126/68 12/13/19 07:09 37.1 C 105 H 16 121/74 97 12/13/19 03:15 77 18 93 Medications Administered Current Inpatient Medications Acetaminophen (Tylenol) 650 mg PO Q4H PRN PRN Reason: Pain or Fever Stop: 01/05/20 05:41 Last Admin: 12/07/19 08:10 Dose: 650 mg Documented by: Aspirin (Ecotrin Ectab) [address] [facility] Stop: 01/06/20 08:59 Last Admin: 12/13/19 09:10 Dose: 81 mg Documented by: Fluticasone/Vilanterol (Breo Ellipta 100/25 Mcg Inh) [address] [facility] Stop: 01/05/20 08:59 Last Admin: 12/13/19 09:09 Dose: 1 puffs Documented by: Heparin Sodium/Dextrose (Heparin Sodium/Dextrose) 25,000 units in 500 mls @ 14 mls/hr IV .Q24H [facility]; Protocol Stop: 01/05/20 03:44 Last Titration: 12/13/19 07:08 Dose: 700 units/hr, 14 mls/hr Documented by: Promethazine HCl 12.5 mg/ (Sodium Chloride) 50.5 mls @ 202 mls/hr IV Q6H PRN PRN Reason: Nausea And Vomiting Stop: 01/05/20 05:44 Last Infusion: 12/06/19 06:23 Dose: Infused Documented by: Lorazepam (Ativan) 0.25 mg in 0.5 mls @ 0.5 mls/min IV Q4H PRN PRN Reason: Anxiety Stop: 01/05/20 05:41 [facility]) [facility] Stop: 01/06/20 08:59 Last Admin: 12/13/19 09:11 Dose: 2.5 mg Documented by: Morphine Sulfate (Morphine Sulfate) 2 mg IV Q4H PRN PRN Reason: Pain Stop: 12/20/19 05:50 Nitroglycerin (Nitrostat) 0.4 mg SL UD PRN PRN Reason: Chest Pain Stop: 01/05/20 05:41 Prednisone (Prednisone) [address] [facility] Stop: 01/05/20 08:59 Last Admin: 12/13/19 09:10 Dose: 5 mg Documented by: Primidone (Primidone) [address] [facility] Stop: 01/05/20 08:59 Last Admin: 12/13/19 09:10 Dose: 50 mg Documented by: Tramadol HCl (Ultram) 25 - 50 mg PO Q4H PRN PRN Reason: Pain Stop: 01/05/20 05:41 Last Admin: 12/06/19 19:14 Dose: 25 mg Documented by: Warfarin Sodium (Coumadin) 7.5 mg PO DAILY@1600 [facility] Stop: 01/11/20 15:59 Last Admin: 12/12/19 15:44 Dose: 7.5 mg Documented by:
--- NOTE | 2019-12-13 17:55 | Discharge Summary ---
Date of Service December 13, 2019 Admission HPI Per Admitting Provider History obtained from patient and records. 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 Recent confinement July 2019 for COPD exacerbation. Last night, patient experience pleuritic right-sided chest pain rating to her back with some shortness of breath. No fever, no chills, no unusual cough symptoms. Patient tired with some home visitors over the weekend. Denies unusual exertion. At the ER, some relief of discomfort with nitroglycerin, Pepcid, and neb treatment. Medical History as above Surgical History : Tonsillectomy/adenoidectomy, pleurodesis, thoracoscopy, IVC filter placement, lung surgery Family History : Breast cancer, kidney disease, heart disease Personal/Social history : Past tobacco abuse, no EtOH intake, disabled Admission Exam Per Admitting Provider Physical Exam: GENERAL: Slightly anxious , no respiratory distress, underweight SKIN: Normal color, warm HEENT: [place] palpebral conjunctivae, no ptosis, dry buccal mucosa, nasal cannula in place NECK : Supple, no tenderness CHEST : Decreased breath sounds, anterior chest wall tenderness HEART : RRR, systolic murmur ABDOMEN: Soft, nontender EXTREMITIES : No LE swelling/tenderness, no other conspicuous deformities noted NEUROLOGIC : Coherent, slightly hard of hearing, no facial asymmetry, chronic LE tremors Principal Diagnosis Atypical chest pain, no ACS and negative DSE, chronic respiratory failure with hypoxia on home oxygen, subtherapeutic INR on primidone Discharge Exam Constitutional + thin; no acute distress and not ill appearing Eyes PERRL, conjunctivae normal, anicteric sclerae ENMT external ear and nose normal, oropharynx normal Neck trachea midline, no thyromegaly Respiratory + respiratory distress (Moderate shortness of breath at rest) Auscultation: lungs clear to auscultation bilaterally (With diminished lung sounds at the bases), + diminished lung sounds and + wheezes (Minimal wheezing bilaterally) Cardiovascular Rate/Rhythm: regular rhythm Heart Sounds: no murmur Gastrointestinal (Abdomen) Inspection/Auscultation: abdomen normal to inspection; + abnormal bowel sounds Percussion/Palpation: abdomen soft; abdomen nontender Neurologic moves all extremities; no focal motor deficits Lymphatic no cervical or axillary lymphadenopathy Discharge Data Allergies Allergy/AdvReac Type Severity Reaction Status Date / Time phytonadione (vitamin K1) Allergy Intermediate severe Verified 12/06/19 01:27 back pain, red face levofloxacin Allergy Mild rash Verified 12/06/19 01:27 Penicillins Allergy Mild Amoxil - Verified 12/06/19 01:27 rash allantoin Allergy Unknown [facility] LIST Verified 12/06/19 01:27 bacitracin AdvReac Intermediate infection Verified 12/06/19 01:27 neomycin AdvReac Intermediate infection Verified 12/06/19 01:27 polymyxin B AdvReac Intermediate infection Verified 12/06/19 01:27 theophylline AdvReac Mild Headache Verified 12/06/19 01:27 Consultations 12/06/19 05:42 Consult Cardiology Routine Ordered Studies 12/06/19 01:58 CT angio chest PE protocol Urgent Hospital Course (1) Atypical chest pain: Atypical chest pain Serial troponin and EKGs are unremarkable for any ACS Chest pain improved with nitroglycerin. Has been on IV heparin for now Appreciate cardiology input and recommendation Status post negative DSE Continue aspirin, lisinopril Likely discharge when the INR is near therapeutic or therapeutic INR is 1.8 and the patient wants to go home We will let her go home and with an INR checkup day after tomorrow Subtherapeutic INR: H/O PE/DVT S/P IVC Filter Currently on IV heparin INR remains subtherapeutic-continue intravenous heparin Coumadin restarted-INR is 1.2 as of 12/08/2019 Her INR remains at 1.3 level for the last 3 days in spite of doubling the dose of Coumadin Most likely her Coumadin has been metabolized rapidly by the liver which is being induced by use of primidone She has been on primidone for the last 5 to 6 months for tremors Will not discontinue tramadol or decrease the dose for now but continue with higher dose of Coumadin We will give her 7.5 mg Coumadin today and repeat INR in the morning INR is 1.8 today and will give her 7.5 mg daily on discharge on 12/13/2019 Malnutrition Body mass index (BMI) 17.9 kg/m*m Likely secondary to chronic disease We will ask dietary advice from dietitian Elevated Blood Pressure BP variable Started on lisinopril 2.5mg daily Blood pressure remains upper level of normal Blood pressure is controlled Chronic respiratory failure with Hypoxia COPD Oxygen Dependent Past Tobacco use No signs of Exacerbation Continue home inhalers, prednisone No acute symptoms Essential tremors on Primidone H/O spontaneous pneumothorax S/P pleurodesis H/O bronchopleural fistula S/P partial right lobectomy DVT Px: IV heparin Coumadin restarted Code Status Full code Disposition Expect to discharge home when INR is therapeutic Plan to discharge home this afternoon Total Time Total Time Spent Total Time Spent (In Minutes): 40 minutes Total Time Includes: Examination of the Patient, Discharge Planning, Medication Reconciliation and Communication With Other Providers Discharge Plan Discharge Items Patient Disposition: Home - Self-Care Reason For Visit: CP Discharge Diagnosis: Atypical chest pain, no ACS and negative DSE, chronic respiratory failure with hypoxia on home oxygen, subtherapeutic INR on primidone Condition on Discharge: Fair Activity: Resume your previous activity Non-emergency contact: Primary Care Provider Call non-emergency contact if: you have any medication questions and your symptoms worsen Follow-up/Referrals: James Barahona MD [Primary Care Provider] - 12/20/19 11:20 am (12/20/2019 11:20 AM Provider David Maldonado DO [facility] Coagulation clinic notified. INR will be checked on 12/15/2019 ) Diet: Heart Healthy Addtl Attending Provider Instructions: Please take precaution to avoid falls Your Coumadin dose has been increased to 7.5 mg daily Pending Studies at Discharge: No Stand-Alone Forms: My [facility] [employer], Smoking Cessation Medications and DC Order Prescriptions: New warfarin [Coumadin] 7.5 mg Tablet 7.5 mg PO DAILY@1600 30 Days Qty: 30 RF: 0 lisinopril 2.5 mg Tablet 2.5 mg PO QAM 30 Days Qty: 30 RF: 0 Continued prednisone 5 mg Tablet 5 mg PO DAILY RF: 0 albuterol sulfate 2.5 mg /3 mL (0.083 %) solution for nebulization 1.25 mg INH QID PRN (Reason: shortness of breath or wheezing) Qty: 360 RF: 0 primidone 50 mg tablet 50 mg PO BID RF: 0 fluticasone propion-salmeterol [Wixela Inhub] 250-50 mcg/dose blister with device 1 ea INHALATION UD RF: 0 Changed warfarin [Coumadin] 5 mg Tablet 7.5 mg PO UD Qty: 0 RF: 0 Discharge Orders: Discharge Order (Routine); Ordered 12/13/19 Ordered By: Mohamud Troncoso/Other Patient Handouts: Warfarin tablets Admission Data Admit Date/Time: 12/09/19 11:14 Attending Provider: Mohamud Thomas Admit Provider: Hitesh Colon Primary Care Provider: James Barahona Other Providers: Stefano Valerio ; Dwight Murillo Other Interventions: Discharge Summary Assessment (RN) Last Done: 12/13/19 13:44 DC Date/Time DO NOT enter until pt leaves facility: 12/13/19 14:41
== END 2019-12-13 14:41 | disposition home or self-care (01) | DRG 313 ==
LOC: 2S 23:50 → ED 23:50 → SUATTDRO 12-06 04:02 → 2S 12-06 05:18 → 3N 12-08 09:36 → 3E 12-12 15:10

== ENCOUNTER 2020-02-13 10:17 | Inpatient (IN) ==
[2020-02-13 10:53] LABS: Basophils # (auto) 0.04 K/uL (0-0.2); Basophils % (auto) 0.3 %; Eosinophils # (auto) 0.05 K/uL (0-0.5); Eosinophils % (auto) 0.3 %; Hematocrit (blood only) 40.6 % (37-47); Hemoglobin 12.9 g/dL (12.0-16.0); Immature Granulocytes # (auto) 0.15 K/uL (0.00-0.02); Lymphocytes # (auto) 1.02 K/uL (1.2-3.4); Lymphocytes % (auto) 7.1 %; Mean Corpuscular Hemoglobin 30.6 pg (25-34); Mean Corpuscular Hgb Conc 31.8 g/dL (32-36); Mean Corpuscular Volume 96.4 fL (80-100); Mean Platelet Volume 9.2 fL (7.4-10.4); Monocytes # (auto) 0.63 K/uL (0.11-0.59); Monocytes % (auto) 4.4 %; Neutrophils # (auto) 12.48 K/uL (1.4-6.5); Neutrophils % (auto) 86.9 %; Platelet Count 359 K/uL (130-400); RDW Coefficient of Variation 14.3 % (11.5-14.5); RDW Standard Deviation 50.8 fL (36.4-46.3); Red Blood Count 4.21 M/uL (4.2-5.4); White Blood Count 14.37 K/uL (4.8-10.8)
[2020-02-13 11:01] LABS: Alanine Aminotransferase 17 U/L (12-78); Albumin Level 2.9 gm/dl (3.4-5.0); Aspartate Aminotransferase 14 U/L (15-37); BUN Creatinine Ratio 29.1 (10-20); Blood Urea Nitrogen 16 mg/dl (7-18); Calcium 9.6 mg/dl (8.5-10.1); Carbon Dioxide 30 mmol/L (21-32); Chloride 101 mmol/L (98-107); Creatinine Clr Calc Pharmacy 44.5 ml/min; Est GFR (African American) 112.6; Est GFR (Non-African American) 97.2; Glucose 121 mg/dl (70-99); Lipase 74 U/L (73-393); Potassium 4.2 mmol/L (3.5-5.1); Sodium 140 mmol/L (136-145)
[2020-02-13 11:06] LABS: Albumin Globulin Ratio 0.5 (0.9-2); Alkaline Phosphatase 128 U/L (45-117); Bilirubin,Total 0.4 mg/dl (0.2-1); Creatine Kinase 25 U/L (26-192); Creatine Kinase MB < 1.0 ng/ml (0.5-3.6); Globulin 5.6 gm/dl (2.5-4.0); Total Protein 8.5 gm/dl (6.4-8.2); Troponin I < 0.015 ng/ml (0-0.045)
--- NOTE | 2020-02-13 11:06 | XRay Report ---
SINGLE VIEW CHEST CLINICAL HISTORY: Atypical chest pain. FINDINGS: 2 AP, portable, upright chest radiographs are compared to chest x-ray and chest CT dated . The examination is degraded by portable technique and patient rotation. The cardiomediastina l silhouette is unremarkable noting atherosclerotic calcification of the thoracic aorta. Advanced emp hysema and chronic interstitial thickening is similar to previous. Postoperative change and volume lo ss is seen in the right lung. Foci of parenchymal scarring are present throughout both lungs. Patchy airspace consolidation is seen in the left mid to lower lung. No large pleural effusion or pneumothor ax is seen. The skeletal structures are osteopenic. Chronic deformity is noted in the right posterior ribs. An IVC filter is noted in the upper abdomen. IMPRESSION: 1. Patchy airspace consolidation is seen in the left mid to lower lung. Correlate clinically for evid ence of pneumonia/aspiration pneumonitis. Radiographic follow-up to resolution is recommended. 2. Advanced emphysema with postoperative change on the right. ACT 112: Negative or not required by law. Electronically signed by: Mook Rehman M.D. 02/13/2020 11:05 AM
[2020-02-13] MEDS ORDERED: ACETAMINOPHEN 1,000 MG/100 ML VIAL IV STA (11:08)
[2020-02-13] MEDS ORDERED: HYDROmorphone INJ 0.5 MG/0.5 ML SYR IV PRN (11:08)
[2020-02-13] MEDS ORDERED: cefTRIAXone SODIUM 2,000 MG/70 ML BAG IV STA (11:11)
[2020-02-13] MEDS ORDERED: DOXYCYCLINE HYCLATE 100 MG in DEXTROSE 5% 100 ML IV STA (11:11)
[2020-02-13] MEDS ORDERED: MAGNESIUM SULFATE / D5W 1 GM/100 ML BAG IV STA (11:14)
[2020-02-13] MEDS ORDERED: SODIUM CHLORIDE 0.9% 1000ML 1,000 ML IV ONE (11:14)
[2020-02-13] MEDS ORDERED: methylPREDNISolone 125 MG/2 ML VIAL IV STA (11:14)
[2020-02-13 11:17] LABS: Partial Thromboplastin Ratio 3.4; Prothrombin Time > 90.0 Seconds (9.0-12.0)
[2020-02-13 11:34] LABS: INR > 9.7 (0.9-1.1); Partial Thromboplastin Time 95.8 Seconds (21.0-31.0)
[2020-02-13] MEDS: LEVALBUTEROL TARTRATE 15 GM HFA.AER.AD INH SCH ×4 (12:34→17:54)
[2020-02-13] MEDS ORDERED: ONDANSETRON INJ 2 MG/ML 2 ML VIAL IV STA (13:03)
--- NOTE | 2020-02-13 13:45 | History & Physical Report ---
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 -In setting of Left mid to lower lung pneumonia, COPD exacerbation, has been requiring 3 L O2 at home (baseline 2 L NC O2) -Tachypnea present initially has resolved. Continue supplemental oxygen (2) Sepsis: (3) Hospital acquired PNA: -Initially tachycardic in 140s, tachypneic in 30s (now improved to HR 111 and RR 18), leukocytosis of 14.37, procalcitonin of 5.96. COVID PCR negative. Lactate pending -CXR with patchy airspace consolidation is seen in the left mid to lower lung. Correlate clinically for evidence of pneumonia/aspiration pneumonitis -Given Xopenex nebs, Rocephin, doxycycline and IV Solu-Medrol 60 mg in ED -Continue broad-spectrum antibiotics with Zosyn and Vanco for now. Gentle IV fluids. MRSA screen pending -Follow blood cultures (4) COPD exacerbation: Continue Xopenex nebs, IV Solu-Medrol 40mg Q8H, antibiotic coverage as above (5) RLQ abdominal pain: Worsening pain over the past few weeks in setting of poor appetite and constipation. One episode of emesis in ED after being given multiple medications -CT abdomen pelvis pending. Keep n.p.o. for now (6) Supratherapeutic INR: (7) History of DVT (deep vein thrombosis): INR greater than 9. Hold Coumadin with daily PT/INR lab work. No evidence of acute bleeding. Hgb stable at 12.9 -Planning to give vitamin K 5 mg p.o. following results of CT abdomen pelvis (8) Essential tremor: Continue primidone DVT Ppx: Supratherapeutic on Coumadin Code status: FULL PCP: Jun Dispo: Admitted to PCU. Plan to return home once medically stable. Patient seen in collaboration with Dr. Man. Please see addendum. 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 Pain is constant and aching in RLQ. and is associated with nausea and constipation. Was recently prescribed Colace by PCP but still has not had a bowel movement in 6-7 days. Endorses poor appetite. No melena or hematochezia. Also has been having R hip pain that she underwent XR for on 02/07 (radiologist read pending). Patient woke up this morning feeling more short of breath than usual and had to turn her O2 up to 3 L/min (baseline of 2). Follows with pulm and takes 5mg prednisone daily. Also with h/o DVT/PE on coumadin. Denies fever, chills, headache, lightheadedness, visual changes, sore throat, productive cough, chest pain, palpitations, dysuria, hematuria or diarrhea. Quit smoking 7 years ago. Allergies Allergy/AdvReac Type Severity Reaction Status Date / Time phytonadione (vitamin K1) Allergy Intermediate severe Verified 12/06/19 01:27 back pain, red face levofloxacin Allergy Mild rash Verified 12/06/19 01:27 Penicillins Allergy Mild Amoxil - Verified 12/06/19 01:27 rash allantoin Allergy Unknown [facility] LIST Verified 12/06/19 01:27 bacitracin AdvReac Intermediate infection Verified 12/06/19 01:27 neomycin AdvReac Intermediate infection Verified 12/06/19 01:27 polymyxin B AdvReac Intermediate infection Verified 12/06/19 01:27 theophylline AdvReac Mild Headache Verified 12/06/19 01:27 Home Medications Home Medications Medication Instructions Recorded Confirmed Type prednisone 5 mg PO QAM 07/15/19 02/13/20 History albuterol sulfate 1.25 mg INH QID PRN #360 ml 07/20/19 02/13/20 Rx fluticasone propion-salmeterol 1 ea INHALATION BID 12/06/19 02/13/20 History [Wixela Inhub] primidone 50 mg PO BID 12/06/19 02/13/20 History warfarin [Coumadin] 5 mg PO PEDROZA@1600 02/13/20 02/13/20 History warfarin [Coumadin] 7.5 mg PO MOTUWETHFRSA@1600 02/13/20 02/13/20 History Past Med/Surg History Medical History (Updated 02/13/20 @ 14:59 by Nu Sebastian PA-C) Abdominal pain Chronic respiratory failure (Chronic) COPD (chronic obstructive pulmonary disease) (Chronic) "severe" Essential tremor H/O pneumothorax (Chronic) "spontaneous" History of Clostridium difficile colitis (Chronic) History of DVT (deep vein thrombosis) Pneumonia (Resolved) Surgical History H/O pneumonectomy History of appendectomy S/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) Family History Other Kidney disease Lung disease Social History Smoking Status: Former smoker Hx Alcohol Use: No Hx Substance Use: No Preferred Language: Bermudian Communication Ability: Effective Waste Chopper Required: No Beliefs That Will Affect Care: None marital status: Current Living Situation: Spouse How many Children do You have: 2 Feels Safe at Home: Yes Review of Systems Review of Systems: At least ten systems reviewed and negative except as noted in the HPI. Physical Exam Physical Exam: General Appearance: vitals as above, appears acutely ill with emesis during interview, cachectic, older than stated age, conversing easily on supplemental O2 Head: normocephalic, atraumatic Eyes: normal inspection, PERRL, conjunctivae normal, anicteric sclerae ENT: external ear and nose normal, oropharynx normal Neck: trachea midline, no thyromegaly normal visual inspection Respiratory: increased respiratory effort, L mid lung-base with crackles, poor air movement throughout with rhonchi. + Accessory abdominal muscle use Cardiovascular: tachycardic, regular rhythm, no murmur appreciated, normal peripheral pulses, no BLE edema. Vessels: no JVD Chest: normal inspection of chest Abdomen/GI: normal bowel sounds, soft, RLQ TTP but no guarding, no hepatosplenomegaly Extremities/Musculoskeletal: + clubbing, +capillary refill takes 2 to 3 seconds, extremities motor strength 5/5 Neurologic: PERRL, EOMI, accommodation nl, no face palsy, no dysarthria, CN's II-XI intact bilaterally and moves all extremities Psychiatric: A+Ox3, euthymic affect Skin: no rashes, normal color, warm/dry Results & Data Results & Data ([facility]) Vital Signs (Past 12 Hours) Vital Signs Temp Pulse Resp BP Pulse Ox 02/13/20 13:01 111 H 24 98 02/13/20 13:00 113 H 17 155/88 H 99 02/13/20 12:32 112 H 22 146/91 H 100 02/13/20 12:30 109 H 22 99 02/13/20 12:15 111 H 23 98 02/13/20 11:31 132 H 18 127/79 97 02/13/20 11:30 133 H 18 97 02/13/20 11:00 141 H 33 H 95 02/13/20 10:30 143 H 25 H 02/13/20 10:26 138 H 28 H 94 02/13/20 10:22 147 H 23 02/13/20 10:20 37.0 C 149 H 35 H 136/117 H 94 Laboratory Results Short CBC 02/13/20 Range/Units 10:20 WBC 14.37 H (4.8-10.8) K/uL Hgb 12.9 (12.0-16.0) g/dL Hct 40.6 (37-47) % Plt Count 359 (130-400) K/uL BMP 02/13/20 10:20 Sodium 140 Potassium 4.2 Chloride 101 Carbon Dioxide 30 BUN 16 Creatinine 0.56 L Glucose 121 H Calcium 9.6 Cardiac Enzymes 02/13/20 Range/Units 10:20 Total Creatine Kinase 25 L (26-192) U/L CK-MB (CK-2) < 1.0 (0.5-3.6) ng/ml Troponin I < 0.015 (0-0.045) ng/ml Liver Function 02/13/20 Range/Units 10:20 Total Bilirubin 0.4 (0.2-1) mg/dl AST 14 L (15-37) U/L ALT 17 (12-78) U/L Alkaline Phosphatase 128 H (45-117) U/L Albumin 2.9 L (3.4-5.0) gm/dl Diagnostic Findings CXR: 1. Patchy airspace consolidation is seen in the left mid to lower lung. Correlate clinically for evidence of pneumonia/aspiration pneumonitis. Radiographic follow-up to resolution is recommended. 2. Advanced emphysema with postoperative change on the right. Code Status & VTE Plan VTE Prophylaxis Plan VTE Prophylaxis will be ordered: Yes Supervising Physician Co-Signing Physician Notes Patient was seen and examined by me, care coordinated with Nu Sebastian PA-C. Please see her note above for further details. Mrs. 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 Patient was recently admitted in November, due to right-sided chest pain, since then, she has not had chest pain. She followed up with PCP and warfarin clinic, her INR been subtherapeutic, 1.4 on January 16, and 1.6 on February 02. Currently she presents with INR greater than 9.7. During her PCP follow-up, patient underwent chest x-ray, which only showed emphysema with post op changes on the right side. She also underwent a right hip x-ray due to right hip pain, however results are not available. Currently chest x-ray in ED, shows patchy consolidation, concerning for left mid/lower lung pneumonia versus aspiration pneumonitis. She received cef triaxone and doxycycline in the ED, magnesium, Solu-Medrol and 1 L of normal saline. She has been having nausea since yesterday, complains of constipation for about a week. Currently she is throwing up in the ED. Also says that her had to go up on her oxygen to 3 L. She is also tachycardic and overall ill appearing. She reports weight loss about 6 pounds over the past several weeks. She is currently sitting up in bed, appears uncomfortable, however she is alert and oriented and is answering questions appropriately. Lungs sounds significant for diffuse mild rhonchi, no wheezing noted. Heart sounds regular but tachycardic, heart rate over 100. Abdomen is thin, positive bowel sounds, somewhat tender at right lower quadrant, nondistended. Patient moves all 4 extremities spontaneously. There is no lower extremity edema. There is no rash noted on her skin. CT abdomen pelvis is currently pending. Plan to admit patient to PCU, hold her warfarin, continue IV antibiotics. Will obtain lactic acid, and procalcitonin. Further management per CT abdomen pelvis results. Tracy Man MD
[2020-02-13] MEDS ORDERED: IOVERSOL 100ml IV ONE (15:54)
--- NOTE | 2020-02-13 16:09 | CT Scan Report ---
CT abd pelvis IV con only CLINICAL HISTORY: Right abdominal pain WEAKNESS. COMPARISON STUDY: September 16, 2016 TECHNIQUE: The patient was scanned in a dynamic helical fashion during intravenous administration of 90 cc of Optiray 320 A dose lowering technique was utilized adhering to the principles of ALARA. CT DOSE: 216.44 mGy.cm FINDINGS: Lower chest: There is pulmonary emphysema. There is lingular consolidation suspicious for pneumonia. Liver: The contrast-enhanced liver is normal in size, contour, and attenuation. There is no intrahepa tic biliary ductal dilatation. The hepatic veins and portal veins are patent. Gallbladder: Cholelithiasis Spleen: Normal in size and attenuation. Pancreas: Unremarkable. Adrenal glands: There is a stable 8 mm left adrenal nodule Kidneys: There is stable left renal cortical scarring. No solid renal masses are visualized. There is bilateral nephrolithiasis. Bowel: There are no transition zones to indicate bowel obstruction. There is no evidence of acute div erticulitis. The appendix is not visualized with certainty. There are no findings suspicious for acut e appendicitis. Peritoneum: There is no intraperitoneal free air or abdominal ascites. Vasculature: There are moderately extensive aortoiliac atheromatous changes. There is an indwelling I VC filter. Struts are again visualized protruding beyond the IVC lumen one of which enters a tubal geovanny dy. There is also a possible stroke within the duodenal wall. Adenopathy: None. Pelvic viscera: The uterus Skeletal structures: No destructive osseous lesions are seen. There is an old L1 compression fracture . There is interval development of a superior endplate L3 compression fracture. The study is moderately degraded by motion artifact. IMPRESSION: 1. Motion degraded study 2. No evidence of bowel obstruction. No evidence of free air 3. Bilateral nephrolithiasis 4. Cholelithiasis 5. No evidence of acute diverticulitis. No evidence of acute appendicitis 6. Lingular consolidation suspicious for pneumonia 7. Old T12 compression fracture. Interval development of an L3 superior endplate compression fracture ACT 112: Negative or not required by law. Electronically signed by: Zeferino Sagastume M.D. 02/13/2020 4:08 PM
[2020-02-13] MEDS ORDERED: ALBUTEROL 0.083% NEBU SOLN 3 ML VIAL INH PRN (16:36)
[2020-02-13] MEDS ORDERED: CONSULT PHARMACY STA (16:36)
[2020-02-13] MEDS ORDERED: SODIUM CHLORIDE 0.9% 1000ML 1,000 ML IV SCH (16:36)
[2020-02-13] MEDS ORDERED: POLYETHYLENE (MIRALAX) 17 GM PACK PO ONE (17:12)
[2020-02-13] MEDS ORDERED: PHYTONADIONE 5 MG TAB PO STA (17:22)
[2020-02-13] MEDS ORDERED: METRONIDAZOLE CONSULT ACTIVE PRN (17:51)
[2020-02-13] MEDS ORDERED: CEFEPIME CONSULT ACTIVE PRN (17:51)
[2020-02-13] MEDS ORDERED: VANCOMYCIN CONSULT ACTIVE PRN (17:51)
--- NOTE | 2020-02-13 17:53 | Electrocardiogram Report ---
Test Reason : Blood Pressure : / mmHG Vent. Rate : 143 BPM Atrial Rate : 143 BPM P-R Int : 138 ms QRS Dur : 066 ms QT Int : 268 ms P-R-T Axes : 085 072 080 degrees QTc Int : 413 ms Poor data quality, interpretation may be adversely affected Sinus tachycardia with occasional Premature ventricular complexes Right atrial enlargement Nonspecific ST abnormality Abnormal ECG When compared with ECG of 06-DEC-2019 06:25, Premature ventricular complexes are now Present Vent. rate has increased BY 73 BPM Confirmed by Aguilar Ravi ([id number]) on 02/13/2020 5:52:52 PM Referred By: REFERRED SELF Confirmed By:Cresencio Ravi
[2020-02-13] MEDS ORDERED: VANCOMYCIN HCL 1,000 MG in SODIUM CHLORIDE 0.9% 250 ML IV ONE (18:00)
[2020-02-13] MEDS ORDERED: CEFEPIME 2,000 MG in SYRINGE 7.5 ML IV ONE (18:00)
[2020-02-13] MEDS: metroNIDAZOLE 500 MG/100 ML BAG IV SCH (18:14)
[2020-02-13] MEDS: methylPREDNISolone 40 MG in SYRINGE 0 ML IV SCH (21:53)
[2020-02-13] MEDS: DOCUSATE SODIUM 100 MG CAP PO SCH (21:54)
[2020-02-13] MEDS: ACETAMINOPHEN 500 MG TAB PO SCH (21:54)
[2020-02-13] MEDS: PRIMIDONE 50 MG TAB PO SCH (21:54)
--- NOTE | 2020-02-14 01:40 | Communication Note ---
Date of Service: February 14, 2020 Notified by RN of addendum item on CT abd report (signed 4:35 PM, 02/12/2020) There are moderately extensive aortoiliac atheromatous changes. There is an i ndwelling IVC filter. Struts are again visualized protruding beyond the IVC lumen, one of which enters a vertebral body. There is also a possible strut within the duodenal wall. Patient currently without abdominal pain or gross GI bleed as per RN. AP IVC filter strut penetration into vertebral body and possible duodenal wall as per CT report General Surgery consult Case discussed with Dr. Bejarano (surgeon front office assistant) who recommends consulting vascular surgery and placing routine GI consult for abnormal CT findings. Okay for patient to continue with clear liquid diet for now as per Dr. Bejarano. Case discussed with Dr. Laguerre (vascular surgeon front office assistant). No operative intervention as per Dr. Laguerre. Will relay to AM provider.
--- NOTE | 2020-02-14 02:08 | Surgery Consultation ---
Date of Consultation February 14, 2020 Assessment & Plan (1) Abdominal pain: pt is a 64 year-old female who was admitted to hospital for pneumonia, yesterday, pt had RLQ pain, pt had CT scan yesterday- Vasculature: There are moderately extensive aortoiliac atheromatous changes. There is an indwelling IVC filter. Struts are again visualized protruding beyond the IVC lumen, one of which enters a vertebral body. There is also a possible strut within the duodenal wall, but pt denies abdominal pain, no bloody stool today. IMP: possible strut within the duodenal, plan, no emergent surgical indication now, no signs of duodenal perforation, please consult vascular surgeon and GI doctor, will F/U, D/W DR. Colon Supervising Physician Co-Signing Physician Notes Patient was seen and examined by me, care coordinated with Nu Sebastian PA-C. Please see her note above for further details. Mrs. 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 Patient was recently admitted in November, due to right-sided chest pain, since then, she has not had chest pain. She followed up with PCP and warfarin clinic, her INR been subtherapeutic, 1.4 on January 16, and 1.6 on February 02. Currently she presents with INR greater than 9.7. During her PCP follow-up, patient underwent chest x-ray, which only showed emphysema with post op changes on the right side. She also underwent a right hip x-ray due to right hip pain, however results are not available. Currently chest x-ray in ED, shows patchy consolidation, concerning for left mid/lower lung pneumonia versus aspiration pneumonitis. She received ceftriaxone and doxycycline in the ED, magnesium, Solu-Medrol and 1 L of normal saline. She has been having nausea since yesterday, complains of constipation for about a week. Currently she is throwing up in the ED. Also says that her had to go up on her oxygen to 3 L. She is also tachycardic and overall ill appearing. She reports weight loss about 6 pounds over the past several weeks. She is currently sitting up in bed, appears uncomfortable, however she is alert and oriented and is answering questions appropriately. Lungs sounds significant for diffuse mild rhonchi, no wheezing noted. Heart sounds regular but tachycardic, heart rate over 100. Abdomen is thin, positive bowel sounds, somewhat tender at right lower quadrant, nondistended. Patient moves all 4 extremities spontaneously. There is no lower extremity edema. There is no rash noted on her skin. CT abdomen pelvis is currently pending. Plan to admit patient to PCU, hold her warfarin, continue IV antibiotics. Will obtain lactic acid, and procalcitonin. Further management per CT abdomen pelvis results. 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 Pain is constant and aching in RLQ. and is associated with nausea and constipation. Was recently prescribed Colace by PCP but still has not had a bowel movement in 6-7 days. Endorses poor appetite. No melena or hematochezia. Also has been having R hip pain that she underwent XR for on 02/07 (radiologist read pending). Patient woke up this morning feeling more short of breath than usual and had to turn her O2 up to 3 L/min (baseline of 2). Follows with pulm and takes 5mg prednisone daily. Also with h/o DVT/PE on coumadin. Denies fever, chills, headache, lightheadedness, visual changes, sore throat, productive cough, chest pain, palpitations, dysuria, hematuria or diarrhea. Quit smoking 7 years ago. I ( Bernarda Bejarano MD ) got a call for consult CT scan report-Vasculature: There are moderately extensive aortoiliac atheromatous changes. There is an indwelling IVC filter. Struts are again visualized protruding beyond the IVC lumen, one of which enters a vertebral body. There is also a possible strut within the duodenal wall, I reviewed pt's H/P, labs, CT scan with pt, pt said she had abdominal pain yesterday, now pt denies abdominal pain, no nausea, no vomiting, pt said she feels better compare yesterday. no bloody stool, pt just passed yellow stool now, Allergies Allergy/AdvReac Type Severity Reaction Status Date / Time phytonadione (vitamin K1) Allergy Intermediate severe Verified 12/06/19 01:27 back pain, red face levofloxacin Allergy Mild rash Verified 12/06/19 01:27 Penicillins Allergy Mild Amoxil - Verified 12/06/19 01:27 rash allantoin Allergy Unknown [facility] [place] Verified 12/06/19 01:27 bacitracin AdvReac Intermediate infection Verified 12/06/19 01:27 neomycin AdvReac Intermediate infection Verified 12/06/19 01:27 polymyxin B AdvReac Intermediate infection Verified 12/06/19 01:27 theophylline AdvReac Mild Headache Verified 12/06/19 01:27 Home Medications Home Medications Medication Instructions Recorded Confirmed Type prednisone 5 mg PO QAM 07/15/19 02/13/20 History albuterol sulfate 1.25 mg INH QID PRN #360 ml 07/20/19 02/13/20 Rx fluticasone propion-salmeterol 1 ea INHALATION BID 12/06/19 02/13/20 History [Wixela Inhub] primidone 50 mg PO BID 12/06/19 02/13/20 History warfarin [Coumadin] 5 mg PO PEDROZA@1600 02/13/20 02/13/20 History warfarin [Coumadin] 7.5 mg PO MOTUWETHFRSA@1600 02/13/20 02/13/20 History Past Med/Surg History Medical History (Updated 02/13/20 @ 14:59 by Nu Sebastian PA-C) Abdominal pain Chronic respiratory failure (Chronic) COPD (chronic obstructive pulmonary disease) (Chronic) "severe" Essential tremor H/O pneumothorax (Chronic) "spontaneous" History of Clostridium difficile colitis (Chronic) History of DVT (deep vein thrombosis) Pneumonia (Resolved) Surgical History H/O pneumonectomy History of appendectomy S/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) Family History Other Kidney disease Lung disease Social History Smoking Status: Former smoker Hx Alcohol Use: No Hx Substance Use: No Preferred Language: Ecuadorean Communication Ability: Effective 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 Allergies Allergy/AdvReac Type Severity Reaction Status Date / Time phytonadione (vitamin K1) Allergy Intermediate severe Verified 12/06/19 01:27 back pain, red face levofloxacin Allergy Mild rash Verified 12/06/19 01:27 Penicillins Allergy Mild Amoxil - Verified 12/06/19 01:27 rash allantoin Allergy Unknown [facility] [place] Verified 12/06/19 01:27 bacitracin AdvReac Intermediate infection Verified 12/06/19 01:27 neomycin AdvReac Intermediate infection Verified 12/06/19 01:27 polymyxin B AdvReac Intermediate infection Verified 12/06/19 01:27 theophylline AdvReac Mild Headache Verified 12/06/19 01:27 Home Medications Home Medications Medication Instructions Recorded Confirmed Type prednisone 5 mg PO QAM 07/15/19 02/13/20 History albuterol sulfate 1.25 mg INH QID PRN #360 ml 07/20/19 02/13/20 Rx fluticasone propion-salmeterol 1 ea INHALATION BID 12/06/19 02/13/20 History [Wixela Inhub] primidone 50 mg PO BID 12/06/19 02/13/20 History warfarin [Coumadin] 5 mg PO PEDROZA@1600 02/13/20 02/13/20 History warfarin [Coumadin] 7.5 mg PO MOTUWETHFRSA@1600 02/13/20 02/13/20 History Patient History Medical History (Updated 02/14/20 @ 02:14 by Bernarda Bejarano MD) Abdominal pain Chronic respiratory failure (Chronic) COPD (chronic obstructive pulmonary disease) (Chronic) "severe" Essential tremor H/O pneumothorax (Chronic) "spontaneous" History of Clostridium difficile colitis (Chronic) History of DVT (deep vein thrombosis) Pneumonia (Resolved) Surgical History H/O pneumonectomy History of appendectomy S/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) Family History Other Kidney disease Lung disease Social History Smoking Status: Former smoker Smoking End Date: 1998; Hx Alcohol Use: No Hx Substance Use: No Preferred Language: Ecuadorean Communication Ability: Effective 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 Beliefs That Will Affect Care: None marital status: Current Living Situation: Spouse How many Children do You have: 2 Other Information That Helps Us Care for You: No Feels Safe at Home: Yes Safety Concerns: Feels Safe At This Time Physical Exam Constitutional: WD/WN, vitals as above well developed and well nourished Eyes: PERRL, conjunctivae normal, anicteric sclerae ENMT: external ear and nose normal, oropharynx normal Neck: trachea midline, no thyromegaly Respiratory: normal respiratory effort, lungs clear to auscultation Cardiovascular: RRR, no murmur, no edema Gastrointestinal (Abdomen): normal bowel sounds, soft, nontender, no hepatosplenomegaly Percussion/Palpation: abdomen soft NT, ND, BS + Musculoskeletal: no cyanosis or clubbing, extremities motor strength 5/5 Skin: no rashes, warm and dry Neurologic: patellar DTR's 2+ bilat, sensation intact Psychiatric: Orientation: alert and oriented x 3 Results & Data Vital Signs (Past 12 Hours) Vital Signs Temp Pulse Resp BP Pulse Ox 02/13/20 23:44 36.4 C L 95 H 20 115/67 98 02/13/20 19:14 36.6 C 134 H 23 164/86 H 96 02/13/20 17:55 114 H 20 98 02/13/20 16:19 36.8 C 123 H 18 152/82 H 97 Laboratory Results Abnormal lab results 02/13/20 02/13/20 02/13/20 Range/Units 10:20 10:20 10:20 WBC 14.37 H (4.8-10.8) K/uL MCHC 31.8 L (32-36) g/dL RDW Std Deviation 50.8 H (36.4-46.3) fL Neut # (Auto) 12.48 H (1.4-6.5) K/uL Lymph # (Auto) 1.02 L (1.2-3.4) K/uL Gulf # (Auto) 0.63 H (0.11-0.59) K/uL Immature Gran # (Auto) 0.15 H (0.00-0.02) K/uL PT > 90.0 H (9.0-12.0) Seconds INR > 9.7 H* (0.9-1.1) APTT 95.8 H* (21.0-31.0) Seconds Creatinine 0.56 L (0.6-1.2) mg/dl BUN/Creatinine Ratio 29.1 H (10-20) Glucose 121 H (70-99) mg/dl AST 14 L (15-37) U/L Alkaline Phosphatase 128 H (45-117) U/L Total Creatine Kinase 25 L (26-192) U/L Total Protein 8.5 H (6.4-8.2) gm/dl Albumin 2.9 L (3.4-5.0) gm/dl Globulin 5.6 H (2.5-4.0) gm/dl Albumin/Globulin Ratio 0.5 L (0.9-2) Procalcitonin (0-0.5) ng/ml 02/13/20 Range/Units 10:20 WBC (4.8-10.8) K/uL MCHC (32-36) g/dL RDW Std Deviation (36.4-46.3) fL Neut # (Auto) (1.4-6.5) K/uL Lymph # (Auto) (1.2-3.4) K/uL Gulf # (Auto) (0.11-0.59) K/uL Immature Gran # (Auto) (0.00-0.02) K/uL PT (9.0-12.0) Seconds INR (0.9-1.1) APTT (21.0-31.0) Seconds Creatinine (0.6-1.2) mg/dl BUN/Creatinine Ratio (10-20) Glucose (70-99) mg/dl AST (15-37) U/L Alkaline Phosphatase (45-117) U/L Total Creatine Kinase (26-192) U/L Total Protein (6.4-8.2) gm/dl Albumin (3.4-5.0) gm/dl Globulin (2.5-4.0) gm/dl Albumin/Globulin Ratio (0.9-2) Procalcitonin 5.96 H (0-0.5) ng/ml Diagnostic Findings Addendum: In the vascular section of the IV of the report, there are voice recognition errors. The corrected version is as follows. Vasculature: There are moderately extensive aortoiliac atheromatous changes. There is an indwelling IVC filter. Struts are again visualized protruding beyond the IVC lumen, one of which enters a vertebral body. There is also a possible strut within the duodenal wall Electronically signed by: Zeferino Sagastume M.D. 02/13/2020 4:[address] abd pelvis IV con only CLINICAL HISTORY: Right abdominal pain WEAKNESS. COMPARISON STUDY: September 16, 2016 TECHNIQUE: The patient was scanned in a dynamic helical fashion during intravenous administration of 90 cc of Optiray 320 A dose lowering technique was utilized adhering to the principles of ALARA. CT DOSE: 216.44 mGy.cm FINDINGS: Lower chest: There is pulmonary emphysema. There is lingular consolidation suspicious for pneumonia. Liver: The contrast-enhanced liver is normal in size, contour, and attenuation. There is no intrahepatic biliary ductal dilatation. The hepatic veins and portal veins are patent. Gallbladder: Cholelithiasis Spleen: Normal in size and attenuation. Pancreas: Unremarkable. Adrenal glands: There is a stable 8 mm left adrenal nodule Kidneys: There is stable left renal cortical scarring. No solid renal masses are visualized. There is bilateral nephrolithiasis. Bowel: There are no transition zones to indicate bowel obstruction. There is no evidence of acute diverticulitis. The appendix is not visualized with certainty. There are no findings suspicious for acute appendicitis. Peritoneum: There is no intraperitoneal free air or abdominal ascites. Vasculature: There are moderately extensive aortoiliac atheromatous changes. There is an indwelling IVC filter. Struts are again visualized protruding beyond the IVC lumen one of which enters a tubal body. There is also a possible stroke within the duodenal wall. Adenopathy: None. Pelvic viscera: The uterus Skeletal structures: No destructive osseous lesions are seen. There is an old L1 compression fracture. There is interval development of a superior endplate L3 compression fracture. The study is moderately degraded by motion artifact. IMPRESSION: 1. Motion degraded study 2. No evidence of bowel obstruction. No evidence of free air 3. Bilateral nephrolithiasis 4. Cholelithiasis 5. No evidence of acute diverticulitis. No evidence of acute appendicitis 6. Lingular consolidation suspicious for pneumonia 7. Old T12 compression fracture. Interval development of an L3 superior endplate compression fracture ACT 112: Negative or not required by law.
[2020-02-14 02:13] LABS: Basophils # (auto) 0.03 K/uL (0-0.2); Basophils % (auto) 0.4 %; Eosinophils # (auto) 0.03 K/uL (0-0.5); Eosinophils % (auto) 0.4 %; Hematocrit (blood only) 29.9 % (37-47); Hemoglobin 9.5 g/dL (12.0-16.0); Immature Granulocytes # (auto) 0.07 K/uL (0.00-0.02); Immature Granulocytes % (auto) 0.9 %; Lymphocytes # (auto) 1.19 K/uL (1.2-3.4); Mean Corpuscular Hemoglobin 30.2 pg (25-34); Mean Corpuscular Hgb Conc 31.8 g/dL (32-36); Mean Corpuscular Volume 94.9 fL (80-100); Mean Platelet Volume 8.6 fL (7.4-10.4); Monocytes # (auto) 0.91 K/uL (0.11-0.59); Monocytes % (auto) 11.5 %; Neutrophils % (auto) 71.8 %; Platelet Count 232 K/uL (130-400); RDW Coefficient of Variation 14.4 % (11.5-14.5); RDW Standard Deviation 49.6 fL (36.4-46.3); Red Blood Count 3.15 M/uL (4.2-5.4); White Blood Count 7.93 K/uL (4.8-10.8)
[2020-02-14] MEDS: metroNIDAZOLE 500 MG/100 ML BAG IV SCH ×3 (02:18→18:25)
[2020-02-14] MEDS: CEFEPIME 2,000 MG in SYRINGE 7.5 ML IV SCH ×3 (02:18→18:24)
[2020-02-14 02:34] LABS: BUN Creatinine Ratio 31.4 (10-20); Calcium 8.3 mg/dl (8.5-10.1); Creatinine Clr Calc Pharmacy 78.1 ml/min; Est GFR (African American) 119.3; Est GFR (Non-African American) 102.9; Magnesium 1.9 mg/dl (1.8-2.4); Potassium 4.4 mmol/L (3.5-5.1)
[2020-02-14 02:37] LABS: Partial Thromboplastin Ratio 4.6; Prothrombin Time > 90.0 Seconds (9.0-12.0)
[2020-02-14 02:59] LABS: INR 9.7 (0.9-1.1); Partial Thromboplastin Time 128.3 Seconds (21.0-31.0)
[2020-02-14] MEDS ORDERED: PHYTONADIONE 5 MG TAB PO STA ×2 (03:04→07:04)
[2020-02-14] MEDS ORDERED: MAGNESIUM SULFATE / D5W 1 GM/100 ML BAG IV ONE (03:15)
[2020-02-14] MEDS: methylPREDNISolone 40 MG in SYRINGE 0 ML IV SCH ×3 (03:15→20:46)
[2020-02-14] MEDS: ACETAMINOPHEN 500 MG TAB PO SCH ×3 (03:15→18:25)
--- NOTE | 2020-02-14 05:45 | Gastrointestinal Consultation ---
Date of Consultation February 14, 2020 Assessment & Plan (1) Presence of inferior vena cava filter: 1. Will review CT films. 2. Discussed with vascular surgery - does not believe it has perforated the full-thickness of the duodenum and surgery to remove the IVC filter would be very complicated thus recommend against. Present on Admission?: Yes (2) Melena: 1. Continue Protonix drip, NPO and reversal of INR. 2. Continue careful monitoring of outputs. 3. Recheck Hb later this shift. 4. Will avoid EGD while INR is supratherapeutic. Goal INR for endoscopy is <2 Present on Admission?: Yes Supervising Physician Co-Signing Physician Notes Attg add: I interviewed and examined pt, reviewed chart and labs. Pt with complicated med history on ac for DVT admit with abdominal pain with subsequent episode of melena that occured with markedly supra therapeutic INR. CT on admit showed tines from ivc filter placed 8 years ago ab[address] duodenum. CT was reviewed with radiologist. She is also being treated for pneumonia. A/P: abd pain, UGIB in the context of supra therapeutic INR -- acid-peptic disease, IVC filter erosion in to duodenum. WIll plan EGD tomorrow. History of Present Illness Reason for Consultation: poss duodenal penetration of ivc filter strut onct Requesting Physician: Dr. Colon Attending Physician: Torsten Man MD History of Present Illness Ms. Emilie Copeland is a 64 yr old female pt of Dr. Barahona with a hx of A COPD on home O2, tremor, HCV cleared posttreatment, DVT on warfarin, sarcoidosis, UCand C-diff. She presented to the emergency department yesterday for abdominal pain and constipation of 6 days duration. She had also had nausea and vomiting yesterday. On arrival, CT scan suggesting that an IVC filter strut could possibly have migrated through the duodenal wall. I spoke with Susana French PA-C of vascular surgery who felt that it did not perforate the entire thickness of the wall. On arrival, INR was supratherapeutic at 9. She passed one large, loose black BM this morning around 2 AM and has not passed her bowels since then. She denies any GI bleeding prior to arrival. Since passing a large bowel movement, the patient's abdominal pain is resolved. She has been kept n.p.o. she is not having any nausea or vomiting. Hemoglobin was 12.9 on arrival and 10.6 this morning. BUN is 15. Warfarin is being reversed, having received a total of 10mg of Vit K but most recent INR remains elevated at 9.7. The patient is awake alert oriented comfortable and hemodynamically stable and in medical ICU bed. A Protonix drip is running. She has not had prior EGD. Most recent colonoscopy [place] [address] Pires with evidence of scarring from chronic ulcerative colitis but no current active UC. Allergies Allergy/AdvReac Type Severity Reaction Status Date / Time phytonadione (vitamin K1) Allergy Intermediate severe Verified 12/06/19 01:27 back pain, red face levofloxacin Allergy Mild rash Verified 12/06/19 01:27 Penicillins Allergy Mild Amoxil - Verified 12/06/19 01:27 rash allantoin Allergy Unknown [facility] [place] Verified 12/06/19 01:27 bacitracin AdvReac Intermediate infection Verified 12/06/19 01:27 neomycin AdvReac Intermediate infection Verified 12/06/19 01:27 polymyxin B AdvReac Intermediate infection Verified 12/06/19 01:27 theophylline AdvReac Mild Headache Verified 12/06/19 01:27 Home Medications Home Medications Medication Instructions Recorded Confirmed Type prednisone 5 mg PO QAM 07/15/19 02/13/20 History albuterol sulfate 1.25 mg INH QID PRN #360 ml 07/20/19 02/13/20 Rx fluticasone propion-salmeterol 1 ea INHALATION BID 12/06/19 02/13/20 History [Wixela Inhub] primidone 50 mg PO BID 12/06/19 02/13/20 History warfarin [Coumadin] 5 mg PO PEDROZA@159902/13/20 02/13/20 History warfarin [Coumadin] 7.5 mg PO MOTUWETHFRSA@1600 02/13/20 02/13/20 History Patient History Medical History Abdominal pain Chronic respiratory failure (Chronic) COPD (chronic obstructive pulmonary disease) (Chronic) "severe" Essential tremor H/O pneumothorax (Chronic) "spontaneous" History of Clostridium difficile colitis (Chronic) History of DVT (deep vein thrombosis) Pneumonia (Resolved) Presence of inferior vena cava filter Surgical History H/O pneumonectomy History of appendectomy S/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) Family History Other Kidney disease Lung disease Social History Smoking Status: Former smoker Smoking End Date: 1998; Hx Alcohol Use: No Hx Substance Use: No Preferred Language: Faroese Communication Ability: Effective Ep[employer] 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 : Denies pain on urination Skin: No jaundice, itching or new rashes Physical Exam Constitutional: WD/WN, vitals as above Eyes: PERRL, conjunctivae normal, anicteric sclerae ENMT: external ear and nose normal, oropharynx normal Neck: trachea midline, no thyromegaly Respiratory: normal respiratory effort; no labored breathing, no retractions and no cough Auscultation: + crackles (at bases); no wheezes Cardiovascular: Rate/Rhythm: regular rate and regular rhythm 2/6 systolic murmur Gastrointestinal (Abdomen): normal bowel sounds, soft, nontender, no hepatosplenomegaly Musculoskeletal: no cyanosis or clubbing, extremities motor strength 5/5 Skin: no rashes, warm and dry no jaundice Neurologic: PERRL, EOMI, accommodation nl, no face palsy, no dysarthria Psychiatric: A+Ox3, euthymic affect Lymphatic: no cervical or axillary lymphadenopathy Results & Data ([facility]) Vital Signs (Past 12 Hours) Vital Signs Temp Pulse Resp BP Pulse Ox 02/14/20 03:05 36.8 C 106 H 18 130/76 97 08/03/20 23:44 36.4 C L 95 H 20 115/67 98 02/13/20 19:14 36.6 C 134 H 23 164/86 H 96 02/13/20 17:55 114 H 20 98 Laboratory Results WBC 7.9, Hb 10.6, HCT 33.5, PLT 232, INR 9.7, NA 143, K4.4, BUN 15, CR 0.4, glucose [address] abd/pelvis with IV contrast There are moderately extensive aortoiliac atheromatous changes. There is an indwelling IVC filter. Struts are again visualized protruding beyond the IVC lumen, one of which enters a vertebral body. There is also a possible strut within the duodenal wall Medications Administered Protonix drip, vitamin K, plasma
--- NOTE | 2020-02-14 06:27 | Communication Note ---
Date of Service: February 14, 2020 Around 6:15 AM patient RN made aware by staff of patient having melanotic stools. Belly pain the same as per patient. No unusual chest pain, S OB as per patient. Stool Hemoccult positive. Hg 9.5 from 12 INR 9.5 AP UGIB Coumadin coagulopathy Anemia secondary to above N.p.o. for now IV PPI Hold Coumadin Oral vitamin K (patient unable to have parenteral vitamin K citing bad reaction in the past), FFP to reverse coagulopathy Trend H&H, transfuse PRBC if hemoglobin less than 8 and or for symptomatic anemia We will update GI of developments. Will relay to AM provider.
[2020-02-14] MEDS ORDERED: PANTOPRAZOLE BOLUS/DRIP 1 EA IV STA (07:05)
[2020-02-14] MEDS: LEVALBUTEROL TARTRATE 15 GM HFA.AER.AD INH SCH ×4 (07:07→19:00)
[2020-02-14] MEDS ORDERED: SODIUM CHLORIDE 0.9% 250 ML IV PRN (07:07)
[2020-02-14] MEDS ORDERED: SODIUM CHLORIDE 0.45 % 1,000 ML IV SCH (07:15)
[2020-02-14] MEDS ORDERED: PANTOprazole 80 MG in DEXTROSE 5% 100 ML IV ONE (07:30)
[2020-02-14] MEDS: PANTOprazole 40 MG in DEXTROSE 5% 100 ML IV SCH ×4 (07:40→22:59)
[2020-02-14 08:15] LABS: Hematocrit (blood only) 33.5 % (37-47); Hemoglobin 10.6 g/dL (12.0-16.0)
--- NOTE | 2020-02-14 08:32 | Hospitalist Progress Note ---
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 -In setting of Left mid to lower lung pneumonia, COPD exacerbation, has been requiring 3 L O2 at home (baseline 2 L NC O2) -Tachypnea present initially has resolved. Continue supplemental oxygen (2) Sepsis: (3) Hospital acquired PNA: -Initially tachycardic in 140s, tachypneic in 30s (now improved to HR 111 and RR 18), leukocytosis of 14.37, procalcitonin of 5.96. COVID PCR negative. Lactate wnl -CXR with patchy airspace consolidation is seen in the left mid to lower lung. Correlate clinically for evidence of pneumonia/aspiration pneumonitis -Clinically improved on Xopenex nebs, IV Solu-Medrol 40 Q8H. Vanc discontinued due to negative MRSA swab. Continue Cefepime and Flagyl - blood culture still resulting (4) COPD exacerbation: Continue Xopenex nebs, IV Solu-Medrol 40mg Q8H, antibiotic coverage as above (5) Supratherapeutic INR: History of PE in 2010, also with presence of IVC filter -One large melanotic BM overnight in setting of supratherapeutic INR >9.7 -Was given p.o. vitamin K 5 mg yesterday afternoon. Given an additional 2.5 mg PO overnight and 7.5 mg PO in AM (adverse rxn to IV Vit K in the past). Also given 2 units FFP -Repeat PT/INR pending (6) Melena: One large melanotic BM overnight in setting of supratherapeutic INR >9.7. No additional movement since -Concern for bleeding in setting of IVC filter strut penetration into vertebral body and possible duodenal wall as per CT report -General surgery consulted - Dr. Bejarano (surgeon s iron worker) who recommends consulting vascular surgery and placing GI consult -Vascular surgery consulted - does not believe it has perforated the full- thickness of the duodenum and surgery to remove the IVC filter would be very complicated thus recommend against. If there is concern for duodenal perforation, then high risk surgical repair of IVC would require transfer to tertiary care center -GI consulted - Continue IV protonix drip, keep NPO and continue reversal of INR. Per GI "Will avoid EGD while INR is supratherapeutic. If melena continues and INR is less than 3, could do diagnostic EGD and therapeutic EGD if INR <1.5" -Trend H&H Q6H (7) RLQ abdominal pain: Worsening pain over the past few weeks in setting of poor appetite and constipation. One episode of emesis in ED after being given multiple medications -Resolved after large bowel movement overnight (8) Severe malnutrition: BMI of 15.4, poor appetite. Dietitian consulted (9) Essential tremor: Continue primidone DVT Ppx: Supratherapeutic on Coumadin Code status: FULL PCP: Jun Dispo: Admitted to PCU. Plan to return home once medically stable. Patient seen in collaboration with Dr. Iglesias. Please see addendum. 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, no nausea or vomiting no other symptoms VS noted and reviewed oriented x 3, not in distress, speaks in sentences with no effort nor accessory muscle use normal rate, regular rhythm, no murmurs Mild crackles bilateral bases, no wheezing, good air entry bilaterally non distended, soft, nontender no bipedal edema, erythema, warmth no neuro deficits WBC 7.9 Hg 9.4 Crea 0.47 INR 2.3 ASSESSMENT AND PLAN Acute on chronic hypoxic respiratory failure, left lower lobe pneumonia, COPD exacerbation Follow-up cultures Denies aspiration events at home Continue cefepime Melena Possible IVC filter strut perforation to the duodenum Supratherapeutic INR, on chronic Coumadin for PE/DVT, last event 2010 Per GI, IVC filter not perforating the full-thickness of the duodenum and surgery to remove the IVC filter would be very complicated thus recommend against. Will avoid EGD while INR is supratherapeutic. If melena continues and INR is less than 3 could do diagnostic EGD and therapeutic EGD if INR <1.5. Per patient Coumadin clinic has been decreasing her Coumadin dose for supratherapeutic INR Admitted with INR of more than 9.7 Given vitamin K p.o., FFP INR 2.3 No melena recurrent so far Continue Protonix Follow closely Plan of care discussed in detail and at length with patient and her at the bedside All questions were answered They are understanding, agreeable, comfortable with plan of care other diagnoses and plan of care as per JENSEN Sebastian's notes Jerome Iglesias MD Subjective Patient seen and examined in . Feeling much better today. Less short of breath - getting closer to respiratory baseline. Abdominal pain has improved to 2/10 (from 10/10 yesterday) after large bowel movement past during the middle of the night. Noted to be black in color. No additional bowel movement since. Denies any fever or chills. No lightheadedness, visual changes, palpitations or chest pain. No nausea, vomiting, dysuria or hematuria. No nosebleeds or new bruises. Review of Systems Review of Systems: At least ten systems reviewed and negative except as noted in the HPI. Physical Exam Physical Exam: General Appearance: vitals as above, appears clinically improved, cachectic, older than stated age, conversing easily on supplemental O2 Head: normocephalic, atraumatic Eyes: normal inspection, PERRL, conjunctivae normal, anicteric sclerae ENT: external ear and nose normal, oropharynx normal Neck: trachea midline, no thyromegaly normal visual inspection Respiratory: improved air movement throughout. Still with diffuse rhonchi throughout. No accessory muscle use Cardiovascular: tachycardic, regular rhythm, no murmur appreciated, normal peripheral pulses, no BLE edema Chest: normal inspection of chest Abdomen/GI: normal bowel sounds, soft, nontender, no hepatosplenomegaly Extremities/Musculoskeletal: + clubbing, +capillary refill takes 2-3 seconds, extremities motor strength 5/5 Neurologic: PERRL, EOMI, accommodation nl, no face palsy, no dysarthria, CN's II-XI intact bilaterally and moves all extremities Psychiatric: A+Ox3, euthymic affect Skin: no rashes, normal color, warm/dry Results & Data Results & Data ([facility]) Vital Signs (Past 12 Hours) Vital Signs Temp Pulse Resp BP Pulse Ox 02/14/20 07:15 36.7 C 104 H 16 123/77 96 02/14/20 07:07 80 19 97 02/14/20 03:05 36.8 C 106 H 18 130/76 97 02/13/20 23:44 36.4 C L 95 H 20 115/67 98 Laboratory Results Short CBC 02/14/20 02/14/20 Range/Units 01:49 07:52 WBC 7.93 (4.8-10.8) K/uL Hgb 9.5 L D 10.6 L (12.0-16.0) g/dL Hct 29.9 L 33.5 L (37-47) % Plt Count 232 (130-400) K/uL [facility] 02/14/20 01:49 Sodium 143 Potassium 4.4 Chloride 108 H Carbon Dioxide 31 BUN 15 Creatinine 0.47 L Glucose 81 Calcium 8.3 L Diagnostic Findings CXR: CT abd/pelvis:
--- NOTE | 2020-02-14 09:29 | Consultation ---
Date of Consultation February 14, 2020 Assessment & Plan (1) Presence of inferior vena cava filter: Pt with migrated struts from remotely placed IVC filter. Any surgical repair/removal of this would carry considerable risk to pt. If there is concern for duodenal perforation, then ex lap with removal of IVC filter will be required with surgical repair of her IVC at a tertiary center. If no concern for duodenal perforation, then would not recommend any surgical intervention on her filter. Pt understands and is agreeable. Please call if needed. Patient chart reviewed. Agree with exam and treatment plan of the Vascular PA. History of Present Illness Reason for Consultation: IVC filter migration Attending Physician: Jerome Iglesias MD History of Present Illness 64 yo f with multiple medical problems, including COPD, hx DVT on coumadin and s/p IVC filter insertion in 2010, hx pneumothorax and partial lobectomy, oxygen dependent, Ulcerative colitis, essential tremor, admitted with abd pain, constipation, and N/V, seen in consultation today for incidental finding of migrated IVC filter. Pt states she had been constipated for approx 1 week [place], and came to [facility] after N/V started. She had no appetite for past week and states she lost 7 lbs. Has not been having chronic abd pain other than this episode associated with constipation. Feeling improved today, no sx. Denies FOSTER, fever, chills, chest pain, SOB worse than usual, rest pain, claudication, other complaints. CT scan abd/pelvis demonstrates IVC filter strut migration into vertebral body and into duodenal wall. Allergies Allergy/AdvReac Type Severity Reaction Status Date / Time phytonadione (vitamin K1) Allergy Intermediate severe Verified 12/06/19 01:27 back pain, red face levofloxacin Allergy Mild rash Verified 12/06/19 01:27 Penicillins Allergy Mild Amoxil - Verified 12/06/19 01:27 rash allantoin Allergy Unknown [facility] LIST Verified 12/06/19 01:27 bacitracin AdvReac Intermediate infection Verified 12/06/19 01:27 neomycin AdvReac Intermediate infection Verified 12/06/19 01:27 polymyxin B AdvReac Intermediate infection Verified 12/06/19 01:27 theophylline AdvReac Mild Headache Verified 12/06/19 01:27 Home Medications Home Medications Medication Instructions Recorded Confirmed Type prednisone 5 mg PO QAM 07/15/19 02/13/20 History albuterol sulfate 1.25 mg INH QID PRN #360 ml 07/20/19 02/13/20 Rx fluticasone propion-salmeterol 1 ea INHALATION BID 12/06/19 02/13/20 History [Wixela Inhub] primidone 50 mg PO BID 12/06/19 02/13/20 History warfarin [Coumadin] 5 mg PO PEDROZA@1600 02/13/20 02/13/20 History warfarin [Coumadin] 7.5 mg PO MOTUWETHFRSA@1600 02/13/20 02/13/20 History Patient History Medical History (Updated 02/14/20 @ 11:20 by Kirstin Delacruz) Abdominal pain Chronic respiratory failure (Chronic) COPD (chronic obstructive pulmonary disease) (Chronic) "severe" Essential tremor H/O pneumothorax (Chronic) "spontaneous" History of Clostridium difficile colitis (Chronic) History of DVT (deep vein thrombosis) Pneumonia (Resolved) Presence of inferior vena cava filter Surgical History H/O pneumonectomy History of appendectomy S/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) Family History Other Kidney disease Lung disease Social History Smoking Status: Former smoker Smoking End Date: 1998; Hx Alcohol Use: No Hx Substance Use: No Preferred Language: [place] Islander Communication Ability: Effective Insurance Territory Manager Required: No Beliefs That Will Affect Care: None marital status: Current Living Situation: Spouse How many Children do You have: 2 Other Information That Helps Us Care for You: No Feels Safe at Home: Yes Safety Concerns: Feels Safe At This Time Review of Systems Review of Systems: All systems reviewed & are unremarkable except as noted in HPI & below Physical Exam Constitutional: + thin, + frail appearing, cooperative, comfortable and + underweight; not in distress Eyes: PERRL, conjunctivae normal, anicteric sclerae ENMT: Ears: no hearing impairment Neck: normal visual inspection Respiratory: Auscultation: + diminished lung sounds and + rhonchi Cardiovascular: Rate/Rhythm: regular rate and regular rhythm Vessels: femoral pulses present, posterior tibial pulses present, dorsalis pedis pulses present, brachial pulses present and radial pulses present; + abnormal peripheral pulses Extremities: normal capillary refill; no edema Gastrointestinal (Abdomen): normal bowel sounds, soft, nontender, no hepatosplenomegaly Musculoskeletal: no cyanosis or clubbing, extremities motor strength 5/5 Skin: no rashes, warm and dry Neurologic: moves all extremities; no focal motor deficits and not confused Psychiatric: A+Ox3, euthymic affect Results & Data Vital Signs (Past 12 Hours) Vital Signs Temp Pulse Pulse Resp BP BP Pulse Ox 02/14/20 09:14 37.0 C 120 H 22 129/60 97 02/14/20 07:15 36.7 C 104 H 16 123/77 96 02/14/20 07:07 80 19 97 02/14/20 03:05 36.8 C 106 H 18 130/76 97 02/13/20 23:44 36.4 C L 95 H 20 115/67 98
[2020-02-14 12:33] LABS: Hematocrit (blood only) 29.9 % (37-47); Hemoglobin 9.4 g/dL (12.0-16.0)
[2020-02-14 12:45] LABS: INR 2.3 (0.9-1.1); Prothrombin Time 22.8 Seconds (9.0-12.0)
[2020-02-14] MEDS: DOCUSATE SODIUM 100 MG CAP PO SCH ×2 (13:10→20:46)
[2020-02-14] MEDS: PRIMIDONE 50 MG TAB PO SCH ×2 (13:10→20:46)
--- NOTE | 2020-02-14 13:15 | Surgery Progress Note ---
Date of Service February 14, 2020 Assessment & Plan (1) Abdominal pain: pt is a 64 year-old female who was admitted to hospital for pneumonia and RLQ abdominal pain. CT scan 02/13/2020- Vasculature: There are moderately extensive aortoiliac atheromatous changes. There is an indwelling IVC filter. Struts are again visualized protruding beyond the IVC lumen, one of which enters a vertebral body. There is also a possible strut within the duodenal wall - afebrile, leukocytosis resolved - Hemoglobin 9.5 today (12.9 yesterday) Hemoccult positive stool , hemodynamically stable - No evidence of peritonitis on exam, abdomen soft - Supratherapeutic INR of 9.7 Plan: Patient is hemodynamically stable and there is no evidence of peritonitis. No acute surgical intervention recommended at this time however given the concern of IVC protruding through the IVC lumen in vertebral body and duodenal wall as well as supratherapeutic INR would not recommend surgical intervention at this institution and would recommend consideration of transfer to tertiary center. Vascular surgery consulted and recommends no surgical intervention at this time given high risk of bleeding and again their service would recommend transfer to tertiary center if there is any indication for surgery (peritonitis, signs of perforation, etc). Given hemoccult positive stool , await GI consultation in regards to dietary status continue medical management Dr. Bejarano discussed his recommendation of transfer to tertiary center with Hospitalist Dr. Harris Bejarano has seen and examined pt, agrees with above. Subjective denies of any abdominal pain today no nausea or vomiting had black bowel movement last evening Physical Exam Constitutional: + thin, + frail appearing and cooperative; no acute distress Respiratory: normal respiratory effort; no respiratory distress Gastrointestinal (Abdomen): Inspection/Auscultation: abdomen normal to inspection; abdomen not distended Percussion/Palpation: abdomen soft; abdomen nontender, no guarding and abdomen not rigid Skin: no rashes, warm and dry Psychiatric: Orientation: alert and oriented x 3 Results & Data Vital Signs (Past 12 Hours) Vital Signs Temp Pulse Pulse Resp BP BP Pulse Ox 02/14/20 12:09 37.1 C 116 H 18 140/76 97 02/14/20 11:38 36.8 C 120 H 20 137/79 98 02/14/20 10:18 37 C 116 H 18 130/77 97 02/14/20 09:48 36.9 C 116 H 20 128/76 98 02/14/20 09:33 37 C 120 H 20 136/78 97 02/14/20 09:14 37.0 C 120 H 22 129/60 97 02/14/20 07:15 36.7 C 104 H 16 123/77 96 02/14/20 07:07 80 19 97 02/14/20 03:05 36.8 C 106 H 18 130/76 97 Laboratory Results 02/14/20 02/14/20 02/14/20 Range/Units 12:20 12:18 07:52 WBC (4.8-10.8) K/uL RBC (4.2-5.4) M/uL Hgb 9.4 L 10.6 L (12.0-16.0) g/dL Hct 29.9 L 33.5 L (37-47) % MCV (80-100) fL MCH (25-34) pg MCHC (32-36) g/dL RDW Std Deviation (36.4-46.3) fL RDW Coeff of Isaura (11.5-14.5) % Plt Count (130-400) K/uL MPV (7.4-10.4) fL Immature Gran % (Auto) % Neut % (Auto) % Lymph % (Auto) % Lea % (Auto) % Eos % (Auto) % Baso % (Auto) % Neut # (Auto) (1.4-6.5) K/uL Lymph # (Auto) (1.2-3.4) K/uL Lea # (Auto) (0.11-0.59) K/uL Eos # (Auto) (0-0.5) K/uL Baso # (Auto) (0-0.2) K/uL Immature Gran # (Auto) (0.00-0.02) K/uL PT 22.8 H (9.0-12.0) Seconds INR 2.3 H (0.9-1.1) APTT (21.0-31.0) Seconds PTT Ratio Sodium (136-145) mmol/L Potassium (3.5-5.1) mmol/L Chloride (98-107) mmol/L Carbon Dioxide (21-32) mmol/L Anion Gap (3-11) BUN (7-18) mg/dl Creatinine (0.6-1.2) mg/dl Est Cr Clr Drug Dosing ml/min Est GFR ( Amer) Est GFR (Non-Af Amer) BUN/Creatinine Ratio (10-20) Glucose (70-99) mg/dl Lactate (0.4-2.0) mmol/L Calcium (8.5-10.1) mg/dl Magnesium (1.8-2.4) mg/dl Procalcitonin (0-0.5) ng/ml Nasal Screen MRSA (PCR) (Negative) Blood Type Antibody Screen 02/14/20 02/14/20 02/14/20 Range/Units 01:49 01:49 01:49 WBC 7.93 (4.8-10.8) K/uL RBC 3.15 L (4.2-5.4) M/uL Hgb 9.5 L D (12.0-16.0) g/dL Hct 29.9 L (37-47) % MCV 94.9 (80-100) fL MCH 30.2 (25-34) pg MCHC 31.8 L (32-36) g/dL RDW Std Deviation 49.6 H (36.4-46.3) fL RDW Coeff of Isaura 14.4 (11.5-14.5) % Plt Count 232 (130-400) K/uL MPV 8.6 (7.4-10.4) fL Immature Gran % (Auto) 0.9 % Neut % (Auto) 71.8 % Lymph % (Auto) 15.0 % Lea % (Auto) 11.5 % Eos % (Auto) 0.4 % Baso % (Auto) 0.4 % Neut # (Auto) 5.70 (1.4-6.5) K/uL Lymph # (Auto) 1.19 L (1.2-3.4) K/uL Lea # (Auto) 0.91 H (0.11-0.59) K/uL Eos # (Auto) 0.03 (0-0.5) K/uL Baso # (Auto) 0.03 (0-0.2) K/uL Immature Gran # (Auto) 0.07 H (0.00-0.02) K/uL PT > 90.0 H (9.0-12.0) Seconds INR 9.7 H* (0.9-1.1) APTT 128.3 H* (21.0-31.0) Seconds PTT Ratio 4.6 Sodium 143 (136-145) mmol/L Potassium 4.4 (3.5-5.1) mmol/L Chloride 108 H (98-107) mmol/L Carbon Dioxide 31 (21-32) mmol/L Anion Gap 4.0 (3-11) BUN 15 (7-18) mg/dl Creatinine 0.47 L (0.6-1.2) mg/dl Est Cr Clr Drug Dosing 78.1 ml/min Est GFR ( Amer) 119.3 Est GFR (Non-Af Amer) 102.9 BUN/Creatinine Ratio 31.4 H (10-20) Glucose 81 (70-99) mg/dl Lactate (0.4-2.0) mmol/L Calcium 8.3 L (8.5-10.1) mg/dl Magnesium 1.9 (1.8-2.4) mg/dl Procalcitonin (0-0.5) ng/ml Nasal Screen MRSA (PCR) (Negative) Blood Type Antibody Screen 02/14/20 02/13/20 02/13/20 Range/Units 01:49 Unknown 14:48 WBC (4.8-10.8) K/uL RBC (4.2-5.4) M/uL Hgb (12.0-16.0) g/dL Hct (37-47) % MCV (80-100) fL MCH (25-34) pg MCHC (32-36) g/dL RDW Std Deviation (36.4-46.3) fL RDW Coeff of Isaura (11.5-14.5) % Plt Count (130-400) K/uL MPV (7.4-10.4) fL Immature Gran % (Auto) % Neut % (Auto) % Lymph % (Auto) % Lea % (Auto) % Eos % (Auto) % Baso % (Auto) % Neut # (Auto) (1.4-6.5) K/uL Lymph # (Auto) (1.2-3.4) K/uL Lea # (Auto) (0.11-0.59) K/uL Eos # (Auto) (0-0.5) K/uL Baso # (Auto) (0-0.2) K/uL Immature Gran # (Auto) (0.00-0.02) K/uL PT (9.0-12.0) Seconds INR (0.9-1.1) APTT (21.0-31.0) Seconds PTT Ratio Sodium (136-145) mmol/L Potassium (3.5-5.1) mmol/L Chloride (98-107) mmol/L Carbon Dioxide (21-32) mmol/L Anion Gap (3-11) BUN (7-18) mg/dl Creatinine (0.6-1.2) mg/dl Est Cr Clr Drug Dosing ml/min Est GFR ( Amer) Est GFR (Non-Af Amer) BUN/Creatinine Ratio (10-20) Glucose (70-99) mg/dl Lactate 1.0 (0.4-2.0) mmol/L Calcium (8.5-10.1) mg/dl Magnesium (1.8-2.4) mg/dl Procalcitonin (0-0.5) ng/ml Nasal Screen MRSA (PCR) Negative (Negative) Blood Type A Positive Antibody Screen NEGATIVE 02/13/20 Range/Units 10:20 WBC (4.8-10.8) K/uL RBC (4.2-5.4) M/uL Hgb (12.0-16.0) g/dL Hct (37-47) % MCV (80-100) fL MCH (25-34) pg MCHC (32-36) g/dL RDW Std Deviation (36.4-46.3) fL RDW Coeff of Isaura (11.5-14.5) % Plt Count (130-400) K/uL MPV (7.4-10.4) fL Immature Gran % (Auto) % Neut % (Auto) % Lymph % (Auto) % Lea % (Auto) % Eos % (Auto) % Baso % (Auto) % Neut # (Auto) (1.4-6.5) K/uL Lymph # (Auto) (1.2-3.4) K/uL Lea # (Auto) (0.11-0.59) K/uL Eos # (Auto) (0-0.5) K/uL Baso # (Auto) (0-0.2) K/uL Immature Gran # (Auto) (0.00-0.02) K/uL PT (9.0-12.0) Seconds INR (0.9-1.1) APTT (21.0-31.0) Seconds PTT Ratio Sodium (136-145) mmol/L Potassium (3.5-5.1) mmol/L Chloride (98-107) mmol/L Carbon Dioxide (21-32) mmol/L Anion Gap (3-11) BUN (7-18) mg/dl Creatinine (0.6-1.2) mg/dl Est Cr Clr Drug Dosing ml/min Est GFR ( Amer) Est GFR (Non-Af Amer) BUN/Creatinine Ratio (10-20) Glucose (70-99) mg/dl Lactate (0.4-2.0) mmol/L Calcium (8.5-10.1) mg/dl Magnesium (1.8-2.4) mg/dl Procalcitonin 5.96 H (0-0.5) ng/ml Nasal Screen MRSA (PCR) (Negative) Blood Type Antibody Screen
--- NOTE | 2020-02-14 15:45 | Emergency Department Note ---
History of Present Illness General Chief complaint: Abdominal Pain Time Seen by Provider: 02/13/20 10:21 Source: patient, RN notes reviewed and old records reviewed Limitations: no limitations History of Present Illness Provider complaint: abdominal pain Onset (ago): week(s) 3 Location: abdomen Radiation: extremity Severity: moderate Pain Consistency: + intermittent Maximum Pain Intensity: 7 Current Pain Intensity: 7 Quality: + stabbing Relieved By: + immobilization Exacerbated By: + movement Associated symptoms: + fever/chills and + nausea/vomiting; no chest pain, no diaphoresis, no headaches and no shortness of breath Treatments prior to arrival: none This is a 64-year-old female who presents emergency department over concerns of the patient is having abdominal pain. In addition patient is complaining of nausea vomiting as well as fevers and chills. Patient describes the pain as radiating into her right hip and describes the pain as a right hip pain. She reports immobilization makes the pain better however movement makes the pain worse. She has not taken anything for the pain. Home Medications Home Medications Medication Instructions Recorded Confirmed Type prednisone 5 mg PO QAM 07/15/19 02/13/20 History albuterol sulfate 1.25 mg INH QID PRN #360 ml 07/20/19 02/13/20 Rx fluticasone propion-salmeterol 1 ea INHALATION BID 12/06/19 02/13/20 History [Wixela Inhub] primidone 50 mg PO BID 12/06/19 02/13/20 History warfarin [Coumadin] 5 mg PO PEDROZA@1600 02/13/20 02/13/20 History warfarin [Coumadin] 7.5 mg PO MOTUWETHFRSA@1600 02/13/20 02/13/20 History Allergies Allergy/AdvReac Type Severity Reaction Status Date / Time phytonadione (vitamin K1) Allergy Intermediate severe Verified 12/06/19 01:27 back pain, red face levofloxacin Allergy Mild rash Verified 12/06/19 01:27 Penicillins Allergy Mild Amoxil - Verified 12/06/19 01:27 rash allantoin Allergy Unknown [facility] LIST Verified 12/06/19 01:27 bacitracin AdvReac Intermediate infection Verified 12/06/19 01:27 neomycin AdvReac Intermediate infection Verified 12/06/19 01:27 polymyxin B AdvReac Intermediate infection Verified 12/06/19 01:27 theophylline AdvReac Mild Headache Verified 12/06/19 01:27 Past Med/Surg History Medical History Abdominal pain Chronic respiratory failure (Chronic) COPD (chronic obstructive pulmonary disease) (Chronic) "severe" Essential tremor H/O pneumothorax (Chronic) "spontaneous" History of Clostridium difficile colitis (Chronic) History of DVT (deep vein thrombosis) Pneumonia (Resolved) Presence of inferior vena cava filter Surgical History H/O pneumonectomy History of appendectomy S/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) Family History Other Kidney disease Lung disease Social History Smoking Status: Former smoker Smoking End Date: 1998; Hx Alcohol Use: No Hx Substance Use: No Preferred Language: Urdu Communication Ability: Effective Intelligence Manager Required: No Beliefs That Will Affect Care: None marital status: Current Living Situation: Spouse How many Children do You have: 2 Other Information That Helps Us Care for You: No Feels Safe at Home: Yes Safety Concerns: Feels Safe At This Time Review of Systems A total of 10 systems reviewed and were otherwise negative Physical Exam VITAL SIGNS - Vital signs and nursing notes were reviewed. GENERAL - 64-year-old female appearing cachectic. Communicates well with provider and answers questions appropriately. SKIN - Without rashes. HEAD - NC/AT. EYES - PERRL with EOMI bilaterally. Sclera anicteric. Palpebral conjunctiva pink and moist with no injection noted. EARS - No deformities of external structures noted on gross examination bilaterally. No pain elicited with palpation of the tragus bilaterally. External auditory canals without discharge or otorrhea. Tympanic membranes pearly wen without retraction or bulging. No fluid or purulent material visualized behind the TM. Handle of malleus, umbo, cone of light, pars tensa/flaccid all easily v isualized. NOSE - Midline and without cyanosis. No epistaxis or purulent drainage noted. Septum midline without deviation or septal hematoma noted. MOUTH/OROPHARYNX - Without perioral cyanosis. Buccal mucosa pink and moist and without leukoplakia. Tongue midline with equal elevation of palate bilaterally. No tonsillar hypertrophy, erythema, or exudates noted. dentition noted. NECK - Neck with FROM. Supple to palpation. lymphadenopathy noted. No nuchal rigidity. LUNGS - Chest wall symmetric without accessory muscle use, intercostals retractions, or central cyanosis. Normal vesicular breath sounds CTA B/L. No wheezes, rales, or rhonchi appreciated. CARDIAC - RRR with S1/S2. No murmur, rubs, or gallops appreciated. ABDOMEN - Abdominal contour without pulsations or visible masses. BS normoactive all four quadrants. No tenderness, palpable masses, hepatosplenomegaly, or ascites noted. EXTREMITIES - No clubbing or peripheral cyanosis. No pretibial edema present. +3/5 radial, posterior tibial, and dorsalis pedis pulses palpated throughout. +5/5 strength noted in UE/LE bilaterally. NEUROLOGIC - Cranial nerves II through XII grossly intact. Sensory intact to light touch throughout. Patellar reflexes +2/4. PSYCH - A&Ox3 and cooperates fully with examiner. Pt is very pleasant and interacts well with examiner. Course Administered Medications Acetaminophen (Tylenol) 1,000 mg PO Q8H GEE Stop: 03/14/20 19:59 Last Admin: 02/14/20 03:15 Dose: 1,000 mg Documented by: [id number] Admin: 02/13/20 21:54 Dose: 1,000 mg Documented by: [id number] Docusate Sodium (Colace) 100 mg PO BID GEE Stop: 03/14/20 20:59 Last Admin: 02/14/20 13:10 Dose: 100 mg Documented by: [id number] Admin: 02/13/20 21:54 Dose: 100 mg Documented by: [id number] Methylprednisolone 40 mg/ (Syringe) 0.64 mls @ 1.5 mls/min IV Q8H GEE Stop: 03/14/20 19:59 Last Admin: 02/14/20 13:09 Dose: 1.5 mls/min Documented by: [id number] Admin: 02/14/20 03:15 Dose: 1.5 mls/min Documented by: [id number] Admin: 02/13/20 21:53 Dose: 1.5 mls/min Documented by: [id number] Metronidazole (Flagyl) 500 mg in 100 mls @ 100 mls/hr IV Q8H GEE Stop: 02/20/20 17:59 Last Admin: 02/14/20 13:09 Dose: 100 mls/hr Documented by: [id number] Infusion: 02/14/20 04:05 Dose: 0 mls/hr Documented by: [id number] Admin: 02/14/20 02:18 Dose: 100 mls/hr Documented by: [id number] Infusion: 02/13/20 19:15 Dose: 0 mls/hr Documented by: [id number] Admin: 02/13/20 18:14 Dose: 100 mls/hr Documented by: [id number] Cefepime HCl 2,000 mg/ Syringe 20 mls @ 5 mls/min IV Q8H GEE; Protocol Stop: 02/21/20 01:59 Last Admin: 02/14/20 13:08 Dose: 5 mls/min Documented by: [id number] Admin: 02/14/20 02:18 Dose: 5 mls/min Documented by: [id number] Pantoprazole Sodium 40 mg/ (Dextrose) 100 mls @ 20 mls/hr IV Q5H GEE Stop: 03/15/20 07:29 Last Admin: 02/14/20 13:09 Dose: 8 mg/hr, 20 mls/hr Documented by: [id number] Infusion: 02/14/20 12:40 Dose: 8 mg/hr, 20 mls/hr Documented by: [id number] Admin: 02/14/20 07:40 Dose: 8 mg/hr, 20 mls/hr Documented by: [id number] Levalbuterol HCl (Xopenex Hfa) 2 puffs INH QIDR GEE Stop: 03/14/20 18:59 Last Admin: 02/14/20 14:54 Dose: 2 puffs Documented by: [id number] Admin: 02/14/20 11:08 Dose: 2 puffs Documented by: [id number] Admin: 02/14/20 07:07 Dose: 2 puffs Documented by: [id number] Admin: 02/13/20 17:54 Dose: 2 puffs Documented by: [id number] Primidone (Primidone) 50 mg PO BID GEE Stop: 03/14/20 20:59 Last Admin: 02/14/20 13:10 Dose: 50 mg Documented by: [id number] Admin: 02/13/20 21:54 Dose: 50 mg Documented by: [id number] Discontinued Medications Hydromorphone HCl (Dilaudid) 0.25 mg IV Q15M PRN PRN Reason: Pain Stop: 02/27/20 11:07 Last Admin: 02/13/20 11:21 Dose: 0.25 mg Documented by: [id number] Acetaminophen (Ofirmev) 1,000 mg in 100 mls @ 400 mls/hr IV NOW STA Stop: 02/13/20 11:22 Last Infusion: 02/13/20 11:50 Dose: 0 mls/hr Documented by: [id number] Admin: 02/13/20 11:20 Dose: 400 mls/hr Documented by: [id number] Ceftriaxone Sodium (Rocephin) 2,000 mg in 70 mls @ 140 mls/hr IV NOW STA Stop: 02/13/20 11:40 Last Infusion: 02/13/20 13:00 Dose: 0 mls/hr Documented by: [id number] Admin: 02/13/20 12:23 Dose: 140 mls/hr Documented by: [id number] Doxycycline Hyclate 100 mg/ (Dextrose) 110 mls @ 50 mls/hr IV NOW STA Stop: 02/13/20 13:22 Last Infusion: 02/13/20 14:41 Dose: 0 mls/hr Documented by: [id number] Admin: 02/13/20 12:23 Dose: 50 mls/hr Documented by: [id number] Sodium Chloride (Nss 1000ml) 1,000 mls @ 999 mls/hr IV .Q1H1M ONE Stop: 02/13/20 12:14 Last Infusion: 02/13/20 12:23 Dose: 0 mls/hr Documented by: [id number] Admin: 02/13/20 11:21 Dose: 999 mls/hr Documented by: [id number] Magnesium Sulfate/Dextrose (Magnesium Sulfate / D5w) 1 gm in 100 mls @ 100 mls/hr IV NOW STA Stop: 02/13/20 12:13 Last Infusion: 02/13/20 12:22 Dose: 0 mls/hr Documented by: [id number] Admin: 02/13/20 11:20 Dose: 100 mls/hr Documented by: [id number] Sodium Chloride (Nss 1000ml) 1,000 mls @ 80 mls/hr IV .[id number] GEE Stop: 08/04/20 17:35 Last Infusion: 02/14/20 04:05 Dose: 0 mls/hr Documented by: [id number] Admin: 02/13/20 17:35 Dose: 80 mls/hr Documented by: [id number] Vancomycin HCl 1,000 mg/ (Sodium Chloride) 270 mls @ 125 mls/hr IV ONE ONE; Protocol Stop: 02/13/20 20:09 Last Infusion: 02/13/20 20:25 Dose: 0 mls/hr Documented by: [id number] Admin: 02/13/20 18:14 Dose: 125 mls/hr Documented by: [id number] Cefepime HCl 2,000 mg/ Syringe 20 mls @ 5 mls/min IV ONE ONE Stop: 02/13/20 18:03 Last Admin: 02/13/20 18:21 Dose: 5 mls/min Documented by: [id number] Magnesium Sulfate/Dextrose (Magnesium Sulfate / D5w) 1 gm in 100 mls @ 50 mls/hr IV ONE ONE Stop: 02/14/20 05:14 Last Infusion: 02/14/20 05:32 Dose: 0 mls/hr Documented by: [id number] Admin: 02/14/20 03:15 Dose: 50 mls/hr Documented by: [id number] Pantoprazole Sodium 80 mg/ (Dextrose) 120 mls @ 400 mls/hr IV TODAY@0730 ONE Stop: 02/14/20 07:47 Last Infusion: 02/14/20 07:57 Dose: 0 mls/hr Documented by: [id number] Admin: 02/14/20 07:39 Dose: 400 mls/hr Documented by: [id number] Ioversol (Optiray 320 100ml) 90 ml IV ONCE ONE Stop: 02/13/20 15:55 Last Admin: 02/13/20 15:54 Dose: 90 ml Documented by: [id number] Levalbuterol HCl (Xopenex Hfa) 2 puffs INH QID GEE Stop: 03/14/20 12:59 Last Admin: 02/13/20 17:50 Dose: Not Given Documented by: [id number] Admin: 02/13/20 12:34 Dose: Not Given Documented by: [id number] Methylprednisolone (Solumedrol) 60 mg IV NOW STA Stop: 02/13/20 11:15 Last Admin: 02/13/20 11:20 Dose: 60 mg Documented by: [id number] Ondansetron HCl (Zofran) 4 mg IV NOW STA Stop: 02/13/20 13:04 Last Admin: 02/13/20 13:27 Dose: 4 mg Documented by: [id number] Phytonadione (Mephyton) 5 mg PO NOW STA Stop: 02/13/20 17:23 Last Admin: 02/13/20 18:02 Dose: 5 mg Documented by: [id number] Phytonadione (Mephyton) 2.5 mg PO NOW STA Stop: 02/14/20 03:05 Last Admin: 02/14/20 03:14 Dose: 2.5 mg Documented by: [id number] Phytonadione (Mephyton) 7.5 mg PO NOW STA Stop: 02/14/20 07:05 Last Admin: 02/14/20 07:40 Dose: 7.5 mg Documented by: [id number] Polyethylene Glycol (Miralax Powder Packet) 17 gm PO ONE ONE Stop: 02/13/20 17:13 Last Admin: 02/13/20 18:07 Dose: 17 gm Documented by: [id number] Medical Decision Making Differential Diagnosis Appendicitis, ovarian cyst, ovarian torsion, ectopic , TOA, PID, infections, diverticulitis, UTI, obstruction, mesenteric ischemia, aortic pathology, inflammatory bowel disease, renal colic, PUD, pancreatitis, biliary pathology, hernia, volvulus, constipation, as well as other pathologies. Medical Records Attestation: I reviewed the patient's medical records. Home Medications Current Medication List: was personally reviewed by me Laboratory Data Attestation: I reviewed the patient's lab results. Result diagrams: 02/14/20 12:18 02/14/20 01:49 Lab Results 02/13/20 02/13/20 02/13/20 Range/Units 10:20 10:20 10:20 WBC 14.37 H (4.8-10.8) K/uL RBC 4.21 (4.2-5.4) M/uL Hgb 12.9 (12.0-16.0) g/dL Hct 40.6 (37-47) % MCV 96.4 (80-100) fL MCH 30.6 (25-34) pg MCHC 31.8 L (32-36) g/dL RDW Std Deviation 50.8 H (36.4-46.3) fL RDW Coeff of Isaura 14.3 (11.5-14.5) % Plt Count 359 (130-400) K/uL MPV 9.2 (7.4-10.4) fL Immature Gran % (Auto) 1.0 % Neut % (Auto) 86.9 % Lymph % (Auto) 7.1 % [place] % (Auto) 4.4 % Eos % (Auto) 0.3 % Baso % (Auto) 0.3 % Neut # (Auto) 12.48 H (1.4-6.5) K/uL Lymph # (Auto) 1.02 L (1.2-3.4) K/uL [place] # (Auto) 0.63 H (0.11-0.59) K/uL Eos # (Auto) 0.05 (0-0.5) K/uL Baso # (Auto) 0.04 (0-0.2) K/uL Immature Gran # (Auto) 0.15 H (0.00-0.02) K/uL PT > 90.0 H (9.0-12.0) Seconds INR > 9.7 H* (0.9-1.1) APTT 95.8 H* (21.0-31.0) Seconds PTT Ratio 3.4 Sodium 140 (136-145) mmol/L Potassium 4.2 (3.5-5.1) mmol/L Chloride 101 (98-107) mmol/L Carbon Dioxide 30 (21-32) mmol/L Anion Gap 9.0 (3-11) BUN 16 (7-18) mg/dl Creatinine 0.56 L (0.6-1.2) mg/dl Est Cr Clr Drug Dosing 44.5 ml/min Est GFR ( Amer) 112.6 Est GFR (Non-Af Amer) 97.2 BUN/Creatinine Ratio 29.1 H (10-20) Glucose 121 H (70-99) mg/dl Calcium 9.6 (8.5-10.1) mg/dl Total Bilirubin 0.4 (0.2-1) mg/dl AST 14 L (15-37) U/L ALT 17 (12-78) U/L Alkaline Phosphatase 128 H (45-117) U/L Total Creatine Kinase 25 L (26-192) U/L CK-MB (CK-2) < 1.0 (0.5-3.6) ng/ml CK/CKMB % Calc TNP Troponin I < 0.015 (0-0.045) ng/ml Total Protein 8.5 H (6.4-8.2) gm/dl Albumin 2.9 L (3.4-5.0) gm/dl Globulin 5.6 H (2.5-4.0) gm/dl Albumin/Globulin Ratio 0.5 L (0.9-2) Lipase 74 (73-393) U/L Procalcitonin (0-0.5) ng/ml COVID-19 PCR (Negative) 02/13/20 02/13/20 Range/Units 10:20 11:50 WBC (4.8-10.8) K/uL RBC (4.2-5.4) M/uL Hgb (12.0-16.0) g/dL Hct (37-47) % MCV (80-100) fL MCH (25-34) pg MCHC (32-36) g/dL RDW Std Deviation (36.4-46.3) fL RDW Coeff of Isaura (11.5-14.5) % Plt Count (130-400) K/uL MPV (7.4-10.4) fL Immature Gran % (Auto) % Neut % (Auto) % Lymph % (Auto) % [place] % (Auto) % Eos % (Auto) % Baso % (Auto) % Neut # (Auto) (1.4-6.5) K/uL Lymph # (Auto) (1.2-3.4) K/uL [place] # (Auto) (0.11-0.59) K/uL Eos # (Auto) (0-0.5) K/uL Baso # (Auto) (0-0.2) K/uL Immature Gran # (Auto) (0.00-0.02) K/uL PT (9.0-12.0) Seconds INR (0.9-1.1) APTT (21.0-31.0) Seconds PTT Ratio Sodium (136-145) mmol/L Potassium (3.5-5.1) mmol/L Chloride (98-107) mmol/L Carbon Dioxide (21-32) mmol/L Anion Gap (3-11) BUN (7-18) mg/dl Creatinine (0.6-1.2) mg/dl Est Cr Clr Drug Dosing ml/min Est GFR ( Amer) Est GFR (Non-Af Amer) BUN/Creatinine Ratio (10-20) Glucose (70-99) mg/dl Calcium (8.5-10.1) mg/dl Total Bilirubin (0.2-1) mg/dl AST (15-37) U/L ALT (12-78) U/L Alkaline Phosphatase (45-117) U/L Total Creatine Kinase (26-192) U/L CK-MB (CK-2) (0.5-3.6) ng/ml CK/CKMB % Calc Troponin I (0-0.045) ng/ml Total Protein (6.4-8.2) gm/dl Albumin (3.4-5.0) gm/dl Globulin (2.5-4.0) gm/dl Albumin/Globulin Ratio (0.9-2) Lipase (73-393) U/L Procalcitonin 5.96 H (0-0.5) ng/ml COVID-19 PCR NEGATIVE (Negative) Imaging Data Radiologist's Impression: [facility], [place] [phone] CT Scan Report Patient: ANNETTE SANTACRUZ Date: 02/13/20 MR#: [id number]: [address] [facility] Acct ID:[id number]: [facility]: [facility] Zip: [place] [address] Age: 64Location: 2E Sex: F Room/Bed: [facility] Att Phy: Torsten Man, MDDiagnosis: AB PAIN, SOB Erica Phy: James Barahona MDService Date: 02/13/20 Fam Phy:Interpreting Phy: Zeferino Sagastume MD Admit Phy: Torsten Man MD Ordering Phy: Percy Braxton MD cc: ~ ADDENDUM Addendum: In the vascular section of the IV of the report, there are voice recognition errors. The corrected version is as follows. Vasculature: There are moderately extensive aortoiliac atheromatous changes. There is an indwelling IVC filter. Struts are again visualized protruding beyond the IVC lumen, one of which enters a vertebral body. There is also a possible strut within the duodenal wall Electronically signed by: Zeferino Sagastume M.D. 02/13/2020 4:[address] abd pelvis IV con only CLINICAL HISTORY: Right abdominal pain WEAKNESS. COMPARISON STUDY: September 16, 2016 TECHNIQUE: The patient was scanned in a dynamic helical fashion during intravenous administration of 90 cc of Optiray 320 A dose lowering technique was utilized adhering to the principles of ALARA. CT DOSE: 216.44 mGy.cm FINDINGS: Lower chest: There is pulmonary emphysema. There is lingular consolidation suspi cious for pneumonia. Liver: The contrast-enhanced liver is normal in size, contour, and attenuation. There is no intrahepatic biliary ductal dilatation. The hepatic veins and portal veins are patent. Gallbladder: Cholelithiasis Spleen: Normal in size and attenuation. Pancreas: Unremarkable. Adrenal glands: There is a stable 8 mm left adrenal nodule Kidneys: There is stable left renal cortical scarring. No solid renal masses are visualized. There is bilateral nephrolithiasis. Bowel: There are no transition zones to indicate bowel obstruction. There is no evidence of acute diverticulitis. The appendix is not visualized with certainty. There are no findings suspicious for acute appendicitis. Peritoneum: There is no intraperitoneal free air or abdominal ascites. Vasculature: There are moderately extensive aortoiliac atheromatous changes. There is an indwelling IVC filter. Struts are again visualized protruding beyond the IVC lumen one of which enters a tubal body. There is also a possible stroke within the duodenal wall. Adenopathy: None. Pelvic viscera: The uterus Skeletal structures: No destructive osseous lesions are seen. There is an old L1 compression fracture. There is interval development of a superior endplate L3 compression fracture. The study is moderately degraded by motion artifact. IMPRESSION: 1. Motion degraded study 2. No evidence of bowel obstruction. No evidence of free air 3. Bilateral nephrolithiasis 4. Cholelithiasis 5. No evidence of acute diverticulitis. No evidence of acute appendicitis 6. Lingular consolidation suspicious for pneumonia 7. Old T12 compression fracture. Interval development of an L3 superior endplate compression fracture ACT 112: Negative or not required by law. Electronically signed by: Zeferino Sagastume M.D. 02/13/2020 4:08 PM Dictated: 02/13/20 1600 Transcribed: 02/13/20 1605 ANNETTE SANTACRUZ 64 F 1955 [address] [facility], [place] [phone] XRay Report Patient: ANNETTE SANTACRUZ FAdmit Date: 02/13/20 MR#: [id number]: [address] Acct ID:[id number]: Date: 1955[facility] Zip: [place] [address] Age: 64Location: ED Sex: F Room/Bed: Att Phy:Diagnosis: AB PAIN Erica Phy: James Barahona MDService Date: 02/13/20 Fam Phy:Interpreting Phy: Mook Rehman MD Admit Phy: Ordering Phy: Percy Braxton MD cc: ~ SINGLE VIEW CHEST CLINICAL HISTORY: Atypical chest pain. FINDINGS: 2 AP, portable, upright chest radiographs are compared to chest x-ray and chest CT dated 12/06/2019. The examination is degraded by portable technique and patient rotation. The cardiomediastinal silhouette is unremarkable noting atherosclerotic calcification of the thoracic aorta. Advanced emphysema and chronic interstitial thickening is similar to previous. Postoperative change and volume loss is seen in the right lung. Foci of parenchymal scarring are present throughout both lungs. Patchy airspace consolidation is seen in the left mid to lower lung. No large pleural effusion or pneumothorax is seen. The skeletal structures are osteopenic. Chronic deformity is noted in the right posterior ribs. An IVC filter is noted in the upper abdomen. IMPRESSION: 1. Patchy airspace consolidation is seen in the left mid to lower lung. Co rrelate clinically for evidence of pneumonia/aspiration pneumonitis. Radiographic follow-up to resolution is recommended. 2. Advanced emphysema with postoperative change on the right. ACT 112: Negative or not required by law. Electronically signed by: Mook Rehman M.D. 02/13/2020 11:05 AM Dictated: 02/13/20 1103 Transcribed: 02/13/20 1103 ECG Data Attestation: I personally reviewed and interpreted this ECG as follows: Rate (beats per minute): 143 Rhythm: sinus tachycardia Findings: + PVC; no ST depression and no ST elevation Comparison ECG Date: from (12/06/2019) Change: the following changes noted (Rate increased by 73) MDM Narrative Patient was seen and evaluated as above in room C3. Review was performed of nursing notes and vital signs. I did review pertinent previous visits and patient history. After obtaining a thorough history and physical examination the above work up was performed. This is a 64-year-old female who is complaining of nausea vomiting along with chills. The patient is requiring more oxygen here in the emergency department. She is wheezing on physical examination and was started on steroids here in the emergency department along with antibiotics. She does have pneumonia on her chest x-ray. Because the patient is hypotensive and tachycardic I do feel she should be admitted to the hospitalist service. I did discuss the case with the hospitalist who did agree to admit the patient. Patient family are in agreement with the treatment plan. An order was placed for continuous cardiac monitoring. The monitor shows a rate of 116 with Normal Sinus rhythm. The patient was evaluated during the global COVID-19 pandemic, and that diagnosis was suspected/considered upon their initial presentation. Their evaluation, treatment and testing was consistent with current guidelines for patients who present with complaints or symptoms that may be related to COVID- 19. Impression & Plan RLQ abdominal pain, Supratherapeutic INR, Acute and chronic respiratory failure, Sepsis Critical Care Time I have personally spent greater than 90 minutes of critical care time in the direct management of this patient. This includes bedside care, interpretation of diagnostic studies, and testing, discussion with consultants, patient, and family members, and other required patient management activities. This 90 minutes is in excess of all separately billable procedures. Discharge Plan Visit Data *Final* Discharge Date/Time: 02/13/20 14:57 Chief Complaint: Abdominal Pain ED Provider: Percy Braxton Discharge Problem: RLQ abdominal pain, Supratherapeutic INR, Acute and chronic respiratory failure, Sepsis Patient Disposition: Admitted As Inpatient Discharge Instructions Interventions: ED Discharge Assessment Last Done: 02/13/20 14:57 Discharge Problem: Acute and chronic respiratory failure Qualifiers: Respiratory failure complication: unspecified whether with hypoxia or hypercapnia Qualified Code(s): J96.20 - Acute and chronic respiratory failure, unspecified whether with hypoxia or hypercapnia Sepsis Qualifiers: Sepsis type: sepsis due to unspecified organism Sepsis acute organ dysfunction status: unspecified Qualified Code(s): A41.9 - Sepsis, unspecified organism
[2020-02-14 16:22] LABS: Hematocrit (blood only) 30.1 % (37-47); Hemoglobin 9.2 g/dL (12.0-16.0)
[2020-02-14] MEDS: D5W AND NSS 1,000 ML IV SCH (18:25)
[2020-02-14 20:05] LABS: Hematocrit (blood only) 28.4 % (37-47)
[2020-02-14] MEDS: ONDANSETRON INJ 2 MG/ML 2 ML VIAL IV PRN (21:28)
[2020-02-15] MEDS: metroNIDAZOLE 500 MG/100 ML BAG IV SCH ×3 (02:52→21:07)
[2020-02-15] MEDS: CEFEPIME 2,000 MG in SYRINGE 7.5 ML IV SCH ×3 (02:52→21:16)
[2020-02-15] MEDS: ONDANSETRON INJ 2 MG/ML 2 ML VIAL IV PRN ×2 (04:14→21:08)
[2020-02-15] MEDS: ACETAMINOPHEN 500 MG TAB PO SCH ×4 (04:21→21:22)
[2020-02-15] MEDS: methylPREDNISolone 40 MG in SYRINGE 0 ML IV SCH ×2 (04:21→21:07)
[2020-02-15] MEDS: PANTOprazole 40 MG in DEXTROSE 5% 100 ML IV SCH ×4 (04:22→21:04)
[2020-02-15] MEDS: LEVALBUTEROL TARTRATE 15 GM HFA.AER.AD INH SCH ×4 (07:24→19:35)
[2020-02-15 07:42] LABS: Basophils # (auto) 0.01 K/uL (0-0.2); Basophils % (auto) 0.1 %; Hematocrit (blood only) 28.3 % (37-47); Hemoglobin 8.9 g/dL (12.0-16.0); Immature Granulocytes # (auto) 0.05 K/uL (0.00-0.02); Immature Granulocytes % (auto) 0.7 %; Lymphocytes # (auto) 0.42 K/uL (1.2-3.4); Lymphocytes % (auto) 5.9 %; Mean Corpuscular Hemoglobin 30.2 pg (25-34); Mean Corpuscular Hgb Conc 31.4 g/dL (32-36); Mean Corpuscular Volume 95.9 fL (80-100); Mean Platelet Volume 8.4 fL (7.4-10.4); Monocytes # (auto) 0.26 K/uL (0.11-0.59); Monocytes % (auto) 3.7 %; Neutrophils # (auto) 6.34 K/uL (1.4-6.5); Neutrophils % (auto) 89.6 %; Platelet Count 240 K/uL (130-400); RDW Coefficient of Variation 14.2 % (11.5-14.5); RDW Standard Deviation 50.1 fL (36.4-46.3); Red Blood Count 2.95 M/uL (4.2-5.4); White Blood Count 7.08 K/uL (4.8-10.8)
[2020-02-15 07:54] LABS: INR 1.7 (0.9-1.1); Prothrombin Time 17.7 Seconds (9.0-12.0)
[2020-02-15 08:59] LABS: Albumin Level 2.5 gm/dl (3.4-5.0); BUN Creatinine Ratio 16.7 (10-20); Calcium 8.7 mg/dl (8.5-10.1); Est GFR (African American) 116.9; Est GFR (Non-African American) 100.9
[2020-02-15 09:06] LABS: Albumin Globulin Ratio 0.5 (0.9-2); Bilirubin,Total 0.3 mg/dl (0.2-1); Globulin 4.6 gm/dl (2.5-4.0); Total Protein 7.1 gm/dl (6.4-8.2)
--- NOTE | 2020-02-15 11:11 | Surgery Progress Note ---
Date of Service February 15, 2020 Assessment & Plan (1) Abdominal pain: pt is a 64 year-old female who was admitted to hospital for pneumonia and RLQ abdominal pain. CT scan 02/13/2020- Vasculature: There are moderately extensive aortoiliac atheromatous changes. There is an indwelling IVC filter. Struts are again visualized protruding beyond the IVC lumen, one of which enters a vertebral body. There is also a possible strut within the duodenal wall - afebrile, leukocytosis resolved - Hemoglobin 8.9 today (9 yesterday) Hemoccult positive stool 02/14/2020 , hemodynamically stable - No evidence of peritonitis on exam, abdomen soft - INR down to 1.7 (9.7 yesterday) Plan: Patient is hemodynamically stable and there is no evidence of peritonitis. No acute surgical intervention recommended at this time. Going for EGD today , keep NPO continue medical management If she were to have any signs of peritonitis or need for surgical intervention she would need transfer to tertiary center. Our services signing off, please call with questions/concerns Dr. Bejarano has seen and examined pt, agrees with above. Subjective patient feeling better today compared to yesterday and last evening. Had nausea and felt like she had to vomit. denies of any abdominal pain no nausea or vomiting today going for EGD today Physical Exam Constitutional: + thin and + frail appearing; no acute distress and not ill appearing Respiratory: normal respiratory effort; no respiratory distress Gastrointestinal (Abdomen): Inspection/Auscultation: abdomen normal to inspection; abdomen not distended Percussion/Palpation: abdomen soft; abdomen nontender, no guarding and abdomen not rigid Skin: no rashes, warm and dry Psychiatric: Orientation: alert and oriented x 3 Results & Data Vital Signs (Past 12 Hours) Vital Signs Temp Pulse Pulse Resp BP Pulse Ox 02/15/20 08:09 36.7 C 106 H 18 132/62 95 02/15/20 04:00 36.7 C 97 H 19 119/72 98 02/14/20 23:52 36.6 C 100 H 17 123/64 98 02/14/20 23:16 96 H Laboratory Results 02/15/20 02/15/20 02/15/20 Range/Units 07:28 07:28 07:28 WBC 7.08 (4.8-10.8) K/uL RBC 2.95 L (4.2-5.4) M/uL Hgb 8.9 L (12.0-16.0) g/dL Hct 28.3 L (37-47) % MCV 95.9 (80-100) fL MCH 30.2 (25-34) pg MCHC 31.4 L (32-36) g/dL RDW Std Deviation 50.1 H (36.4-46.3) fL RDW Coeff of Isaura 14.2 (11.5-14.5) % Plt Count 240 (130-400) K/uL MPV 8.4 (7.4-10.4) fL Immature Gran % (Auto) 0.7 % Neut % (Auto) 89.6 % Lymph % (Auto) 5.9 % Taney % (Auto) 3.7 % Eos % (Auto) 0.0 % Baso % (Auto) 0.1 % Neut # (Auto) 6.34 (1.4-6.5) K/uL Lymph # (Auto) 0.42 L (1.2-3.4) K/uL Taney # (Auto) 0.26 (0.11-0.59) K/uL Eos # (Auto) 0.00 (0-0.5) K/uL Baso # (Auto) 0.01 (0-0.2) K/uL Immature Gran # (Auto) 0.05 H (0.00-0.02) K/uL PT 17.7 H (9.0-12.0) Seconds INR 1.7 H (0.9-1.1) Sodium 143 (136-145) mmol/L Potassium 4.0 (3.5-5.1) mmol/L Chloride 106 (98-107) mmol/L Carbon Dioxide 37 H (21-32) mmol/L Anion Gap 0 L (3-11) BUN 8 D (7-18) mg/dl Creatinine 0.50 L (0.6-1.2) mg/dl Est Cr Clr Drug Dosing 73.0 ml/min Est GFR ( Amer) 116.9 Est GFR (Non-Af Amer) 100.9 BUN/Creatinine Ratio 16.7 (10-20) Glucose 134 H (70-99) mg/dl Calcium 8.7 (8.5-10.1) mg/dl Magnesium 2.0 (1.8-2.4) mg/dl Total Bilirubin 0.3 (0.2-1) mg/dl AST 11 L (15-37) U/L ALT 15 (12-78) U/L Alkaline Phosphatase 97 (45-117) U/L Total Protein 7.1 (6.4-8.2) gm/dl Albumin 2.5 L (3.4-5.0) gm/dl Globulin 4.6 H (2.5-4.0) gm/dl Albumin/Globulin Ratio 0.5 L (0.9-2) Blood Type Antibody Screen 02/14/20 02/14/20 02/14/20 Range/Units 19:51 16:02 12:20 WBC (4.8-10.8) K/uL RBC (4.2-5.4) M/uL Hgb 9.0 L 9.2 L (12.0-16.0) g/dL Hct 28.4 L 30.1 L (37-47) % MCV (80-100) fL MCH (25-34) pg MCHC (32-36) g/dL RDW Std Deviation (36.4-46.3) fL RDW Coeff of Isaura (11.5-14.5) % Plt Count (130-400) K/uL MPV (7.4-10.4) fL Immature Gran % (Auto) % Neut % (Auto) % Lymph % (Auto) % Taney % (Auto) % Eos % (Auto) % Baso % (Auto) % Neut # (Auto) (1.4-6.5) K/uL Lymph # (Auto) (1.2-3.4) K/uL Taney # (Auto) (0.11-0.59) K/uL Eos # (Auto) (0-0.5) K/uL Baso # (Auto) (0-0.2) K/uL Immature Gran # (Auto) (0.00-0.02) K/uL PT 22.8 H (9.0-12.0) Seconds INR 2.3 H (0.9-1.1) Sodium (136-145) mmol/L Potassium (3.5-5.1) mmol/L Chloride (98-107) mmol/L Carbon Dioxide (21-32) mmol/L Anion Gap (3-11) BUN (7-18) mg/dl Creatinine (0.6-1.2) mg/dl Est Cr Clr Drug Dosing ml/min Est GFR ( Amer) Est GFR (Non-Af Amer) BUN/Creatinine Ratio (10-20) Glucose (70-99) mg/dl Calcium (8.5-10.1) mg/dl Magnesium (1.8-2.4) mg/dl Total Bilirubin (0.2-1) mg/dl AST (15-37) U/L ALT (12-78) U/L Alkaline Phosphatase (45-117) U/L Total Protein (6.4-8.2) gm/dl Albumin (3.4-5.0) gm/dl Globulin (2.5-4.0) gm/dl Albumin/Globulin Ratio (0.9-2) Blood Type Antibody Screen 02/14/20 02/14/20 Range/Units 12:18 01:49 WBC (4.8-10.8) K/uL RBC (4.2-5.4) M/uL Hgb 9.4 L (12.0-16.0) g/dL Hct 29.9 L (37-47) % MCV (80-100) fL MCH (25-34) pg MCHC (32-36) g/dL RDW Std Deviation (36.4-46.3) fL RDW Coeff of Isaura (11.5-14.5) % Plt Count (130-400) K/uL MPV (7.4-10.4) fL Immature Gran % (Auto) % Neut % (Auto) % Lymph % (Auto) % Taney % (Auto) % Eos % (Auto) % Baso % (Auto) % Neut # (Auto) (1.4-6.5) K/uL Lymph # (Auto) (1.2-3.4) K/uL Taney # (Auto) (0.11-0.59) K/uL Eos # (Auto) (0-0.5) K/uL Baso # (Auto) (0-0.2) K/uL Immature Gran # (Auto) (0.00-0.02) K/uL PT (9.0-12.0) Seconds INR (0.9-1.1) Sodium (136-145) mmol/L Potassium (3.5-5.1) mmol/L Chloride (98-107) mmol/L Carbon Dioxide (21-32) mmol/L Anion Gap (3-11) BUN (7-18) mg/dl Creatinine (0.6-1.2) mg/dl Est Cr Clr Drug Dosing ml/min Est GFR ( Amer) Est GFR (Non-Af Amer) BUN/Creatinine Ratio (10-20) Glucose (70-99) mg/dl Calcium (8.5-10.1) mg/dl Magnesium (1.8-2.4) mg/dl Total Bilirubin (0.2-1) mg/dl AST (15-37) U/L ALT (12-78) U/L Alkaline Phosphatase (45-117) U/L Total Protein (6.4-8.2) gm/dl Albumin (3.4-5.0) gm/dl Globulin (2.5-4.0) gm/dl Albumin/Globulin Ratio (0.9-2) Blood Type A Positive Antibody Screen NEGATIVE
--- NOTE | 2020-02-15 12:02 | Gastroenterology Progress Note ---
Date of Service February 15, 2020 Assessment & Plan (1) Presence of inferior vena cava filter: 1. Will review CT films. 2. Discussed with vascular surgery - does not believe it has perforated the full-thickness of the duodenum and surgery to remove the IVC filter would be very complicated thus recommend against. (2) Melena: 1. Continue Protonix drip, NPO. 2. Plan for EGD today in the OR by Dr. Pires. Further recommendations to follow. Admission and Anticipated Discharge Date Admission Date: February 13, 2020 Attg add: I interviewed and examined pt. Pt is without recurrent bleeding. She states that her breathing is at baseline. Exam unchanged from yesterday. Will proceed with EGD today. Subjective 64 yr f Hx of COPD on home O2, tremor, HCV cleared posttreatment, DVT on warfarin, sarcoidosis, UC nd C-diff. Admitted for abd pain. CT with IVC filter strut possibly permeating the duodenal wall. Most recent melena early on 02/12. Brown liquid stool since. Hb 11.5->8.9. Last night, some nausea/vomiting after clear liquid supper. Today, feels well. Breathing at her baseline, O2 at 2L/min. Review of Systems Review of Systems: ROS: Gen: Denies weakness, fevers, weight loss Eyes: No eye redness, or pain, no recent vision changes Resp: + SOB and cough Cardio: No palpitations/irregular beats, no chest pain GI: (after BM: no abdominal pain), + nausea/vomiting yesterday, non today; denies ongoing problems with pain, nausea or vomiting. : Denies pain on urination Skin: No jaundice, itching or new rashes Physical Exam Constitutional: WD/WN, vitals as above Eyes: PERRL, conjunctivae normal, anicteric sclerae ENMT: external ear and nose normal, oropharynx normal Neck: trachea midline, no thyromegaly Respiratory: normal respiratory effort; no labored breathing, no retractions and no cough Auscultation: + crackles (at bases); no wheezes Cardiovascular: Rate/Rhythm: regular rate and regular rhythm Gastrointestinal (Abdomen): normal bowel sounds, soft, nontender, no hepatosplenomegaly Musculoskeletal: no cyanosis or clubbing, extremities motor strength 5/5 Skin: no rashes, warm and dry no jaundice Neurologic: PERRL, EOMI, accommodation nl, no face palsy, no dysarthria Psychiatric: A+Ox3, euthymic affect Lymphatic: no cervical or axillary lymphadenopathy Results & Data ([facility]) Vital Signs (Past 12 Hours) Vital Signs Temp Pulse Resp BP Pulse Ox 02/15/20 11:49 36.9 C 109 H 20 137/80 95 02/15/20 08:09 36.7 C 106 H 18 132/62 95 02/15/20 04:00 36.7 C 97 H 19 119/72 98
--- NOTE | 2020-02-15 12:16 | Hospitalist Progress Note ---
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 -In setting of Left mid to lower lung pneumonia, COPD exacerbation, has been requiring 3 L O2 at home (baseline 2 L NC O2) -Tachypnea present initially has resolved. Continue supplemental oxygen (2) Sepsis: (3) Hospital acquired PNA: -Initially tachycardic in 140s, tachypneic in 30s (now improved to HR 111 and RR 18), leukocytosis of 14.37, procalcitonin of 5.96. COVID PCR negative. Lactate wnl -CXR with patchy airspace consolidation is seen in the left mid to lower lung. Correlate clinically for evidence of pneumonia/aspiration pneumonitis -Clinically improved on Xopenex nebs, IV Solu-Medrol 40 Q8H. Vanc discontinued due to negative MRSA swab. -transition the solu-medrol form q8 hours to q12 hours starting on 02/15/2020 -Continue Cefepime and Flagyl - blood culture from 02/13/2020 with no mary to date so far (4) COPD exacerbation: -Continue Xopenex nebs, IV Solu-Medrol, antibiotic coverage as above (5) Supratherapeutic INR: History of Pulmonary embolism in 2010 Presence of IVC filter (placed in 2010) -she had a large melanotic bowel movement in setting of supratherapeutic INR >9.7 -Was given p.o. vitamin K 5 mg on 02/13/2020 afternoon. Given an additional 2.5 mg PO and then 7.5 mg PO in 02/14/2020 AM (adverse rxn to IV Vit K in the past). Also given 2 units FFP -INR on 02/15/2020 1.7 on 02/15/2020 (6) Melena: -vascular surgery was consulted in regards to IVC filter could be involved in melana -colonoscopy to be performed on 02/15/2020 by gastroenterology service (7) RLQ abdominal pain: -Resolved after large bowel movement on this admission (8) Severe malnutrition: -BMI of 15.4, poor appetite. -Dietitian consulted (9) Essential tremor: Continue primidone DVT Ppx: Supratherapeutic on Coumadin Code status: FULL : [phone] PCP: Jun Admission and Anticipated Discharge Date Admission Date: February 13, 2020 Subjective Mild tachycardia in the low 100s. no acute distress. patient does not have chest pain or abdomen pain. no dizziness. no wheezing. on supplementary oxygen by nasal cannula. Review of Systems Review of Systems: All systems reviewed & are unremarkable except as noted in Subjective Physical Exam Constitutional: cooperative Eyes: PERRL, conjunctivae normal, anicteric sclerae EOM intact bilaterally ENMT: external ear and nose normal, oropharynx normal Neck: trachea midline, no thyromegaly normal visual inspection Respiratory: normal respiratory effort, lungs clear to auscultation Cardiovascular: Rate/Rhythm: + tachycardic Gastrointestinal (Abdomen): normal bowel sounds, soft, nontender, no hepatosplenomegaly Neurologic: PERRL, EOMI, accommodation nl, no face palsy, no dysarthria CN's II-XI intact bilaterally Psychiatric: A+Ox3, euthymic affect Results & Data Results & Data ([facility]) Vital Signs (Past 12 Hours) Vital Signs Temp Pulse Resp BP Pulse Ox 02/15/20 11:49 36.9 C 109 H 20 137/80 95 02/15/20 08:09 36.7 C 106 H 18 132/62 95 02/15/20 04:00 36.7 C 97 H 19 119/72 98 (1) Acute and chronic respiratory failure Respiratory failure complication: unspecified whether with hypoxia or hypercapnia Qualified Code(s): J96.20 - Acute and chronic respiratory failure, unspecified whether with hypoxia or hypercapnia (2) Sepsis Sepsis acute organ dysfunction status: unspecified Sepsis type: sepsis due to unspecified organism Qualified Code(s): A41.9 - Sepsis, unspecified organism
[2020-02-15] MEDS: PRIMIDONE 50 MG TAB PO SCH ×2 (13:03→21:09)
[2020-02-15] MEDS: DOCUSATE SODIUM 100 MG CAP PO SCH ×2 (13:03→21:09)
[2020-02-15] MEDS: D5W AND NSS 1,000 ML IV SCH ×2 (14:46→23:36)
--- NOTE | 2020-02-15 16:26 | Anesthesiology Consultation ---
Assessment & Plan Chart Review Chart Review: Acceptable Risk for Surgery Consults Requested none History Surgery Operation Date: 02/15/20 10:35 Proposed Procedures p Esophagogastroduodenoscopy - Irphan E Lvwalmanas Height/Weight Height: 5 ft 5 in Weight: 41.8 kg Allergies Allergy/AdvReac Type Severity Reaction Status Date / Time phytonadione (vitamin K1) Allergy Intermediate severe Verified 12/06/19 01:27 back pain, red face levofloxacin Allergy Mild rash Verified 12/06/19 01:27 Penicillins Allergy Mild Amoxil - Verified 12/06/19 01:27 rash allantoin Allergy Unknown [facility] [place] Verified 12/06/19 01:27 bacitracin AdvReac Intermediate infection Verified 12/06/19 01:27 neomycin AdvReac Intermediate infection Verified 12/06/19 01:27 polymyxin B AdvReac Intermediate infection Verified 12/06/19 01:27 theophylline AdvReac Mild Headache Verified 12/06/19 01:27 Medications Home Medications Medication Instructions Recorded Confirmed Last Taken prednisone 5 mg PO QAM 07/15/19 02/13/20 Unknown albuterol sulfate 1.25 mg INH QID PRN #360 ml 07/20/19 02/13/20 Unknown fluticasone propion-salmeterol 1 ea INHALATION BID 12/06/19 02/13/20 Unknown [Wixela Inhub] primidone 50 mg PO BID 12/06/19 02/13/20 Unknown warfarin [Coumadin] 5 mg PO PEDROZA@1600 02/13/20 02/13/20 Unknown warfarin [Coumadin] 7.5 mg PO MOTUWETHFRSA@1600 02/13/20 02/13/20 Unknown Active Medications Generic Name Dose Route Start Last Admin Trade Name Freq PRN Reason Stop Dose Admin Acetaminophen 1,000 mg 02/13/20 20:00 02/15/20 13:04 Tylenol PO 03/14/20 19:59 Not Given Q8H GEE Docusate Sodium 100 mg 02/13/20 21:00 02/15/20 13:03 Colace PO 03/14/20 20:59 Not Given BID GEE Metronidazole 500 mg in 100 mls @ 100 mls/hr 02/13/20 18:00 02/15/20 12:00 Flagyl IV 02/20/20 17:59 Infused Q8H GEE Infusion Cefepime HCl 2,000 mg/ Syringe 20 mls @ 5 mls/min 02/14/20 02:00 02/15/20 10:42 IV 02/21/20 01:59 5 mls/min Q8H GEE Administration Protocol Pantoprazole Sodium 40 mg/ 100 mls @ 20 mls/hr 02/14/20 07:30 02/15/20 14:43 Dextrose IV 03/15/20 07:29 8 mg/hr Q5H GEE 20 mls/hr Administration 8 MG/HR Dextrose/Sodium Chloride 1,000 mls @ 50 mls/hr 02/14/20 16:15 02/15/20 14:46 D5w And Nss IV 03/15/20 16:14 50 mls/hr .Q20H GEE Administration Levalbuterol HCl 2 puffs 02/13/20 19:00 02/15/20 15:05 Xopenex Hfa INH 03/14/20 18:59 2 puffs QIDR GEE Administration Ondansetron HCl 4 mg 02/13/20 16:36 02/15/20 04:14 Zofran IV 03/14/20 16:35 4 mg Q6H PRN Administration Nausea Primidone 50 mg 02/13/20 21:00 02/15/20 13:03 Primidone PO 03/14/20 20:59 Not Given BID GEE NPO Date Last Intake of Fluids: 02/14/20 Time Last Intake of Fluids: 16:00 Date Last Intake of Solids: 02/14/20 Time Last Intake of Solids: 16:00 Past Medical History Medical History Abdominal pain Chronic respiratory failure (Chronic) COPD (chronic obstructive pulmonary disease) (Chronic) "severe" Essential tremor H/O pneumothorax (Chronic) "spontaneous" History of Clostridium difficile colitis (Chronic) History of DVT (deep vein thrombosis) Pneumonia (Resolved) Presence of inferior vena cava filter Past Family History Family History Other Kidney disease Lung disease Past Surgical History Surgical History H/O pneumonectomy History of appendectomy S/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) Social History Smoking Status: Former smoker Smoking End Date: 1998 Hx Alcohol Use: No Hx Substance Use: No Physical Exam Vital Signs Last Vital Signs Temp 37.2 C 02/15/20 15:55 Pulse 119 H 02/15/20 15:55 Resp 25 H 02/15/20 15:55 BP 160/82 H 02/15/20 15:55 Pulse Ox 94 02/15/20 15:55 Testing Laboratory Results 02/15/20 07:28 02/15/20 07:28 PT 17.7 Seconds (9.0-12.0) H 02/15/20 07:28 INR 1.7 (0.9-1.1) H 02/15/20 07:28 APTT 128.3 Seconds (21.0-31.0) H* 02/14/20 01:49 Blood Type A Positive 02/14/20 01:49 Antibody Screen NEGATIVE 02/14/20 01:49 02/13/20 12:19 Aerobic Blood Culture - Preliminary Blood No growth in Aerobic bottle after 48 hours. Anaerobic Blood Culture - Preliminary No growth in Anaerobic bottle after 48 hours. 02/13/20 10:34 Aerobic Blood Culture - Preliminary Blood No growth in Aerobic bottle after 48 hours. Anaerobic Blood Culture - Preliminary No growth in Anaerobic bottle after 48 hours.
[2020-02-15] MEDS ORDERED: ATROPINE SULFATE 0.1 MG/ML 10ML SYR IV PRN (16:37)
[2020-02-15] MEDS ORDERED: ePHEDrine sulfate 50 MG/ML AMP IV PRN (16:37)
[2020-02-15] MEDS ORDERED: PROPOFOL IV EMULSION 10 MG/ML 20 ML VIAL IV ONE (16:45)
[2020-02-15] MEDS ORDERED: ePHEDrine sulfate 50 MG/ML SYR ONE (16:45)
[2020-02-15] MEDS ORDERED: LIDOCAINE HCL 2% 2 ML VIAL/AMP(20MG/ML) INFIL ONE (16:45)
--- NOTE | 2020-02-15 17:16 | Electrocardiogram Report ---
Test Reason : Blood Pressure : / mmHG Vent. Rate : 108 BPM Atrial Rate : 108 BPM P-R Int : 142 ms QRS Dur : 074 ms QT Int : 332 ms P-R-T Axes : 082 065 070 degrees QTc Int : 444 ms Poor data quality, interpretation may be adversely affected Sinus tachycardia Otherwise normal ECG When compared with ECG of 13-FEB-2020 10:26, Premature ventricular complexes are no longer Present Confirmed by Aguilar Ravi ([id number]) on 02/15/2020 5:15:48 PM Referred By: REFERRED SELF Confirmed By:Cresencio Ravi
--- NOTE | 2020-02-15 17:38 | GI REPORT ---
Patient Name: Emilie Copeland Procedure Date: 02/15/2020 4:45 PM Date of : 1955 Admit Type: Inpatient Age: 64 Gender: Female Attending MD: Fabián Pires MD Procedure: Small bowel enteroscopy Providers: Fabián Pires MD Referring MD: Referred Self Indications: Melena Medicines: See the Anesthesia note for documentation of the administered medications Complications: No immediate complications. Estimated Blood Loss: Estimated blood loss: none. Procedure: Pre-Anesthesia Assessment: - ASA Grade Assessment: IV - A patient with severe systemic disease that is a constant threat to life. After obtaining informed consent, the endoscope was passed under direct vision. Throughout the procedure, the patient's blood pressure, pulse, and oxygen saturations were monitored continuously. The Endoscope was introduced through the mouth, and advanced to the proximal jejunum. After obtaining informed consent, the endoscope was passed under direct vision. Throughout the procedure, the patient's blood pressure, pulse, and oxygen saturations were monitored continuously.The small bowel enteroscopy was accomplished without difficulty. The patient tolerated the procedure well. Findings: The esophagus and stomach were normal. There was bilious fluid in the tomach. The duodenal bulb was normal. The angle at the apex of the bulb was mildly acute. The second portion of he duodenum was examined. The IVC filter was not seen, and the duodenum was normal. A few small punctate red spots were seen in the jejunum, without active bleeding. Impression: Few small red spots in small intestine that may represent AVM's, otherwise no source of bleeding seen. There was no perforation by the IVC filter. Recommendation: - Discharge patient to floor. OK to resume coumadin if hgb stable x 3 days. Fabián Pires M.D. Fabián Pires MD 02/15/2020 5:37:59 PM This report has been signed electronically. Note Initiated On: 02/15/2020 4:45 PM Number of Addenda: 0 I attest to the content of the Intraoperative Record and orders documented therein, exceptions below {[id number]}
--- NOTE | 2020-02-15 17:51 | Anesthesiology Progress Note ---
Date of Service February 15, 2020 Anesthesia Post Procedure Vital Signs Vital Signs: Temp Pulse Pulse Resp BP Pulse Ox 02/15/20 15:55 37.2 C 119 H 25 H 160/82 H 94 02/15/20 15:42 36.8 C 114 H 17 153/80 H 97 02/15/20 15:07 78 18 98 02/15/20 13:44 80 02/15/20 11:49 36.9 C 109 H 20 137/80 95 02/15/20 08:09 36.7 C 106 H 18 132/62 95 02/15/20 04:00 36.7 C 97 H 19 119/72 98 02/14/20 23:52 36.6 C 100 H 17 123/64 98 02/14/20 23:16 96 H 02/14/20 20:17 36.6 C 107 H 20 136/78 98 02/14/20 19:01 77 18 96 Transfer of Care Handoff Completed per policy Notes Mental Status: alert / awake / arousable and participated in evaluation Patient Amnestic to Procedure: Yes Nausea / Vomiting: adequately controlled Pain: adequately controlled Airway Patency, RR, SpO2: stable & adequate BP & HR: stable & adequate Hydration State: stable & adequate Anesthetic Complications: no major complications apparent
[2020-02-16] MEDS: CEFEPIME 2,000 MG in SYRINGE 7.5 ML IV SCH ×3 (02:30→19:09)
[2020-02-16] MEDS: metroNIDAZOLE 500 MG/100 ML BAG IV SCH ×2 (02:30→11:42)
[2020-02-16] MEDS: ONDANSETRON INJ 2 MG/ML 2 ML VIAL IV PRN ×3 (03:24→19:34)
[2020-02-16] MEDS: ACETAMINOPHEN 500 MG TAB PO SCH (03:39)
[2020-02-16] MEDS: methylPREDNISolone 40 MG in SYRINGE 0 ML IV SCH (03:39)
[2020-02-16] MEDS: LEVALBUTEROL TARTRATE 15 GM HFA.AER.AD INH SCH ×4 (07:17→19:37)
[2020-02-16] MEDS: PRIMIDONE 50 MG TAB PO SCH ×2 (09:00→19:35)
[2020-02-16] MEDS: DOCUSATE SODIUM 100 MG CAP PO SCH ×2 (09:00→19:35)
[2020-02-16] MEDS ORDERED: ACETAMINOPHEN 325 MG TAB PO PRN (09:13)
[2020-02-16] MEDS: METOPROLOL TARTRATE 25 MG TAB PO SCH ×3 (10:00→19:37)
[2020-02-16] MEDS: PANTOprazole 40 MG TAB PO SCH ×2 (10:00→19:36)
--- NOTE | 2020-02-16 10:15 | Hospitalist Progress Note ---
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 Continue supplemental oxygen (2) Sepsis: (3) Hospital acquired PNA: -Initially tachycardic in 140s, tachypneic in 30s, leukocytosis of 14.37, procalcitonin of 5.96. COVID PCR negative. Lactate wnl on presentation; CXR with patchy airspace consolidation is seen in the left mid to lower lung. -Clinically improved on Xopenex nebs, IV solumedrol 40 Q8H. Vancomycin discontinued due to negative MRSA swab on this hospital stay -transition the solumedrol from q8 hours to q12 hours starting on 02/15/2020 further titration on 02/16/2020 to one dose. start prednisone 40 mg starting on 02/17/2020 -Continue Cefepime and Flagyl - blood culture from 02/13/2020 with no growth - obtain Chest X ray on 02/16/2020 and stop the Flagyl before considering further antibiotic changes. added scheduled metoprolol starting on 02/16/2020 to optimize heart rates (4) COPD exacerbation: -Xopenex nebs, steroids, antibiotic coverage as above (5) Supratherapeutic INR: History of Pulmonary embolism in 2010 Presence of IVC filter (placed in 2010) -she had a large melanotic bowel movement in setting of supratherapeutic INR >9.7 -Was given p.o. vitamin K 5 mg on 02/13/2020 afternoon. Given an additional 2.5 mg PO and then 7.5 mg PO in 02/14/2020 AM (adverse rxn to IV Vit K in the past). Also given 2 units FFP -INR on 02/15/2020 1.7 on 02/15/2020 -continue to hold coumadin for now to ensure hemoglobin stability after the melena workup (6) Melena: -vascular surgery was consulted in regards to IVC filter could be involved in melana -small bowel enteroscopy performed on 02/15/2020 by gastroenterology service did not found perforation of the bowl by the IVC filter, noted a few small spots in small intestine that could be AVMs (arteriovenous malformations) but not other obvious source of bleeding (7) RLQ abdominal pain: -Resolved after large bowel movement on this admission (8) Severe malnutrition: -BMI of 15.4, poor appetite. -Dietitian consulted (9) Essential tremor: Continue primidone DVT Ppx: SCDs Code status: FULL : [phone] PCP: Jun Admission and Anticipated Discharge Date Admission Date: February 13, 2020 Subjective Patient denies bowl movement since yesterday small bowel enteroscopy. on nasal cannula. she denies difficulty with breathing. no chest pain or abdomen pain. no vomiting. Review of Systems Review of Systems: All systems reviewed & are unremarkable except as noted in Subjective Physical Exam Constitutional: cooperative Eyes: PERRL, conjunctivae normal, anicteric sclerae EOM intact bilaterally ENMT: external ear and nose normal, oropharynx normal Neck: trachea midline, no thyromegaly normal visual inspection Respiratory: normal respiratory effort, lungs clear to auscultation Cardiovascular: Rate/Rhythm: regular rhythm Gastrointestinal (Abdomen): normal bowel sounds, soft, nontender, no hepatosplenomegaly Musculoskeletal: Head/Neck/Chest: normocephalic and head atraumatic Neurologic: PERRL, EOMI, accommodation nl, no face palsy, no dysarthria CN's II-XI intact bilaterally Psychiatric: A+Ox3, euthymic affect Results & Data Results & Data ([facility]) Vital Signs (Past 12 Hours) Vital Signs Temp Pulse Resp BP Pulse Ox 02/16/20 07:26 36.6 C 127 H 20 155/84 H 95 02/16/20 02:53 36.8 C 123 H 20 160/85 H 93 02/16/20 00:00 36.6 C 110 H 18 130/78 96 (1) Acute and chronic respiratory failure Respiratory failure complication: unspecified whether with hypoxia or hype rcapnia Qualified Code(s): J96.20 - Acute and chronic respiratory failure, unspecified whether with hypoxia or hypercapnia (2) Sepsis Sepsis acute organ dysfunction status: unspecified Sepsis type: sepsis due to unspecified organism Qualified Code(s): A41.9 - Sepsis, unspecified organism
[2020-02-16] MEDS: D5W AND NSS 1,000 ML IV SCH (11:42)
--- NOTE | 2020-02-16 11:45 | History & Physical Report ---
Date of Service February 16, 2020 History of Present Illness Primary Care Provider: MD Annabella Norton CV: RRR Resp: Decr WOB Abd: soft NT A/P: unsedated, flex sig Allergies Allergy/AdvReac Type Severity Reaction Status Date / Time phytonadione (vitamin K1) Allergy Intermediate severe Verified 12/06/19 01:27 back pain, red face levofloxacin Allergy Mild rash Verified 12/06/19 01:27 Penicillins Allergy Mild Amoxil - Verified 12/06/19 01:27 rash allantoin Allergy Unknown C LIST Verified 12/06/19 01:27 bacitracin AdvReac Intermediate infection Verified 12/06/19 01:27 neomycin AdvReac Intermediate infection Verified 12/06/19 01:27 polymyxin B AdvReac Intermediate infection Verified 12/06/19 01:27 theophylline AdvReac Mild Headache Verified 12/06/19 01:27 Home Medications Home Medications Medication Instructions Recorded Confirmed Type prednisone 5 mg PO QAM 07/15/19 02/13/20 History albuterol sulfate 1.25 mg INH QID PRN #360 ml 07/20/19 02/13/20 Rx fluticasone propion-salmeterol 1 ea INHALATION BID 12/06/19 02/13/20 History [Wixela Inhub] primidone 50 mg PO BID 12/06/19 02/13/20 History warfarin [Coumadin] 5 mg PO PEDROZA@159902/13/20 02/13/20 History warfarin [Coumadin] 7.5 mg PO MOTUWETHFRSA@1600 02/13/20 02/13/20 History Past Med/Surg History Medical History Abdominal pain Chronic respiratory failure (Chronic) COPD (chronic obstructive pulmonary disease) (Chronic) "severe" Essential tremor H/O pneumothorax (Chronic) "spontaneous" History of Clostridium difficile colitis (Chronic) History of DVT (deep vein thrombosis) Pneumonia (Resolved) Presence of inferior vena cava filter Surgical History H/O pneumonectomy History of appendectomy S/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) Family History Other Kidney disease Lung disease Social History Smoking Status: Former smoker Hx Alcohol Use: No Hx Substance Use: No Preferred Language: Wallisian Communication Ability: Effective Orthodontic Technician Assistant Required: No Beliefs That Will Affect Care: None marital status: Current Living Situation: Spouse How many Children do You have: 2 Feels Safe at Home: Yes Results & Data Vital Signs (Past 12 Hours) Vital Signs Temp Pulse Resp BP Pulse Ox 02/16/20 11:10 36.8 C 112 H 22 126/85 95 02/16/20 07:26 36.6 C 127 H 20 155/84 H 95 02/16/20 02:53 36.8 C 123 H 20 160/85 H 93 02/16/20 00:00 36.6 C 110 H 18 130/78 96 Code Status & VTE Plan VTE Prophylaxis Plan VTE Prophylaxis will be ordered: Yes
--- NOTE | 2020-02-16 12:02 | XRay Report ---
TWO VIEW CHEST CLINICAL HISTORY: Follow-up airspace consolidation FINDINGS: PA and lateral chest radiographs are compared to study dated 02/13/2020 and correlated with c hest CT dated 12/06/2019. The PA view is degraded by patient rotation. The cardiomediastinal silhouett e is unremarkable noting atherosclerotic calcification of the thoracic aorta. Advanced emphysema and chronic interstitial thickening is similar to previous. Postoperative change and volume loss is seen in the right lung. Foci of parenchymal scarring are present throughout both lungs. Airspace opacities throughout the left lung have partially cleared as compared 02/13/2020. Small pleural effusions are no meeta. No pneumothorax is seen. The skeletal structures are osteopenic. Chronic deformity is noted in t he right posterior ribs. An IVC filter is noted in the upper abdomen. IMPRESSION: 1. There is been partial clearing of patchy airspace consolidation in the left lung as compared 020. Continued follow-up to complete resolution is recommended. 2. Advanced emphysema with postoperative change on the right. 3. Small pleural effusions. ACT 112: Negative or not required by law. Electronically signed by: Mook Rehman M.D. 02/16/2020 12:01 PM
--- NOTE | 2020-02-16 12:40 | Gastroenterology Progress Note ---
Date of Service February 16, 2020 Assessment & Plan (1) Presence of inferior vena cava filter: Does not appear to have perforated the duodenum. (2) Melena: 1. PPI -continue IV BID and may change to PO once daily on discharge. 2. Flex sig today to r/o lower GI bleeding. 3. Further recommendations to follow flex sig, partial eval of UC. Admission and Anticipated Discharge Date Admission Date: February 13, 2020 Subjective 64 yr female with hx of COPD on home O2, tremor, HCV cleared posttreatment, DVT on warfarin(held), sarcoidosis, UC and C-diff. Admitted for abd pain. CT questioned IVC migration into the duodenum but EGD yesterday without any duodenal abnormalities. Most recent melena early on 02/12. Brown liquid stool since. Hb 11.5->8.9 (yesterday), BUN 8 (yesterday) Symptoms: nausea, improved with antiemetics. Review of Systems Review of Systems: ROS: Gen: Denies weakness, fevers, weight loss Eyes: No eye redness, or pain, no recent vision changes Resp: + SOB and cough (mild, chronic) Cardio: No palpitations/irregular beats, no chest pain GI: + nausea/vomiting yesterday, no pain or vomiting : Denies pain on urination Skin: No jaundice, itching or new rashes Physical Exam Constitutional: WD/WN, vitals as above + thin Eyes: PERRL, conjunctivae normal, anicteric sclerae ENMT: external ear and nose normal, oropharynx normal Neck: trachea midline, no thyromegaly Respiratory: normal respiratory effort; no labored breathing, no retractions and no cough Auscultation: + crackles (at bases); no wheezes Cardiovascular: Rate/Rhythm: regular rate and regular rhythm Gastrointestinal (Abdomen): normal bowel sounds, soft, nontender, no hepatosplenomegaly Musculoskeletal: no cyanosis or clubbing, extremities motor strength 5/5 Skin: no rashes, warm and dry no jaundice Neurologic: PERRL, EOMI, accommodation nl, no face palsy, no dysarthria Psychiatric: A+Ox3, euthymic affect Lymphatic: no cervical or axillary lymphadenopathy Results & Data ([facility]) Vital Signs (Past 12 Hours) Vital Signs Temp Pulse Resp BP Pulse Ox 02/16/20 11:10 36.8 C 112 H 22 126/85 95 02/16/20 07:26 36.6 C 127 H 20 155/84 H 95 02/16/20 02:53 36.8 C 123 H 20 160/85 H 93 Laboratory Results WBC 7, Hb 12.9+2 units of blood today 8.9, HCT 28.3, PLT 240, NA 143, K4.0, BUN 8, CR 0.5, glucose 134. Diagnostic Findings EGD 02/15/20 Dr. Pires: - Few small red spots in small intestine that may represent AVM's, otherwise no source of bleeding seen. There was no perforation by the IVC filter.
--- NOTE | 2020-02-16 14:54 | GI REPORT ---
Patient Name: Emilie Copeland Procedure Date: 02/16/2020 2:14 PM Date of : 1955 Admit Type: Inpatient Age: 64 Gender: Female Attending MD: Fabián Pires MD Procedure: Flexible Sigmoidoscopy Providers: Fabián Pires MD Referring MD: Raciel Marshall M.d. Indications: Melena Medicines: See the Anesthesia note for documentation of the administered medications Complications: No immediate complications. Estimated Blood Loss: Estimated blood loss: none. Procedure: Pre-Anesthesia Assessment: - ASA Grade Assessment: IV - A patient with severe systemic disease that is a constant threat to life. - After reviewing the risks and benefits, the patient was deemed in satisfactory condition to undergo the procedure. After obtaining informed consent, the endoscope was passed under direct vision. Throughout the procedure, the patient's blood pressure, pulse, and oxygen saturations were monitored continuously. The Colonoscope was introduced through the anus and advanced to the descending colon. The flexible sigmoidoscopy was accomplished without difficulty. The patient tolerated the procedure well. The quality of the bowel preparation was adequate. Findings: The perianal and digital rectal examinations were normal. There were multiple pseudopolyps throughout the examined portion of the colon. There was no evidence of active IBD or ischemic colitis. Recommendation: - Discharge patient to floor. - Diet as tolerated. - Pt does not want a full colonoscopy, and she has had no further bleeding. Would not pursue further w/u at this time. Fabián Pires M.D. Fabián Pires MD 02/16/2020 2:54:10 PM This report has been signed electronically. Note Initiated On: 02/16/2020 2:14 PM Number of Addenda: 0 I attest to the content of the Intraoperative Record and orders documented therein, exceptions below {[id number]}
[2020-02-17] MEDS: CEFEPIME 2,000 MG in SYRINGE 7.5 ML IV SCH ×2 (01:40→09:01)
[2020-02-17] MEDS: ONDANSETRON INJ 2 MG/ML 2 ML VIAL IV PRN ×2 (01:40→08:16)
[2020-02-17 06:51] LABS: Basophils # (auto) 0.03 K/uL (0-0.2); Basophils % (auto) 0.3 %; Eosinophils # (auto) 0.13 K/uL (0-0.5); Eosinophils % (auto) 1.2 %; Hematocrit (blood only) 32.4 % (37-47); Immature Granulocytes # (auto) 0.11 K/uL (0.00-0.02); Lymphocytes # (auto) 0.98 K/uL (1.2-3.4); Lymphocytes % (auto) 9.3 %; Mean Corpuscular Hemoglobin 29.5 pg (25-34); Mean Corpuscular Hgb Conc 30.9 g/dL (32-36); Mean Corpuscular Volume 95.6 fL (80-100); Mean Platelet Volume 8.5 fL (7.4-10.4); Monocytes # (auto) 0.94 K/uL (0.11-0.59); Monocytes % (auto) 8.9 %; Neutrophils % (auto) 79.3 %; Platelet Count 279 K/uL (130-400); RDW Coefficient of Variation 14.1 % (11.5-14.5); RDW Standard Deviation 49.1 fL (36.4-46.3); Red Blood Count 3.39 M/uL (4.2-5.4); White Blood Count 10.59 K/uL (4.8-10.8)
[2020-02-17 07:02] LABS: INR 1.4 (0.9-1.1); Prothrombin Time 14.4 Seconds (9.0-12.0)
[2020-02-17] MEDS: LEVALBUTEROL TARTRATE 15 GM HFA.AER.AD INH SCH (07:12)
[2020-02-17] MEDS: PANTOprazole 40 MG TAB PO SCH ×2 (08:55→21:39)
[2020-02-17] MEDS: predniSONE 20 MG TAB PO SCH (08:55)
[2020-02-17] MEDS: METOPROLOL TARTRATE 25 MG TAB PO SCH ×2 (08:55→21:38)
[2020-02-17] MEDS: DOCUSATE SODIUM 100 MG CAP PO SCH ×2 (08:55→21:38)
[2020-02-17] MEDS: PRIMIDONE 50 MG TAB PO SCH ×2 (08:56→21:39)
[2020-02-17] MEDS ORDERED: LEVALBUTEROL TARTRATE 15 GM HFA.AER.AD INH PRN (10:46)
[2020-02-17] MEDS ORDERED: METOPROLOL TARTRATE 25 MG TAB PO ONE (10:47)
--- NOTE | 2020-02-17 10:55 | Hospitalist Progress Note ---
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 Continue supplemental oxygen (2) Sepsis: (3) Hospital acquired PNA: -Initially tachycardic in 140s, tachypneic in 30s, leukocytosis of 14.37, procalcitonin of 5.96. COVID PCR negative. Lactate wnl on presentation; CXR with patchy airspace consolidation is seen in the left mid to lower lung. -Clinically improved on Xopenex nebs, IV solumedrol 40 Q8H. Vancomycin discontinued due to negative MRSA swab on this hospital stay -transition the solumedrol from q8 hours to q12 hours starting on 02/15/2020 further titration on 02/16/2020 to one dose. start prednisone 40 mg starting on 02/17/2020 -as of 02/16/2020: Continue Cefepime and Flagyl - blood culture from 02/13/2020 with no growth - Chest X ray on 02/16/2020 reviewed with improvements. stopped the Flagyl. added scheduled metoprolol starting on 02/16/2020 to optimize heart rates -as of 02/17/2020: transition from cefepime to Doxycycline 100 mg BID (patient has allergies to Amoxicillin and a Levofloxacin) with plans for 10 days of Doxycycline. metoprolol as 25 mg BID for now (4) COPD exacerbation: -improved with Xopenex nebs, steroids, antibiotic coverage as above -stopped scheduled nebulizer treatments on 02/17/2020, prednisone as 40 mg starting on 02/17/2020 for 3 days then taper to 20 mg daily for 3 days. WBC on 02/17/2020 is 10 from the recent steroids (5) Supratherapeutic INR: History of Pulmonary embolism in 2010 Presence of IVC filter (placed in 2010) -she had a large melanotic bowel movement in setting of supratherapeutic INR >9.7 -Was given p.o. vitamin K 5 mg on 02/13/2020 afternoon. Given an additional 2.5 mg PO and then 7.5 mg PO in 02/14/2020 AM (adverse rxn to IV Vit K in the past). Also given 2 units FFP -INR on 02/15/2020 1.7 on 02/15/2020 -02/17/2020: Hgb stable, INR is 1.4, resume coumadin as 5 mg daily for now with goal INR of 2 to 3 (6) Melena: -vascular surgery was consulted in regards to IVC filter could be involved in melana -small bowel enteroscopy performed on 02/15/2020 by gastroenterology service did not found perforation of the bowl by the IVC filter, noted a few small spots in small intestine that could be AVMs (arteriovenous malformations) but not other obvious source of bleeding -Sigmoidoscopy 02/16/2020: The perianal and digital rectal examinations were normal. There were multiple pseudopolyps throughout the examined portion of the colon. There was no evidence of active IBD or ischemic colitis. -Hgb is 10 on 02/17/2020 (7) RLQ abdominal pain: -Resolved after large bowel movement on this admission (8) Severe malnutrition: -BMI of 15.4, poor appetite. -Dietitian consulted (9) Essential tremor: Continue primidone DVT Ppx: SCDs Code status: FULL : [phone] PCP: Jun Admission and Anticipated Discharge Date Admission Date: February 13, 2020 Subjective Patient on base line nasal cannula oxygen. She has been able to ambulate to bathroom. no acute pain. no distress. no dizziness. no headache. Review of Systems Review of Systems: All systems reviewed & are unremarkable except as noted in Subjective Physical Exam Constitutional: cooperative Eyes: PERRL, conjunctivae normal, anicteric sclerae EOM intact bilaterally ENMT: external ear and nose normal, oropharynx normal Neck: trachea midline, no thyromegaly normal visual inspection Respiratory: normal respiratory effort, lungs clear to auscultation Cardiovascular: Rate/Rhythm: regular rhythm (heart rate 102 bpm) Gastrointestinal (Abdomen): normal bowel sounds, soft, nontender, no hepatosplenomegaly Musculoskeletal: Head/Neck/Chest: normocephalic and head atraumatic Neurologic: PERRL, EOMI, accommodation nl, no face palsy, no dysarthria CN's II-XI intact bilaterally Psychiatric: A+Ox3, euthymic affect Results & Data Results & Data ([facility]) Vital Signs (Past 12 Hours) Vital Signs Temp Pulse Resp BP Pulse Ox 02/17/20 08:07 37.2 C 126 H 22 137/75 95 02/17/20 07:13 111 H 18 95 02/17/20 03:19 36.8 C 113 H 18 131/77 97 02/16/20 23:30 37.1 C 114 H 18 155/86 H 93 (1) Acute and chronic respiratory failure Respiratory failure complication: unspecified whether with hypoxia or hypercapnia Qualified Code(s): J96.20 - Acute and chronic respiratory failure, unspecified whether with hypoxia or hypercapnia (2) Sepsis Sepsis acute organ dysfunction status: unspecified Sepsis type: sepsis due to unspecified organism Qualified Code(s): A41.9 - Sepsis, unspecified organism
[2020-02-17] MEDS: DOXYCYCLINE HYCLATE 100 MG CAP PO SCH ×2 (12:06→21:39)
[2020-02-17 12:45] LABS: Appearance Urine Clear (Clear); Bilirubin Urine Negative (Negative); Blood Urine 2+ (Negative); Color Urine Yellow; Epithelial Cell Urine Auto >30 /lpf (0-5); Glucose Urine UA Negative (Negative); Ketones Urine 3+ (Negative); Leukocyte Esterase Urine 1+ (Negative); Nitrite Urine Negative (Negative); Protein Urine 2+ (Negative); Specific Gravity Urine 1.026 (1.000-1.030); Urobilinogen Urine Negative (Negative); WBC Urine Automated >30 /hpf (0-5); pH Urine 6.5 (4.5-7.5)
[2020-02-17 13:00] LABS: Bacteria Urine Automated 1+ (Negative); Mucus Urine Present (None Prsent)
[2020-02-17] MEDS ORDERED: ONDANSETRON 4 MG OD TAB PO PRN (14:30)
[2020-02-17] MEDS ORDERED: WARFARIN SOD 5 MG TAB PO SCH (16:00)
[2020-02-17] MEDS ORDERED: cefTRIAXone SODIUM 1,000 MG in DEXTROSE 5% 50 ML IV SCH (17:00)
[2020-02-17] MEDS ORDERED: FLUTICASONE/VILANTEROL 100/25MCG 14 PUFFS/INHALER INH SCH (21:00)
[2020-02-18 07:44] VITALS: BP 118/74; PULSE 83; TEMP 98.2; O2SAT 97
[2020-02-18] MEDS ORDERED: POLYETHYLENE (MIRALAX) 17 GM PACK PO PRN (07:50)
[2020-02-18] MEDS ORDERED: POLYETHYLENE (MIRALAX) 17 GM PACK PO ONE (07:51)
[2020-02-18] MEDS: PANTOprazole 40 MG TAB PO SCH (07:55)
[2020-02-18] MEDS: DOCUSATE SODIUM 100 MG CAP PO SCH (07:55)
[2020-02-18] MEDS: METOPROLOL TARTRATE 25 MG TAB PO SCH (07:55)
[2020-02-18] MEDS: predniSONE 20 MG TAB PO SCH (07:55)
[2020-02-18] MEDS: DOXYCYCLINE HYCLATE 100 MG CAP PO SCH (07:55)
[2020-02-18] MEDS: PRIMIDONE 50 MG TAB PO SCH (07:55)
--- NOTE | 2020-02-18 07:55 | Hospitalist Progress Note ---
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 Continue supplemental oxygen (2) Sepsis: (3) Hospital acquired PNA: -Initially tachycardic in 140s, tachypneic in 30s, leukocytosis of 14.37, procalcitonin of 5.96. COVID PCR negative. Lactate wnl on presentation; CXR with patchy airspace consolidation is seen in the left mid to lower lung. -Clinically improved on Xopenex nebs, IV solumedrol 40 Q8H. Vancomycin discontinued due to negative MRSA swab on this hospital stay -transition the solumedrol from q8 hours to q12 hours starting on 02/15/2020 further titration on 02/16/2020 to one dose. start prednisone 40 mg starting on 02/17/2020 -as of 02/16/2020: Continue Cefepime and Flagyl - blood culture from 02/13/2020 with no growth - Chest X ray on 02/16/2020 reviewed with improvements. stopped the Flagyl. added scheduled metoprolol starting on 02/16/2020 to optimize heart rates -as of 02/17/2020: transition from cefepime to Doxycycline 100 mg BID (patient has allergies to Amoxicillin and a Levofloxacin) with plans for 10 days of Doxycycline. metoprolol as 25 mg BID for now. -ceftriaxone to be given on 02/18/2020 with the current Doxycycline -then when outpatient, plan is to continue the doxycycline and to have nitrofurantoin 50 mg every 6 hours for 3 days because of bacteria noted in the urine on 02/17/2020 (4) COPD exacerbation: -improved with Xopenex nebs, steroids, antibiotic coverage as above -stopped scheduled nebulizer treatments on 02/17/2020, prednisone as 40 mg starting on 02/17/2020 for 3 days then taper to 20 mg daily for 3 days. WBC on 02/17/2020 is 10 from the recent steroids (5) Supratherapeutic INR: History of Pulmonary embolism in 2010 Presence of IVC filter (placed in 2010) -she had a large melanotic bowel movement in setting of supratherapeutic INR >9.7 -Was given p.o. vitamin K 5 mg on 02/13/2020 afternoon. Given an additional 2.5 mg PO and then 7.5 mg PO in 02/14/2020 AM (adverse rxn to IV Vit K in the past). Also given 2 units FFP -INR on 02/15/2020 1.7 on 02/15/2020 -02/17/2020: Hgb stable, INR is 1.4, resume coumadin as 5 mg daily for now with goal INR of 2 to 3 (6) Melena: -vascular surgery was consulted in regards to IVC filter could be involved in melana -small bowel enteroscopy performed on 02/15/2020 by gastroenterology service did not found perforation of the bowl by the IVC filter, noted a few small spots in small intestine that could be AVMs (arteriovenous malformations) but not other obvious source of bleeding -Sigmoidoscopy 02/16/2020: The perianal and digital rectal examinations were normal. There were multiple pseudopolyps throughout the examined portion of the colon. There was no evidence of active IBD or ischemic colitis. -Hgb is 10 on 02/17/2020 (7) RLQ abdominal pain: -Resolved after large bowel movement on this admission -discharge prescription of senna daily for 10 days and Miralax once daily as needed for constipation (8) Severe malnutrition: -BMI of 15.4, poor appetite. -Dietitian consulted -patient encouraged to take BOOST supplements with meals (9) Essential tremor: Continue primidone Code status: FULL : [phone] discharge medications sent electronically to [id number] [facility] [address], [place] [address] of Doxycycline 100 mg BID for 10 more days for pneumonia treatment of prednisone as 40 mg daily for 3 days and then 20 mg daily for 3 days for COPD of metoprolol 25 mg twice a day for heart rate control of warfarin 5 mg daily (INR is 1.4 on 02/17/2020 and the goal INR is 2 to 3) of pantoprazole 40 mg twice a day to prevent risk of GI bleed while on warfarin of odansetron (Zofran) 4 mg every 8 hours as needed for nausea or vomiting of nitrofurantoin 50 mg every 6 hours for 3 days because of bacteria noted in the urine on 02/17/2020 of senna daily for 10 days and Miralax once daily as needed for constipation patient encouraged to take BOOST supplements with meals upcoming appointments 02/20/2020 11:50 AM Provider [id number] [facility] Department [facility] 02/23/2020 10:20 AM Provider James Barahona MD Department [facility] (patient will need to have INR checked) 03/06/2020 2:00 PM Provider James Barahona MD Department [facility] 04/04/2020 12:30 PM Provider BUDDY López Department Pulmonary Medicine, [facility] 06/04/2020 1:40 PM Provider Nithin Pantoja MD Department Neurology [facility] Admission and Anticipated Discharge Date Admission Date: February 13, 2020 Subjective patient reports she ate the dinner (half). she feels hungry this AM. she would like bowel regimen. no abdomen pain. no severe shortness of breath. no dizziness. no headache. she wishes to be discharged today under care of her who will be coming later today Review of Systems Review of Systems: All systems reviewed & are unremarkable except as noted in Subjective Physical Exam Constitutional: cooperative Eyes: PERRL, conjunctivae normal, anicteric sclerae EOM intact bilaterally ENMT: external ear and nose normal, oropharynx normal Neck: trachea midline, no thyromegaly normal visual inspection Respiratory: normal respiratory effort, lungs clear to auscultation Cardiovascular: Rate/Rhythm: regular rate and regular rhythm Gastrointestinal (Abdomen): normal bowel sounds, soft, nontender, no hepatosplenomegaly Musculoskeletal: Head/Neck/Chest: normocephalic and head atraumatic Neurologic: PERRL, EOMI, accommodation nl, no face palsy, no dysarthria CN' s II-XI intact bilaterally Psychiatric: A+Ox3, euthymic affect Results & Data Results & Data ([facility]) Vital Signs (Past 12 Hours) Vital Signs Temp Pulse Resp BP Pulse Ox 02/18/20 07:43 36.8 C 83 17 118/74 97 02/17/20 23:30 36.4 C L 79 20 114/70 98 (1) Acute and chronic respiratory failure Respiratory failure complication: unspecified whether with hypoxia or hyperca pnia Qualified Code(s): J96.20 - Acute and chronic respiratory failure, unspecified whether with hypoxia or hypercapnia (2) Sepsis Sepsis acute organ dysfunction status: unspecified Sepsis type: sepsis due to unspecified organism Qualified Code(s): A41.9 - Sepsis, unspecified organism
[2020-02-18 09:08] LABS: INR 1.3 (0.9-1.1); Prothrombin Time 13.5 Seconds (9.0-12.0)
[2020-02-18] MEDS ORDERED: cefTRIAXone SODIUM 1,000 MG in DEXTROSE 5% 50 ML IV SCH (10:00)
--- NOTE | 2020-02-18 10:56 | Discharge Summary ---
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 Pain is constant and aching in RLQ. and is associated with nausea and constipation. Was recently prescribed Colace by PCP but still has not had a bowel movement in 6-7 days. Endorses poor appetite. No melena or hematochezia. Also has been having R hip pain that she underwent XR for on 02/07 (radiologist read pending). Patient woke up this morning feeling more short of breath than usual and had to turn her O2 up to 3 L/min (baseline of 2). Follows with pulm and takes 5mg prednisone daily. Also with h/o DVT/PE on coumadin. Denies fever, chills, headache, lightheadedness, visual changes, sore throat, productive cough, chest pain, palpitations, dysuria, hematuria or diarrhea. Quit smoking 7 years ago. Principal Diagnosis Acute and chronic respiratory failure with hypoxia Sepsis from hospital acquired pneumonia COPD exacerbation Supratherapeutic INR on this admission Melena Presence of IVC filter severe malnutrition possible urine infection Discharge Exam Constitutional cooperative Eyes PERRL, conjunctivae normal, anicteric sclerae EOM intact bilaterally ENMT external ear and nose normal, oropharynx normal Neck trachea midline, no thyromegaly normal visual inspection Respiratory normal respiratory effort, lungs clear to auscultation Cardiovascular Rate/Rhythm: regular rate and regular rhythm Gastrointestinal (Abdomen) normal bowel sounds, soft, nontender, no hepatosplenomegaly Musculoskeletal Head/Neck/Chest: normocephalic and head atraumatic Neurologic PERRL, EOMI, accommodation nl, no face palsy, no dysarthria CN's II-XI intact bilaterally Psychiatric A+Ox3, euthymic affect Discharge Data Allergies Allergy/AdvReac Type Severity Reaction Status Date / Time phytonadione (vitamin K1) Allergy Intermediate severe Verified 12/06/19 01:27 back pain, red face levofloxacin Allergy Mild rash Verified 12/06/19 01:27 Penicillins Allergy Mild Amoxil - Verified 12/06/19 01:27 rash allantoin Allergy Unknown [facility] LIST Verified 12/06/19 01:27 bacitracin AdvReac Intermediate infection Verified 12/06/19 01:27 neomycin AdvReac Intermediate infection Verified 12/06/19 01:27 polymyxin B AdvReac Intermediate infection Verified 12/06/19 01:27 theophylline AdvReac Mild Headache Verified 12/06/19 01:27 Consultations 02/13/20 12:13 ED Decision to Admit Stat 02/13/20 16:36 Consult Case Management - Discharge Planning Routine 02/14/20 01:40 Consult General Surgery Routine 02/14/20 01:57 Consult Vascular Surgery Routine 02/14/20 02:56 Consult Gastroenterology Routine Procedures Performed Operation Date: 02/15/20 10:35 Actual Procedures p Esophagogastroduodenoscopy(Not Applicable) - Irphan E Gaslightwala Operation Date: 02/16/20 14:15 Actual Procedures p Flexible Sigmoidoscopy - Irphan E Gaslightwala Ordered Studies 02/13/20 10:41 CT abd pelvis IV con only Stat Hospital Course (1) Acute and chronic respiratory failure: "This is a 64yo F with a PMH of severe COPD on home O2 and chronic steroids, history of spontaneous pneumothorax status post pleurodesis, 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 Continue supplemental oxygen (2) Sepsis: (3) Hospital acquired PNA: -Initially tachycardic in 140s, tachypneic in 30s, leukocytosis of 14.37, procalcitonin of 5.96. COVID PCR negative. Lactate wnl on presentation; CXR with patchy airspace consolidation is seen in the left mid to lower lung. -Clinically improved on Xopenex nebs, IV solumedrol 40 Q8H. Vancomycin discontinued due to negative MRSA swab on this hospital stay -transition the solumedrol from q8 hours to q12 hours starting on 02/15/2020 further titration on 02/16/2020 to one dose. start prednisone 40 mg starting on 02/17/2020 -as of 02/16/2020: Continue Cefepime and Flagyl - blood culture from 02/13/2020 with no growth - Chest X ray on 02/16/2020 reviewed with improvements. stopped the Flagyl. added scheduled metoprolol starting on 02/16/2020 to optimize heart rates -as of 02/17/2020: transition from cefepime to Doxycycline 100 mg BID (patient has allergies to Amoxicillin and a Levofloxacin) with plans for 10 days of Doxycycline. metoprolol as 25 mg BID for now. -ceftriaxone to be given on 02/18/2020 with the current Doxycycline -then when outpatient, plan is to continue the doxycycline and to have nitrofurantoin 50 mg every 6 hours for 3 days because of bacteria noted in the urine on 02/17/2020. Urine culture from 02/17/2020 Preliminary results on 02/18/2020 as no growth - Less than 1,000 colonies/mL,Final report to follow. (4) COPD exacerbation: -improved with Xopenex nebs, steroids, antibiotic coverage as above -stopped scheduled nebulizer treatments on 02/17/2020, prednisone as 40 mg starting on 02/17/2020 for 3 days then taper to 20 mg daily for 3 days. WBC on 02/17/2020 is 10 from the recent steroids (5) Supratherapeutic INR: History of Pulmonary embolism in 2010 Presence of IVC filter (placed in 2010) -she had a large melanotic bowel movement in setting of supratherapeutic INR >9.7 -Was given p.o. vitamin K 5 mg on 02/13/2020 afternoon. Given an additional 2.5 mg PO and then 7.5 mg PO in 02/14/2020 AM (adverse rxn to IV Vit K in the past). Also given 2 units FFP -INR on 02/15/2020 1.7 on 02/15/2020 -02/17/2020: Hgb stable, INR is 1.4, resume coumadin as 5 mg daily for now with goal INR of 2 to 3. INR is 1.3 on 02/18/2020 (6) Melena: -vascular surgery was consulted in regards to IVC filter could be involved in melana -small bowel enteroscopy performed on 02/15/2020 by gastroenterology service did not found perforation of the bowl by the IVC filter, noted a few small spots in small intestine that could be AVMs (arteriovenous malformations) but not other obvious source of bleeding -Sigmoidoscopy 02/16/2020: The perianal and digital rectal examinations were normal. There were multiple pseudopolyps throughout the examined portion of the colon. There was no evidence of active IBD or ischemic colitis. -Hgb is 10 on 02/17/2020 (7) RLQ abdominal pain: -Resolved after large bowel movement on this admission -discharge prescription of senna daily for 10 days and Miralax once daily as needed for constipation (8) Severe malnutrition: -BMI of 15.4, poor appetite. -Dietitian consulted -patient encouraged to take BOOST supplements with meals (9) Essential tremor: Continue primidone Code status: FULL : [phone] discharge medications sent electronically to [address] [place] [address], [place] [address] of Doxycycline 100 mg BID for 10 more days for pneumonia treatment of prednisone as 40 mg daily for 3 days and then 20 mg daily for 3 days for COPD of metoprolol 25 mg twice a day for heart rate control of warfarin 5 mg daily (INR is 1.3 on 02/18/2020 and the goal INR is 2 to 3) of pantoprazole 40 mg twice a day to prevent risk of GI bleed while on warfarin of odansetron (Zofran) 4 mg every 8 hours as needed for nausea or vomiting of nitrofurantoin 50 mg every 6 hours for 3 days because of bacteria noted in the urine on 02/17/2020 of senna daily for 10 days and Miralax once daily as needed for constipation patient encouraged to take BOOST supplements with meals upcoming appointments 02/20/2020 11:50 AM Provider [facility] Department Radiology [facility] 02/23/2020 10:20 AM Provider James Barahona MD Department [facility] (patient will need to have INR checked) 03/06/2020 2:00 PM Provider James Barahona MD Department [facility] 04/04/2020 12:30 PM Provider BUDDY López Department Pulmonary Medicine, [facility] 06/04/2020 1:40 PM Provider Nithin Pantoja MD Department Neurology [facility] Total Time Total Time Spent Total Time Spent (In Minutes): 40 minutes Total Time Includes: Examination of the Patient, Discharge Planning, Medication Reconciliation and Communication With Other Providers Discharge Plan Discharge Items Patient Disposition: Home - Self-Care Reason For Visit: AB PAIN, SOB Discharge Diagnosis: Acute and chronic respiratory failure with hypoxia Sepsis from hospital acquired pneumonia COPD exacerbation Supratherapeutic INR on this admission Melena Presence of IVC filter severe malnutrition possible urine infection Condition on Discharge: Fair Activity: Per Instructions section Non-emergency contact: Primary Care Provider Call non-emergency contact if: you have any medication questions Follow-up/Referrals: James Barahona MD [Primary Care Provider] - 02/23/20 10:20 am (02/23/2020 10:20 AM Provider James Barahona MD Department [facility] ) Diet: Regular Addtl Attending Provider Instructions: discharge medications sent electronically to [address], [place] [address] of Doxycycline 100 mg BID for 10 more days for pneumonia treatment of prednisone as 40 mg daily for 3 days and then 20 mg daily for 3 days for COPD of metoprolol 25 mg twice a day for heart rate control of warfarin 5 mg daily (INR is 1.3 on 02/18/2020 and the goal INR is 2 to 3) of pantoprazole 40 mg twice a day to prevent risk of GI bleed while on warfarin of odansetron (Zofran) 4 mg every 8 hours as needed for nausea or vomiting of nitrofurantoin 50 mg every 6 hours for 3 days because of bacteria noted in the urine on 02/17/2020 of senna daily for 10 days and Miralax once daily as needed for constipation patient encouraged to take BOOST supplements with meals upcoming appointments 02/20/2020 11:50 AM Provider [facility] Department Radiology [facility] 02/23/2020 10:20 AM Provider James Barahona MD Department [facility] (patient will need to have INR checked) 03/06/2020 2:00 PM Provider [facility] 04/04/2020 12:30 PM Provider BUDDY López Department Pulmonary Medicine, [facility] 06/04/2020 1:40 PM Provider Nithin Pantoja MD Department Neurology [facility] Pending Studies at Discharge: Yes Studies:: Urine culture from 02/17/2020 Preliminary results on 02/18/2020 as no growth - Less than 1,000 colonies/mL,Final report to follow. Stand-Alone Forms: My [facility] Angry Citizen, Smoking Cessation Medications and DC Order Prescriptions: New warfarin 5 mg Tablet 5 mg PO DAILY@1600 30 Days Qty: 30 RF: 0 doxycycline hyclate 100 mg Capsule 100 mg PO BID 10 Days Qty: 20 RF: 0 pantoprazole 40 mg Tablet,Delayed Release (Dr/Ec) 40 mg PO BID 30 Days Qty: 60 RF: 0 prednisone 20 mg Tablet 40 mg PO UD 6 Days Qty: 9 RF: 0 metoprolol tartrate 25 mg Tablet 25 mg PO BID 30 Days Qty: 60 RF: 0 ondansetron 4 mg Tablet,Disintegrating 4 mg PO Q8H PRN (Reason: nausea and vomiting) 7 Days Qty: 21 RF: 0 nitrofurantoin macrocrystal 50 mg capsule 50 mg PO Q6H 3 Days Qty: 12 RF: 0 polyethylene glycol 3350 [Miralax] 17 gram Powder In Packet 17 g PO DAILY PRN (Reason: constipation) 30 Days Qty: 30 RF: 0 docusate sodium 100 mg Capsule 100 mg PO BID 10 Days Qty: 20 RF: 0 Continued albuterol sulfate 2.5 mg /3 mL (0.083 %) solution for nebulization 1.25 mg INH QID PRN (Reason: shortness of breath or wheezing) Qty: 360 RF: 0 primidone 50 mg tablet 50 mg PO BID RF: 0 fluticasone propion-salmeterol [Wixela Inhub] 250-50 mcg/dose blister with device 1 ea INHALATION BID RF: 0 Discontinued prednisone 5 mg Tablet 5 mg PO QAM RF: 0 warfarin [Coumadin] 5 mg Tablet 5 mg PO PEDROZA@1600 RF: 0 warfarin [Coumadin] 5 mg tablet 7.5 mg PO MOTUWETHFRSA@1600 RF: 0 Discharge Orders: Discharge Order (Routine); Ordered 02/18/20 Ordered By: Raciel Marshall Admission Data Admit Date/Time: 02/13/20 13:26 Attending Provider: Raciel Marshall Admit Provider: Torsten Man Primary Care Provider: James Barahona Other Providers: Torsten Man ; Bernarda Bejarano ; Fuad Laguerre ; Kirstin Delacruz ; Xiomara Reinoso ; Yanci Wild ; Hermelinda Bernal ; Delonte Hensley ; Nithin Cole ; Fabián Pires ; Gi Cuevas ; Erwin Leyva ; Danny Lebron ; Liz Rubio ; Luisa Trevizo ; Shantell Green ; Raysa Hardin ; Katiuska Sahu
== END 2020-02-18 12:13 | disposition home or self-care (01) | DRG 314 ==
LOC: ED 10:17 → SUATTDRO 13:26 → 2E 13:26 → 2N 02-17 16:25

== ENCOUNTER 2020-03-01 19:58 | Inpatient (IN) ==
[2020-03-01] MEDS ORDERED: SODIUM CHLORIDE 0.9% 250 ML IV ONE (20:07)
[2020-03-01] MEDS ORDERED: methylPREDNISolone 60 MG in SYRINGE 1 ML IV STA (20:07)
--- NOTE | 2020-03-01 20:12 | Emergency Department Note ---
Impression & Plan Acute respiratory distress, Pneumonia, Tachycardia, Leukocytosis ED Provider Note NAME: ANNETTE SANTACRUZ AGE: 64 SEX: F : 1955 ARRIVES VIA: Ambulance INFORMANT: [Patient][ems, nursing] ED PROVIDER(S): [Mook Miles MD] CHIEF COMPLAINT: Short of breath HISTORY OF PRESENT ILLNESS: The patient is a 64-year-old female who was discharged from the hospital a few weeks ago after having a bout of pneumonia. The patient states that today, her therapist came in and noted her heart rate was high so minimal therapy was done. The patient herself feels like she is short of breath. She has noticed some increasing shortness of breath for the last week or so with an increased cough. No fever. She has not had chest pain. She has had some increasing weakness. Her dyspnea is much worse with any exertion. She wears 2 L of oxygen all the time but increased her oxygen to 3 L to help her breathing. The patient received 2 duo nebs and a albuterol treatment on the way here. This did help her breathing but increased her heart rate from the 140s to 160s. Of note, the patient has been tested for coronavirus a few times, her results of all been negative. REVIEW OF SYSTEMS: See HPI for pertinent positives and negatives. A total of ten systems were reviewed and were otherwise negative. PMHx/PSHx: See Below SOCIAL HISTORY: See Below. PHYSICAL EXAM: GENERAL: Patient is in mild respiratory distress. HEENT: No acute trauma, normocephalic atraumatic, mucous membranes moist, no nasal congestion, no scleral icterus. NECK: No stridor, no adenopathy, no meningismus, trachea is midline. LUNGS: Diminished breath sounds bilaterally, wheezing bilaterally, she does appear to be in some mild respiratory distress. HEART: Tachycardic and slightly irregular, there are no murmurs. ABDOMEN: Soft, nontender, bowel sounds positive, no hernias, no peritonitis. EXTREMITIES: No cyanosis or edema, full range of motion of all the joints without pain or difficulty, no signs for acute trauma. NEUROLOGIC: Oriented x 3, no acute motor or sensory deficits, no focal weakness. SKIN: No rash, no jaundice, no diaphoresis. DIFFERENTIAL DIAGNOSIS: Reactive airway disease, pneumonia, pneumothorax, COPD, CHF, infections, cardiac ischemia, pulmonary embolism, musculoskeletal, gastrointestinal, as well as other pathologies. EMERGENCY DEPARTMENT COURSE/PROCEDURES: ECG: Indication was shortness of breath. The ECG shows a poor baseline but I do think there is a sinus tachycardia present. A flutter or A. fib seemed less likely. The rate is 161. There is some right atrial enlargement. The QTc is 500. There is some nonspecific ST change. No ST elevation, no PVCs. Repeat EKG: Indication was tachycardia. The ECG shows a sinus tachycardia with a rate of 111. There is no ST elevation, no PVCs. The QTc is 465. There is some right atrial enlargement. Compared to the ECG from earlier today, the rate has decreased significantly. Continuous Cardiac Monitoring: An order was placed for continuous cardiac monitoring. The monitor shows a rate of 112 with sinus tachycardia. Critical Care Note: I have personally spent greater than 56 minutes of critical care time in the direct management of this patient. This includes bedside care, interpretation of diagnostic studies, and testing, discussion with consultants, patient, and family members, and other required patient management activities. This 56 minutes is in excess of all separately billable procedures. MEDICAL DECISION MAKING: The patient has a significant leukocytosis at 20,000, this is consistent with infection. There is no anemia. Platelet count somewhat elevated at 443. INR was markedly elevated at greater than 9.7. Of note, the patient does take Coumadin. There was no significant electrolyte abnormality or kidney failure. No worrisome liver enzyme elevation. The ECG shows what appears to be a sinus tachycardia. Repeat EKG shows a sinus tachycardia with a somewhat slower rate. No acute ischemia by EKG. Cardiac enzyme testing x1 is not consistent with acute cardiac injury. Chest film shows a left-sided pneumonia. No pneumothorax. The patient received IV saline for hydration. She was given a 250 cc bolus and then a 500 cc bolus. She was given 5 mg of oral vitamin K for the high INR. She received a total of 5 mg of IV metoprolol for the faster heart rate. She was given IV Solu-Medrol. Patient received IV cefepime as empiric antibiotic coverage. She was eventually placed on BiPAP. Patient has made some improvement in her breathing with the BiPAP and medications administered. Her heart rate has decreased. The patient is in need of a hospital stay. She has pneumonia, this has caused a flare of her underlying lung disease and led to her dyspnea. She presented in serious condition. The patient is aware of her findings. I did speak to case management, the on- call hospitalist was consulted. Past Med/Surg History Medical History Abdominal pain Chronic respiratory failure COPD (chronic obstructive pulmonary disease) "severe" Essential tremor H/O pneumothorax "spontaneous" History of Clostridium difficile colitis History of DVT (deep vein thrombosis) Pneumonia Presence of inferior vena cava filter Surgical History H/O pneumonectomy History of appendectomy S/P insertion of IVC (inferior vena caval) filter Family History Other Kidney disease Lung disease Social History Smoking Status: Former smoker Smoking End Date: 2010; Hx Alcohol Use: No Hx Substance Use: No Preferred Language: Pashto Communication Ability: Effective Flag Signalman Required: No Beliefs That Will Affect Care: None marital status: Current Living Situation: Family Current Living Situation Comment: lives with How many Children do You have: 2 Other Information That Helps Us Care for You: No Feels Safe at Home: Yes Safety Concerns: Feels Safe At This Time Allergies Allergies Allergy/AdvReac Type Severity Reaction Status Date / Time phytonadione (vitamin K1) Allergy Intermediate severe Verified 03/01/20 23:03 back pain, red face levofloxacin Allergy Mild rash Verified 03/01/20 23:03 Penicillins Allergy Mild Amoxil - Verified 03/01/20 23:03 rash allantoin Allergy Unknown [facility] [place] Verified 03/01/20 23:03 bacitracin AdvReac Intermediate infection Verified 03/01/20 23:03 neomycin AdvReac Intermediate infection Verified 03/01/20 23:03 polymyxin B AdvReac Intermediate infection Verified 03/01/20 23:03 theophylline AdvReac Mild Headache Verified 03/01/20 23:03 Home Meds Home Medications Medication Instructions Recorded Confirmed fluticasone propion-salmeterol 1 ea INHALATION BID 12/06/19 03/01/20 [Wixela Inhub] primidone 50 mg PO BID 12/06/19 03/01/20 cholecalciferol (vitamin D3) 50 mcg PO DAILY 03/01/20 03/01/20 [Vitamin D3] docusate sodium [Colace] 100 mg PO BID 03/01/20 03/01/20 levalbuterol HCl 1.25 mg INHALATION TID PRN 03/01/20 03/01/20 levalbuterol tartrate 1 puff INHALATION Q4 PRN 03/01/20 03/01/20 lidocaine 1 patch TOPICAL DAILY PRN 03/01/20 03/01/20 mirtazapine [Remeron] 15 mg PO HS 03/01/20 03/01/20 ondansetron HCl [Zofran] 4 mg PO Q8 PRN 03/01/20 03/01/20 polyethylene glycol 3350 [Miralax] 17 g PO DAILY PRN 03/01/20 03/01/20 prednisone 5 mg PO DAILY 03/01/20 03/01/20 tramadol 50 mg PO Q8 PRN 03/01/20 03/01/20 warfarin 5 mg PO UD 03/01/20 03/01/20 Previous Rx's Medication Instructions Recorded albuterol sulfate 1.25 mg INH QID PRN #360 ml 07/20/19 metoprolol tartrate 25 mg PO BID 30 Days #60 tab 02/17/20 pantoprazole 40 mg PO BID 30 Days #60 tab 02/17/20 Results & Data (ED) Vital Signs Vital Signs - 24 hr 03/01/20 20:09 03/01/20 20:45 03/01/20 20:47 Temperature 36.0 C L Temperature Source Oral Pulse Rate 167 H Pulse Rate [Apical] 151 H Pulse Rate from SpO2 Sensor Pulse Rhythm Irregular Pulse Rhythm [Apical] Pulse Strength Bounding Pulse Strength [Apical] Respiratory Rate 33 H 22 Respiratory Effort / Characteristics Labored Retracting Short of Breath Respiratory Depth Deep Normal Respiratory Pattern Grunting Blood Pressure 132/90 Blood Pressure [Right Arm] 141/72 H Blood Pressure Mean 104 Blood Pressure Mean [Right Arm] 95 Blood Pressure Position Sitting Blood Pressure Position [Right Arm] Lying Pulse Oximetry 98 97 97 Oxygen Delivery Method Nasal Cannula Nasal Cannula Nasal Cannula Oxygen Flow Rate 3 3 3 Fraction of Inspired Oxygen SaO2/FiO2 Ratio Sepsis Recent Fever Within 48 Hours No Sepsis New/Unexplained Change in Mental Status No Sepsis Action Taken by Nursing Physician Notified 03/01/20 21:17 03/01/20 21:58 03/01/20 23:00 Temperature Temperature Source Pulse Rate 146 H 102 H Pulse Rate [Apical] 139 H Pulse Rate from SpO2 Sensor 101 H Pulse Rhythm Pulse Rhythm [Apical] Regular Pulse Strength Pulse Strength [Apical] Respiratory Rate 24 20 27 H Respiratory Effort / Characteristics Non-Labored Spontaneous Respiratory Depth Normal Normal Respiratory Pattern Regular Blood Pressure 123/63 Blood Pressure [Right Arm] 127/78 Blood Pressure Mean 71 Blood Pressure Mean [Right Arm] 94 Blood Pressure Position Blood Pressure Position [Right Arm] Pulse Oximetry 99 97 90 Oxygen Delivery Method BiPAP BiPAP Oxygen Flow Rate Fraction of Inspired Oxygen 35 35 SaO2/FiO2 Ratio 277 Sepsis Recent Fever Within 48 Hours Sepsis New/Unexplained Change in Mental Status Sepsis Action Taken by Nursing 03/01/20 23:09 03/01/20 23:30 Temperature Temperature Source Pulse Rate 111 H Pulse Rate [Apical] 114 H Pulse Rate from SpO2 Sensor 111 H Pulse Rhythm Pulse Rhythm [Apical] Regular Pulse Strength Pulse Strength [Apical] Normal Respiratory Rate 20 22 Respiratory Effort / Characteristics Respiratory Depth Respiratory Pattern Blood Pressure 129/74 Blood Pressure [Right Arm] 123/63 Blood Pressure Mean 85 Blood Pressure Mean [Right Arm] 83 Blood Pressure Position Blood Pressure Position [Right Arm] Sitting Pulse Oximetry 97 Oxygen Delivery Method BiPAP BiPAP Oxygen Flow Rate Fraction of Inspired Oxygen 35 SaO2/FiO2 Ratio Sepsis Recent Fever Within 48 Hours Sepsis New/Unexplained Change in Mental Status Sepsis Action Taken by Retirement Medications Current Medication List: was personally reviewed by me Laboratory Data Attestation: I reviewed the patient's lab results. Result diagrams: 03/02/20 06:21 03/02/20 06:21 Lab Results 03/01/20 03/01/20 03/01/20 Range/Units 20:18 20:18 20:18 WBC 20.59 H (4.8-10.8) K/uL RBC 3.95 L (4.2-5.4) M/uL Hgb 12.1 (12.0-16.0) g/dL Hct 38.7 (37-47) % MCV 98.0 (80-100) fL MCH 30.6 (25-34) pg MCHC 31.3 L (32-36) g/dL RDW Std Deviation 52.8 H (36.4-46.3) fL RDW Coeff of Isaura 14.6 H (11.5-14.5) % Plt Count 443 H (130-400) K/uL MPV 9.1 (7.4-10.4) fL Immature Gran % (Auto) 0.3 % Neut % (Auto) 85.8 % Lymph % (Auto) 7.0 % Emmet % (Auto) 6.7 % Eos % (Auto) 0.1 % Baso % (Auto) 0.1 % Neut # (Auto) 17.64 H (1.4-6.5) K/uL Lymph # (Auto) 1.44 (1.2-3.4) K/uL Emmet # (Auto) 1.38 H (0.11-0.59) K/uL Eos # (Auto) 0.03 (0-0.5) K/uL Baso # (Auto) 0.03 (0-0.2) K/uL Immature Gran # (Auto) 0.07 H (0.00-0.02) K/uL PT > 90.0 H (9.0-12.0) Seconds INR > 9.7 H* (0.9-1.1) APTT 53.8 H* (21.0-31.0) Seconds PTT Ratio 1.9 Sodium 138 (136-145) mmol/L Potassium 4.1 (3.5-5.1) mmol/L Chloride 98 (98-107) mmol/L Carbon Dioxide 33 H (21-32) mmol/L Anion Gap 7.0 (3-11) BUN 25 H (7-18) mg/dl Creatinine 0.81 (0.6-1.2) mg/dl Est Cr Clr Drug Dosing 41.6 ml/min Est GFR ( Amer) 87.7 Est GFR (Non-Af Amer) 75.7 BUN/Creatinine Ratio 31.0 H (10-20) Glucose 121 H (70-99) mg/dl Lactate (0.4-2.0) mmol/L Calcium 9.5 (8.5-10.1) mg/dl Magnesium 2.2 (1.8-2.4) mg/dl Total Bilirubin 0.5 (0.2-1) mg/dl AST 14 L (15-37) U/L ALT 13 (12-78) U/L Alkaline Phosphatase 108 (45-117) U/L Troponin I < 0.015 (0-0.045) ng/ml Total Protein 8.9 H (6.4-8.2) gm/dl Albumin 2.4 L (3.4-5.0) gm/dl Globulin 6.5 H (2.5-4.0) gm/dl Albumin/Globulin Ratio 0.4 L (0.9-2) 08/20/20 Range/Units 20:44 WBC (4.8-10.8) K/uL RBC (4.2-5.4) M/uL Hgb (12.0-16.0) g/dL Hct (37-47) % MCV (80-100) fL MCH (25-34) pg MCHC (32-36) g/dL RDW Std Deviation (36.4-46.3) fL RDW Coeff of Isaura (11.5-14.5) % Plt Count (130-400) K/uL MPV (7.4-10.4) fL Immature Gran % (Auto) % Neut % (Auto) % Lymph % (Auto) % Emmet % (Auto) % Eos % (Auto) % Baso % (Auto) % Neut # (Auto) (1.4-6.5) K/uL Lymph # (Auto) (1.2-3.4) K/uL Emmet # (Auto) (0.11-0.59) K/uL Eos # (Auto) (0-0.5) K/uL Baso # (Auto) (0-0.2) K/uL Immature Gran # (Auto) (0.00-0.02) K/uL PT (9.0-12.0) Seconds INR (0.9-1.1) APTT (21.0-31.0) Seconds PTT Ratio Sodium (136-145) mmol/L Potassium (3.5-5.1) mmol/L Chloride (98-107) mmol/L Carbon Dioxide (21-32) mmol/L Anion Gap (3-11) BUN (7-18) mg/dl Creatinine (0.6-1.2) mg/dl Est Cr Clr Drug Dosing ml/min Est GFR ( Amer) Est GFR (Non-Af Amer) BUN/Creatinine Ratio (10-20) Glucose (70-99) mg/dl Lactate 1.9 (0.4-2.0) mmol/L Calcium (8.5-10.1) mg/dl Magnesium (1.8-2.4) mg/dl Total Bilirubin (0.2-1) mg/dl AST (15-37) U/L ALT (12-78) U/L Alkaline Phosphatase (45-117) U/L Troponin I (0-0.045) ng/ml Total Protein (6.4-8.2) gm/dl Albumin (3.4-5.0) gm/dl Globulin (2.5-4.0) gm/dl Albumin/Globulin Ratio (0.9-2) Administered Medications Docusate Sodium (Docusate Sodium 100 Mg Cap) 100 mg PO BID GEE Stop: 04/01/20 08:59 Last Admin: 03/02/20 07:51 Dose: 100 mg Documented by: [id number] Fluticasone/Vilanterol (Fluticasone/Vilanterol 100/25mcg 14 Puffs/Inhaler) 1 puffs INH DAILY GEE Stop: 04/01/20 08:59 Last Admin: 03/02/20 07:50 Dose: 1 puffs Documented by: [id number] Methylprednisolone 40 mg/ (Syringe) 0.64 mls @ 1.5 mls/min IV TID GEE Stop: 04/01/20 08:59 Last Admin: 03/02/20 07:51 Dose: 1.5 mls/min Documented by: [id number] Cefepime HCl 2,000 mg/ Syringe 20 mls @ 5.5 mls/min IV Q12H GEE; Protocol Stop: 03/09/20 09:59 Last Admin: 03/02/20 09:34 Dose: 5.5 mls/min Documented by: [id number] Vancomycin HCl 500 mg/ Sodium (Chloride) 260 mls @ 125 mls/hr IV Q12H GEE; Pro tocol Stop: 03/09/20 11:59 Last Admin: 03/02/20 12:35 Dose: 125 mls/hr Documented by: [id number] Ipratropium [place] (Ipratropium [place] Neb Soln 0.02% 2.5 Ml Vial) 0.5 mg INH Q6R GEE Stop: 04/01/20 01:01 Last Admin: 03/02/20 07:06 Dose: 0.5 mg Documented by: [id number] Admin: 03/02/20 01:34 Dose: 0.5 mg Documented by: [id number] Levalbuterol HCl (Levalbuterol 1.25mg/0.5ml Neb) 1.25 mg INH Q6R GEE Stop: 04/01/20 01:01 Last Admin: 03/02/20 07:06 Dose: 1.25 mg Documented by: [id number] Admin: 03/02/20 01:34 Dose: 1.25 mg Documented by: [id number] Metoprolol Tartrate (Metoprolol Tartrate 25 Mg Tab) 25 mg PO BID GEE Stop: 04/01/20 01:01 Last Admin: 03/02/20 07:50 Dose: 25 mg Documented by: [id number] Admin: 03/02/20 02:05 Dose: 25 mg Documented by: [id number] Pantoprazole Sodium (Pantoprazole 40 Mg Tab) 40 mg PO BID [facility] Stop: 04/01/20 01:01 Last Admin: 03/02/20 07:50 Dose: 40 mg Documented by: [id number] Admin: 03/02/20 02:05 Dose: 40 mg Documented by: [id number] Primidone (Primidone 50 Mg Tab) 50 mg PO BID [facility] Stop: 04/01/20 01:01 Last Admin: 03/02/20 07:50 Dose: 50 mg Documented by: [id number] Admin: 03/02/20 02:05 Dose: 50 mg Documented by: [id number] Tramadol HCl (Tramadol Hcl 50 Mg Tablet) 50 mg PO Q8 PRN PRN Reason: Pain Stop: 04/01/20 01:01 Last Admin: 03/02/20 06:17 Dose: 50 mg Documented by: [id number] Vitamin D (Cholecalciferol 1,000 Units 25 Mcg Tab) 2,000 units PO DAILY [facility] Stop: 04/01/20 08:59 Last Admin: 03/02/20 07:50 Dose: 2,000 units Documented by: [id number] Discontinued Medications Sodium Chloride (Nss) 250 mls @ 999 mls/hr IV .Q16M ONE Stop: 03/01/20 20:22 Last Infusion: 03/01/20 22:13 Dose: 0 mls/hr Documented by: [id number] Admin: 03/01/20 20:16 Dose: 999 mls/hr Documented by: [id number] Methylprednisolone 60 mg/ (Syringe) 1.96 mls @ 1.5 mls/min IV NOW STA Stop: 03/01/20 20:08 Last Admin: 03/01/20 20:30 Dose: 1.5 mls/min Documented by: [id number] Cefepime HCl (Maxipime) 2,000 mg in 20 mls @ 5 mls/min IV NOW STA; Protocol Stop: 03/01/20 20:52 Last Admin: 03/01/20 21:28 Dose: 5 mls/min Documented by: [id number] Sodium Chloride (Nss 1000ml) 500 mls @ 999 mls/hr IV .Q31M ONE Stop: 03/01/20 21:20 Last Infusion: 03/01/20 22:09 Dose: 0 mls/hr Documented by: [id number] Admin: 03/01/20 21:38 Dose: 999 mls/hr Documented by: [id number] Vancomycin HCl 1,000 mg/ (Sodium Chloride) 270 mls @ 125 mls/hr IV TODAY@0200 [facility]; Protocol Stop: 03/02/20 04:10 Last Infusion: 03/02/20 04:51 Dose: 0 mls/hr Documented by: [id number] Admin: 03/02/20 02:06 Dose: 125 mls/hr Documented by: [id number] Methylprednisolone (Methylprednisolone 125 Mg/2 Ml Vial) Confirm Administered Dose 125 mg .ROUTE .STK-MED ONE Stop: 03/01/20 20:26 Last Admin: 03/01/20 20:28 Dose: 125 mg Documented by: [id number] Metoprolol Tartrate (Metoprolol Tartrate 1 Mg/Ml Vial) 2.5 mg IV NOW STA Stop: 03/01/20 21:52 Last Admin: 03/01/20 21:54 Dose: 2.5 mg Documented by: [id number] Metoprolol Tartrate (Metoprolol Tartrate 1 Mg/Ml Vial) 2.5 mg IV NOW STA Stop: 03/01/20 22:31 Last Admin: 03/01/20 22:50 Dose: 2.5 mg Documented by: [id number] Phytonadione (Phytonadione 5 Mg Tab) 5 mg PO NOW STA Stop: 03/01/20 21:11 Last Admin: 03/01/20 21:28 Dose: 5 mg Documented by: [id number] Imaging Data Radiologist's Impression: XR chest 1V portable HISTORY: 64 years-old Female SOB acute shortness of breath COMPARISON: Chest radiograph 02/16/2020, CTA chest 12/06/2019 TECHNIQUE: Portable AP view of the chest FINDINGS: Cardiomediastinal and hilar silhouettes are unchanged. Advanced emphysema. Chronic postoperative changes of the right lung. Chronic blunting of the costophrenic angles. 1.5 cm nodular opacity of the right midlung may be secondary to summation density from overlying anterior rib. Multifocal airspace opacities throughout the left lung have progressively worsened from comparison. No pneumothorax or overt pulmonary edema. IVC filter. Degenerative changes of the shoulders and spine. IMPRESSION: 1. Progressively worsened airspace opacities throughout the left lung suspicious for pneumonia. 2. Advanced emphysema with chronic fibrotic changes. 3. Chronic postoperative changes of the right lung. Blood Pressure Blood Pressure Findings: Elevated blood pressure Blood Pressure Disposition: further management by hospitalist Discharge Plan Visit Data Chief Complaint: Shortness of Breath/Dyspnea ED Provider: Mook Miles Discharge Problem: Acute respiratory distress, Pneumonia, Tachycardia, Leukocytosis Patient Disposition: Admitted As Inpatient Condition: Serious Discharge Instructions Interventions: ED Discharge Assessment Last Done: 03/02/20 00:32 Discharge Problem: Pneumonia Qualifiers: Pneumonia type: due to unspecified organism Laterality: left Lung location: unspecified part of lung Qualified Code(s): J18.9 - Pneumonia, unspecified organism Leukocytosis Qualifiers: Leukocytosis type: unspecified Qualified Code(s): D72.829 - Elevated white blood cell count, unspecified
[2020-03-01] MEDS ORDERED: methylPREDNISolone 125 MG/2 ML VIAL ONE (20:25)
[2020-03-01 20:28] LABS: Basophils # (auto) 0.03 K/uL (0-0.2); Basophils % (auto) 0.1 %; Eosinophils # (auto) 0.03 K/uL (0-0.5); Eosinophils % (auto) 0.1 %; Hematocrit (blood only) 38.7 % (37-47); Hemoglobin 12.1 g/dL (12.0-16.0); Immature Granulocytes # (auto) 0.07 K/uL (0.00-0.02); Immature Granulocytes % (auto) 0.3 %; Lymphocytes # (auto) 1.44 K/uL (1.2-3.4); Mean Corpuscular Hemoglobin 30.6 pg (25-34); Mean Corpuscular Hgb Conc 31.3 g/dL (32-36); Mean Platelet Volume 9.1 fL (7.4-10.4); Monocytes # (auto) 1.38 K/uL (0.11-0.59); Monocytes % (auto) 6.7 %; Neutrophils # (auto) 17.64 K/uL (1.4-6.5); Neutrophils % (auto) 85.8 %; Platelet Count 443 K/uL (130-400); RDW Coefficient of Variation 14.6 % (11.5-14.5); RDW Standard Deviation 52.8 fL (36.4-46.3); Red Blood Count 3.95 M/uL (4.2-5.4); White Blood Count 20.59 K/uL (4.8-10.8)
[2020-03-01 20:48] LABS: Partial Thromboplastin Ratio 1.9; Prothrombin Time > 90.0 Seconds (9.0-12.0)
[2020-03-01 20:49] LABS: Alanine Aminotransferase 13 U/L (12-78); Albumin Level 2.4 gm/dl (3.4-5.0); Aspartate Aminotransferase 14 U/L (15-37); Blood Urea Nitrogen 25 mg/dl (7-18); Calcium 9.5 mg/dl (8.5-10.1); Carbon Dioxide 33 mmol/L (21-32); Chloride 98 mmol/L (98-107); Creatinine Clr Calc Pharmacy 41.6 ml/min; Est GFR (African American) 87.7; Est GFR (Non-African American) 75.7; Glucose 121 mg/dl (70-99); Magnesium 2.2 mg/dl (1.8-2.4); Potassium 4.1 mmol/L (3.5-5.1); Sodium 138 mmol/L (136-145)
[2020-03-01] MEDS ORDERED: CEFEPIME 2,000 MG/20 ML VIAL IV STA (20:49)
[2020-03-01] MEDS ORDERED: SODIUM CHLORIDE 0.9% 1000ML 500 ML IV ONE (20:50)
--- NOTE | 2020-03-01 20:53 | XRay Report ---
XR chest 1V portable HISTORY: 64 years-old Female SOB acute shortness of breath COMPARISON: Chest radiograph 02/16/2020, CTA chest 12/06/2019 TECHNIQUE: Portable AP view of the chest FINDINGS: Cardiomediastinal and hilar silhouettes are unchanged. Advanced emphysema. Chronic postoperative ward ges of the right lung. Chronic blunting of the costophrenic angles. 1.5 cm nodular opacity of the rig ht midlung may be secondary to summation density from overlying anterior rib. Multifocal airspace opa cities throughout the left lung have progressively worsened from comparison. No pneumothorax or overt pulmonary edema. IVC filter. Degenerative changes of the shoulders and spine. IMPRESSION: 1. Progressively worsened airspace opacities throughout the left lung suspicious for pneumonia. 2. Advanced emphysema with chronic fibrotic changes. 3. Chronic postoperative changes of the right lung. ACT 112: Negative or not required by law. The above report was generated using voice recognition software. It may contain grammatical, syntax o r spelling errors. Electronically signed by: Ronn Schneider M.D. 03/01/2020 8:51 PM
[2020-03-01 20:54] LABS: Albumin Globulin Ratio 0.4 (0.9-2); Alkaline Phosphatase 108 U/L (45-117); Bilirubin,Total 0.5 mg/dl (0.2-1); Globulin 6.5 gm/dl (2.5-4.0); Total Protein 8.9 gm/dl (6.4-8.2); Troponin I < 0.015 ng/ml (0-0.045)
[2020-03-01 20:58] LABS: INR > 9.7 (0.9-1.1)
[2020-03-01 20:59] LABS: Partial Thromboplastin Time 53.8 Seconds (21.0-31.0)
[2020-03-01] MEDS ORDERED: PHYTONADIONE 5 MG TAB PO STA (21:10)
[2020-03-01] MEDS ORDERED: METOPROLOL TARTRATE 1 MG/ML VIAL IV STA ×2 (21:51→22:30)
[2020-03-02] MEDS ORDERED: ACETAMINOPHEN 325 MG TAB PO PRN ×2 (01:02→15:47)
[2020-03-02] MEDS ORDERED: VANCOMYCIN CONSULT ACTIVE PRN (01:02)
[2020-03-02] MEDS ORDERED: XOPENEX/ATROVENT 1.25mg/0.5MG NEB COMBO NEB SCH (01:02)
[2020-03-02] MEDS ORDERED: LEVALBUTEROL TARTRATE 15 GM HFA.AER.AD INH PRN (01:02)
[2020-03-02] MEDS ORDERED: POLYETHYLENE (MIRALAX) 17 GM PACK PO PRN (01:02)
[2020-03-02] MEDS ORDERED: NITROGLYCERIN SL 0.4 MG/TAB TAB SL PRN (01:02)
[2020-03-02] MEDS ORDERED: PNEUMOCOCCAL ADMINISTRATION CHARGE ONE (01:16)
[2020-03-02] MEDS ORDERED: PNEUMOCOCCAL POLYSACCHARIDES 25 MCG/0.5 ML VIAL/SYR IM ONE (01:16)
[2020-03-02] MEDS ORDERED: CEFEPIME CONSULT ACTIVE PRN (01:21)
[2020-03-02] MEDS: LEVALBUTEROL 1.25MG/0.5ML NEB INH SCH ×3 (01:34→13:30)
[2020-03-02] MEDS: IPRATROPIUM BROMIDE NEB SOLN 0.02% 2.5 ML VIAL INH SCH ×3 (01:34→13:30)
[2020-03-02] MEDS ORDERED: VANCOMYCIN HCL 1,000 MG in SODIUM CHLORIDE 0.9% 250 ML IV SCH (02:00)
[2020-03-02] MEDS: METOPROLOL TARTRATE 25 MG TAB PO SCH ×3 (02:05→20:24)
[2020-03-02] MEDS: PANTOprazole 40 MG TAB PO SCH ×3 (02:05→20:23)
[2020-03-02] MEDS: PRIMIDONE 50 MG TAB PO SCH ×3 (02:05→20:23)
--- NOTE | 2020-03-02 02:08 | History and Physical Report ---
DATE OF ADMISSION: 03/01/2020 CHIEF COMPLAINT: Shortness of breath. HISTORY OF PRESENT ILLNESS: This is a 64-year-old female with past medical history significant for severe COPD, on home oxygen and on chronic steroids, on BiPAP at bedtime as per the patient, chronic respiratory failure with hypoxemia, history of spontaneous pneumothorax, status post pleurodesis, history of bronchopleural fistula, status post partial right lobectomy, hypertension, history of pulmonary embolism and deep venous thrombosis, status post IVC filter, on Coumadin, sarcoidosis as per records, history of CVA, PVD, history of HCV, status post treatment, IBD as per records, history of essential tremor, on primidone, past tobacco abuse, chronic ulcerative colitis without a complication, malnutrition due to chronic disease, senile osteoporosis, history of CMV. The patient lives at home with her , daughter, and patient was recently in the hospital for pneumonia and COPD exacerbation and melena. At that time, she had small bowel enteroscopy performed on 02/15/2020 and thought to be AVMs and sigmoidoscopy done on 02/16/2020 showing perianal multiple pseudopolyps throughout the examined portion of the colon. No evidence of active bleeding, active IBD, or ischemic colitis. She was discharged home. As per , since discharge home she was somewhat short of breath but for the last few days it got worse and today he got a call from home that the patient is more in respiratory distress. He went home, she was struggling to breathe, and the ambulance was called and brought in here. Initially, she received nebs in the ambulance and her heart rate was in the 140s to 150s. She was afebrile, respiratory rate in 30s initially. She was placed on BiPAP. Received Solu-Medrol and cefepime and breathing treatments. Currently resting comfortably. Heart rates are improved into 110s. Lab shows white count of 20,000. INR greater than 9.7. Received p.o. vitamin K in the ER. Chest x-ray showed progressive worsening air opacities throughout the left lung suspicious for pneumonia. The patient says she is feeling better now. Currently, no tachypnea. Denies any headache, no blurred visions, no earache, no runny nose, no sore throat, no loss of sense of smell or taste. No dysphagia. Initially, she had chest pain when she was breathing hard but ok now.Has cough and having brownish sputum since last 4 days. No nausea, no abdominal pain, no diarrhea. She had an episode of constipation a few days back requiring a stool softener. No blood in the stool or black stool. Normal bladder movements. No swelling in the legs, no rash. Ambulates okay at home. ALLERGIES: VITAMIN K, LEVAQUIN, PENICILLINS, ALLANTOIN, BACITRACIN, NEOMYCIN, POLYMYXIN B, THEOPHYLLINE. PAST MEDICAL HISTORY: As mentioned above. PAST SURGICAL HISTORY: , colonoscopies, flexible sigmoidoscopy, gastric tube, tonsillectomy, adenoidectomy, talc pleurodesis, surgical thoracoscopy, IVC filter placement. MEDICATIONS: The patient is on albuterol inhalation q.i.d. p.r.n., vitamin D 50 mcg p.o. daily, Colace 100 mg p.o. b.i.d., fluticasone propionate and salmeterol one inhalation b.i.d., levalbuterol 1.25 mg inhalation t.i.d. p.r.n. levalbuterol tartrate one puff inhalation q. 4 hours p.r.n., lidocaine 1 patch topical daily p.r.n., metoprolol tartrate 25 mg p.o. b.i.d., Remeron 15 mg p.o. at bedtime, Zofran 4 mg p.o. every 8 hours p.r.n., Protonix 40 mg p.o. b.i.d., MiraLax 17 g p.o. daily p.r.n., prednisone 5 mg p.o. daily, primidone 50 mg p.o. b.i.d., tramadol 50 mg p.o. q. 8 hours p.r.n., warfarin 5 mg as directed. FAMILY HISTORY: Significant for mother had dialysis; aunt has breast cancer. SOCIAL HISTORY: . Quit smoking in 1998, smoked 2 packs a day for 46 years. No alcohol use, no drug use. REVIEW OF SYSTEMS: As per HPI. Rest of the review of systems negative. PHYSICAL EXAMINATION: GENERAL: The patient is thin and frail, not in acute distress. VITAL SIGNS: Temperature 36, pulse 114, respiratory rate 20, blood pressure 123/63, oxygen 97% on BiPAP, 35% FiO2. HEENT: No pallor, no icterus. Pupils equal, round, reactive to light. NECK: No neck masses seen, supple. CARDIOVASCULAR: S1, S2 heard. Tachycardia. No murmurs. RESPIRATORY SYSTEM: Normal AP diameter. No accessory muscle use. Bilaterally diminished breath sounds. No wheezing, no crackles heard. ABDOMEN: Soft, bowel sounds present, nontender. No distention, no guarding, no rigidity. CENTRAL NERVOUS SYSTEM: Cranial nerves II-XII grossly intact. Nonfocal. EXTREMITIES: No edema, no erythema. LABORATORY DATA: WBC 20.5, hemoglobin 12.1, hematocrit 38.7, platelets 443. PT greater than 90, INR greater than 9.7, APTT 53.8. Sodium 138, potassium 4.1, chloride 98, bicarbonate 33, BUN 25, creatinine 0.8, serum glucose 121. Lactate 1.9, calcium 9.5, magnesium 2.2, total bilirubin 0.5, AST 14, ALT 13, alkaline phosphatase 108. Troponin I less than 0.015. IMAGING DATA: Chest x-ray, progressive worsening airspace opacities throughout the left lung suspicious for pneumonia, advanced emphysema with chronic fibrotic changes, chronic postoperative changes to the right lung. EKG: Poor data quality interpretation, undetermined rhythm at a rate of 121. Nonspecific ST changes. ASSESSMENT AND PLAN: This is a 64-year-old female who presents with [id number] respiratory failure secondary to chronic obstructive pulmonary disease exacerbation and pneumonia. 1. Hsuxa-cr-orvikba respiratory failure secondary to chronic obstructive pulmonary disease exacerbation secondary to pneumonia. Chest x-ray shows left lung pneumonia. Recently was in the hospital, treated for pneumonia of the left lung. We will also get a CT scan to get a better picture. Will empirically start on IV vancomycin and IV cefepime. Follow the cultures and IV Solu-Medrol 40 t.i.d. on chronic prednisone 5mg daily at home. Nebs around the clock and p.r.n. Continue home inhalers and closely monitor in the tele floor. 2. Tachycardia, mostly from the above and also from the nebs treatment. Will continue home Lopressor and fluids and monitor in tele floor. 3. History of deep venous thrombosis, on Coumadin. INR is supratherapeutic at 9.7. Received vitamin K in the ER. We will follow the a.m. PT/INR. 4. Hypertension, on Lopressor, which we will continue. 5. Essential tremor, on primidone. 6. Severe malnutrition. Dietitian consult when stable. 7. Deep venous thrombosis prophylaxis. INR is supratherapeutic. DISPOSITION: Admit to tele floor. Expect to discharge home and follow with family doctor. Level 1 full code as per my discussion with the patient. Social service to help with discharge planning. ELMER
[2020-03-02] MEDS ORDERED: LIDOCAINE 5% 1 PATCH TD PRN (02:49)
[2020-03-02] MEDS: TRAMADOL HCL 50 MG TABLET PO PRN (06:17)
[2020-03-02] MEDS ORDERED: XOPENEX/ATROVENT 1.25mg/0.5MG NEB COMBO NEB PRN (06:17)
[2020-03-02] MEDS ORDERED: IPRATROPIUM BROMIDE NEB SOLN 0.02% 2.5 ML VIAL INH PRN (06:30)
[2020-03-02] MEDS ORDERED: LEVALBUTEROL 1.25MG/0.5ML NEB INH PRN (06:30)
[2020-03-02 07:26] LABS: BUN Creatinine Ratio 36.6 (10-20); Creatinine Clr Calc Pharmacy 50.1 ml/min; Est GFR (African American) 105.1; Est GFR (Non-African American) 90.7; Magnesium 2.2 mg/dl (1.8-2.4); Potassium 4.2 mmol/L (3.5-5.1)
[2020-03-02 07:27] LABS: Basophils # (auto) 0.01 K/uL (0-0.2); Basophils % (auto) 0.1 %; Hematocrit (blood only) 33.6 % (37-47); Hemoglobin 10.2 g/dL (12.0-16.0); Immature Granulocytes # (auto) 0.02 K/uL (0.00-0.02); Immature Granulocytes % (auto) 0.2 %; Lymphocytes # (auto) 0.67 K/uL (1.2-3.4); Lymphocytes % (auto) 6.4 %; Mean Corpuscular Hemoglobin 29.3 pg (25-34); Mean Corpuscular Hgb Conc 30.4 g/dL (32-36); Mean Corpuscular Volume 96.6 fL (80-100); Mean Platelet Volume 9.5 fL (7.4-10.4); Monocytes # (auto) 0.23 K/uL (0.11-0.59); Monocytes % (auto) 2.2 %; Neutrophils # (auto) 9.48 K/uL (1.4-6.5); Neutrophils % (auto) 91.1 %; Platelet Count 240 K/uL (130-400); RDW Coefficient of Variation 14.9 % (11.5-14.5); RDW Standard Deviation 52.2 fL (36.4-46.3); Red Blood Count 3.48 M/uL (4.2-5.4); White Blood Count 10.41 K/uL (4.8-10.8)
--- NOTE | 2020-03-02 07:39 | CT Scan Report ---
CT chest wo con CT DOSE: 179.69 mGy.cm HISTORY: Shortness of breath. pneumonia TECHNIQUE: Multiaxial CT images of the chest were performed without contrast. A dose lowering techni que was utilized adhering to the principles of ALARA. COMPARISON: Chest 12/06/2019. FINDINGS: There is again noted severe bullous emphysema. No pneumothorax. No pleural effusions. The c entral airways are patent. Consolidative airspace opacities within the left upper lobe have progresse d. This likely represents a pneumonia. Stable linear and irregular scarlike densities within the supe rior segments of the bilateral lower lobes. There is also postoperative changes within the right lung . Subcentimeter irregular nodular density within the right upper lobe anteriorly best seen image 116 measuring 5 mm. This is indeterminate but may also represent a small focus of infectious change. No s uspicious lytic or blastic osseous lesions. Limited views of the upper abdomen demonstrate normal steve er and adrenal glands. Focus of calcification within the splenic capsule. Moderate calcified plaque w ithin the normal caliber thoracic aorta. The heart is normal in size. No pericardial effusion. No med iastinal hilar lymphadenopathy. Normal esophagus. IMPRESSION: 1. Patchy areas consolidation within the left upper lobe/lingula likely representing a pneumonia. Rec ommend follow-up to ensure resolution and to exclude the less likely possibility of underlying malign sveta. 2. Severe bullous emphysema. 3. A 5 mm irregular nodular density within the right upper lobe also bears watching on future examina tions. ACT 112: Negative or not required by law. Electronically signed by: James Lamb M.D. 03/02/2020 7:38 AM
[2020-03-02] MEDS: FLUTICASONE/VILANTEROL 100/25MCG 14 PUFFS/INHALER INH SCH (07:50)
[2020-03-02] MEDS: CHOLECALCIFEROL 1,000 UNITS 25 MCG TAB PO SCH (07:50)
[2020-03-02] MEDS: methylPREDNISolone 40 MG in SYRINGE 0 ML IV SCH ×2 (07:51→13:37)
[2020-03-02] MEDS: DOCUSATE SODIUM 100 MG CAP PO SCH ×2 (07:51→20:23)
[2020-03-02] MEDS: CEFEPIME 2,000 MG in SYRINGE 7.5 ML IV SCH ×2 (09:34→22:10)
[2020-03-02 09:41] LABS: INR 5.2 (0.9-1.1); Prothrombin Time 50.3 Seconds (9.0-12.0)
[2020-03-02] MEDS: VANCOMYCIN HCL 500 MG in SODIUM CHLORIDE 0.9% 250 ML IV SCH (12:35)
--- NOTE | 2020-03-02 12:37 | Pharmacy Report ---
Pharmacy Abx Initial Consult - Date of Service March 02, 2020 - Pharmacy Dosing Scope Date of Consult: 03/02/20 Consultation requested by: Dr. Cabrera Pharmacy is consulted to initiate vancomycin and cefepime IV dosing therapy, order appropriate labs and adjust drug dose/frequency. - Subjective The patient is a 64 year old F admitted on 03/01/20 23:39. - Objective Height: 5 ft 4 in Weight: 39.6 kg Vital Signs (Past 12hrs): Vital Signs Temp Pulse Pulse Pulse Resp BP BP 03/02/20 11:48 36.6 C 95 H 21 125/62 03/02/20 07:46 36.8 C 109 H 21 03/02/20 07:09 88 18 03/02/20 04:55 36.6 C 82 20 03/02/20 01:37 110 H 20 03/02/20 01:23 120 H 03/02/20 00:45 36.8 C 124 H 24 03/02/20 00:30 106 H 26 H 118/68 BP Pulse Ox 03/02/20 11:48 96 03/02/20 07:46 122/67 95 03/02/20 07:09 96 03/02/20 04:55 109/71 98 03/02/20 01:37 98 03/02/20 01:23 03/02/20 00:45 147/77 H 95 03/02/20 00:30 100 Lab Results (24hrs): Laboratory Tests (24 Hours) 03/02/20 03/02/20 03/02/20 10:22 06:21 06:21 WBC 10.41 D Neut # (Auto) 9.48 H Creatinine 0.69 Est Cr Clr Drug Dosing 50.1 Procalcitonin 0.18 03/01/20 03/01/20 20:18 20:18 WBC 20.59 H Neut # (Auto) 17.64 H Creatinine 0.81 Est Cr Clr Drug Dosing 41.6 Procalcitonin Micro Results: 03/01/20 20:44 Aerobic Blood Culture - Pending Blood Anaerobic Blood Culture - Pending 03/01/20 20:44 Aerobic Blood Culture - Pending Blood Anaerobic Blood Culture - Pending - Assessment & Plan Assessment 64 year old F ordered empiric vancomycin and cefepime for COPD exacerbation secondary to bacterial pneumonia. Chest x-ray indicative of left lung pneumonia. Patient has history of severe COPD and s/p partial right lobectomy. Patient recently hospitalized and treated for pneumonia earlier this month with cefepime/ceftriaxone + doxycycline. Broad spectrum antibiotic coverage is warranted at this time. Renal function appears to be at baseline, leukocytosis on admission - now much improved (WBC 20 -> 10 K), patient afebrile. MRSA nasal swab ordered and blood cultures pending. Plan Vancomycin IV * Estimated PK Parameters: Vd 0.7 L/kg, Dontae 0.046 hr-1, t1/2 15 hr * Loading dose: 1000 mg (25 mg/kg) * Maintenance dose: 500 mg IV (13 mg/kg) every 12 hours * Goal trough level for pneumonia : 15 to 20 mcg/mL * Trough level ordered for 03/03/20 prior to 4th dose Cefepime IV * Target dose is 2 g IV q8h * Ordered as 2 g IV q24h -> will increase to 2 g IV q12h for estimated CrCl of 50 mL/min Pharmacy will continue to follow and will adjust dose/frequency as necessary. Thank you.
--- NOTE | 2020-03-02 13:30 | Pulmonary Consultation ---
Date of Consultation March 02, 2020 Assessment & Plan (1) End stage COPD: 64-year-old female with a history of COPD (FEV1 15% in 2017), severe malnutrition, DVT, PE, chronic hypoxemic respiratory failure, ulcerative colitis presenting to the hospital due to increasing shortness of breath. She has very severe bullous emphysema and essentially end-stage COPD. She has severe baseline dyspnea with minimal exertion. I would recommend palliative care consultation. I would recommend obtaining 3 AFB sputum's in the morning to evaluate for the possibility of nontuberculous Mycobacterium. Recommend obtaining a sputum Gram stain and culture as well. She does have infiltrates and consolidation in the left upper lobe. Recommend a total of 5 to 7 days of antibiotics. I would recommend switching her Solu-Medrol to p.o. prednisone and quickly titrating back to her home dose. Bronchoscopy in this patient would be associated with a very significant risk of complications given her coagulopathy and baseline respiratory insufficiency. I would not pursue transbronchial biopsies via bronchoscopy given her extremely high risk of pneumothorax. Continue her current inhalers and recommend adding a long-acting muscarinic antagonist such as Incruse Ellipta or Spiriva to her home regimen. Recommend switching to duo nebs every 6 hours as needed while in the hospital. I suspect that her malnourishment and weight loss is likely related to very cachexia. Underlying malignancy is difficult to rule out. She will need follow-up CT chest imaging, but again biopsy would prove very difficult in such a patient. Noninvasive ventilation can be considered for outpatient management in this patient, however, she is at risk for pneumothorax given her severe bullous emphysema. I will defer this to her primary system development manager. (2) Chronic anticoagulation: (3) Oxygen dependent: (4) Acute respiratory distress: (5) Multifocal pneumonia: (6) Weight loss: (7) Severe malnutrition: History of Present Illness Reason for Consultation: Evaluation for bronchoscopy Requesting Physician: Raciel Marshall Attending Physician: Raciel Marshall MD History of Present Illness 64-year-old female with a past medical history of COPD (with an FEV1 of 15% predicted, absolute value of 0.38 L from pulmonary function testing in 2017), history of pulmonary embolism and DVT status post IVC filter on Coumadin, apparent history of sarcoidosis, chronic hypoxemic respiratory failure on 2 to 3 L of oxygen, severe bullous emphysema, right lung surgery in 2010, pneumothorax in 2010 requiring chest tube and pleurodesis and resulting in respiratory failure and mechanical ventilation, ulcerative colitis and severe malnutrition presenting to the hospital due to worsening shortness of breath and weight loss. Patient's is present in the room. He notes that over the last 3 months she has lost roughly 30 to 35 pounds of weight. Over the past week she has been having increasing shortness of breath with occasional cough and sputum production. She has felt feverish, but she has not documented any fever or checked her temperature. She does have some night sweats. She was recently in the hospital and discharged with antibiotics. Apparently in the ambulance she w as tachycardic to the 140s and 150s with increased respiratory rate. She was placed on BiPAP and received Solu-Medrol and cefepime. Her INR was found to be greater than 9.7. Her serum bicarb is 32 today. She notes that she uses Wixela 250 mcg at home. She uses duo nebs 2-[address] chest performed on 03/01/2020 demonstrated patchy areas of consolidation within the left upper lobe, lingula likely representing pneumonia. Underlying malignancy was difficult to rule out. 5 mm irregular nodular density within the right upper lobe was noted. Procalcitonin within normal limits. She has been afebrile. She has a history of smoking and smoked 25 years roughly 2 to 3 packs/day. She quit in 1998. Her and her have 4 dogs and 1 cat at home. She denies any secondhand smoke exposure at home. No wood-burning. She does have a sister who had cancer. She denies any personal history of cancer. She recently had an EGD and a colonoscopy for bright red blood per rectum. She does have a history of ulcerative colitis. She is followed by [facility] pulmonology group. She had pulmonary function testing in 2017 which demonstrated FEV1 of 50% predicted. She notes that she has been on oxygen since 2010. Allergies Allergy/AdvReac Type Severity Reaction Status Date / Time phytonadione (vitamin K1) Allergy Intermediate severe Verified 03/01/20 23:03 back pain, red face levofloxacin Allergy Mild rash Verified 03/01/20 23:03 Penicillins Allergy Mild Amoxil - Verified 03/01/20 23:03 rash allantoin Allergy Unknown C LIST Verified 03/01/20 23:03 bacitracin AdvReac Intermediate infection Verified 03/01/20 23:03 neomycin AdvReac Intermediate infection Verified 03/01/20 23:03 polymyxin B AdvReac Intermediate infection Verified 03/01/20 23:03 theophylline AdvReac Mild Headache Verified 03/01/20 23:03 Home Medications Home Medications Medication Instructions Recorded Confirmed Type albuterol sulfate 1.25 mg INH QID PRN #360 ml 07/20/19 03/01/20 Rx fluticasone propion-salmeterol 1 ea INHALATION BID 12/06/19 03/01/20 History [Wixela Inhub] primidone 50 mg PO BID 12/06/19 03/01/20 History metoprolol tartrate 25 mg PO BID 30 Days #60 tab 02/17/20 03/01/20 Rx pantoprazole 40 mg PO BID 30 Days #60 tab 02/17/20 03/01/20 Rx cholecalciferol (vitamin D3) 50 mcg PO DAILY 03/01/20 03/01/20 History [Vitamin D3] docusate sodium [Colace] 100 mg PO BID 03/01/20 03/01/20 History levalbuterol HCl 1.25 mg INHALATION TID PRN 03/01/20 03/01/20 History levalbuterol tartrate 1 puff INHALATION Q4 PRN 03/01/20 03/01/20 History lidocaine 1 patch TOPICAL DAILY PRN 03/01/20 03/01/20 History mirtazapine [Remeron] 15 mg PO HS 03/01/20 03/01/20 History ondansetron HCl [Zofran] 4 mg PO Q8 PRN 03/01/20 03/01/20 History polyethylene glycol 3350 [Miralax] 17 g PO DAILY PRN 03/01/20 03/01/20 History prednisone 5 mg PO DAILY 03/01/20 03/01/20 History tramadol 50 mg PO Q8 PRN 03/01/20 03/01/20 History warfarin 5 mg PO UD 03/01/20 03/01/20 History Patient History Medical History Abdominal pain Chronic respiratory failure COPD (chronic obstructive pulmonary disease) "severe" Essential tremor H/O pneumothorax "spontaneous" History of Clostridium difficile colitis History of DVT (deep vein thrombosis) Pneumonia Presence of inferior vena cava filter Surgical History H/O pneumonectomy History of appendectomy S/P insertion of IVC (inferior vena caval) filter Family History Other Kidney disease Lung disease Social History Smoking Status: Former smoker Smoking End Date: 2010; Hx Alcohol Use: No Hx Substance Use: No Preferred Language: Serbian Communication Ability: Effective Environmental Health Sanitarian Required: No Beliefs That Will Affect Care: None marital status: Current Living Situation: Family Current Living Situation Comment: lives with How many Children do You have: 2 Other Information That Helps Us Care for You: No Feels Safe at Home: Yes Safety Concerns: Feels Safe At This Time Review of Systems Review of Systems: All systems reviewed & are unremarkable except as noted in HPI & below Physical Exam Constitutional: + thin Patient appears much older than stated age. She is chronically ill-appearing. Bitemporal wasting noted. Nasal cannula in place. No apparent distress currently. Eyes: PERRL, conjunctivae normal, anicteric sclerae ENMT: external ear and nose normal, oropharynx normal Neck: normal visual inspection Respiratory: Diminished breath sounds in the upper lobes. No significant wheezing. Tachypnea. Cardiovascular: RRR, no murmur, no edema Gastrointestinal (Abdomen): normal bowel sounds, soft, nontender, no hepatosplenomegaly Musculoskeletal: no cyanosis or clubbing, extremities motor strength 5/5 Skin: no rashes, warm and dry Neurologic: PERRL, EOMI, accommodation nl, no face palsy, no dysarthria Psychiatric: A+Ox3, euthymic affect Results & Data Results & Data ([facility]) Vital Signs (Past 12 Hours) Vital Signs Temp Pulse Pulse Resp BP BP Pulse Ox 03/02/20 11:48 97.9 F 95 H 21 125/62 96 03/02/20 07:46 98.2 F 109 H 21 122/67 95 03/02/20 07:09 88 18 96 03/02/20 04:55 97.9 F 82 20 109/71 98 03/02/20 01:37 110 H 20 98 03/02/20 01:23 120 H I personally reviewed vital signs, labs and imaging PG Care Time/CCT Total # of Minutes Spent Total Time Spent with Patient: Total time spent is greater than 50% in coordination of care (as documented) at patient's floor/unit and/or counseling patient: Coding Level of Care Code 03304 Inpt Consult Level 5 Diagnoses End stage COPD J44.9 Chronic anticoagulation Z79.01 Oxygen dependent Z99.81 Acute respiratory distress R06.03 Multifocal pneumonia J18.9 Weight loss R63.4 Severe malnutrition E43
--- NOTE | 2020-03-02 14:44 | Electrocardiogram Report ---
Test Reason : Blood Pressure : / mmHG Vent. Rate : 161 BPM Atrial Rate : 159 BPM P-R Int : 120 ms QRS Dur : 064 ms QT Int : 306 ms P-R-T Axes : 091 082 082 degrees QTc Int : 500 ms Poor data quality, interpretation may be adversely affected Sinus tachycardia Nonspecific ST abnormality Abnormal ECG When compared with ECG of 15-FEB-2020 14:55, ST now depressed in Anterior leads Confirmed by Erwin Garrett ([id number]) on 03/02/2020 2:44:24 PM Referred By: REFERRED SELF Confirmed By:Erwin Garrett
--- NOTE | 2020-03-02 14:50 | Electrocardiogram Report ---
Test Reason : Blood Pressure : / mmHG Vent. Rate : 111 BPM Atrial Rate : 111 BPM P-R Int : 136 ms QRS Dur : 070 ms QT Int : 342 ms P-R-T Axes : 087 082 080 degrees QTc Int : 465 ms Sinus tachycardia Right atrial enlargement Borderline ECG When compared with ECG of 01-MAR-2020 20:09, (unconfirmed) ST no longer depressed in Anterolateral leads Confirmed by Erwin Garrett ([id number]) on 03/02/2020 2:50:35 PM Referred By: REFERRED SELF Confirmed By:Erwin Garrett
--- NOTE | 2020-03-02 16:27 | Hospitalist Progress Note ---
Date of Service March 02, 2020 Assessment & Plan (1) End stage COPD: Multifocal pneumonia Acute respiratory distress on admission with chronic hypoxic respiratory failure -This is a 64-year-old female who presents with [id number] respiratory failure secondary to chronic obstructive pulmonary disease exacerbation and Multifocal pneumonia pneumonia -initially started on empiric antibiotics of Vancomycin and Cefepime -procalcitonin is negative, since pulmonary consult recommended to continue course of antibiotics, will continue cefepime for now without Vancomycin as MRSA swab negative -03/02/2020 pulmonary recommendations discussed with patient/family "She has very severe bullous emphysema and essentially end-stage COPD. She has severe baseline dyspnea with minimal exertion. I would recommend palliative care consultation. I would recommend obtaining 3 AFB sputum's in the morning to evaluate for the possibility of nontuberculous Mycobacterium. Recommend obtaining a sputum Gram stain and culture as well. She does have infiltrates and consolidation in the left upper lobe. Recommend a total of 5 to 7 days of antibiotics. I would recommend switching her Solu-Medrol to p.o. prednisone and quickly titrating back to her home dose. Bronchoscopy in this patient would be associated with a very significant risk of complications given her coagulopathy and baseline respiratory insufficiency. I would not pursue transbronchial biopsies via bronchoscopy given her extremely high risk of pneumothorax. Continue her current inhalers and recommend adding a long-acting muscarinic antagonist such as Incruse Ellipta or Spiriva to her home regimen. Recommend sw itching to duo nebs every 6 hours as needed while in the hospital. I suspect that her malnourishment and weight loss is likely related to very cachexia. Underlying malignancy is difficult to rule out. She will need follow-up CT chest imaging, but again biopsy would prove very difficult in such a patient. Noninvasive ventilation can be considered for outpatient management in this patient, however, she is at risk for pneumothorax given her severe bullous emphysema. I will defer this to her primary process control manager." -solumedrol IV q8 hours on admission switched to prednisone 40 mg daily started on 03/02/2020. scheduled nebulizers stopped as patient prefers prn nebulizers, Spiriva added -currently having difficulties with patient to produce expectorated sputum, airborne isolation is precautionary as pulmonary doctor is looking for possible nontuberculous Mycobacterium (no suspicion at this time for tuberculosis. patient's lung imaging does not have cavitary lesions) (2) Supratherapeutic INR: Chronic anticoagulation with coumadin History of Pulmonary embolism in 2010 Presence of IVC filter (placed in 2010) -INR is supratherapeutic at 9.7 on admission and Received vitamin K in the ER. -INR downtrended to 5.2 -continue to hold coumadin, if patient were to be discharged on coumadin on this admission then will have top be less than 5 mg daily DVT prophylaxis -superatherepautic INR Tachycardia -on metoprolol (3) Severe malnutrition: Weight Loss -ic designer standard cells consult -BOOST supplements with meals (4) Essential tremor: -on primidone Admission and Anticipated Discharge Date Admission Date: March 01, 2020 Subjective Patient breathing comfortably on supplementary oxygen. no wheezing. no chest pain. no abdomen pain. no nausea. no vomiting. her family at bedside and was updated on pulmonary doctor recommendations Review of Systems Review of Systems: All systems reviewed & are unremarkable except as noted in Subjective Physical Exam Constitutional: + thin and comfortable Eyes: PERRL, conjunctivae normal, anicteric sclerae EOM intact bilaterally ENMT: external ear and nose normal, oropharynx normal Neck: trachea midline, no thyromegaly normal visual inspection Cardiovascular: Rate/Rhythm: regular rhythm Gastrointestinal (Abdomen): normal bowel sounds, soft, nontender, no hepatosplenomegaly Musculoskeletal: Head/Neck/Chest: normocephalic and head atraumatic Neurologic: PERRL, EOMI, accommodation nl, no face palsy, no dysarthria CN's II-XI intact bilaterally Psychiatric: A+Ox3, euthymic affect Results & Data Results & Data ([facility]) Vital Signs (Past 12 Hours) Vital Signs Temp Pulse Resp BP BP Pulse Ox 03/02/20 15:44 37.3 C 104 H 20 119/72 96 03/02/20 13:33 100 H 20 97 03/02/20 11:48 36.6 C 95 H 21 125/62 96 03/02/20 07:46 36.8 C 109 H 21 122/67 95 03/02/20 07:09 88 18 96 03/02/20 04:55 36.6 C 82 20 109/71 98
[2020-03-02] MEDS: predniSONE 20 MG TAB PO SCH (16:59)
[2020-03-02] MEDS: UMECLIDINIUM BROMIDE 62.5MCG/BLISTER 7 PUFFS/INHALER INH SCH (16:59)
[2020-03-02] MEDS: MIRTAZAPINE TAB 15 MG TAB PO SCH (20:23)
[2020-03-02] MEDS ORDERED: CEFEPIME 2,000 MG in SYRINGE 7.5 ML IV SCH (21:00)
[2020-03-03] MEDS: VANCOMYCIN HCL 500 MG in SODIUM CHLORIDE 0.9% 250 ML IV SCH (00:17)
[2020-03-03 06:15] LABS: Basophils # (auto) 0.01 K/uL (0-0.2); Basophils % (auto) 0.1 %; Hematocrit (blood only) 31.3 % (37-47); Hemoglobin 9.7 g/dL (12.0-16.0); Immature Granulocytes # (auto) 0.03 K/uL (0.00-0.02); Immature Granulocytes % (auto) 0.2 %; Lymphocytes % (auto) 4.5 %; Mean Corpuscular Volume 96.9 fL (80-100); Mean Platelet Volume 9.3 fL (7.4-10.4); Monocytes % (auto) 4.5 %; Neutrophils # (auto) 12.04 K/uL (1.4-6.5); Neutrophils % (auto) 90.7 %; Platelet Count 298 K/uL (130-400); RDW Coefficient of Variation 14.7 % (11.5-14.5); RDW Standard Deviation 52.4 fL (36.4-46.3); Red Blood Count 3.23 M/uL (4.2-5.4); White Blood Count 13.28 K/uL (4.8-10.8)
[2020-03-03 06:30] LABS: INR 3.4 (0.9-1.1); Prothrombin Time 33.5 Seconds (9.0-12.0)
[2020-03-03 06:42] LABS: Albumin Level 2.1 gm/dl (3.4-5.0); BUN Creatinine Ratio 38.5 (10-20); Calcium 8.9 mg/dl (8.5-10.1); Creatinine Clr Calc Pharmacy 50.8 ml/min; Est GFR (African American) 102.9; Est GFR (Non-African American) 88.8; Potassium 4.1 mmol/L (3.5-5.1)
[2020-03-03 06:43] LABS: Albumin Globulin Ratio 0.4 (0.9-2); Bilirubin,Total 0.3 mg/dl (0.2-1); Globulin 5.5 gm/dl (2.5-4.0); Total Protein 7.6 gm/dl (6.4-8.2)
[2020-03-03] MEDS: METOPROLOL TARTRATE 25 MG TAB PO SCH ×2 (08:21→20:24)
[2020-03-03] MEDS: PRIMIDONE 50 MG TAB PO SCH ×2 (08:21→20:27)
[2020-03-03] MEDS: CHOLECALCIFEROL 1,000 UNITS 25 MCG TAB PO SCH (08:22)
[2020-03-03] MEDS: FLUTICASONE/VILANTEROL 100/25MCG 14 PUFFS/INHALER INH SCH (08:22)
[2020-03-03] MEDS: predniSONE 20 MG TAB PO SCH (08:22)
[2020-03-03] MEDS: PANTOprazole 40 MG TAB PO SCH ×2 (08:22→20:25)
[2020-03-03] MEDS: DOCUSATE SODIUM 100 MG CAP PO SCH ×2 (08:22→20:34)
[2020-03-03] MEDS: UMECLIDINIUM BROMIDE 62.5MCG/BLISTER 7 PUFFS/INHALER INH SCH (08:22)
[2020-03-03] MEDS: CEFEPIME 2,000 MG in SYRINGE 7.5 ML IV SCH ×2 (09:47→21:17)
[2020-03-03] MEDS ORDERED: VANCOMYCIN TROUGH ONE (11:30)
[2020-03-03] MEDS: TRAMADOL HCL 50 MG TABLET PO PRN (12:08)
[2020-03-03] MEDS ORDERED: ONDANSETRON 4 MG OD TAB PO ONE (13:30)
--- NOTE | 2020-03-03 14:18 | Pulmonology Progress Note ---
Date of Service March 03, 2020 Assessment & Plan (1) End stage COPD: 64-year-old female with a history of COPD (FEV1 15% in 2017), severe malnutrition, DVT, PE, chronic hypoxemic respiratory failure, ulcerative colitis presenting to the hospital due to increasing shortness of breath. Patient has severe bullous emphysema and is essentially end-stage COPD. I would recommend palliative care consultation. Additionally, recommend 7 days of antibiotics. Attempt obtaining 3 AFB sputum cultures to evaluate for nontuberculous Mycobacterium. She does not need to be in isolation for this as we do not have any suspicion for tuberculosis infection. Again, as I mentioned previously, she would be a very high risk for bronchoscopy given her severe bullous emphysema and chronic respiratory illness. I do not think that it would alter her prognosis. Follow-up CT chest in 4 to 6 weeks will be obtained. She is at very high risk for complications from bronchoscopy. I am also concerned that she would be intolerant of noninvasive ventilation and would be at risk for pneumothorax given her severe bullous emphysema. Daliresp can be considered by her outpatient carton gluing machine operator. Pulmonary will sign off at this time. Please call us with questions. (2) Chronic anticoagulation: (3) Oxygen dependent: (4) Acute respiratory distress: (5) Multifocal pneumonia: (6) Weight loss: (7) Severe malnutrition: Admission and Anticipated Discharge Date Admission Date: March 01, 2020 Subjective Patient is complaining of abdominal pain today. Shortness of breath is at her baseline. She denies any significant cough. No fevers. She is currently saturating 96% on 1 L nasal cannula. Review of Systems Review of Systems: All systems reviewed & are unremarkable except as noted in HPI & below Physical Exam Constitutional: + thin Patient appears much older than stated age. She is chronically ill-appearing. Bitemporal wasting noted. Nasal cannula in place. No apparent distress currently. Eyes: PERRL, conjunctivae normal, anicteric sclerae ENMT: external ear and nose normal, oropharynx normal Neck: normal visual inspection Respiratory: Diminished breath sounds in the upper lobes. No significant wheezing. Tachypnea. Cardiovascular: RRR, no murmur, no edema Gastrointestinal (Abdomen): normal bowel sounds, soft, nontender, no hepatosplenomegaly Musculoskeletal: no cyanosis or clubbing, extremities motor strength 5/5 Skin: no rashes, warm and dry Neurologic: PERRL, EOMI, accommodation nl, no face palsy, no dysarthria Psychiatric: A+Ox3, euthymic affect Results & Data Results & Data ([facility]) Vital Signs (Past 12 Hours) Vital Signs Temp Pulse Pulse Resp BP BP Pulse Ox 03/03/20 08:17 99.0 F 106 H 16 124/66 96 03/03/20 08:00 88 03/03/20 03:06 83 20 94 03/03/20 02:52 98.6 F 90 17 144/70 H 98 I reviewed vital signs, labs and imaging PG Care Time/CCT Total # of Minutes Spent Total Time Spent with Patient: Total time spent is greater than 50% in coordination of care (as documented) at patient's floor/unit and/or counseling patient: Coding Level of Care Code 44020 Subseq Hosp Care Lvl 2 Diagnoses End stage COPD J44.9 Chronic anticoagulation Z79.01 Oxygen dependent Z99.81 Acute respiratory distress R06.03 Multifocal pneumonia J18.9 Weight loss R63.4 Severe malnutrition E43
--- NOTE | 2020-03-03 14:25 | Hospitalist Progress Note ---
Date of Service March 03, 2020 Assessment & Plan (1) End stage COPD: Multifocal pneumonia Acute respiratory distress on admission with chronic hypoxic respiratory failure -This is a 64-year-old female who presents with [id number] respiratory failure secondary to chronic obstructive pulmonary disease exacerbation and Multifocal pneumonia pneumonia -initially started on empiric antibiotics of Vancomycin and Cefepime -procalcitonin is negative, since pulmonary consult recommended to continue course of antibiotics, will continue cefepime for now without Vancomycin as MRSA swab negative -solumedrol IV q8 hours on admission switched to prednisone 40 mg daily started on 03/02/2020 as per initial pulmonary recommendations. scheduled nebulizers stopped as patient prefers prn nebulizers, Spiriva added -as per pulmonary 03/03/2020 re-assessment "Patient has severe bullous emphysema and is essentially end-stage COPD. I would recommend palliative care consultation. Additionally, recommend 7 days of antibiotics. Attempt obtaining 3 AFB sputum cultures to evaluate for nontuberculous Mycobacterium. She does not need to be in isolation for this as we do not have any suspicion for tuberculosis infection. Again, as I mentioned previously, she would be a very high risk for bronchoscopy given her severe bullous emphysema and chronic respiratory illness. I do not think that it would alter her prognosis. Follow-up CT chest in 4 to 6 weeks will be obtained. She is at very high risk for complications from bronchoscopy. I am also concerned that she would be intolerant of noninvasive ventilation and would be at risk for pneumothorax given her severe bullous emphysema. Daliresp can be considered by her outpatient auto body repairer fiberglass. Pulmonary will sign off at this time." -airborne isolation which were initially started on 03/02/2020 will be stopped on 03/03/2020 as pulmonary service indicates that airborne precautions are not needed at this time. continuing cefepime Tachycardia -mildly elevated heart rates likely in part due to COPD -on metoprolol, continue (2) Supratherapeutic INR: Chronic anticoagulation with coumadin History of Pulmonary embolism in 2010 Presence of IVC filter (placed in 2010) -INR is supratherapeutic at 9.7 on admission and Received vitamin K in the ER. INR downtrended to 3.4 by AM of 03/03/2020 -continue to hold coumadin, if patient were to be discharged on coumadin on this admission then will have top be less than 5 mg daily -trend INR DVT prophylaxis -supratherapautic INR Anemia -was evaluated for anemia with upper endoscopy and colonoscopy on last admission -Hgb 9.7 on 03/03/2020, trend CBC (3) Severe malnutrition: Weight Loss -drawer liner consult -BOOST supplements with meals (4) Essential tremor: -on primidone Admission and Anticipated Discharge Date Admission Date: March 01, 2020 Subjective Patient reports that she is able to ambulate to the bathroom. patient denies acute shortness of breath while on supplementary oxygen. Patient denies acute chest pain or abdomen pain or dizziness or headache. She had her IV replaced on her right upper extremity and there were difficulties in placing the IV by nursing as per patient but appears to be functional Review of Systems Review of Systems: All systems reviewed & are unremarkable except as noted in Subjective Physical Exam Constitutional: + thin and comfortable Eyes: PERRL, conjunctivae normal, anicteric sclerae EOM intact bilaterally ENMT: external ear and nose normal, oropharynx normal Neck: trachea midline, no thyromegaly normal visual inspection Cardiovascular: Rate/Rhythm: regular rhythm Gastrointestinal (Abdomen): normal bowel sounds, soft, nontender, no hepatosp lenomegaly Musculoskeletal: Head/Neck/Chest: normocephalic and head atraumatic Neurologic: PERRL, EOMI, accommodation nl, no face palsy, no dysarthria CN's II-XI intact bilaterally Psychiatric: A+Ox3, euthymic affect Results & Data Results & Data ([facility]) Vital Signs (Past 12 Hours) Vital Signs Temp Pulse Pulse Resp BP BP Pulse Ox 03/03/20 08:17 37.2 C 106 H 16 124/66 96 03/03/20 08:00 88 03/03/20 03:06 83 20 94 03/03/20 02:52 37.0 C 90 17 144/70 H 98
[2020-03-03] MEDS: MIRTAZAPINE TAB 15 MG TAB PO SCH (20:25)
[2020-03-04] MEDS: ONDANSETRON INJ 2 MG/ML 2 ML VIAL IV PRN (06:28)
[2020-03-04 06:36] LABS: Basophils # (auto) 0.01 K/uL (0-0.2); Basophils % (auto) 0.1 %; Hematocrit (blood only) 32.6 % (37-47); Hemoglobin 9.7 g/dL (12.0-16.0); Immature Granulocytes % (auto) 0.8 %; Lymphocytes # (auto) 0.85 K/uL (1.2-3.4); Lymphocytes % (auto) 6.4 %; Mean Corpuscular Hemoglobin 29.7 pg (25-34); Mean Corpuscular Hgb Conc 29.8 g/dL (32-36); Mean Corpuscular Volume 99.7 fL (80-100); Mean Platelet Volume 9.2 fL (7.4-10.4); Monocytes # (auto) 0.83 K/uL (0.11-0.59); Monocytes % (auto) 6.3 %; Neutrophils # (auto) 11.41 K/uL (1.4-6.5); Neutrophils % (auto) 86.4 %; Platelet Count 271 K/uL (130-400); RDW Coefficient of Variation 14.7 % (11.5-14.5); RDW Standard Deviation 53.8 fL (36.4-46.3); Red Blood Count 3.27 M/uL (4.2-5.4)
[2020-03-04 06:45] LABS: INR 2.3 (0.9-1.1); Prothrombin Time 23.5 Seconds (9.0-12.0)
[2020-03-04] MEDS: CHOLECALCIFEROL 1,000 UNITS 25 MCG TAB PO SCH (08:20)
[2020-03-04] MEDS: FLUTICASONE/VILANTEROL 100/25MCG 14 PUFFS/INHALER INH SCH (08:21)
[2020-03-04] MEDS: METOPROLOL TARTRATE 25 MG TAB PO SCH ×2 (08:21→20:01)
[2020-03-04] MEDS: PANTOprazole 40 MG TAB PO SCH ×2 (08:21→19:59)
[2020-03-04] MEDS: DOCUSATE SODIUM 100 MG CAP PO SCH ×2 (08:21→20:02)
[2020-03-04] MEDS: UMECLIDINIUM BROMIDE 62.5MCG/BLISTER 7 PUFFS/INHALER INH SCH (08:21)
[2020-03-04] MEDS: predniSONE 20 MG TAB PO SCH (08:21)
[2020-03-04] MEDS: PRIMIDONE 50 MG TAB PO SCH ×2 (08:21→20:01)
[2020-03-04] MEDS: CEFEPIME 2,000 MG in SYRINGE 7.5 ML IV SCH ×2 (10:32→21:08)
--- NOTE | 2020-03-04 11:41 | Hospitalist Progress Note ---
Date of Service March 04, 2020 Assessment & Plan (1) End stage COPD: Multifocal pneumonia Acute respiratory distress on admission with chronic hypoxic respiratory failure -This is a 64-year-old female who presents with rlhzu-[id number] respiratory failure secondary to chronic obstructive pulmonary disease exacerbation and Multifocal pneumonia pneumonia -initially started on empiric antibiotics of Vancomycin and Cefepime -procalcitonin is negative, since pulmonary consult recommended to continue course of antibiotics, will continue cefepime for now without Vancomycin as MRSA swab negative -solumedrol IV q8 hours on admission switched to prednisone 40 mg daily started on 03/02/2020 as per initial pulmonary recommendations. scheduled nebulizers stopped as patient prefers prn nebulizers, Spiriva added -transition to pednisone 20 mg daily starting on 03/05/2020 -as per pulmonary 03/03/2020 re-assessment "Patient has severe bullous emphysema and is essentially end-stage COPD. I would recommend palliative care consultation. Additionally, recommend 7 days of antibiotics. Attempt obtaining 3 AFB sputum cultures to evaluate for nontuberculous Mycobacterium. She does not need to be in isolation for this as we do not have any suspicion for tuberculosis infection. Again, as I mentioned previously, she would be a very high risk for bronchoscopy given her severe bullous emphysema and chronic respiratory illness. I do not think that it would alter her prognosis. Follow-up CT chest in 4 to 6 weeks will be obtained. She is at very high risk for complications from bronchoscopy. I am also concerned that she would be intolerant of noninvasive ventilation and would be at risk for pneumothorax given her severe bullous emphysema. Daliresp can be considered by her outpatient master glazier. Pulmonary will sign off at this time." -airborne isolation which were initially started on 03/02/2020 orders for isolation be stopped on 03/03/2020 as pulmonary service indicates that airborne precautions are not needed at this time. spuum cultures from 03/03/2020 not showing any acid-fast bacteria to date -continuing cefepime, unless there are acute issues will plan on obtaining follow up Chest X ray around 5 to 7 days from 03/01/2020 ED presentation since pulmonary service indicated the 7 days of antibiotics on their assessment Tachycardia -on metoprolol (2) Supratherapeutic INR: Chronic anticoagulation with coumadin History of Pulmonary embolism in 2010 Presence of IVC filter (placed in 2010) -INR is supratherapeutic at 9.7 on admission and Received vitamin K in the ER. INR downtrended to 3.4 by AM of 03/03/2020 -INR is 2.3 on 03/04/2020. resume coumadin as 3 mg daily for now DVT prophylaxis -coumadin Anemia -was evaluated for anemia with upper endoscopy and colonoscopy on last admission -Hgb 9.7 on 03/04/2020 is stable (3) Severe malnutrition: Weight Loss -inventory transcriber consult -BOOST supplements with meals (4) Essential tremor: -on primidone Admission and Anticipated Discharge Date Admission Date: March 01, 2020 Subjective Patient reports no acute shortness of breath. remains on nasal cannula oxygen. Patient not in acute distress. She reports some nausea today. but not vomiting. no problems with bowel movements or with ambulation Review of Systems Review of Systems: All systems reviewed & are unremarkable except as noted in Subjective Physical Exam Constitutional: + thin and comfortable Eyes: PERRL, conjunctivae normal, anicteric sclerae EOM intact bilaterally ENMT: external ear and nose normal, oropharynx normal Neck: trachea midline, no thyromegaly normal visual inspection Cardiovascular: Rate/Rhythm: regular rhythm Gastrointestinal (Abdomen): normal bowel sounds, soft, nontender, no hepatosplenomegaly Musculoskeletal: Head/Neck/Chest: normocephalic and head atraumatic Neurologic: PERRL, EOMI, accommodation nl, no face palsy, no dysarthria CN's II-XI intact bilaterally Psychiatric: A+Ox3, euthymic affect Results & Data Results & Data ([facility]) Vital Signs (Past 12 Hours) Vital Signs Temp Pulse Pulse Resp BP BP Pulse Ox 03/04/20 08:00 83 03/04/20 07:46 37.0 C 92 H 20 132/63 99 03/04/20 04:56 36.6 C 85 20 127/71 97 03/04/20 03:19 90 20 95
--- NOTE | 2020-03-04 17:00 | XRay Report ---
XR chest 2V PA/lateral CLINICAL HISTORY: follow lung infiltrates COMPARISON STUDY: Chest radiograph March 01, [address] March 02, 2020. FINDINGS: Severe emphysema is noted. There are postoperative findings within the right lung. Multifoc al left lung airspace opacities are similar to prior chest CT of March 02, 2020. Increasing fluid wi thin suspected left apical bulla is noted. There is no pneumothorax or pleural effusion. Cardiac size is normal. Mediastinal contours are unremarkable. IMPRESSION: 1. Persistent left lung airspace opacities which favor pneumonia. Increase in small air-fluid levels within several left apical bulla. 2. Severe emphysema. ACT 112: Negative or not required by law. Electronically signed by: Faustino August M.D. 03/04/2020 4:59 PM
[2020-03-04] MEDS: TRAMADOL HCL 50 MG TABLET PO PRN (17:27)
[2020-03-04] MEDS: WARFARIN SOD 3 MG TAB PO SCH (17:29)
[2020-03-04] MEDS ORDERED: SUCRALFATE 1 GM/10 ML UDC PO ONE (18:21)
[2020-03-04] MEDS: MIRTAZAPINE TAB 15 MG TAB PO SCH (20:02)
[2020-03-04] MEDS: SUCRALFATE 1 GM/10 ML UDC PO SCH (20:03)
[2020-03-05 06:20] LABS: INR 1.5 (0.9-1.1); Prothrombin Time 15.9 Seconds (9.0-12.0)
[2020-03-05 06:51] LABS: BUN Creatinine Ratio 36.8 (10-20); Calcium 8.5 mg/dl (8.5-10.1); Creatinine Clr Calc Pharmacy 78.1 ml/min; Est GFR (African American) 119.3; Est GFR (Non-African American) 102.9; Potassium 3.2 mmol/L (3.5-5.1)
[2020-03-05] MEDS ORDERED: POTASSIUM ACETATE 10 MEQ in 0.9 % SODIUM CHLORIDE 100 ML IV STA (07:10)
[2020-03-05] MEDS ORDERED: POTASSIUM CHLORIDE 20 MEQ TABCR PO STA (07:10)
--- NOTE | 2020-03-05 07:47 | Hospitalist Progress Note ---
Date of Service March 05, 2020 Assessment & Plan (1) End stage COPD: Multifocal pneumonia Acute respiratory distress on admission with chronic hypoxic respiratory failure -This is a 64-year-old female who presents with pfmxh-gd-suraxge respiratory failure secondary to chronic obstructive pulmonary disease exacerbation and Multifocal pneumonia pneumonia -initially started on empiric antibiotics of Vancomycin and Cefepime -procalcitonin is negative, since pulmonary consult recommended to continue course of antibiotics, will continue cefepime for now without Vancomycin as MRSA swab negative -solumedrol IV q8 hours on admission switched to prednisone 40 mg daily started on 03/02/2020 as per initial pulmonary recommendations. scheduled nebulizers stopped as patient prefers prn nebulizers, Spiriva added -transition to pednisone 20 mg daily starting on 03/05/2020 -as per pulmonary 03/03/2020 re-assessment "Patient has severe bullous emphysema and is essentially end-stage COPD. I would recommend palliative care consultation. Additionally, recommend 7 days of antibiotics. Attempt obtaining 3 AFB sputum cultures to evaluate for nontuberculous Mycobacterium. She does not need to be in isolation for this as we do not have any suspicion for tuberculosis infection. Again, as I mentioned previously, she would be a very high risk for bronchoscopy given her severe bullous emphysema and chronic respiratory illness. I do not think that it would alter her prognosis. Follow-up CT chest in 4 to 6 weeks will be obtained. She is at very high risk for complications from bronchoscopy. I am also concerned that she would be intolerant of noninvasive ventilation and would be at risk for pneumothorax given her severe bullous emphysema. Daliresp can be considered by her outpatient network systems administrator. Pulmonary will sign off at this time." -airborne isolation which were initially started on 03/02/2020 orders for isolation be stopped on 03/03/2020 as pulmonary service indicates that airborne precautions are not needed at this time. sputum cultures from 03/03/2020 not showing any acid-fast bacteria to date Follow up Chest X ray on 03/04/2020: with persistent left lung opacities that favors pneumonia, emphysema -continuing cefepime IV q12 hours. 03/05/2020: discussed with patient that her family interested in her to see palliative care to discuss advance directives. Tachycardia -mild sinus tachycardia likely from underlying COPD -on metoprolol and generally rate controlled in high 90s or low 100s Hypokalemia -serum potassium 3.2, give oral and IV potassium (2) Supratherapeutic INR: Chronic anticoagulation with coumadin History of Pulmonary embolism in 2011 Presence of IVC filter (placed in 2010) -INR is supratherapeutic at 9.7 on admission and Received vitamin K in the ER. INR downtrended to 3.4 by AM of 03/03/2020 -INR is 2.3 on 03/04/2020. resume coumadin as 3 mg daily for now -INR 1.5 on 03/05/2020, continue coumadin DVT prophylaxis -coumadin, SCDs Anemia -was evaluated for anemia with upper endoscopy and colonoscopy on last admission -Hgb 9.7 on 03/04/2020 is stable (3) Severe malnutrition: Weight Loss -director of residential services consult -BOOST supplements with meals -given carafate started on 03/05/2020 to ameliorate abdominal discomfort (4) Essential tremor: -on primidone Full Code Admission and Anticipated Discharge Date Admission Date: March 01, 2020 Subjective Patient reports that abdominal discomforts from yesterday are resolved. no vomiting. eating the breakfast today. her breathing is stable and comfortable while on nasal cannula as it has been so far while in hospital. discussed with patient that her family interested to talk more about advance directives because of her advance COPD. Patient agrees to see palliative care consult. on telemetry. no chest pain. no acute distress. no dizziness. no headache. Review of Systems Review of Systems: All systems reviewed & are unremarkable except as noted in Subjective Physical Exam Constitutional: + thin and comfortable Eyes: PERRL, conjunctivae normal, anicteric sclerae EOM intact bilaterally ENMT: external ear and nose normal, oropharynx normal Neck: trachea midline, no thyromegaly normal visual inspection Cardiovascular: Rate/Rhythm: regular rhythm Gastrointestinal (Abdomen): normal bowel sounds, soft, nontender, no hepatosplenomegaly Musculoskeletal: Head/Neck/Chest: normocephalic and head atraumatic Neurologic: PERRL, EOMI, accommodation nl, no face palsy, no dysarthria CN's II-XI intact bilaterally Psychiatric: A+Ox3, euthymic affect Results & Data Results & Data ([facility]) Vital Signs (Past 12 Hours) Vital Signs Temp Pulse Pulse Resp BP Pulse Ox 03/05/20 07:41 37.1 C 102 H 18 130/80 96 03/05/20 03:08 37.4 C 103 H 20 133/79 95 03/05/20 00:12 96 H 03/05/20 00:05 36.8 C 102 H 18 142/78 H 98
[2020-03-05] MEDS: POTASSIUM CHLORIDE / WTR 10 MEQ/100 ML PLCT IV SCH ×2 (08:48→10:12)
[2020-03-05] MEDS: CEFEPIME 2,000 MG in SYRINGE 7.5 ML IV SCH ×3 (08:48→23:50)
[2020-03-05] MEDS: METOPROLOL TARTRATE 25 MG TAB PO SCH ×2 (08:49→21:05)
[2020-03-05] MEDS: predniSONE 20 MG TAB PO SCH (08:49)
[2020-03-05] MEDS: PRIMIDONE 50 MG TAB PO SCH ×2 (08:49→21:06)
[2020-03-05] MEDS: PANTOprazole 40 MG TAB PO SCH ×2 (08:49→21:05)
[2020-03-05] MEDS: CHOLECALCIFEROL 1,000 UNITS 25 MCG TAB PO SCH (08:50)
[2020-03-05] MEDS: SUCRALFATE 1 GM/10 ML UDC PO SCH ×4 (08:50→21:06)
[2020-03-05] MEDS: UMECLIDINIUM BROMIDE 62.5MCG/BLISTER 7 PUFFS/INHALER INH SCH (08:51)
[2020-03-05] MEDS: FLUTICASONE/VILANTEROL 100/25MCG 14 PUFFS/INHALER INH SCH (08:51)
[2020-03-05] MEDS: DOCUSATE SODIUM 100 MG CAP PO SCH ×2 (13:00→21:07)
--- NOTE | 2020-03-05 13:57 | Palliative Care Consultation ---
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 antibiotics. Patient continued to worsen after discharge and return to the emergency room on 03/01. Patient reports that her home health nurse found that her heart rate was elevated, she had increased shortness of breath and increased weakness as well as increased dyspnea with minimal exertion. Patient's reports patient has had a poor appetite with poor p.o. intake prior to admission. On admission patient's white count was 20.59, chest x-ray showed increased opacification of the left upper lobe compared to prior x-rays. Patient is O2 and steroid dependent, uses BiPAP nightly. 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 Patient also has a 41-faxb-[id number] history of smoking. -Both patient and have clear understanding of the severity of her disease, have discussed advanced directives and her wishes in detail. reports that 9 years ago patient required life support and coded in the ambulance prior to arrival-she has outlived all expectations. Patient states that she wishes to be a full code, including chest compressions, shock, and intubation. She states her knows that she does not want prolonged intubation, only long enough for the family to get at bedside to say goodbye. - reports patient has markedly improved since admission-she is currently on IV cefepime as well as her home inhalers, prednisone is at 20 mg. -Discussed steps to take if she at any point would want to change her CODE STATUS including filling out by POLST form, if returning to the hospital was no longer helpful to consider hospice. -Patient has been to her second for 26 years, it is her 's first marriage. Patient has 3 children, 2 sons and 1 daughter who is the eldest, 2 grandchildren and 2 great-grandchildren. All her family lives nearby. Children are aware of patient's wishes and that her would be her healthcare surrogate. - reports that patient weighed 74 pounds when they were , her peak weight was 107 pounds. Patient's weight on admission was 97 pounds -Patient with new temp today-100.4, patient is in bed-would likely benefit from incentive spirometer and/or getting out of bed into a chair to improve aeration. -Patient reports at home she is able to ambulate and take the dogs out and walk around the house, she does light housework. -PPS 50% -Will continue to follow and be available for any changes in condition to assist patient and family with medical decision making. (2) Pneumonia: Improving per patient and family-continue IV cefepime Laterality: left Lung location: unspecified part of lung Pneumonia type: due to unspecified organism Qualified Code(s): J18.9 - Pneumonia, unspecified organism (3) Acute and chronic respiratory failure: Improving, patient now on home level of O2 at 2 L nasal cannula Respiratory failure complication: unspecified whether with hypoxia or hypercapnia Qualified Code(s): J96.20 - Acute and chronic respiratory failure, unspecified whether with hypoxia or hypercapnia (4) End stage COPD: Patient and family understand that patient has severe, end-stage COPD. History of Present Illness Reason for Consultation: Address goals of care as well as CODE STATUS Requesting Physician: Dr. 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 antibiotics. Patient continued to worsen after discharg e and return to the emergency room on 03/01. Patient reports that her home health nurse found that her heart rate was elevated, she had increased shortness of breath and increased weakness as well as increased dyspnea with minimal exertion. Patient's reports patient has had a poor appetite with poor p.o. intake prior to admission. On admission patient's white count was 20.59, chest x-ray showed increased opacification of the left upper lobe compared to prior x-rays. Patient is O2 and steroid dependent, uses BiPAP nightly. 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 Patient also has a 75-[id number]-[id number] history of smoking. -Both patient and have clear understanding of the severity of her disease, have discussed advanced directives and her wishes in detail. reports that 9 years ago patient required life support and coded in the ambulance prior to arrival-she has outlived all expectations. Patient states that she wishes to be a full code, including chest compressions, shock, and intubation. She states her knows that she does not want prolonged intubation, only long enough for the family to get at bedside to say goodbye. - reports patient has markedly improved since admission-she is currently on IV cefepime as well as her home inhalers, prednisone is at 20 mg. -Discussed steps to take if she at any point would want to change her CODE STATUS including filling out by POLST form, if returning to the hospital was no longer helpful to consider hospice. -Patient has been to her second for 26 years, it is her 's first marriage. Patient has 3 children, 2 sons and 1 daughter who is the eldest, 2 grandchildren and 2 great-grandchildren. All her family lives nearby. Children are aware of patient's wishes and that her would be her healthcare surrogate. - reports that patient weighed 74 pounds when they were , her peak weight was 107 pounds. Patient's weight on admission was 97 pounds -Patient with new temp today-100.4, patient is in bed-would likely benefit from incentive spirometer and/or getting out of bed into a chair to improve aeration. -Patient reports at home she is able to ambulate and take the dogs out and walk around the house, she does light housework. -PPS 50% -Will continue to follow and be available for any changes in condition to assist patient and family with medical decision making. Allergies Allergy/AdvReac Type Severity Reaction Status Date / Time phytonadione (vitamin K1) Allergy Intermediate severe Verified 03/01/20 23:03 back pain, red face levofloxacin Allergy Mild rash Verified 03/01/20 23:03 Penicillins Allergy Mild Amoxil - Verified 03/01/20 23:03 rash allantoin Allergy Unknown [facility] LIST Verified 03/01/20 23:03 bacitracin AdvReac Intermediate infection Verified 03/01/20 23:03 neomycin AdvReac Intermediate infection Verified 03/01/20 23:03 polymyxin B AdvReac Intermediate infection Verified 03/01/20 23:03 theophylline AdvReac Mild Headache Verified 03/01/20 23:03 cinnamon AdvReac Verified 03/03/20 07:48 Home Medications Home Medications Medication Instructions Recorded Confirmed Type albuterol sulfate 1.25 mg INH QID PRN #360 ml 07/20/19 03/01/20 Rx fluticasone propion-salmeterol 1 ea INHALATION BID 12/06/19 03/01/20 History [Wixela Inhub] primidone 50 mg PO BID 12/06/19 03/01/20 History metoprolol tartrate 25 mg PO BID 30 Days #60 tab 02/17/20 03/01/20 Rx pantoprazole 40 mg PO BID 30 Days #60 tab 02/17/20 03/01/20 Rx cholecalciferol (vitamin D3) 50 mcg PO DAILY 03/01/20 03/01/20 History [Vitamin D3] docusate sodium [Colace] 100 mg PO BID 03/01/20 03/01/20 History levalbuterol HCl 1.25 mg INHALATION TID PRN 03/01/20 03/01/20 History levalbuterol tartrate 1 puff INHALATION Q4 PRN 03/01/20 03/01/20 History lidocaine 1 patch TOPICAL DAILY PRN 03/01/20 03/01/20 History mirtazapine [Remeron] 15 mg PO HS 03/01/20 03/01/20 History ondansetron HCl [Zofran] 4 mg PO Q8 PRN 03/01/20 03/01/20 History polyethylene glycol 3350 [Miralax] 17 g PO DAILY PRN 03/01/20 03/01/20 History prednisone 5 mg PO DAILY 03/01/20 03/01/20 History tramadol 50 mg PO Q8 PRN 03/01/20 03/01/20 History warfarin 5 mg PO UD 03/01/20 03/01/20 History Patient History Medical History Abdominal pain Chronic respiratory failure COPD (chronic obstructive pulmonary disease) "severe" End stage COPD Essential tremor H/O pneumothorax "spontaneous" History of Clostridium difficile colitis History of DVT (deep vein thrombosis) Multifocal pneumonia Pneumonia Presence of inferior vena cava filter Weight loss Surgical History H/O pneumonectomy History of appendectomy S/P insertion of IVC (inferior vena caval) filter Family History Other Kidney disease Lung disease Social History Smoking Status: Former smoker Hx Alcohol Use: No Hx Substance Use: No Preferred Language: Montserratian Communication Ability: Effective Stepdown Nurse Required: No Beliefs That Will Affect Care: None marital status: Current Living Situation: Family Current Living Situation Comment: lives with How many Children do You have: 2 Feels Safe at Home: Yes Review of Systems Review of Systems: Patient denies fever, chills, chest pain, increased shortness of breath, or abdominal pain Positive for shortness of breath-improving, positive for cough Physical Exam Physical Exam: PE: Patient awake and alert, no acute distress at rest. Able to carry on a conversation, saying approximately one half sentence between breaths. Patient is currently on O2 at 2 L nasal cannula which is her home O2 level HEENT: EOMI, hearing within normal limits Respirations: Diminished breath sounds all lung simmons, no wheezes or rhonchi CV: Regular rate, no edema Abdomen: Soft, nontender Extremities: Cachectic Neuro: Alert and oriented x4 Results & Data ([facility]) Vital Signs (Past 12 Hours) Vital Signs Temp Pulse Resp BP Pulse Ox 03/05/20 11:59 100.4 F H 90 18 136/80 95 03/05/20 07:41 98.8 F 102 H 18 130/80 96 03/05/20 03:08 99.3 F 103 H 20 133/79 95 PG Care Time/CCT Total # of Minutes Spent Total Time Spent with Patient: Total time spent 70 minutes with greater than 50% of the time at bedside discussing patient's current status and goals of care as well as CODE STATUS Coding Level of Care Code 54623 Inpt Consult Level 3 Diagnoses Palliative care encounter Z51.5 Pneumonia J18.9 Laterality: left Lung location: unspecified part of lung Pneumonia type: due to unspecified organism Acute and chronic respiratory failure J96.20 Respiratory failure complication: unspecified whether with hypoxia or hypercapnia End stage COPD J44.9 Time Spent (min) 70
[2020-03-05] MEDS: THIAMINE HCL 100 MG TAB PO SCH (16:10)
[2020-03-05] MEDS: MULTIVITAMIN TAB PO SCH (16:10)
[2020-03-05] MEDS: WARFARIN SOD 3 MG TAB PO SCH (16:12)
[2020-03-05] MEDS: MIRTAZAPINE TAB 15 MG TAB PO SCH (21:22)
[2020-03-06 06:31] LABS: INR 1.5 (0.9-1.1); Prothrombin Time 15.6 Seconds (9.0-12.0)
[2020-03-06 08:37] LABS: BUN Creatinine Ratio 30.6 (10-20); Calcium 8.7 mg/dl (8.5-10.1); Est GFR (African American) 119.3; Est GFR (Non-African American) 102.9; Potassium 3.7 mmol/L (3.5-5.1)
[2020-03-06] MEDS: CEFEPIME 2,000 MG in SYRINGE 7.5 ML IV SCH ×2 (09:16→16:14)
--- NOTE | 2020-03-06 09:18 | Hospitalist Progress Note ---
Date of Service March 06, 2020 Assessment & Plan (1) End stage COPD: Multifocal pneumonia Acute respiratory distress on admission with chronic hypoxic respiratory failure -This is a 64-year-old female who presents with [id number] respiratory failure secondary to chronic obstructive pulmonary disease exacerbation and Multifocal pneumonia pneumonia -initially started on empiric antibiotics of Vancomycin and Cefepime -procalcitonin is negative, since pulmonary consult recommended to continue course of antibiotics, will continue cefepime for now without Vancomycin as MRSA swab negative -solumedrol IV q8 hours on admission switched to prednisone 40 mg daily started on 03/02/2020 as per initial pulmonary recommendations. scheduled nebulizers stopped as patient prefers prn nebulizers, Spiriva added -transition to pednisone 20 mg daily starting on 03/05/2020, continue for now -as per pulmonary 03/03/2020 re-assessment "Patient has severe bullous emphysema and is essentially end-stage COPD. I would recommend palliative care consultation. Additionally, recommend 7 days of antibiotics. Attempt obtaining 3 AFB sputum cultures to evaluate for nontuberculous Mycobacterium. She does not need to be in isolation for this as we do not have any suspicion for tuberculosis infection. Again, as I mentioned previously, she would be a very high risk for bronchoscopy given her severe bullous emphysema and chronic respiratory illness. I do not think that it would alter her prognosis. Follow-up CT chest in 4 to 6 weeks will be obtained. She is at very high risk for complications from bronchoscopy. I am also concerned that she would be intolerant of noninvasive ventilation and would be at risk for pneumothorax given her severe bullous emphysema. Daliresp can be considered by her outpatient varnish mixer. Pulmonary will sign off at this time." -airborne isolation which were initially started on 03/02/2020 orders for isolation be stopped on 03/03/2020 as pulmonary service indicates that airborne precautions are not needed at this time. sputum cultures from 03/03/2020 not showing any acid-fast bacteria to date Follow up Chest X ray on 03/04/2020: with persistent left lung opacities that favors pneumonia, emphysema -continuing cefepime IV q12 hours. 03/05/2020: discussed with patient that her family interested in her to see palliative care to discuss advance directives. Patient was seen by palliative care on 03/05/2020 -03/06/2020: Patient seen and examined in AM. some tachycardia over the night time but it is sinus. patient reported poor sleep and for that reason she said that she did not do well with therapy assessment today. Patient denies any more shortness of breath. she reports of abdomen discomforts over the night but her blood counts have been stable while her coumadin if being titrated. her INR remains as 1.5 while on coumadin 3 mg daily so patient to be given coumadin 4 mg daily starting on 03/06/2020. continue IV antibiotics and current oral prednisone. plans for repeat CXR on 03/07/2020 to follow lung infiltrates. patient agrees to continue PT/OT assessments while in the hospital Tachycardia -mild sinus tachycardia likely from underlying COPD -on metoprolol and generally rate controlled in high 90s or low 100s Hypokalemia -serum potassium 3.2 on 03/05/2020 and given oral and IV potassium. serum potassium at goal as of 03/06/2020 labs (2) Supratherapeutic INR: Chronic anticoagulation with coumadin History of Pulmonary embolism in 2010 Presence of IVC filter (placed in 2010) -INR is supratherapeutic at 9.7 on admission when she was on 5 mg daily coumadin as outpatient and Received vitamin K in the ER. INR downtrended to 3.4 by AM of 03/03/2020 -INR is 2.3 on 03/04/2020. resume coumadin as 3 mg daily for now -INR 1.5 on 03/05/2020, continue coumadin -INR still 1.5 on 03/06/2020, increase coumadin as 4 mg daily DVT prophylaxis -coumadin, SCDs Anemia -was evaluated for anemia with small bowel endoscopy and sigmoidoscopy and studies did not show perforation of IVC into the bowels -Hgb 9.7 on 03/04/2020 is stable (3) Severe malnutrition: Weight Loss Abdominal discomfort -technical buyer consult -BOOST supplements with meals -given carafate started on 03/05/2020 to ameliorate abdominal discomfort. continue BID pantoprazole (4) Essential tremor: -on primidone Full Code Admission and Anticipated Discharge Date Admission Date: March 01, 2020 Subjective Patient seen and examined in AM. some tachycardia over the night time but it is sinus. patient reported poor sleep and for that reason she said that she did not do well with therapy assessment today. Patient denies any more shortness of breath. she reports of abdomen discomforts over the night but her blood counts have been stable while her coumadin if being titrated. her INR remains as 1.5 while on coumadin 3 mg daily so patient to be given coumadin 4 mg daily starting on 03/06/2020. continue IV antibiotics and current oral prednisone. plans for repeat CXR on 03/07/2020 to follow lung infiltrates. patient agrees to continue PT/OT assessments while in the hospital Review of Systems Review of Systems: All systems reviewed & are unremarkable except as noted in Subjective Physical Exam Constitutional: + thin and comfortable Eyes: PERRL, conjunctivae normal, anicteric sclerae EOM intact bilaterally ENMT: external ear and nose normal, oropharynx normal Neck: trachea midline, no thyromegaly normal visual inspection Respiratory: normal respiratory effort, lungs clear to auscultation Cardiovascular: Rate/Rhythm: regular rhythm Gastrointestinal (Abdomen): normal bowel sounds, soft, nontender, no hepatosplenomegaly Musculoskeletal: Head/Neck/Chest: normocephalic and head atraumatic Neurologic: PERRL, EOMI, accommodation nl, no face palsy, no dysarthria CN's II-XI intact bilaterally Psychiatric: A+Ox3, euthymic affect Results & Data Results & Data ([facility]) Vital Signs (Past 12 Hours) Vital Signs Temp Pulse Pulse Pulse Resp BP Pulse Ox 03/06/20 07:09 37.2 C 116 H 16 137/77 98 03/06/20 05:39 37.4 C 03/06/20 04:01 38 C H 110 H 20 153/77 H 95 03/06/20 00:00 118 H 03/05/20 23:44 36.6 C 119 H 20 133/86 95 03/05/20 23:00 129 H 21 95
[2020-03-06] MEDS: CHOLECALCIFEROL 1,000 UNITS 25 MCG TAB PO SCH (09:24)
[2020-03-06] MEDS: PANTOprazole 40 MG TAB PO SCH ×2 (09:25→22:23)
[2020-03-06] MEDS: METOPROLOL TARTRATE 25 MG TAB PO SCH ×2 (09:25→22:23)
[2020-03-06] MEDS: SUCRALFATE 1 GM/10 ML UDC PO SCH ×4 (09:26→22:22)
[2020-03-06] MEDS: predniSONE 20 MG TAB PO SCH (09:27)
[2020-03-06] MEDS: MULTIVITAMIN TAB PO SCH (09:27)
[2020-03-06] MEDS: THIAMINE HCL 100 MG TAB PO SCH (09:28)
[2020-03-06] MEDS: FLUTICASONE/VILANTEROL 100/25MCG 14 PUFFS/INHALER INH SCH (12:46)
[2020-03-06] MEDS: PRIMIDONE 50 MG TAB PO SCH ×2 (12:47→22:23)
[2020-03-06] MEDS: DOCUSATE SODIUM 100 MG CAP PO SCH ×2 (12:48→22:23)
[2020-03-06] MEDS: UMECLIDINIUM BROMIDE 62.5MCG/BLISTER 7 PUFFS/INHALER INH SCH (12:49)
[2020-03-06] MEDS: WARFARIN SOD 4 MG TAB PO SCH (16:15)
[2020-03-06] MEDS: ONDANSETRON INJ 2 MG/ML 2 ML VIAL IV PRN (18:21)
[2020-03-06] MEDS: MIRTAZAPINE TAB 15 MG TAB PO SCH (22:23)
[2020-03-07] MEDS: CEFEPIME 2,000 MG in SYRINGE 7.5 ML IV SCH ×3 (00:14→16:39)
[2020-03-07 06:04] LABS: Basophils # (auto) 0.01 K/uL (0-0.2); Eosinophils # (auto) 0.26 K/uL (0-0.5); Eosinophils % (auto) 1.3 %; Hematocrit (blood only) 29.1 % (37-47); Hemoglobin 8.9 g/dL (12.0-16.0); Immature Granulocytes # (auto) 0.15 K/uL (0.00-0.02); Immature Granulocytes % (auto) 0.7 %; Lymphocytes # (auto) 1.19 K/uL (1.2-3.4); Lymphocytes % (auto) 5.8 %; Mean Corpuscular Hemoglobin 30.1 pg (25-34); Mean Corpuscular Hgb Conc 30.6 g/dL (32-36); Mean Corpuscular Volume 98.3 fL (80-100); Mean Platelet Volume 9.1 fL (7.4-10.4); Monocytes # (auto) 1.34 K/uL (0.11-0.59); Monocytes % (auto) 6.5 %; Neutrophils % (auto) 85.7 %; Platelet Count 257 K/uL (130-400); RDW Coefficient of Variation 14.7 % (11.5-14.5); RDW Standard Deviation 52.3 fL (36.4-46.3); Red Blood Count 2.96 M/uL (4.2-5.4); White Blood Count 20.55 K/uL (4.8-10.8)
[2020-03-07 06:15] LABS: INR 1.4 (0.9-1.1); Prothrombin Time 14.5 Seconds (9.0-12.0)
[2020-03-07] MEDS: CHOLECALCIFEROL 1,000 UNITS 25 MCG TAB PO SCH (08:50)
[2020-03-07] MEDS: UMECLIDINIUM BROMIDE 62.5MCG/BLISTER 7 PUFFS/INHALER INH SCH (08:50)
[2020-03-07] MEDS: FLUTICASONE/VILANTEROL 100/25MCG 14 PUFFS/INHALER INH SCH (08:50)
[2020-03-07] MEDS: PRIMIDONE 50 MG TAB PO SCH ×2 (08:51→20:46)
[2020-03-07] MEDS: predniSONE 20 MG TAB PO SCH (08:51)
[2020-03-07] MEDS: MULTIVITAMIN TAB PO SCH (08:51)
[2020-03-07] MEDS: SUCRALFATE 1 GM/10 ML UDC PO SCH ×4 (08:51→20:43)
[2020-03-07] MEDS: METOPROLOL TARTRATE 25 MG TAB PO SCH ×2 (08:51→20:47)
[2020-03-07] MEDS: PANTOprazole 40 MG TAB PO SCH ×2 (08:51→20:47)
[2020-03-07] MEDS: THIAMINE HCL 100 MG TAB PO SCH (08:52)
[2020-03-07] MEDS: DOCUSATE SODIUM 100 MG CAP PO SCH ×2 (08:53→20:43)
--- NOTE | 2020-03-07 09:49 | XRay Report ---
XR chest 2V PA/lateral HISTORY: follow lung infiltrates COMPARISON: Chest 03/04/2020. FINDINGS: Advanced bullous emphysema is again noted. Suture material within the right lung apex. No p neumothorax. Stable blunting of the right lateral costophrenic sulcus. Suspect trace bilateral pleura l effusions. The heart is normal in size. Patchy left upper lobe airspace opacities are not significa nt changed. There are associated air-fluid levels within the left lung apex. This likely represents f luid within a few bullae rather than a cavitary lesion. And IVC filter is noted. Old mild compression deformities within the thoracic spine. IMPRESSION: No change in the left lung airspace opacities. Small air-fluid levels within a few left apical bullae persist. ACT 112: Negative or not required by law. Electronically signed by: James Lamb M.D. 03/07/2020 9:48 AM
[2020-03-07] MEDS: WARFARIN SOD 4 MG TAB PO SCH (15:33)
--- NOTE | 2020-03-07 16:47 | Hospitalist Progress Note ---
Date of Service March 07, 2020 Assessment & Plan (1) End stage COPD: Multifocal pneumonia Acute respiratory distress on admission with chronic hypoxic respiratory failure -This is a 64-year-old female who presents with higbs-bo-hhhsrxh respiratory failure secondary to chronic obstructive pulmonary disease exacerbation and Multifocal pneumonia pneumonia -initially started on empiric antibiotics of Vancomycin and Cefepime -procalcitonin is negative, since pulmonary consult recommended to continue course of antibiotics, will continue cefepime for now without Vancomycin as MRSA swab negative -solumedrol IV q8 hours on admission switched to prednisone 40 mg daily started on 03/02/2020 as per initial pulmonary recommendations. scheduled nebulizers stopped as patient prefers prn nebulizers, Spiriva added -transition to pednisone 20 mg daily starting on 03/05/2020, continue for now -as per pulmonary 03/03/2020 re-assessment "Patient has severe bullous emphysema and is essentially end-stage COPD. I would recommend palliative care consultation. Additionally, recommend 7 days of antibiotics. Attempt obtaining 3 AFB sputum cultures to evaluate for nontuberculous Mycobacterium. She does not need to be in isolation for this as we do not have any suspicion for tuberculosis infection. Again, as I mentioned previously, she would be a very high risk for bronchoscopy given her severe bullous emphysema and chronic respiratory illness. I do not think that it would alter her prognosis. Follow-up CT chest in 4 to 6 weeks will be obtained. She is at very high risk for complications from bronchoscopy. I am also concerned that she would be intolerant of noninvasive ventilation and would be at risk for pneumothorax given her severe bullous emphysema. Daliresp can be considered by her outpatient negotiator sales. Pulmonary will sign off at this time." -airborne isolation which were initially started on 03/02/2020 orders for isolation be stopped on 03/03/2020 as pulmonary service indicates that airborne precautions are not needed at this time. sputum cultures from 03/03/2020 not showing any acid-fast bacteria to date Follow up Chest X ray on 03/04/2020: with persistent left lung opacities that favors pneumonia, emphysema -continuing cefepime IV q12 hours. 03/05/2020: discussed with patient that her family interested in her to see palliative care to discuss advance directives. Patient was seen by palliative care on 03/05/2020 -03/06/2020: Patient seen and examined in AM. some tachycardia over the night time but it is sinus. patient reported poor sleep and for that reason she said that she did not do well with therapy assessment today. Patient denies any more shortness of breath. she reports of abdomen discomforts over the night but her blood counts have been stable while her coumadin if being titrated. her INR remains as 1.5 while on coumadin 3 mg daily so patient to be given coumadin 4 mg daily starting on 03/06/2020. continue IV antibiotics and current oral prednisone. plans for repeat CXR on 03/07/2020 to follow lung infiltrates. patient agrees to continue PT/OT assessments while in the hospital -03/07/20 CXR showed no change in the left lung airspace opacities compared to the previous CXR. Small air-fluid levels within a few left apical bullae persist. COVID-19 negative Clinically improves Continue prednisone and neb treatment daily Continue Umeclidinium [place] and oxygen supplement Will add Guaifenesin Pulmonary on board and recommended CT chest follow up in 4 to 6 weeks Daliresp can be adding by pulmonology Tachycardia -mild sinus tachycardia likely from underlying COPD -on metoprolol and generally rate controlled in high 90s or low 100s Hypokalemia -serum potassium 3.2 on 03/05/2020 and given oral and IV potassium. serum potassium at goal as of 03/06/2020 labs Monitor BMP (2) Supratherapeutic INR: Chronic anticoagulation with coumadin History of Pulmonary embolism in 2010 Presence of IVC filter (placed in 2010) -INR is supratherapeutic at 9.7 on admission when she was on 5 mg daily coumadin as outpatient and Received vitamin K in the ER. INR downtrended to 3.4 by AM of 03/03/2020 -INR is 2.3 on 03/04/2020. resume coumadin as 3 mg daily for now -INR 1.5 on 03/05/2020, continue coumadin -INR still 1.5 on 03/06/2020, increase coumadin as 4 mg daily -INR 1.4 today, continue Coumadin 4mg today Anemia -was evaluated for anemia with small bowel endoscopy and sigmoidoscopy and studies did not show perforation of IVC into the bowels -Hgb 8.9 today -Monitor CBC (3) Severe malnutrition: Weight Loss Abdominal discomfort -cord maker consult -BOOST supplements with meals -given carafate started on 03/05/2020 to ameliorate abdominal discomfort. continue BID pantoprazole (4) Essential tremor: -on primidone DVT px SCD Continue Coumadin Full Code Admission and Anticipated Discharge Date Admission Date: March 01, 2020 Subjective Pt was seen and examined Lying in bed with no distress Pt said that her breathing is getting much better She said that something she has a hard time to bring her phlegm up Denies any chest pain, palpitation, dizziness and SOB Physical Exam Physical Exam: General- No acute distress Head- atraumatic Eyes- PERRL, EOMI, ENT- oropharynx clear Neck- supple, no JVD Lungs- poor air entry, no wheezing Heart- regular rhythm; no murmur Abdomen- normal bowel sounds, soft, nontender Extremities- no calf tenderness Neuro- alert, oriented x 3; PERRL, EOMI; no facial palsy; no dysarthria Skin- warm & dry Results & Data Results & Data ([facility]) Vital Signs (Past 12 Hours) Vital Signs Temp Pulse Pulse Resp BP Pulse Ox 03/07/20 15:09 37.8 C H 108 H 18 120/70 93 03/07/20 11:06 37.2 C 88 16 122/68 98 03/07/20 07:16 37.3 C 114 H 18 157/78 H 97 03/07/20 07:05 114 H
[2020-03-07] MEDS: guaiFENesin 200 MG TAB PO SCH (20:42)
[2020-03-07] MEDS: MIRTAZAPINE TAB 15 MG TAB PO SCH (20:47)
[2020-03-08] MEDS: CEFEPIME 2,000 MG in SYRINGE 7.5 ML IV SCH ×2 (00:34→08:14)
[2020-03-08] MEDS: guaiFENesin 200 MG TAB PO SCH ×2 (05:03→12:55)
[2020-03-08 06:25] LABS: Hematocrit (blood only) 28.3 % (37-47); Hemoglobin 8.9 g/dL (12.0-16.0); Mean Corpuscular Hemoglobin 30.3 pg (25-34); Mean Corpuscular Hgb Conc 31.4 g/dL (32-36); Mean Corpuscular Volume 96.3 fL (80-100); Platelet Count 239 K/uL (130-400); RDW Coefficient of Variation 14.5 % (11.5-14.5); RDW Standard Deviation 51.4 fL (36.4-46.3); Red Blood Count 2.94 M/uL (4.2-5.4); White Blood Count 14.38 K/uL (4.8-10.8)
[2020-03-08 06:35] LABS: INR 1.6 (0.9-1.1); Prothrombin Time 16.4 Seconds (9.0-12.0)
[2020-03-08] MEDS: PRIMIDONE 50 MG TAB PO SCH (08:10)
[2020-03-08] MEDS: CHOLECALCIFEROL 1,000 UNITS 25 MCG TAB PO SCH (08:10)
[2020-03-08] MEDS: THIAMINE HCL 100 MG TAB PO SCH (08:10)
[2020-03-08] MEDS: PANTOprazole 40 MG TAB PO SCH (08:10)
[2020-03-08] MEDS: MULTIVITAMIN TAB PO SCH (08:10)
[2020-03-08] MEDS: METOPROLOL TARTRATE 25 MG TAB PO SCH (08:11)
[2020-03-08] MEDS: FLUTICASONE/VILANTEROL 100/25MCG 14 PUFFS/INHALER INH SCH (08:11)
[2020-03-08] MEDS: UMECLIDINIUM BROMIDE 62.5MCG/BLISTER 7 PUFFS/INHALER INH SCH (08:11)
[2020-03-08] MEDS: SUCRALFATE 1 GM/10 ML UDC PO SCH ×2 (08:12→12:55)
[2020-03-08] MEDS: DOCUSATE SODIUM 100 MG CAP PO SCH (08:14)
--- NOTE | 2020-03-08 13:15 | Discharge Summary ---
Date of Service March 08, 2020 Admission HPI Per Admitting Provider CHIEF COMPLAINT: Shortness of breath. HISTORY OF PRESENT ILLNESS: This is a 64-year-old female with past medical history significant for severe COPD, on home oxygen and on chronic steroids, on BiPAP at bedtime as per the patient, chronic respiratory failure with hypoxemia, history of spontaneous pneumothorax, status post pleurodesis, history of bronchopleural fistula, status post partial right lobectomy, hypertension, history of pulmonary embolism and deep venous thrombosis, status post IVC filter, on Coumadin, sarcoidosis as per records, history of CVA, PVD, history of HCV, status post treatment, IBD as per records, history of essential tremor, on primidone, past tobacco abuse, chronic ulcerative colitis without a complication, malnutrition due to chronic disease, senile osteoporosis, history of CMV. The patient lives at home with her , daughter, and patient was recently in the hospital for pneumonia and COPD exacerbation and melena. At that time, she had small bowel enteroscopy performed on 02/15/2020 and thought to be AVMs and sigmoidoscopy done on 02/16/2020 showing perianal multiple pseudopolyps throughout the examined portion of the colon. No evidence of active bleeding, active IBD, or ischemic colitis. She was discharged home. As per , since discharge home she was somewhat short of breath but for the last few days it got worse and today he got a call from home that the patient is more in respiratory distress. He went home, she was struggling to breathe, and the ambulance was called and brought in here. Initially, she received nebs in the ambulance and her heart rate was in the 140s to 150s. She was afebrile, respiratory rate in 30s initially. She was placed on BiPAP. Received Solu-Medrol and cefepime and breathing treatments. Currently resting comfortably. Heart rates are improved into 110s. Lab shows white count of 20,000. INR greater than 9.7. Received p.o. vitamin K in the ER. Chest x-ray showed progressive worsening air opacities throughout the left lung suspicious for pneumonia. The patient says she is feeling better now. Currently, no tachypnea. Denies any headache, no blurred visions, no earache, no runny nose, no sore throat, no loss of sense of smell or taste. No dysphagia. Initially, she had chest pain when she was breathing hard but ok now.Has cough and having brownish sputum since last 4 days. No nausea, no abdominal pain, no diarrhea. She had an episode of constipation a few days back requiring a stool softener. No blood in the stool or black stool. Normal bladder movements. No swelling in the legs, no rash. Ambulates okay at home. Admission Exam Per Admitting Provider GENERAL: The patient is thin and frail, not in acute distress. VITAL SIGNS: Temperature 36, pulse 114, respiratory rate 20, blood pressure 123/63, oxygen 97% on BiPAP, 35% FiO2. HEENT: No pallor, no icterus. Pupils equal, round, reactive to light. NECK: No neck masses seen, supple. CARDIOVASCULAR: S1, S2 heard. Tachycardia. No murmurs. RESPIRATORY SYSTEM: Normal AP diameter. No accessory muscle use. Bilaterally diminished breath sounds. No wheezing, no crackles heard. ABDOMEN: Soft, bowel sounds present, nontender. No distention, no guarding, no rigidity. CENTRAL NERVOUS SYSTEM: Cranial nerves II-XII grossly intact. Nonfocal. EXTREMITIES: No edema, no erythema. Principal Diagnosis Acute respiratory distress on admission with chronic hypoxic respiratory failure End stage COPD Multifocal pneumonia Supratherapeutic INR Anemia Severe malnutrition with Weight Loss Discharge Exam General- No acute distress Head- atraumatic Eyes- PERRL, EOMI, ENT- oropharynx clear Neck- supple, no JVD Lungs- poor air entry, no wheezing Heart- regular rhythm; no murmur Abdomen- normal bowel sounds, soft, nontender Extremities- no calf tenderness Neuro- alert, oriented x 3; PERRL, EOMI; no facial palsy; no dysarthria Skin- warm & dry Discharge Data Allergies Allergy/AdvReac Type Severity Reaction Status Date / Time phytonadione (vitamin K1) Allergy Intermediate severe Verified 03/01/20 23:03 back pain, red face levofloxacin Allergy Mild rash Verified 03/01/20 23:03 Penicillins Allergy Mild Amoxil - Verified 03/01/20 23:03 rash allantoin Allergy Unknown [facility] [place] Verified 03/01/20 23:03 bacitracin AdvReac Intermediate infection Verified 03/01/20 23:03 neomycin AdvReac Intermediate infection Verified 03/01/20 23:03 polymyxin B AdvReac Intermediate infection Verified 03/01/20 23:03 theophylline AdvReac Mild Headache Verified 03/01/20 23:03 cinnamon AdvReac Verified 03/03/20 07:48 Consultations 03/01/20 21:52 ED Decision to Admit Stat 03/02/20 01:02 Consult Case Management - Discharge Planning Routine 03/02/20 07:37 Consult Pulmonology Routine 03/04/20 15:19 Consult Palliative Care Routine Ordered Studies 03/01/20 23:40 CT chest wo con Routine XR chest 2V PA/lateral HISTORY: follow lung infiltrates COMPARISON: Chest 03/04/2020. FINDINGS: Advanced bullous emphysema is again noted. Suture material within the right lung apex. No pneumothorax. Stable blunting of the right lateral costophrenic sulcus. Suspect trace bilateral pleural effusions. The heart is normal in size. Patchy left upper lobe airspace opacities are not significant changed. There are associated air-fluid levels within the left lung apex. This likely represents fluid within a few bullae rather than a cavitary lesion. And IVC filter is noted. Old mild compression deformities within the thoracic spine. IMPRESSION: No change in the left lung airspace opacities. Small air-fluid levels within a few left apical bullae persist. ACT 112: Negative or not required by law. Electronically signed by: James Lamb M.D. 03/07/2020 9:48 AM Dictated: 03/07/20 0945 Transcribed: 03/07/2045 XR chest 2V PA/lateral CLINICAL HISTORY: follow lung infiltrates COMPARISON STUDY: Chest radiograph March 01, [address] March 02, 2020. FINDINGS: Severe emphysema is noted. There are postoperative findings within the right lung. Multifocal left lung airspace opacities are similar to prior chest CT of March 02, 2020. Increasing fluid within suspected left apical bulla is noted. There is no pneumothorax or pleural effusion. Cardiac size is normal. Mediastinal contours are unremarkable. IMPRESSION: 1. Persistent left lung airspace opacities which favor pneumonia. Increase in small air-fluid levels within several left apical bulla. 2. Severe emphysema. ACT 112: Negative or not required by law. Electronically signed by: Faustino August M.D. 03/04/2020 4:59 PM Dictated: 03/04/201655 Transcribed: 03/04/201655 CT chest wo con CT DOSE: 179.69 mGy.cm HISTORY: Shortness of breath. pneumonia TECHNIQUE: Multiaxial CT images of the chest were performed without contrast. A dose lowering technique was utilized adhering to the principles of ALARA. COMPARISON: Chest 12/06/2019. FINDINGS: There is again noted severe bullous emphysema. No pneumothorax. No pleural effusions. The central airways are patent. Consolidative airspace opacities within the left upper lobe have progressed. This likely represents a pneumonia. Stable linear and irregular scarlike densities within the superior segments of the bilateral lower lobes. There is also postoperative changes within the right lung. Subcentimeter irregular nodular density within the right upper lobe anteriorly best seen image 116 measuring 5 mm. This is indeterminate but may also represent a small focus of infectious change. No suspicious lytic or blastic osseous lesions. Limited views of the upper abdomen demonstrate normal liver and adrenal glands. Focus of calcification within the splenic capsule. Moderate calcified plaque within the normal caliber thoracic aorta. The heart is normal in size. No pericardial effusion. No mediastinal hilar lymphadenopathy. Normal esophagus. IMPRESSION: 1. Patchy areas consolidation within the left upper lobe/lingula likely representing a pneumonia. Recommend follow-up to ensure resolution and to exclude the less likely possibility of underlying malignancy. 2. Severe bullous emphysema. 3. A 5 mm irregular nodular density within the right upper lobe also bears wa tching on future examinations. ACT 112: Negative or not required by law. Electronically signed by: James Lamb M.D. 03/02/2020 7:38 AM Dictated: 03/02/20 0733 Transcribed: 03/02/20 0733 XR chest 1V portable HISTORY: 64 years-old Female SOB acute shortness of breath COMPARISON: Chest radiograph 02/16/2020, CTA chest 12/06/2019 TECHNIQUE: Portable AP view of the chest FINDINGS: Cardiomediastinal and hilar silhouettes are unchanged. Advanced emphysema. Chronic postoperative changes of the right lung. Chronic blunting of the costophrenic angles. 1.5 cm nodular opacity of the right midlung may be secondary to summation density from overlying anterior rib. Multifocal airspace opacities throughout the left lung have progressively worsened from comparison. No pneumothorax or overt pulmonary edema. IVC filter. Degenerative changes of the shoulders and spine. IMPRESSION: 1. Progressively worsened airspace opacities throughout the left lung suspicious for pneumonia. 2. Advanced emphysema with chronic fibrotic changes. 3. Chronic postoperative changes of the right lung. ACT 112: Negative or not required by law. The above report was generated using voice recognition software. It may contain grammatical, syntax or spelling errors. Electronically signed by: Ronn Schneider M.D. 03/01/2020 8:51 PM Dictated: 03/01/202048 Transcribed: 03/01/202048 Hospital Course (1) End stage COPD: Multifocal pneumonia Acute respiratory distress on admission with chronic hypoxic respiratory failure -This is a 64-year-old female who presents with [id number] respiratory failure secondary to chronic obstructive pulmonary disease exacerbation and Multifocal pneumonia pneumonia -initially started on empiric antibiotics of Vancomycin and Cefepime -procalcitonin is negative, since pulmonary consult recommended to continue course of antibiotics, will continue cefepime for now without Vancomycin as MRSA swab negative -solumedrol IV q8 hours on admission switched to prednisone 40 mg daily started on 03/02/2020 as per initial pulmonary recommendations. scheduled nebulizers stopped as patient prefers prn nebulizers, Spiriva added -transition to pednisone 20 mg daily starting on 03/05/2020, continue for now -as per pulmonary 03/03/2020 re-assessment "Patient has severe bullous emphysema and is essentially end-stage COPD. I would recommend palliative care consultation. Additionally, recommend 7 days of antibiotics. Attempt obtaining 3 AFB sputum cultures to evaluate for nontube rculous Mycobacterium. She does not need to be in isolation for this as we do not have any suspicion for tuberculosis infection. Again, as I mentioned previously, she would be a very high risk for bronchoscopy given her severe bullous emphysema and chronic respiratory illness. I do not think that it would alter her prognosis. Follow-up CT chest in 4 to 6 weeks will be obtained. She is at very high risk for complications from bronchoscopy. I am also concerned that she would be intolerant of noninvasive ventilation and would be at risk for pneumothorax given her severe bullous emphysema. Daliresp can be considered by her outpatient business strategy manager. Pulmonary will sign off at this time." -airborne isolation which were initially started on 03/02/2020 orders for isolation be stopped on 03/03/2020 as pulmonary service indicates that airborne precautions are not needed at this time. sputum cultures from 03/03/2020 not showing any acid-fast bacteria to date Follow up Chest X ray on 03/04/2020: with persistent left lung opacities that favors pneumonia, emphysema -continuing cefepime IV q12 hours. 03/05/2020: discussed with patient that her family interested in her to see palliative care to discuss advance directives. Patient was seen by palliative care on 03/05/2020 -03/06/2020: Patient seen and examined in AM. some tachycardia over the night time but it is sinus. patient reported poor sleep and for that reason she said that she did not do well with therapy assessment today. Patient denies any more shortness of breath. she reports of abdomen discomforts over the night but her blood counts have been stable while her coumadin if being titrated. her INR remains as 1.5 while on coumadin 3 mg daily so patient to be given coumadin 4 mg daily starting on 03/06/2020. continue IV antibiotics and current oral prednisone. plans for repeat CXR on 03/07/2020 to follow lung infiltrates. patient agrees to continue PT/OT assessments while in the hospital -03/08/20 CXR showed no change in the left lung airspace opacities compared to the previous CXR. Small air-fluid levels within a few left apical bullae persist. COVID-19 negative Clinically improves Continue prednisone and neb treatment daily Continue Umeclidinium Rincon and oxygen supplement Continue Guaifenesin WBC improved (Elevation was mostly due to prednisone) Pulmonary on board and recommended CT chest follow up in 4 to 6 weeks Daliresp can be adding by pulmonology Completed 7 days course of abx Tachycardia -mild sinus tachycardia likely from underlying COPD -on metoprolol and generally rate controlled in high 90s or low 100s Hypokalemia -serum potassium 3.2 on 03/05/2020 and given oral and IV potassium. serum potassium at goal as of 03/06/2020 labs Monitor BMP (2) Supratherapeutic INR: Chronic anticoagulation with coumadin History of Pulmonary embolism in 2010 Presence of IVC filter (placed in 2010) -INR is supratherapeutic at 9.7 on admission when she was on 5 mg daily coumadin as outpatient and Received vitamin K in the ER. INR downtrended to 3.4 by AM of 03/03/2020 -INR is 2.3 on 03/04/2020. resume coumadin as 3 mg daily for now -INR 1.5 on 03/05/2020, continue coumadin -INR still 1.5 on 03/06/2020, increase coumadin as 4 mg daily -INR 1.6 today, continue Coumadin Follow up with the coumadin clinic Anemia -was evaluated for anemia with small bowel endoscopy and sigmoidoscopy and studies did not show perforation of IVC into the bowels -Hgb 8.9 today -Monitor CBC (3) Severe malnutrition: Weight Loss Abdominal discomfort -oncologist consult -BOOST supplements with meals -given carafate started on 03/05/2020 to ameliorate abdominal discomfort. tabatha nue BID pantoprazole (4) Essential tremor: -on primidone DVT px SCD Continue Coumadin Full Code Total Time Total Time Spent Total Time Spent (In Minutes): 35 minutes Total Time Includes: Examination of the Patient, Discharge Planning, Medication Reconciliation, Communication With Other Providers and Other Discharge Plan Discharge Items Patient Disposition: Home - Home Health Services Reason For Visit: SOB Discharge Diagnosis: Acute respiratory distress on admission with chronic hypoxic respiratory failure End stage COPD Multifocal pneumonia Supratherapeutic INR Anemia Severe malnutrition with Weight Loss Condition on Discharge: Serious Activity: Resume your previous activity Non-emergency contact: Primary Care Provider Call non-emergency contact if: your temperature is above 101 Follow-up/Referrals: James Barahona MD [Primary Care Provider] - 03/14/20 11:00 am ( Date & Time 03/14/2020 11:00 AM Provider James Barahona MD Department [facility] ) Diet: Heart Healthy Addtl Attending Provider Instructions: upcoming appointments 03/14/2020 at 11:00 AM Provider James Barahona MD Department [facility] 04/04/2020 at 12:30 PM Provider BUDDY López Department Pulmonary Medicine, [facility] 06/04/2020 at 1:40 PM Provider Nithin Pantoja MD Department Neurology [facility] Follow up with the coumadin clinic to monitor your PT/INR You will need a repeat CT chest in 4 to 6 weeks (Your lung specialist will order ) Continue oxygen supplement Fall precaution Pending Studies at Discharge: No Stand-Alone Forms: [employer] Smoking Cessation Medications and DC Order Prescriptions: New Incruse Ellipta 62.5 mcg/actuation Blister With Device 1 inh inhalation QAM Qty: 30 RF: 0 guaifenesin 200 mg Tablet 200 mg PO Q8H PRN (Reason: cough) Qty: 30 RF: 0 sucralfate 1 gram tablet 1 g PO Q6H Qty: 30 RF: 0 Continued albuterol sulfate 2.5 mg /3 mL (0.083 %) solution for nebulization 1.25 mg INH QID PRN (Reason: shortness of breath or wheezing) Qty: 360 RF: 0 pantoprazole 40 mg Tablet,Delayed Release (Dr/Ec) 40 mg PO BID 30 Days Qty: 60 RF: 0 metoprolol tartrate 25 mg Tablet 25 mg PO BID 30 Days Qty: 60 RF: 0 primidone 50 mg tablet 50 mg PO BID RF: 0 fluticasone propion-salmeterol [Wixela Inhub] 250-50 mcg/dose blister with device 1 ea INHALATION BID RF: 0 lidocaine 4 % Adhesive Patch,Medicated 1 patch TOPICAL DAILY PRN (Reason: Pain) RF: 0 polyethylene glycol 3350 [Miralax] 17 gram Powder In Packet 17 g PO DAILY PRN (Reason: Constipation) RF: 0 ondansetron HCl [Zofran] 4 mg tablet 4 mg PO Q8 PRN (Reason: Nausea) RF: 0 tramadol 50 mg Tablet 50 mg PO Q8 PRN (Reason: Pain) RF: 0 docusate sodium [Colace] 100 mg capsule 100 mg PO BID RF: 0 mirtazapine [Remeron] 15 mg tablet 15 mg PO HS RF: 0 levalbuterol HCl 1.25 mg/3 mL Solution For Nebulization 1.25 mg INHALATION TID PRN (Reason: Shortness Of Breath Or Wheezing) RF: 0 levalbuterol tartrate 45 mcg/actuation HFA aerosol inhaler 1 puff INHALATION Q4 PRN (Reason: Shortness Of Breath Or Wheezing) RF: 0 cholecalciferol (vitamin D3) [Vitamin D3] 25 mcg (1,000 unit) Tablet 50 mcg PO DAILY RF: 0 warfarin 5 mg tablet 5 mg PO UD RF: 0 prednisone 5 mg tablet 5 mg PO DAILY Qty: 30 RF: 0 Discharge Orders: Discharge Order (Routine); Ordered 03/08/20 Ordered By: Mau Metcalf Admission Data Admit Date/Time: 03/01/20 23:39 Attending Provider: Mau Metcalf Admit Provider: Karlos Cabrera Primary Care Provider: James Barahona Other Providers: Karlos Cabrera ; Dany Wilson ; Giovanna Bowling ; Raciel Marshall
== END 2020-03-08 15:04 | disposition home health service (06) | DRG 193 ==
LOC: ED 19:58 → 2S 23:39 → SUATTDRO 23:39 → 2S 03-02 00:32 → 2E 03-02 20:09